=== PATIENT | male | born 1950 | race Caucasian/White ===

== ENCOUNTER 2019-12-27 13:07 | Emergency (ER) | payer MEDICARE, OTHER, SELFPAY ==
[2019-12-27 13:11] VITALS: BP 132/84; BP 153/80; PULSE 80; PULSE 98; RESP 20; TEMP 36.7; O2SAT 96; O2SAT 98; BMI 27.1
[2019-12-27 13:16] VITALS: O2SAT 98
[2019-12-27] MEDS: Haloperidol Lactate 5 MG/ML VIAL IM (14:33)
[2019-12-27] MEDS: LORazepam 2 MG/ML VIAL IM (14:33)
[2019-12-27 14:38] VITALS: BP 182/95; PULSE 94; RESP 20; O2SAT 98
[2019-12-27 15:09] LABS: MANUAL DIFF FLAG NO
[2019-12-27 15:10] LABS: Basophils Absolute Auto 0.1 X10*3/uL (0.0-0.2); Basophils Percent Auto 0.6 % (0-2); Eosinophils Absolute Auto 0.1 X10*3/uL (0.0-0.4); Eosinophils Percent Auto 0.8 % (0-4); Hematocrit 37.6 % (42-52); Hemoglobin 12.3 g/dl (14.0-18.0); Imm Gran Abs Auto 0.02 X10*3/uL (0.00-0.03); Imm Gran Pct Auto 0.3 % (0.0-0.4); Lymphocytes Absolute Auto 1.8 X10*3/uL (1.2-4.9); Lymphocytes Percent Auto 23.4 % (20-40); Mean Corpuscular HGB Conc 32.7 g/dl (31.0-36.0); Mean Corpuscular Volume 91.7 fL (80-98); Mean Platelet Volume 10.8 fL (9.4-12.4); Monocytes Absolute Auto 0.6 X10*3/uL (0.1-1.2); Monocytes Percent Auto 8.1 % (2-11); Neutrophils Absolute Auto 5.2 X10*3/uL (2.0-8.3); Neutrophils Percent Auto 66.8 % (45-73); Platelet Count 190 X10*3/uL (160-400); Red Cell Distribution Width 14.1 % (11.0-16.0); White Blood Count 7.8 X10*3/uL (4.8-10.8)
[2019-12-27 15:18] LABS: Prothrombin Time 11.3 SEC (10.8-13.0)
[2019-12-27 15:21] LABS: Partial Thromboplastin Time 33.4 SEC (24.1-38.0)
--- NOTE | 2019-12-27 15:37 | PC.NURSE ---
PT SLEEPING SINCE MEDICATED.
[2019-12-27 15:41] LABS: Alanine Aminotransferase 7 U/L (0-40); Albumin Level 3.5 g/dL (3.5-5.0); Alkaline Phosphatase 122 U/L (39-117); Anion Gap 13 (12-20); Aspartate Amino Transferase 17 U/L (5-37); Bilirubin Direct 0.2 mg/dL (0.0-0.5); Bilirubin Total 0.4 mg/dL (0.0-1.0); Blood Urea Nitrogen 47 mg/dL (9-16); Calcium 8.6 mg/dL (8.4-10.2); Carbon Dioxide 23 mmol/L (22-29); Chloride 106 mmol/L (96-108); Creatinine Clr Calc Pharmacy 27.9; Estimated Glomerular Filt Rate 24; Glucose Random 232 mg/dL (60-115); Lipase 69 U/L (8-78); Potassium 4.6 mmol/l (3.3-5.1); Sodium 137 mmol/L (135-145); Total Protein 6.3 g/dL (6.5-8.0)
[2019-12-27 15:46] LABS: Glucose Urine UA >=1000 MG/DL (NEG); Leukocyte Esterase Urine NEG (NEG); Nitrite Urine NEG (NEG); Urine Blood NEG (NEG); Urine Ketones NEG (NEG); Urine Protein 1+ MG/DL (NEG-TRACE)
[2019-12-27 15:49] LABS: Appearance Urine CLEAR; Color Urine YELLOW
[2019-12-27 16:01] LABS: RBC Urine 0-2 /HPF (0); WBC Urine 0 /HPF (0-4)
--- NOTE | 2019-12-27 16:41 | ED.NAVMDI ---
HPI - Nausea/Vomiting/Diarrhea General Chief complaint: Nausea/Vomiting/Diarrhea Stated complaint: nausea/vomiting Time Seen by Provider: 12/27/19 14:24 History of Present Illness HPI Narrative: patient presents to ED for abdominal pain, nausea, vomiting, diarrhea. Patient has had this problem for years. Patient is known to the ED with this complaint. Patient states no fever, chills, dysuria, or hematuria. Patient states slight diarrhea that resolved. . MD elicited complaint: nausea, vomiting, diarrhea ( Gone) and abdominal pain ( chronic) Related Data Allergies Allergy/AdvReac Type Severity Reaction Status Date / Time morphine Allergy Intermediate RASH Unverified 12/03/19 15:53 Review of Systems Review of Systems: Yes all other systems are reviewed and are negative Eyes: Eyes: Reports as per HPI Cardiovascular: Cardiovascular: Reports as per HPI and Reports no additional cardiovascular complaints Respiratory: Respiratory: Reports as per HPI and Reports no additional respiratory complaints Gastrointestinal: Gastrointestinal: Reports abdominal pain, Denies belching, Denies melena, Denies bloating, Denies change in bowel habits, Denies tenesmus, Denies change in stool character, Denies coffee ground emesis, Denies constipation, Denies excessive flatus and Denies early satiety Musculoskeletal: Musculoskeletal: Reports no additional musculoskeletal complaints Neurologic: Reports system reviewed and no additional complaints, except as documented Psychiatric: Psychiatric: Reports no additional psychiatric complaints [facility] Past Medical History Medical History (Updated 12/27/19 @ 17:24 by UGO Petit) Diabetes HTN (hypertension) Kidney failure Social History Social History Smoked in Last 30 Days: No Use of substances other than those prescribed or required for medical reasons: No Advance Directives: No Advance Directives Information Provided: Yes Physical Exam Vital Signs: Vital Signs: Vital Signs Temp Pulse Resp BP Pulse Ox 12/27/19 14:38 94 20 182/95 H 98 12/27/19 13:16 98 12/27/19 13:11 98.0 F 80 20 153/80 H 98 Body Mass Index 27.1 Const: General: cooperative, healthy appearing, comfortable and no acute distress Orientation/consciousness: patient oriented x3 Eyes: General: appearance normal, both eyes and all related structures Neck: Neck: Yes normal visual inspection and Yes full ROM Chest: Chest palpation & inspection: normal inspection of the chest and normal palpation of entire chest wall Resp: Effort & Inspection: normal respiratory effort, able to speak in complete sentences, normal respiratory pattern, no audible wheezes, no cough, no nasal flaring, no paradoxical thoraco-abdom movements, no pursed lip breathing and no respiratory distress Auscultation: clear to auscultation bilaterally Cardio: Jugular venous distension: no JVD Rhythm: regular rhythm Heart sounds: S1 normal heart sound present and S2 normal heart sound present GI: Palpation (GI): Tenderness to palpation present (GI) ( mild tenderness) not in the epigastrum, not at McBurney's point, not periumbilically, not suprapubicly, Kim's sign negative, obturator sign negative, psoas sign negative, with no rebound tenderness and Rovsing's sign negative : General: No CVA tenderness and Yes no CVA tenderness Back/Spine/Pelvis: Back: no CVA tenderness, No CVA tenderness, No back tenderness and No Marquis-Rangel sign present Neuro: General: patient oriented x3 Extrem: General: Yes normal to inspection Psych: Appearance: grossly normal and well kempt Course Course Course Narrative: will do basic labs. Patient once again presents to the ED to many times with similiar symptoms. Patient requested Ativan and Haldol to be given to him. Patient states these are only 2 meds that help with abdominal pain. Patient multiple prior visit showed that he received abdomen van and now dull during ED visits. Reevaluation(s) Reevaluation #1: patient sleeping comfortably. Labs are at baseline. Patient is safe for discharge. Would not discharged with any narcotics. UA does not show UTI. patient's repeat blood pressure before discharge was 171/92 Time: 17:20 MDM - Nausea/Vomiting/Diarrhea MDM Narrative Medical decision making narrative: chronic abdominal pain with chronic nausea vomiting. Lab Data Result diagrams: 12/27/19 15:04 12/27/19 15:04 Labs: Lab Results 12/27/19 12/27/19 12/27/19 Range/Units 15:04 15:04 15:04 WBC 7.8 (4.8-10.8) X10*3/uL RBC 4.10 L (4.60-5.80) X10*6/uL Hgb 12.3 L (14.0-18.0) g/dl Hct 37.6 L (42-52) % MCV 91.7 (80-98) fL MCH 30.0 (27.0-33.0) pg MCHC 32.7 (31.0-36.0) g/dl RDW 14.1 (11.0-16.0) % Plt Count 190 (160-400) X10*3/uL MPV 10.8 (9.4-12.4) fL Immature Gran % (Auto) 0.3 (0.0-0.4) % Neut % (Auto) 66.8 (45-73) % Lymph % (Auto) 23.4 (20-40) % [place] % (Auto) 8.1 (2-11) % Eos % (Auto) 0.8 (0-4) % Baso % (Auto) 0.6 (0-2) % Lymph # (Auto) 1.8 (1.2-4.9) X10*3/uL [place] # (Auto) 0.6 (0.1-1.2) X10*3/uL Eos # (Auto) 0.1 (0.0-0.4) X10*3/uL Baso # (Auto) 0.1 (0.0-0.2) X10*3/uL Abs Immat Gran (auto) 0.02 (0.00-0.03) X10*3/uL Absolute Neuts (auto) 5.2 (2.0-8.3) X10*3/uL Absolute Nucleated RBC 0.000 (0.0-0.012) X10*3/uL Nucleated RBC % (auto) 0.0 (0.0-0.2) /100WBC PT 11.3 (10.8-13.0) SEC INR 1.0 (0.9-1.1) APTT 33.4 (24.1-38.0) SEC Sodium 137 (135-145) mmol/L Potassium 4.6 (3.3-5.1) mmol/l Chloride 106 (96-108) mmol/L Carbon Dioxide 23 (22-29) mmol/L Anion Gap 13 (12-20) BUN 47 H (9-16) mg/dL Creatinine 2.62 H (0.5-1.4) mg/dL Estim Creat Clear Calc 27.9 Estimated GFR 24 Random Glucose 232 H (60-115) mg/dL Calcium 8.6 (8.4-10.2) mg/dL Total Bilirubin 0.4 (0.0-1.0) mg/dL Direct Bilirubin 0.2 (0.0-0.5) mg/dL AST 17 (5-37) U/L ALT 7 (0-40) U/L Alkaline Phosphatase 122 H (39-117) U/L Total Protein 6.3 L (6.5-8.0) g/dL Albumin 3.5 (3.5-5.0) g/dL Lipase 69 (8-78) U/L Urine Color Urine Appearance Urine pH (5.0-8.0) Ur Specific [place] (1.005-1.025) Urine Protein (NEG-TRACE) MG/DL Urine Glucose (UA) (NEG) MG/DL Urine Ketones (NEG) MG/DL Urine Blood (NEG) Urine Nitrite (NEG) Ur Leukocyte Esterase (NEG) Urine RBC (0) /HPF Urine WBC (0-4) /HPF Ur Squamous Epith Cells /LPF Urine Bacteria /LPF 12/27/19 Range/Units 15:38 WBC (4.8-10.8) X10*3/uL RBC (4.60-5.80) X10*6/uL Hgb (14.0-18.0) g/dl Hct (42-52) % MCV (80-98) fL MCH (27.0-33.0) pg MCHC (31.0-36.0) g/dl RDW (11.0-16.0) % Plt Count (160-400) X10*3/uL MPV (9.4-12.4) fL Immature Gran % (Auto) (0.0-0.4) % Neut % (Auto) (45-73) % Lymph % (Auto) (20-40) % [place] % (Auto) (2-11) % Eos % (Auto) (0-4) % Baso % (Auto) (0-2) % Lymph # (Auto) (1.2-4.9) X10*3/uL [place] # (Auto) (0.1-1.2) X10*3/uL Eos # (Auto) (0.0-0.4) X10*3/uL Baso # (Auto) (0.0-0.2) X10*3/uL Abs Immat Gran (auto) (0.00-0.03) X10*3/uL Absolute Neuts (auto) (2.0-8.3) X10*3/uL Absolute Nucleated RBC (0.0-0.012) X10*3/uL Nucleated RBC % (auto) (0.0-0.2) /100WBC PT (10.8-13.0) SEC INR (0.9-1.1) APTT (24.1-38.0) SEC Sodium (135-145) mmol/L Potassium (3.3-5.1) mmol/l Chloride (96-108) mmol/L Carbon Dioxide (22-29) mmol/L Anion Gap (12-20) BUN (9-16) mg/dL Creatinine (0.5-1.4) mg/dL Estim Creat Clear Calc Estimated GFR Random Glucose (60-115) mg/dL Calcium (8.4-10.2) mg/dL Total Bilirubin (0.0-1.0) mg/dL Direct Bilirubin (0.0-0.5) mg/dL AST (5-37) U/L ALT (0-40) U/L Alkaline Phosphatase (39-117) U/L Total Protein (6.5-8.0) g/dL Albumin (3.5-5.0) g/dL Lipase (8-78) U/L Urine Color YELLOW Urine Appearance CLEAR Urine pH 7.0 (5.0-8.0) Ur Specific [place] 1.010 (1.005-1.025) Urine Protein 1+ H (NEG-TRACE) MG/DL Urine Glucose (UA) >=1000 H (NEG) MG/DL Urine Ketones NEG (NEG) MG/DL Urine Blood NEG (NEG) Urine Nitrite NEG (NEG) Ur Leukocyte Esterase NEG (NEG) Urine RBC 0-2 (0) /HPF Urine WBC 0 (0-4) /HPF Ur Squamous Epith Cells NONE /LPF Urine Bacteria NONE /LPF Discharge Plan Discharge Clinical Impression: Abdominal pain, chronic, generalized Patient Disposition: Home, Self-Care Instructions: Chronic Abdominal Pain (ED) Additional Instructions: return to ED for worsening abdominal pain, nausea, vomiting, dizziness, dysuria, hematuria, flank pain, fever, or chills. Please follow-up with your PCP. Please call him tomorrow Interventions: ED Discharge Assessment Last Done: 12/27/19 17:49 Discharge Date/Time: 12/27/19 17:49 Print Language: Kinyarwanda
--- NOTE | 2019-12-27 16:46 | PC.NURSE ---
pt sleeping after medicated. no longer making noises, no vomiting.
== END 2019-12-27 17:49 | disposition home or self-care (01) ==
PROVIDERS: Physician Assistant; Emergency Provider Emergency Medicine
DX: R10.84 Generalized abdominal pain (principal); G89.29 Other chronic pain; E11.9 Type 2 diabetes mellitus without complications; I10 Essential (primary) hypertension; Z79.899 Other long term (current) drug therapy
CPT/HCPCS: 36415; 80053; 80076; 81001; 83690; 85025; 85610; 85730; 96372; 99284; J2060

== ENCOUNTER 2019-12-29 00:57 | Emergency (ER) | payer MEDICARE, OTHER, SELFPAY ==
[2019-12-29 01:20] VITALS: BP 130/88; PULSE 89; RESP 18; TEMP 37.4; O2SAT 99; BMI 27.1
[2019-12-29 01:31] VITALS: BP 130/88; PULSE 89; RESP 18; TEMP 37.4; O2SAT 99
[2019-12-29 02:21] VITALS: BP 138/87; PULSE 99; RESP 18; O2SAT 99
[2019-12-29] MEDS: Haloperidol Lactate 5 MG/ML VIAL IM (02:25)
[2019-12-29] MEDS: diphenhydrAMINE HCL 50 MG/ML VIAL 25 MG IM (02:25)
--- NOTE | 2019-12-29 03:33 | ED.ABDPAIN ---
HPI - Abdominal Pain General Chief Complaint: Abdominal Pain Stated Complaint: abd pain Time Seen by Provider: 12/29/19 02:00 Source: patient Mode of arrival: EMS Limitations: no limitations History of Present Illness HPI narrative: patient comes to emergency room complaining of diffuse abdominal pain and vomiting secondary to diabetic gastroparesis. Patient is well-known to the emergency room service, patient was seen here 2 days ago for the same reason, patient had labs done which were at baseline. MD elicited complaint: abdominal pain Onset (ago): hour(s) Pain Consistency: constant Location: diffuse Severity: moderate Radiation: none Migration to: no migration Exacerbating factors: nothing Relieving factors: nothing Related Data Home Medications Medication Instructions Recorded Confirmed lorazepam 1 mg PO Q6H PRN 12/29/19 12/29/19 promethazine 25 mg PO Q6H PRN 12/29/19 12/29/19 Previous Rx's Medication Instructions Recorded metoclopramide HCl 10 mg PO Q6H PRN #10 tab 12/29/19 Allergies Allergy/AdvReac Type Severity Reaction Status Date / Time morphine Allergy Intermediate RASH Verified 12/29/19 01:41 Review of Systems Review of Systems Constitutional: No Weight loss, No Fever, No Chills, No Night Sweats, No Fatigue, No Malaise ENT/Mouth: No Hearing loss, No Ear Pain, No Nasal Congestion, No Sinus Pain, No Hoarseness, No sore throat, No Rhinorrhea, No Swallowing Difficulty Eyes: No Eye Pain, No Swelling, No Redness, No Foreign Body, No Discharge, No Vision Changes Cardiovascular: No Chest Pain, No SOB, No Dyspnea on Exertion, No Orthopnea, No Edema, No Palpitations Respiratory: No Cough, No Sputum, No Wheezing, No Smoke Exposure, No Dyspnea Gastrointestinal: complaining of nausea and vomiting, No Diarrhea, No Constipation, has diffuse abdominal pain Pain, No Hematochezia, No Melena Genitourinary: no irregular bleeding, No Dysuria, No Urinary Frequency, No Hematuria, No Urinary Incontinence, No Urgency, No Flank Pain, No Urinary Flow Changes, No Hesitancy Musculoskeletal: No joint pain, No Myalgias, No Joint Swelling Skin: No Skin Lesions, No rash Neuro: No Weakness, No Numbness, No Paresthesias, No Loss of Consciousness, No Dizziness, No Headache Psych: No Anxiety/Panic, No Depression, No SI/HI/AH/VH, No Social Issues, Heme/Lymph: No Bruising, No Bleeding,No Lymphadenopathy Endocrine: No Polyuria, No Polydipsia, No Temperature Intolerance Physical Exam Vital Signs: Vital Signs: Vital Signs Temp Pulse Resp BP Pulse Ox 12/29/19 02:21 99 18 138/87 99 12/29/19 01:31 99.3 F 89 18 130/88 99 12/29/19 01:20 99.3 F 89 18 130/88 99 Body Mass Index 27.1 Appearance: Alert. Oriented X3. No acute distress. Eyes: Pupils equal, round and reactive to light. ENT: Pharynx normal. Neck: Normal inspection. Neck supple. No lymph nodes noted. No crepitus CVS: Normal heart rate and rhythm. Pulses normal. Normal S1 and S2 Respiratory: No respiratory distress. Breath sounds normal. No Wheezing. No rales Abdomen: Soft and mild tenderness in all quadrants. No rigidity. No distention. good BS x4 Skin: Skin warm and dry. Normal skin color. Normal skin turgor. Extremities: No lower extremity edema. No lower extremity edema. No Lacerations. No Rash Neuro: Oriented X 3. No motor deficit. No sensory deficit. Moving all extermities. No slurred speech. Course Reevaluation(s) Reevaluation #1: patient states that he feels much better now MDM - Abdominal Pain MDM Narrative Medical decision making narrative: patient was given IM Haldol, Benadryl and p.o. Zofran, patient states that he feels much better now. Patient ready for discharge. Discharge Plan Discharge Clinical Impression: Gastroparesis Abdominal pain Qualifiers: Abdominal location: generalized Qualified Code(s): R10.84 - Generalized abdominal pain Vomiting Qualifiers: Vomiting type: unspecified Vomiting Intractability: unspecified Nausea presence: with nausea Qualified Code(s): R11.2 - Nausea with vomiting, unspecified Patient Disposition: Home, Self-Care Instructions: Diabetic Gastroparesis (DC), Acute Nausea and Vomiting (ED) Additional Instructions: If you have any worsening symptoms, any new symptoms, please return to the emergency room or call 911 Prescriptions: New metoclopramide HCl 10 mg tablet 10 mg PO Q6H PRN (Reason: nausea and vomiting) Qty: 10 RF: 0 No Action promethazine 25 mg tablet 25 mg PO Q6H PRN (Reason: nausea/vomiting) RF: 0 lorazepam 1 mg tablet 1 mg PO Q6H PRN (Reason: anxiety) RF: 0 PMFSH Past Medical History Medical History (Updated 12/29/19 @ 03:38 by Jesika Kerr MD) Diabetes Gastroparesis HTN (hypertension) Kidney failure Social History Social History Alcohol intake: never Smoking Status: Unknown if ever smoked Use of substances other than those prescribed or required for medical reasons: No Advance Directives: No
== END 2019-12-29 03:52 | disposition home or self-care (01) ==
PROVIDERS: Emergency Provider Emergency Medicine
DX: E11.43 Type 2 diabetes mellitus with diabetic autonomic (poly)neuropathy (principal); K31.84 Gastroparesis; I10 Essential (primary) hypertension; Z79.899 Other long term (current) drug therapy
CPT/HCPCS: 96372; 99284; J1200

== ENCOUNTER 2020-01-08 17:53 | Emergency (ER) | payer MEDICARE, OTHER, SELFPAY ==
--- NOTE | 2020-01-08 17:56 | ED.NAVMDI ---
HPI - Nausea/Vomiting/Diarrhea General Chief complaint: Abdominal Pain Stated complaint: VOMITING Time Seen by Provider: 01/08/20 17:56 Source: patient, EMS and old records reviewed Mode of arrival: EMS Limitations: no limitations History of Present Illness MD elicited complaint: nausea and abdominal pain Pertinent past history: other (gastroparesis) Onset (ago): day(s) (all day today) Associated nausea: Yes Associated abdominal pain: Yes Location of pain: epigastric Pain consistency: constant Severity: similar to previous episodes (it's one of my attacks) Quality: stabbing Exacerbating factors: none Relieving factors: none Associated symptoms: nausea/vomiting Related Data Home Medications Medication Instructions Recorded Confirmed lorazepam 1 mg PO Q6H PRN 12/29/19 12/29/19 promethazine 25 mg PO Q6H PRN 12/29/19 12/29/19 Previous Rx's Medication Instructions Recorded metoclopramide HCl 10 mg PO Q6H PRN #10 tab 12/29/19 Allergies Allergy/AdvReac Type Severity Reaction Status Date / Time morphine Allergy Intermediate RASH Verified 12/29/19 01:41 Review of Systems Review of Systems: Constitutional : No Weight loss, No Fever, No Chills ENT/Mouth : No sore throat, No Rhinorrhea Eyes: No Swelling, No Redness Cardiovascular : No Chest Pain, No SOB, NoEdema Respiratory : No Cough, No Sputum, No Wheezing Gastrointestinal : Positive Nausea, no Vomiting, no Diarrhea, positive abdominal Pain, No Hematochezia, No Melena Genitourinary : No Dysuria, No Urinary Frequency, No Hematuria, No Urgency Musculoskeletal : No joint pain, No Myalgias, No Joint Swelling Skin : No Skin Lesions, No rash Neuro : No Weakness, No Numbness, No Dizziness, No Headache Psych : No Anxiety/Panic, No Depression Heme/Lymph: No Bruising, No Lymphadenopathy Endocrine : No Polyuria, No Polydipsia All other systems reviewed and are negative. Gastrointestinal: Gastrointestinal: Reports nausea PMFSH Past Medical History Medical History Diabetes Gastroparesis HTN (hypertension) Kidney failure Social History Social History Alcohol intake: never Smoking Status: Unknown if ever smoked Smoked in Last 30 Days: No Use of substances other than those prescribed or required for medical reasons: No Advance Directives: No Advance Directives Information Provided: No Physical Exam Vital Signs: Vital Signs: Vital Signs Temp Pulse Resp BP Pulse Ox 01/08/20 18:01 98.6 F 82 18 174/77 H 98 Body Mass Index 27.6 Appearance: Alert. Oriented X3. No acute distress. wowowow Eyes: Pupils equal, round and reactive to light. ENT: Pharynx normal. Neck: Normal inspection. Neck supple. CVS: Normal heart rate and rhythm. Pulses normal. Respiratory: No respiratory distress. Breath sounds normal. Abdomen: Soft and ttp moderate no rebound or guarding in epigastric area Skin: Skin warm and dry. Normal skin color. Normal skin turgor. Extremities: No lower extremity edema. No calf ttp Neuro: Oriented X 3. No motor deficit. No sensory deficit. Course Course Course Narrative: no issues resting comfortably labs at baseline, stable for DC MDM - Nausea/Vomiting/Diarrhea MDM Narrative Medical decision making narrative: 69 yo male well known to ED with gastroparesis who comes in with attack of his gastroparesis, overall he is not toxic, he hasn't vomited just c/o pain and nausea, at this time will obtain basic labs and IM medications Lab Data Result diagrams: 01/08/20 19:20 01/08/20 19:20 Labs: Lab Results 01/08/20 01/08/20 01/08/20 Range/Units 19:20 19:20 19:20 WBC 6.3 (4.8-10.8) X10*3/uL RBC 4.21 L (4.60-5.80) X10*6/uL Hgb 12.5 L (14.0-18.0) g/dl Hct 38.0 L (42-52) % MCV 90.3 (80-98) fL MCH 29.7 (27.0-33.0) pg MCHC 32.9 (31.0-36.0) g/dl RDW 14.1 (11.0-16.0) % Plt Count 157 L (160-400) X10*3/uL MPV 10.4 (9.4-12.4) fL Immature Gran % (Auto) 0.2 (0.0-0.4) % Neut % (Auto) 51.6 (45-73) % Lymph % (Auto) 35.0 (20-40) % [place] % (Auto) 9.6 (2-11) % Eos % (Auto) 2.6 (0-4) % Baso % (Auto) 1.0 (0-2) % Lymph # (Auto) 2.2 (1.2-4.9) X10*3/uL [place] # (Auto) 0.6 (0.1-1.2) X10*3/uL Eos # (Auto) 0.2 (0.0-0.4) X10*3/uL Baso # (Auto) 0.1 (0.0-0.2) X10*3/uL Abs Immat Gran (auto) 0.01 (0.00-0.03) X10*3/uL Absolute Neuts (auto) 3.2 (2.0-8.3) X10*3/uL Absolute Nucleated RBC 0.000 (0.0-0.012) X10*3/uL Nucleated RBC % (auto) 0.0 (0.0-0.2) /100WBC Hold Blue Top SEE NOTE Sodium 137 (135-145) mmol/L Potassium 4.8 (3.3-5.1) mmol/l Chloride 108 (96-108) mmol/L Carbon Dioxide 19 L (22-29) mmol/L Anion Gap 15 (12-20) BUN 58 H (9-16) mg/dL Creatinine 2.72 H (0.5-1.4) mg/dL Estim Creat Clear Calc 26.9 Estimated GFR 23 Random Glucose 174 H (60-115) mg/dL Calcium 8.2 L (8.4-10.2) mg/dL Total Bilirubin (0.0-1.0) mg/dL Direct Bilirubin (0.0-0.5) mg/dL AST (5-37) U/L ALT (0-40) U/L Alkaline Phosphatase (39-117) U/L Total Protein (6.5-8.0) g/dL Albumin (3.5-5.0) g/dL Lipase (8-78) U/L 10/23/20 Range/Units 19:20 WBC (4.8-10.8) X10*3/uL RBC (4.60-5.80) X10*6/uL Hgb (14.0-18.0) g/dl Hct (42-52) % MCV (80-98) fL MCH (27.0-33.0) pg MCHC (31.0-36.0) g/dl RDW (11.0-16.0) % Plt Count (160-400) X10*3/uL MPV (9.4-12.4) fL Immature Gran % (Auto) (0.0-0.4) % Neut % (Auto) (45-73) % Lymph % (Auto) (20-40) % [place] % (Auto) (2-11) % Eos % (Auto) (0-4) % Baso % (Auto) (0-2) % Lymph # (Auto) (1.2-4.9) X10*3/uL [place] # (Auto) (0.1-1.2) X10*3/uL Eos # (Auto) (0.0-0.4) X10*3/uL Baso # (Auto) (0.0-0.2) X10*3/uL Abs Immat Gran (auto) (0.00-0.03) X10*3/uL Absolute Neuts (auto) (2.0-8.3) X10*3/uL Absolute Nucleated RBC (0.0-0.012) X10*3/uL Nucleated RBC % (auto) (0.0-0.2) /100WBC Hold Blue Top Sodium (135-145) mmol/L Potassium (3.3-5.1) mmol/l Chloride (96-108) mmol/L Carbon Dioxide (22-29) mmol/L Anion Gap (12-20) BUN (9-16) mg/dL Creatinine (0.5-1.4) mg/dL Estim Creat Clear Calc Estimated GFR Random Glucose (60-115) mg/dL Calcium (8.4-10.2) mg/dL Total Bilirubin 0.4 (0.0-1.0) mg/dL Direct Bilirubin 0.2 (0.0-0.5) mg/dL AST 16 (5-37) U/L ALT 6 (0-40) U/L Alkaline Phosphatase 151 H D (39-117) U/L Total Protein 6.5 (6.5-8.0) g/dL Albumin 3.7 (3.5-5.0) g/dL Lipase 57 (8-78) U/L Discharge Plan Discharge Clinical Impression: Gastroparesis Patient Disposition: Home, Self-Care Instructions: Diabetic Gastroparesis (DC), Gastroparesis (ED) Additional Instructions: follow up with your doctor if not better Prescriptions: No Action promethazine 25 mg tablet 25 mg PO Q6H PRN (Reason: nausea/vomiting) RF: 0 lorazepam 1 mg tablet 1 mg PO Q6H PRN (Reason: anxiety) RF: 0 metoclopramide HCl 10 mg tablet 10 mg PO Q6H PRN (Reason: nausea and vomiting) Qty: 10 RF: 0
[2020-01-08 18:01] VITALS: BP 174/77; PULSE 82; RESP 18; TEMP 37; O2SAT 98; BMI 27.6
[2020-01-08] MEDS: HYDROmorphone HCl 2 MG/ML VIAL IM (18:30)
--- NOTE | 2020-01-08 18:50 | PC.NURSE ---
pt given im medication prior to this rn arriving. pt sleeping quietly on stretcher. nad noted.
--- NOTE | 2020-01-08 19:26 | PC.NURSE ---
labs drawn at this time. pt in nad. pending labs before d.c
[2020-01-08 19:28] LABS: MANUAL DIFF FLAG NO
[2020-01-08 19:33] LABS: Basophils Absolute Auto 0.1 X10*3/uL (0.0-0.2); Eosinophils Absolute Auto 0.2 X10*3/uL (0.0-0.4); Eosinophils Percent Auto 2.6 % (0-4); Hemoglobin 12.5 g/dl (14.0-18.0); Imm Gran Abs Auto 0.01 X10*3/uL (0.00-0.03); Imm Gran Pct Auto 0.2 % (0.0-0.4); Lymphocytes Absolute Auto 2.2 X10*3/uL (1.2-4.9); Mean Corpuscular HGB Conc 32.9 g/dl (31.0-36.0); Mean Corpuscular Hemoglobin 29.7 pg (27.0-33.0); Mean Corpuscular Volume 90.3 fL (80-98); Mean Platelet Volume 10.4 fL (9.4-12.4); Monocytes Absolute Auto 0.6 X10*3/uL (0.1-1.2); Monocytes Percent Auto 9.6 % (2-11); Neutrophils Absolute Auto 3.2 X10*3/uL (2.0-8.3); Neutrophils Percent Auto 51.6 % (45-73); Platelet Count 157 X10*3/uL (160-400); Red Blood Count 4.21 X10*6/uL (4.60-5.80); Red Cell Distribution Width 14.1 % (11.0-16.0); White Blood Count 6.3 X10*3/uL (4.8-10.8)
[2020-01-08 20:07] LABS: Anion Gap 15 (12-20); Blood Urea Nitrogen 58 mg/dL (9-16); Calcium 8.2 mg/dL (8.4-10.2); Carbon Dioxide 19 mmol/L (22-29); Chloride 108 mmol/L (96-108); Creatinine Clr Calc Pharmacy 26.9; Estimated Glomerular Filt Rate 23; Glucose Random 174 mg/dL (60-115); Potassium 4.8 mmol/l (3.3-5.1); Sodium 137 mmol/L (135-145)
[2020-01-08 20:09] LABS: Alanine Aminotransferase 6 U/L (0-40); Albumin Level 3.7 g/dL (3.5-5.0); Alkaline Phosphatase 151 U/L (39-117); Aspartate Amino Transferase 16 U/L (5-37); Bilirubin Direct 0.2 mg/dL (0.0-0.5); Bilirubin Total 0.4 mg/dL (0.0-1.0); Lipase 57 U/L (8-78); Total Protein 6.5 g/dL (6.5-8.0)
--- NOTE | 2020-01-08 20:16 | PC.NURSE ---
attempted to call for cloth picker, no answer. voicemail left
--- NOTE | 2020-01-08 20:53 | PC.NURSE ---
ATTEMPTED TO CALL PTS AGAIN REFUSING TO ANSWER. [facility] WILL NOT TAKE PATIENT HOME
--- NOTE | 2020-01-08 21:14 | PC.NURSE ---
plan to attempt to get ambulance for patient. [facility] has refused patient in past.
[2020-01-08 22:07] VITALS: BP 166/76; PULSE 89; RESP 18; TEMP 36.8; O2SAT 99
== END 2020-01-08 22:15 | disposition home or self-care (01) ==
LOC: HO.ED 18:27
PROVIDERS: Emergency Provider Emergency Medicine
DX: E11.43 Type 2 diabetes mellitus with diabetic autonomic (poly)neuropathy (principal); I12.9 Hypertensive chronic kidney disease with stage 1 through stage 4 chronic kidney disease, or unspecified chronic kidney disease; N18.9 Chronic kidney disease, unspecified; Z79.899 Other long term (current) drug therapy
CPT/HCPCS: 36415; 80048; 80076; 83690; 85025; 96372; 99284; J1170

== ENCOUNTER 2020-01-17 15:06 | Emergency (ER) | payer MEDICARE, OTHER, SELFPAY ==
[2020-01-17 15:11] VITALS: BP 149/71; BP 149/94; PULSE 87; PULSE 89; RESP 20; TEMP 36.7; O2SAT 97; BMI 27.1
[2020-01-17 15:20] LABS: Glucose, Whole Blood 185 mg/dL (60-115)
[2020-01-17] MEDS: ondansetron HCL 4 MG/2 ML VIAL IVPUSH (15:53)
[2020-01-17] MEDS: 0.9 % Sodium Chloride 1,000 ML 999 ML IVCONT (15:53)
[2020-01-17] MEDS: LORazepam 2 MG/ML VIAL 1 MG IVPUSH ×2 (15:54→18:00)
--- NOTE | 2020-01-17 16:34 | ED.NAVMDI ---
HPI - Nausea/Vomiting/Diarrhea General Chief complaint: Nausea/Vomiting/Diarrhea Stated complaint: N/V Time Seen by Provider: 01/17/20 15:43 Source: patient and EMS Mode of arrival: EMS Limitations: no limitations History of Present Illness HPI Narrative: 69yoM c PMHx of diabetic gastroparesis, gastritis, GERD, CAD, AK, HTN, HLD, DM, AK, stage IV kidney disease and anemia who is well known to this department presenting to the ED c c/o N/V and diffuse abd pain that started today. Patient reports this abdominal pain is his chronic abdominal pain is not worse. Denies recent travel or sick contacts. Denies any other symptoms complaints or concerns at this time. Related Data Home Medications Medication Instructions Recorded Confirmed lorazepam 1 mg PO Q6H PRN 12/29/19 12/29/19 promethazine 25 mg PO Q6H PRN 12/29/19 12/29/19 Previous Rx's Medication Instructions Recorded metoclopramide HCl 10 mg PO Q6H PRN #10 tab 12/29/19 lorazepam [Ativan] 1 mg PO BID PRN #7 tab 01/17/20 ondansetron HCl [Zofran] 4 mg PO Q8H PRN #10 tab 01/17/20 Allergies Allergy/AdvReac Type Severity Reaction Status Date / Time morphine Allergy Intermediate RASH Verified 12/29/19 01:41 Review of Systems Review of Systems: Constitutional : No Weight loss, No Fever, No Chills, No Fatigue, No Malaise ENT/Mouth: No ear pain, No sore throat Cardiovascular : No Chest Pain, No SOB Respiratory : No Cough, No Sputum Gastrointestinal : + Nausea, + Vomiting, + abdominal Pain, No Diarrhea Genitourinary : No Dysuria, No Urinary Frequency, No Hematuria, Musculoskeletal : No joint pain, No Myalgias, No Joint Swelling Skin : No Skin Lesions, No rash Neuro : No Weakness, No Numbness, No Paresthesias, No Loss of Consciousness, No Dizziness, No Headache Psych : No Social Issues, Heme/Lymph: No Lymphadenopathy Yes all other systems are reviewed and are negative [facility] Past Medical History Attestation statement: The following information was validated with the patient. Medical History Diabetes Gastroparesis HTN (hypertension) Kidney failure Social History Social History Alcohol intake: never Smoking Status: Unknown if ever smoked Smoked in Last 30 Days: No Use of substances other than those prescribed or required for medical reasons: No Advance Directives: No Advance Directives Information Provided: No Physical Exam Vital Signs: Vital Signs: Vital Signs Temp Pulse Resp BP Pulse Ox 01/17/20 17:26 97 18 154/92 H 01/17/20 15:11 98.1 F 87 20 149/71 H 97 Body Mass Index 27.1 vital signs have been reviewed as normal and appeared to be correct. Blood pressure normal. Heart rate normal. Respiration rate normal. Temperature normal. Oxygen saturation normal. Appearance: Alert. Oriented X3. No acute distress. Head: Normal external exam. Normocephalic. Atraumatic. No [place] signs noted. No raccoon eyes noted Eyes: PERRLA. EOMI. Conjunctiva and sclera normal. Eyelids normal. ENT: EAC normal. TM's Normal. Pharynx normal. Uvula midline. Moist mucous membranes. No trismus noted. No drooling noted. No muffled voice noted. Neck: Normal inspection. Neck supple. FROM. No adenopathy. Thyroid Normal. No meningeal signs. No neck mass noted. CVS: Normal heart rate and rhythm. Heart sound normal. No murmurs noted. Pulses normal throughout. Respiratory: No respiratory distress. Painless inspiration. Breath sounds normal. No wheezes/rales/rhonchi noted. Chest nontender. No accessory muscle usage noted or decreased air movement noted. Abdomen: Soft and nontender. Bowel sounds normal in all 4 quadrants. No distention noted. No organomegaly noted. No visible injury noted. Back: No CVA tenderness. Full range of motion noted. Skin: Skin warm and dry. Normal skin color. Normal skin turgor. No rashes/lesions/lacerations noted. Extremities: No lower extremity edema. Extremities exhibit normal range of motion. Extremities nontender. Neuro: Oriented X 3. No motor deficit. No sensory deficit. Reflexes normal. Course Course Course Narrative: 16:20PM - 69yoM c PMHx of diabetic gastroparesis, gastritis, GERD, CAD, AK, HTN, HLD, DM, AK, stage IV kidney disease and anemia who is well known to this department presenting to the ED c c/o N/V and diffuse abd pain that started today. - Concern for Electrolyte abnormality vs cyclic vomiting. - Plan: Labs. Provide symptomatic tx c 1 mg of ativan and 4 mg of zofran then re-evaluate. Reevaluation(s) Reevaluation #1: Patient is resting in bed respirations even and unlabored in no apparent distress. Vital signs are within normal limits. Labs patient noted to have an elevated BUN and creatinine although similar and impaired when compared to prior. Patient has not had any vomiting while here in the ER. No indication for any imaging as patient reports this is his chronic abdominal pain. Will DC home with instructions to return if any new or worsening symptoms to follow-up with primary care provider. Patient understands agrees the plan. Time: 17:28 MDM - Nausea/Vomiting/Diarrhea Lab Data Result diagrams: 01/17/20 16:20 01/17/20 16:20 Labs: Lab Results 01/17/20 01/17/20 01/17/20 Range/Units 15:13 16:20 16:20 WBC 6.5 (4.8-10.8) X10*3/uL RBC 4.27 L (4.60-5.80) X10*6/uL Hgb 12.7 L (14.0-18.0) g/dl Hct 39.0 L (42-52) % MCV 91.3 (80-98) fL MCH 29.7 (27.0-33.0) pg MCHC 32.6 (31.0-36.0) g/dl RDW 14.1 (11.0-16.0) % Plt Count 208 D (160-400) X10*3/uL MPV 11.1 (9.4-12.4) fL Immature Gran % (Auto) 0.3 (0.0-0.4) % Neut % (Auto) 58.3 (45-73) % Lymph % (Auto) 27.8 (20-40) % [place] % (Auto) 9.6 (2-11) % Eos % (Auto) 3.1 (0-4) % Baso % (Auto) 0.9 (0-2) % Lymph # (Auto) 1.8 (1.2-4.9) X10*3/uL [place] # (Auto) 0.6 (0.1-1.2) X10*3/uL Eos # (Auto) 0.2 (0.0-0.4) X10*3/uL Baso # (Auto) 0.1 (0.0-0.2) X10*3/uL Abs Immat Gran (auto) 0.02 (0.00-0.03) X10*3/uL Absolute Neuts (auto) 3.8 (2.0-8.3) X10*3/uL Absolute Nucleated RBC 0.000 (0.0-0.012) X10*3/uL Nucleated RBC % (auto) 0.0 (0.0-0.2) /100WBC PT 11.1 (10.8-13.0) SEC INR 0.9 (0.9-1.1) Sodium (135-145) mmol/L Potassium (3.3-5.1) mmol/l Chloride (96-108) mmol/L Carbon Dioxide (22-29) mmol/L Anion Gap (12-20) BUN (9-16) mg/dL Creatinine (0.5-1.4) mg/dL Estim Creat Clear Calc Estimated GFR POC Glucose 185 H (60-115) mg/dL Random Glucose (60-115) mg/dL Calcium (8.4-10.2) mg/dL Magnesium (1.6-2.6) mg/dL Total Bilirubin (0.0-1.0) mg/dL Direct Bilirubin (0.0-0.5) mg/dL AST (5-37) U/L ALT (0-40) U/L Alkaline Phosphatase (39-117) U/L Total Protein (6.5-8.0) g/dL Albumin (3.5-5.0) g/dL 01/17/20 Range/Units 16:20 WBC (4.8-10.8) X10*3/uL RBC (4.60-5.80) X10*6/uL Hgb (14.0-18.0) g/dl Hct (42-52) % MCV (80-98) fL MCH (27.0-33.0) pg MCHC (31.0-36.0) g/dl RDW (11.0-16.0) % Plt Count (160-400) X10*3/uL MPV (9.4-12.4) fL Immature Gran % (Auto) (0.0-0.4) % Neut % (Auto) (45-73) % Lymph % (Auto) (20-40) % [place] % (Auto) (2-11) % Eos % (Auto) (0-4) % Baso % (Auto) (0-2) % Lymph # (Auto) (1.2-4.9) X10*3/uL [place] # (Auto) (0.1-1.2) X10*3/uL Eos # (Auto) (0.0-0.4) X10*3/uL Baso # (Auto) (0.0-0.2) X10*3/uL Abs Immat Gran (auto) (0.00-0.03) X10*3/uL Absolute Neuts (auto) (2.0-8.3) X10*3/uL Absolute Nucleated RBC (0.0-0.012) X10*3/uL Nucleated RBC % (auto) (0.0-0.2) /100WBC PT (10.8-13.0) SEC INR (0.9-1.1) Sodium 140 (135-145) mmol/L Potassium 4.8 (3.3-5.1) mmol/l Chloride 107 (96-108) mmol/L Carbon Dioxide 24 (22-29) mmol/L Anion Gap 14 (12-20) BUN 46 H (9-16) mg/dL Creatinine 2.78 H (0.5-1.4) mg/dL Estim Creat Clear Calc 26.3 Estimated GFR 23 POC Glucose (60-115) mg/dL Random Glucose 228 H (60-115) mg/dL Calcium 7.9 L (8.4-10.2) mg/dL Magnesium 1.9 (1.6-2.6) mg/dL Total Bilirubin < 0.2 (0.0-1.0) mg/dL Direct Bilirubin < 0.2 (0.0-0.5) mg/dL AST 15 (5-37) U/L ALT 7 (0-40) U/L Alkaline Phosphatase 128 H (39-117) U/L Total Protein 6.3 L (6.5-8.0) g/dL Albumin 3.5 (3.5-5.0) g/dL Discharge Plan Discharge Clinical Impression: Gastroparesis Renal failure, chronic Qualifiers: Chronic kidney disease stage: unspecified stage Qualified Code(s): N18.9 - Chronic kidney disease, unspecified Patient Disposition: Home, Self-Care Instructions: Diabetic Gastroparesis (DC), Gastroparesis (ED) Prescriptions: New lorazepam [Ativan] 1 mg tablet 1 mg PO BID PRN (Reason: anxiety) Qty: 7 RF: 0 ondansetron HCl [Zofran] 4 mg tablet 4 mg PO Q8H PRN (Reason: nausea and vomiting) Qty: 10 RF: 0 No Action promethazine 25 mg tablet 25 mg PO Q6H PRN (Reason: nausea/vomiting) RF: 0 lorazepam 1 mg tablet 1 mg PO Q6H PRN (Reason: anxiety) RF: 0 metoclopramide HCl 10 mg tablet 10 mg PO Q6H PRN (Reason: nausea and vomiting) Qty: 10 RF: 0 Referrals: Janet Marsh MD [Primary Care Provider] - 2 days Print Language: Slovenian
[2020-01-17 16:37] LABS: MANUAL DIFF FLAG NO
[2020-01-17 16:46] LABS: INTERNATIONAL NORM RATIO 0.9 (0.9-1.1); Prothrombin Time 11.1 SEC (10.8-13.0)
[2020-01-17 16:52] LABS: Basophils Absolute Auto 0.1 X10*3/uL (0.0-0.2); Basophils Percent Auto 0.9 % (0-2); Eosinophils Absolute Auto 0.2 X10*3/uL (0.0-0.4); Eosinophils Percent Auto 3.1 % (0-4); Hemoglobin 12.7 g/dl (14.0-18.0); Imm Gran Abs Auto 0.02 X10*3/uL (0.00-0.03); Imm Gran Pct Auto 0.3 % (0.0-0.4); Lymphocytes Absolute Auto 1.8 X10*3/uL (1.2-4.9); Lymphocytes Percent Auto 27.8 % (20-40); Mean Corpuscular HGB Conc 32.6 g/dl (31.0-36.0); Mean Corpuscular Hemoglobin 29.7 pg (27.0-33.0); Mean Corpuscular Volume 91.3 fL (80-98); Mean Platelet Volume 11.1 fL (9.4-12.4); Monocytes Absolute Auto 0.6 X10*3/uL (0.1-1.2); Monocytes Percent Auto 9.6 % (2-11); Neutrophils Absolute Auto 3.8 X10*3/uL (2.0-8.3); Neutrophils Percent Auto 58.3 % (45-73); Platelet Count 208 X10*3/uL (160-400); Red Blood Count 4.27 X10*6/uL (4.60-5.80); Red Cell Distribution Width 14.1 % (11.0-16.0); White Blood Count 6.5 X10*3/uL (4.8-10.8)
[2020-01-17 17:03] LABS: Alanine Aminotransferase 7 U/L (0-40); Albumin Level 3.5 g/dL (3.5-5.0); Alkaline Phosphatase 128 U/L (39-117); Anion Gap 14 (12-20); Aspartate Amino Transferase 15 U/L (5-37); Bilirubin Direct < 0.2 mg/dL (0.0-0.5); Bilirubin Total < 0.2 mg/dL (0.0-1.0); Blood Urea Nitrogen 46 mg/dL (9-16); Calcium 7.9 mg/dL (8.4-10.2); Carbon Dioxide 24 mmol/L (22-29); Chloride 107 mmol/L (96-108); Creatinine Clr Calc Pharmacy 26.3; Estimated Glomerular Filt Rate 23; Glucose Random 228 mg/dL (60-115); Magnesium 1.9 mg/dL (1.6-2.6); Potassium 4.8 mmol/l (3.3-5.1); Sodium 140 mmol/L (135-145); Total Protein 6.3 g/dL (6.5-8.0)
[2020-01-17 17:26] VITALS: BP 154/92; PULSE 97; RESP 18
== END 2020-01-17 18:29 | disposition home or self-care (01) ==
PROVIDERS: Physician Assistant Medical; Emergency Provider Emergency Medicine; PCP Internal Medicine
DX: K31.84 Gastroparesis (principal); I12.9 Hypertensive chronic kidney disease with stage 1 through stage 4 chronic kidney disease, or unspecified chronic kidney disease; E11.22 Type 2 diabetes mellitus with diabetic chronic kidney disease; N18.9 Chronic kidney disease, unspecified; Z79.899 Other long term (current) drug therapy
CPT/HCPCS: 36415; 80048; 80076; 82947; 83735; 85025; 85610; 96361; 96374; 96375; 96376; 99284; J2060; J2405

== ENCOUNTER 2020-01-27 00:29 | Emergency (ER) | payer MEDICARE, OTHER, SELFPAY ==
[2020-01-27 00:38] VITALS: BP 128/76; PULSE 90; RESP 18; TEMP 36.7; O2SAT 100; BMI 35.9
--- NOTE | 2020-01-27 01:22 | ED_ITS ---
HPI - General Adult General Chief complaint: Nausea/Vomiting/Diarrhea Stated complaint: abd pain Time Seen by Provider: 01/27/20 01:17 Source: patient Mode of arrival: ambulatory Limitations: no limitations History of Present Illness HPI narrative: Patient comes to emergency room complaining of abdominal discomfort. Patient states that he has not been vomiting as much as usual, patient states that he is actually feeling a bit better than when he 1st came in. Patient is well-known to the ED, patient has history of gastroparesis. Patient requesting Ativan and Haldol Which helped his symptoms. Patient was seen here 10 days ago, he got labs done and they were at baseline. MD complaint: gastroparesis Related Data Home Medications Medication Instructions Recorded Confirmed lorazepam 1 mg PO Q6H PRN 12/29/19 12/29/19 promethazine 25 mg PO Q6H PRN 12/29/19 12/29/19 Previous Rx's Medication Instructions Recorded metoclopramide HCl 10 mg PO Q6H PRN #10 tab 12/29/19 lorazepam [Ativan] 1 mg PO BID PRN #7 tab 01/17/20 ondansetron HCl [Zofran] 4 mg PO Q8H PRN #10 tab 01/17/20 Allergies Allergy/AdvReac Type Severity Reaction Status Date / Time morphine Allergy Intermediate RASH Verified 12/29/19 01:41 Review of Systems Review of Systems: Constitutional : No Weight loss, No Fever, No Chills, No Night Sweats, No Fatigue, No Malaise ENT/Mouth : No Hearing loss, No Ear Pain, No Nasal Congestion, No Sinus Pain, No Hoarseness, No sore throat, No Rhinorrhea, No Swallowing Difficulty Eyes: No Eye Pain, No Swelling, No Redness, No Foreign Body, No Discharge, No Vision Changes Cardiovascular : No Chest Pain, No SOB, No Dyspnea on Exertion, No Orthopnea, No Edema, No Palpitations Respiratory : No Cough, No Sputum, No Wheezing, No Smoke Exposure, No Dyspnea Gastrointestinal : abdominal discomfort, nausea, vomiting resolved, no diarrhea Genitourinary : no irregular bleeding, No Dysuria, No Urinary Frequency, No Hematuria, No Urinary Incontinence, No Urgency, No Flank Pain, No Urinary Flow Changes, No Hesitancy Musculoskeletal : No joint pain, No Myalgias, No Joint Swelling Skin : No Skin Lesions, No rash Neuro : No Weakness, No Numbness, No Paresthesias, No Loss of Consciousness, No Dizziness, No Headache Psych : No Anxiety/Panic, No Depression, No SI/HI/AH/VH, No Social Issues, Heme/Lymph: No Bruising, No Bleeding,No Lymphadenopathy Endocrine : No Polyuria, No Polydipsia, No Temperature Intolerance [facility] Past Medical History Medical History Diabetes Gastroparesis HTN (hypertension) Kidney failure Social History Social History Alcohol intake: never Smoking Status: Unknown if ever smoked Advance Directives: No Physical Exam Vital Signs: Vital Signs: Last Vital Signs Temp 98.1 F 01/27/20 00:38 Pulse 90 01/27/20 00:38 Resp 18 01/27/20 00:38 BP 128/76 01/27/20 00:38 Pulse Ox 100 01/27/20 00:38 Body Mass Index 35.9 Appearance: Alert. Oriented X3. No acute distress. seems comfortable Eyes: Pupils equal, round and reactive to light. ENT: Pharynx normal. Neck: Normal inspection. Neck supple. No lymph nodes noted. No crepitus CVS: Normal heart rate and rhythm. Pulses normal. Normal S1 and S2 Respiratory: No respiratory distress. Breath sounds normal. No Wheezing. No rales Abdomen: Soft and nontender. No rigidity. No distention. reports some abdominal discomfort Skin: Skin warm and dry. Normal skin color. Normal skin turgor. Extremities: No lower extremity edema. No lower extremity edema. No Lacerations. No Rash Neuro: Oriented X 3. No motor deficit. No sensory deficit. Moving all extermities. No slurred speech. Course Course Course Narrative: patient more comfortable, no longer having any abdominal complaints, sleeping comfortably. on discharge physical exam, patient's abdomen is soft, nontender. Discharge Plan Discharge Clinical Impression: Gastroparesis Patient Disposition: Home, Self-Care Instructions: Diabetic Gastroparesis (DC) Prescriptions: No Action promethazine 25 mg tablet 25 mg PO Q6H PRN (Reason: nausea/vomiting) RF: 0 lorazepam 1 mg tablet 1 mg PO Q6H PRN (Reason: anxiety) RF: 0 metoclopramide HCl 10 mg tablet 10 mg PO Q6H PRN (Reason: nausea and vomiting) Qty: 10 RF: 0 lorazepam [Ativan] 1 mg tablet 1 mg PO BID PRN (Reason: anxiety) Qty: 7 RF: 0 ondansetron HCl [Zofran] 4 mg tablet 4 mg PO Q8H PRN (Reason: nausea and vomiting) Qty: 10 RF: 0
[2020-01-27] MEDS: LORazepam 2 MG/ML VIAL 1 MG IM (02:05)
[2020-01-27] MEDS: Haloperidol Lactate 5 MG/ML VIAL 1 MG IM (02:05)
== END 2020-01-27 02:32 | disposition home or self-care (01) ==
PROVIDERS: Emergency Provider Emergency Medicine
DX: K31.84 Gastroparesis (principal); R10.9 Unspecified abdominal pain; R11.10 Vomiting, unspecified; Z79.899 Other long term (current) drug therapy
CPT/HCPCS: 96372; 99283; 99284; J2060

== ENCOUNTER 2020-02-07 22:23 | Emergency (ER) | payer MEDICARE, OTHER, SELFPAY ==
[2020-02-07 22:31] VITALS: BP 132/92; BP 138/78; PULSE 92; PULSE 94; RESP 18; TEMP 36.8; O2SAT 97; BMI 27.1
[2020-02-07] MEDS: Haloperidol Lactate 5 MG/ML VIAL IM (23:55)
[2020-02-07] MEDS: LORazepam 2 MG/ML VIAL IM (23:55)
[2020-02-08 00:07] VITALS: RESP 18; O2SAT 98
--- NOTE | 2020-02-08 02:30 | ED_ITS ---
HPI - Abdominal Pain General Chief Complaint: Abdominal Pain Stated Complaint: NAUSEA Time Seen by Provider: 02/08/20 02:46 Source: patient Mode of arrival: ambulatory Limitations: no limitations History of Present Illness HPI narrative: patient presents to ED for Haldol and Ativan for his nausea and abdominal pain. Patient is known to the ED for requesting Haldol and Ativan to relieve his nausea so he could sleep and then be discharged. Patient presents denies any chest pain, shortness of breath, weakness, dysuria, hematuria flank pain, fever, chills, swelling of lower extremities, calf pain, slurred speech, or paralysis. Related Data Home Medications Medication Instructions Recorded Confirmed lorazepam 1 mg PO Q6H PRN 12/29/19 12/29/19 promethazine 25 mg PO Q6H PRN 12/29/19 12/29/19 Previous Rx's Medication Instructions Recorded metoclopramide HCl 10 mg PO Q6H PRN #10 tab 12/29/19 lorazepam [Ativan] 1 mg PO BID PRN #7 tab 01/17/20 ondansetron HCl [Zofran] 4 mg PO Q8H PRN #10 tab 01/17/20 Allergies Allergy/AdvReac Type Severity Reaction Status Date / Time morphine Allergy Intermediate RASH Verified 12/29/19 01:41 Review of Systems Constitutional: Reports as per HPI and Reports no additional constitutional complaints Eyes: Reports as per HPI and Reports no additional eye complaints Reports system reviewed and no additional complaints, except as documented and Reports as per HPI Cardiovascular: Reports as per HPI and Reports no additional cardiovascular complaints Respiratory: Reports as per HPI and Reports no additional respiratory complaints Gastrointestinal: Reports abdominal pain (gone) and Reports nausea Genitourinary: Reports no additional male genitourinary complaints and Reports as per HPI Musculoskeletal: Reports no additional musculoskeletal complaints and Reports as per HPI Reports system reviewed and no additional complaints, except as documented and Reports as per HPI Psychiatric: Reports no additional psychiatric complaints and Reports as per HPI Physical Exam Vital Signs: Vital Signs: Last Vital Signs Temp 98.2 F 02/07/20 22:31 Pulse 94 02/07/20 22:31 Resp 18 02/08/20 00:07 BP 138/78 02/07/20 22:31 Pulse Ox 98 02/08/20 00:07 Body Mass Index 27.1 Const: General: cooperative, healthy appearing, comfortable, no acute distress, well developed, alert and awake Orientation/consciousness: patient oriented x3 HENMT: Head: Yes normal to inspection and Yes No palpable skull fracture present Eyes: Other: Patient actually blind Neck: Neck: Yes normal visual inspection, Yes full ROM, Yes no lymphadenopathy, Yes no meningeal signs, Yes trachea midline, Yes supple and No tender Chest: Chest palpation & inspection: normal inspection of the chest, normal palpation of entire chest wall and no localized rib tenderness Resp: Effort & Inspection: normal respiratory effort and able to speak in complete sentences Auscultation: clear to auscultation bilaterally Cardio: Jugular venous distension: no JVD Heart sounds: S1 normal heart sound present and S2 normal heart sound present GI: Inspection: Yes normal to inspection and No abdominal wall ecchymosis Palpation (GI): Soft to palpation, not firm, nontender, no guarding and not rigid : General: No CVA tenderness and Yes no CVA tenderness Back/Spine/Pelvis: Back: no CVA tenderness, No CVA tenderness and No back tenderness Skin: General skin exam: no rashes or lesions noted Neuro: General: patient oriented x3, no meningeal signs and CN's II-XI intact bilaterally Cranial nerves: Yes CN's II-XII intact bilaterally Extrem: General: Yes normal to inspection and Yes full ROM Psych: Appearance: grossly normal, well kempt and not disheveled Course Course Course Narrative: patient presents to the ED multiple times with similar presentation and request Ativan. Patient vital signs are stable. Patient is not in distress. Patient given Haldol and Ativan. Reevaluation(s) Reevaluation #1: patient presently comfortable in bed. Patient vital signs are stable. Discharge papers will be prepared for patient. patient recently had labs on the 11th of this month and were at his baseline No need to repeat labs. Diagnosis gastroparesis. Time: 02:42 MDM - Abdominal Pain MDM Narrative Medical decision making narrative: chronic nausea Discharge Plan Discharge Clinical Impression: Gastroparesis Patient Disposition: Home, Self-Care Instructions: Gastroparesis (ED) Additional Instructions: return to ED for worsening abdominal pain, nausea, vomiting, fever, chills, dysuria, hematuria, weakness, flank pain, or any other concerning symptoms. Follow-up with the PCP Prescriptions: No Action promethazine 25 mg tablet 25 mg PO Q6H PRN (Reason: nausea/vomiting) RF: 0 lorazepam 1 mg tablet 1 mg PO Q6H PRN (Reason: anxiety) RF: 0 metoclopramide HCl 10 mg tablet 10 mg PO Q6H PRN (Reason: nausea and vomiting) Qty: 10 RF: 0 lorazepam [Ativan] 1 mg tablet 1 mg PO BID PRN (Reason: anxiety) Qty: 7 RF: 0 ondansetron HCl [Zofran] 4 mg tablet 4 mg PO Q8H PRN (Reason: nausea and vomiting) Qty: 10 RF: 0 Print Language: Polish [facility] Past Medical History Medical History Diabetes Gastroparesis HTN (hypertension) Kidney failure Social History Social History Alcohol intake: never Smoking Status: Unknown if ever smoked Smoked in Last 30 Days: No Use of substances other than those prescribed or required for medical reasons: No Advance Directives: No Advance Directives Information Provided: No
--- NOTE | 2020-02-08 03:19 | PC.NURSE ---
Pt no longer vomiting at this time.
== END 2020-02-08 03:23 | disposition home or self-care (01) ==
PROVIDERS: Emergency Provider Emergency Medicine
DX: K31.84 Gastroparesis (principal); R10.9 Unspecified abdominal pain; Z79.899 Other long term (current) drug therapy
CPT/HCPCS: 96372; 99284; J2060

== ENCOUNTER 2020-02-09 01:40 | Emergency (ER) | payer MEDICARE, OTHER, SELFPAY ==
[2020-02-09 01:46] VITALS: BP 159/76; PULSE 89; RESP 18; TEMP 36.8; O2SAT 99; BMI 27.1
[2020-02-09 02:01] LABS: MANUAL DIFF FLAG NO
[2020-02-09 02:07] LABS: Basophils Absolute Auto 0.1 X10*3/uL (0.0-0.2); Basophils Percent Auto 0.8 % (0-2); Eosinophils Absolute Auto 0.2 X10*3/uL (0.0-0.4); Hematocrit 36.9 % (42-52); Imm Gran Abs Auto 0.02 X10*3/uL (0.00-0.03); Imm Gran Pct Auto 0.3 % (0.0-0.4); Lymphocytes Absolute Auto 2.3 X10*3/uL (1.2-4.9); Lymphocytes Percent Auto 29.7 % (20-40); Mean Corpuscular HGB Conc 32.5 g/dl (31.0-36.0); Mean Corpuscular Volume 92.3 fL (80-98); Mean Platelet Volume 10.7 fL (9.4-12.4); Monocytes Absolute Auto 0.9 X10*3/uL (0.1-1.2); Monocytes Percent Auto 11.6 % (2-11); Neutrophils Absolute Auto 4.4 X10*3/uL (2.0-8.3); Neutrophils Percent Auto 55.6 % (45-73); Platelet Count 179 X10*3/uL (160-400); White Blood Count 7.9 X10*3/uL (4.8-10.8)
[2020-02-09] MEDS: 0.9 % Sodium Chloride 1,000 ML 999 ML IVCONT (02:07)
[2020-02-09] MEDS: Metoclopramide HCl 10 MG/2 ML VIAL IVPUSH (02:07)
[2020-02-09] MEDS: diphenhydrAMINE HCL 50 MG/ML VIAL 12.5 MG IVPUSH (02:07)
--- NOTE | 2020-02-09 02:16 | ED.NAVMDI ---
HPI - Nausea/Vomiting/Diarrhea General Chief complaint: Nausea/Vomiting/Diarrhea Stated complaint: nausea and vomiting Time Seen by Provider: 02/09/20 01:46 Source: patient and EMS Mode of arrival: EMS History of Present Illness HPI Narrative: 6-year-old male with history of cyclic vomiting here secondary to nausea and vomiting. Denies fevers or chills denies chest pain. Patient seen here yesterday for similar went home and came back to the emergency department secondary to continued nausea. Patient at this point denies abdominal pain. Patient seen here multiple times for similar. Pertinent past history: cyclical vomiting Related Data Home Medications Medication Instructions Recorded Confirmed lorazepam 1 mg PO Q6H PRN 12/29/19 12/29/19 promethazine 25 mg PO Q6H PRN 12/29/19 12/29/19 Previous Rx's Medication Instructions Recorded metoclopramide HCl 10 mg PO Q6H PRN #10 tab 12/29/19 lorazepam [Ativan] 1 mg PO BID PRN #7 tab 01/17/20 ondansetron HCl [Zofran] 4 mg PO Q8H PRN #10 tab 01/17/20 Allergies Allergy/AdvReac Type Severity Reaction Status Date / Time morphine Allergy Intermediate RASH Verified 12/29/19 01:41 Review of Systems Review of Systems: Constitutional : No Weight loss, No Fever, No Chills, No Night Sweats, No Fatigue, No Malaise ENT/Mouth : No Hearing loss, No Ear Pain, No Nasal Congestion, No Sinus Pain, No Hoarseness, No sore throat, No Rhinorrhea, No Swallowing Difficulty Eyes: No Eye Pain, No Swelling, No Redness, No Foreign Body, No Discharge, No Vision Changes Cardiovascular : No Chest Pain, No SOB, No Dyspnea on Exertion, No Orthopnea, No Edema, No Palpitations Respiratory : No Cough, No Sputum, No Wheezing, No Smoke Exposure, No Dyspnea Gastrointestinal : Positive Nausea, No Vomiting, No Diarrhea, No Constipation, No abdominal Pain, No Hematochezia, No Melena Genitourinary : no irregular bleeding, No Dysuria, No Urinary Frequency, No Hematuria, No Urinary Incontinence, No Urgency, No Flank Pain, No Urinary Flow Changes, No Hesitancy Musculoskeletal : No joint pain, No Myalgias, No Joint Swelling Skin : No Skin Lesions, No rash Neuro : No Weakness, No Numbness, No Paresthesias, No Loss of Consciousness, No Dizziness, No Headache Psych : No Anxiety/Panic, No Depression, No SI/HI/AH/VH, No Social Issues, Heme/Lymph: No Bruising, No Bleeding,No Lymphadenopathy Endocrine : No Polyuria, No Polydipsia, No Temperature Intolerance REPLACED BY [facility] Past Medical History Medical History Diabetes Gastroparesis HTN (hypertension) Kidney failure Family History Family History (Updated 02/09/20 @ 02:17 by Bj Batista DO) Other Family history non-contributory Social History Social History Alcohol intake: never Smoking Status: Unknown if ever smoked Advance Directives: No Physical Exam Vital Signs: Vital Signs: Last Vital Signs Temp 98.2 F 02/09/20 01:46 Pulse 89 02/09/20 01:46 Resp 18 02/09/20 01:46 BP 159/76 H 02/09/20 01:46 Pulse Ox 99 02/09/20 01:46 Body Mass Index 27.1 Reviewed Appearance: Alert. No acute distress. Eyes: Pupils equal, round and reactive to light. ENT: Pharynx normal. Neck: Normal inspection. Neck supple. No lymph nodes noted. No crepitus CVS: Normal heart rate and rhythm. Pulses normal. Normal S1 and S2 Respiratory: No respiratory distress. Breath sounds normal. No Wheezing. No rales Abdomen: Soft and nontender. No rigidity. No distention. good BS x4 Skin: Skin warm and dry. Normal skin color. Normal skin turgor. Extremities: No lower extremity edema. Neurovascular intact to all extremities. No Lacerations. No Rash Neuro: Alert following simple commands No motor deficit. No sensory deficit. Moving all extermities. No slurred speech. Course Course Course Narrative: Patient without signs of peritonitis on physical exam. Patient with history of cyclic nausea vomiting. Reevaluation(s) Reevaluation #1: Patient in room making [facility] noise however is easily distractible and tolerating p.o. intake. Patient does have a baseline elevated creatinine which it is now. Patient shows no signs of peritonitis and read the exam. When discussed with patient and discharge patient is comfortable going home will discharge now Time: 04:29 MDM - Nausea/Vomiting/Diarrhea Lab Data Attestation: I reviewed the patient's lab results. Result diagrams: 02/09/20 01:57 02/09/20 01:57 Labs: Lab Results 02/09/20 02/09/20 Range/Units 01:57 01:57 WBC 7.9 (4.8-10.8) X10*3/uL RBC 4.00 L (4.60-5.80) X10*6/uL Hgb 12.0 L (14.0-18.0) g/dl Hct 36.9 L (42-52) % MCV 92.3 (80-98) fL MCH 30.0 (27.0-33.0) pg MCHC 32.5 (31.0-36.0) g/dl RDW 14.0 (11.0-16.0) % Plt Count 179 (160-400) X10*3/uL MPV 10.7 (9.4-12.4) fL Immature Gran % (Auto) 0.3 (0.0-0.4) % Neut % (Auto) 55.6 (45-73) % Lymph % (Auto) 29.7 (20-40) % [place] % (Auto) 11.6 H (2-11) % Eos % (Auto) 2.0 (0-4) % Baso % (Auto) 0.8 (0-2) % Lymph # (Auto) 2.3 (1.2-4.9) X10*3/uL [place] # (Auto) 0.9 (0.1-1.2) X10*3/uL Eos # (Auto) 0.2 (0.0-0.4) X10*3/uL Baso # (Auto) 0.1 (0.0-0.2) X10*3/uL Abs Immat Gran (auto) 0.02 (0.00-0.03) X10*3/uL Absolute Neuts (auto) 4.4 (2.0-8.3) X10*3/uL Absolute Nucleated RBC 0.000 (0.0-0.012) X10*3/uL Nucleated RBC % (auto) 0.0 (0.0-0.2) /100WBC Sodium 138 (135-145) mmol/L Potassium 4.6 (3.3-5.1) mmol/l Chloride 103 (96-108) mmol/L Carbon Dioxide 24 (22-29) mmol/L Anion Gap 16 (12-20) BUN 65 H (9-16) mg/dL Creatinine 3.49 H (0.5-1.4) mg/dL Estim Creat Clear Calc 20.9 Estimated GFR 17 Random Glucose 222 H (60-115) mg/dL Calcium 8.5 D (8.4-10.2) mg/dL Discharge Plan Discharge Clinical Impression: Gastroparesis, Nausea Patient Disposition: Home, Self-Care Instructions: Abdominal Pain (ED), Acute Nausea and Vomiting (ED) Additional Instructions: Thank you for visiting the emergency department today. If your symptoms worsen or do not resolve completely please return to the emergency department immediately or call 911. if he have any questions please call your primary care physician Prescriptions: No Action promethazine 25 mg tablet 25 mg PO Q6H PRN (Reason: nausea/vomiting) RF: 0 lorazepam 1 mg tablet 1 mg PO Q6H PRN (Reason: anxiety) RF: 0 metoclopramide HCl 10 mg tablet 10 mg PO Q6H PRN (Reason: nausea and vomiting) Qty: 10 RF: 0 lorazepam [Ativan] 1 mg tablet 1 mg PO BID PRN (Reason: anxiety) Qty: 7 RF: 0 ondansetron HCl [Zofran] 4 mg tablet 4 mg PO Q8H PRN (Reason: nausea and vomiting) Qty: 10 RF: 0 Referrals: [facility] [Provider Group] - 2 days
[2020-02-09 02:23] LABS: Anion Gap 16 (12-20); Blood Urea Nitrogen 65 mg/dL (9-16); Calcium 8.5 mg/dL (8.4-10.2); Carbon Dioxide 24 mmol/L (22-29); Chloride 103 mmol/L (96-108); Creatinine Clr Calc Pharmacy 20.9; Estimated Glomerular Filt Rate 17; Glucose Random 222 mg/dL (60-115); Potassium 4.6 mmol/l (3.3-5.1); Sodium 138 mmol/L (135-145)
[2020-02-09] MEDS: Haloperidol Lactate 5 MG/ML VIAL 2.5 MG IVPUSH (03:24)
[2020-02-09 05:19] VITALS: BP 134/80; PULSE 88; RESP 16; TEMP 36.7; O2SAT 99
== END 2020-02-09 05:33 | disposition home or self-care (01) ==
PROVIDERS: Emergency Provider Emergency Medicine
DX: K31.84 Gastroparesis (principal); R11.15 Cyclical vomiting syndrome unrelated to migraine; I10 Essential (primary) hypertension; Z79.899 Other long term (current) drug therapy
CPT/HCPCS: 36415; 80048; 85025; 96361; 96374; 96375; 99284; J1200; J2765

== ENCOUNTER 2020-02-12 14:18 | Emergency (ER) | payer MEDICARE, OTHER, SELFPAY ==
[2020-02-12 14:30] VITALS: BP 134/61; PULSE 88; RESP 18; TEMP 37.1; O2SAT 99; BMI 59.9
[2020-02-12] MEDS: LORazepam 2 MG/ML VIAL 1 MG IM (14:49)
--- NOTE | 2020-02-12 14:54 | ED.NAVMDI ---
HPI - Nausea/Vomiting/Diarrhea General Chief complaint: Nausea/Vomiting/Diarrhea Stated complaint: nausea Time Seen by Provider: 02/12/20 14:27 Source: EMS Mode of arrival: EMS History of Present Illness HPI Narrative: 69-year-old male with a past medical history of cyclical vomiting, gastroparesis, diabetes, hypertension, kidney failure, BIBA complaining of abdominal discomfort, nausea, and vomiting x a few days. Patient admits he is eating and drinking/tolerating PO well. Requesting Ativan. Denies fever, chills, diarrhea, dysuria/hematuria, ETOH/drug use MD elicited complaint: nausea, vomiting and abdominal pain Related Data Home Medications Medication Instructions Recorded Confirmed lorazepam 1 mg PO Q6H PRN 12/29/19 12/29/19 promethazine 25 mg PO Q6H PRN 12/29/19 12/29/19 Previous Rx's Medication Instructions Recorded metoclopramide HCl 10 mg PO Q6H PRN #10 tab 12/29/19 lorazepam [Ativan] 1 mg PO BID PRN #7 tab 01/17/20 ondansetron HCl [Zofran] 4 mg PO Q8H PRN #10 tab 01/17/20 Allergies Allergy/AdvReac Type Severity Reaction Status Date / Time morphine Allergy Intermediate RASH Verified 12/29/19 01:41 Review of Systems Review of Systems: Constitutional:No Fever, No Chills Cardiovascular: No Chest Pain, No SOB Respiratory: No Cough, No Dyspnea Gastrointestinal: +Nausea, + Vomiting, No Diarrhea, No Constipation, + Abdominal pain Genitourinary: No Dysuria, No Hematuria,No Flank Pain Musculoskeletal: No joint pain, No Myalgias, No Joint Swelling Skin: No Skin Lesions, No rash PMFSH Past Medical History Attestation statement: The following information was validated with the patient. Medical History Diabetes Gastroparesis HTN (hypertension) Kidney failure Family History Family History (Updated 02/09/20 @ 02:17 by Bj Batista DO) Other Family history non-contributory Social History Social History Alcohol intake: never Smoking Status: Former smoker Smoked in Last 30 Days: No Use of substances other than those prescribed or required for medical reasons: No Advance Directives: No Advance Directives Information Provided: No Physical Exam Vital Signs: Vital Signs: Last Vital Signs Temp 98.6 F 02/12/20 15:51 Pulse 88 02/12/20 15:51 Resp 17 02/12/20 15:51 BP 140/71 H 02/12/20 15:51 Pulse Ox 97 02/12/20 15:51 Body Mass Index 59.9 Const: General: cooperative, healthy appearing and comfortable Orientation/consciousness: patient oriented x3 Limitations: no limitations HENMT: Head: Yes normal to inspection Ears: hearing grossly normal bilaterally General nose exam: Normal external nose present Face and sinus: Yes normal facial exam Eyes: General: appearance normal, both eyes and all related structures EOM: EOMs intact bilaterally Neck: Neck: Yes normal visual inspection and Yes no meningeal signs Resp: Effort & Inspection: normal respiratory effort Cardio: Rate: regular rate GI: Inspection: Yes normal to inspection Palpation (GI): Soft to palpation, nontender, no guarding and not rigid Skin: Rashes: no rashes Wounds: no wounds Neuro: General: patient oriented x3 and no meningeal signs Gait exam (Neuro): Normal gait present Extrem: General: Yes normal to inspection Course Course Course Narrative: -FS [id number] -[id number]--patient sleeping comfortably, tolerating p.o. in the ED MDM - Nausea/Vomiting/Diarrhea MDM Narrative Medical decision making narrative: 69-year-old male with a past medical history of cyclical vomiting, gastroparesis, diabetes, hypertension, kidney failure, BIBA complaining of abdominal discomfort, nausea, and vomiting x a few days. On exam VSS, NAD/well-appearing, abdomen soft/nontender, no rebound or guarding. Patient sitting comfortably in room making [facility] noise, requesting Ativan. -Patient had recent blood work on 02/08 which was at his baseline, known chronic elevated creatinine Likely acute on chronic gastroparesis. Low concern for intra-abdominal infection including appendicitis/diverticulitis Plan: POC glucose, IM Ativan, Zofran, anticipated DC home Lab Data Labs: Lab Results 02/12/20 Range/Units 16:00 POC Glucose 99 (60-115) mg/dL Discharge Plan Discharge Clinical Impression: Gastroparesis Patient Disposition: Home, Self-Care Instructions: Gastroparesis (ED) Additional Instructions: Your blood work was at her baseline a few days ago Continue to take previously prescribed medications at home Make sure staying hydrated at home, drink plenty of water Follow-up with her primary care doctor Prescriptions: No Action promethazine 25 mg tablet 25 mg PO Q6H PRN (Reason: nausea/vomiting) RF: 0 lorazepam 1 mg tablet 1 mg PO Q6H PRN (Reason: anxiety) RF: 0 metoclopramide HCl 10 mg tablet 10 mg PO Q6H PRN (Reason: nausea and vomiting) Qty: 10 RF: 0 lorazepam [Ativan] 1 mg tablet 1 mg PO BID PRN (Reason: anxiety) Qty: 7 RF: 0 ondansetron HCl [Zofran] 4 mg tablet 4 mg PO Q8H PRN (Reason: nausea and vomiting) Qty: 10 RF: 0 Referrals: Physician,Unknown [Primary Care Provider] - 2 days
[2020-02-12 15:26] VITALS: BP 95/52; PULSE 69; RESP 17; TEMP 36.6; O2SAT 100
[2020-02-12 15:51] VITALS: BP 140/71; PULSE 88; RESP 17; TEMP 37; O2SAT 97
[2020-02-12 16:05] LABS: Glucose, Whole Blood 99 mg/dL (60-115)
== END 2020-02-12 17:14 | disposition home or self-care (01) ==
PROVIDERS: Emergency Provider Emergency Medicine Emergency Medical Services
DX: E11.43 Type 2 diabetes mellitus with diabetic autonomic (poly)neuropathy (principal); I10 Essential (primary) hypertension; Z87.891 Personal history of nicotine dependence; Z79.899 Other long term (current) drug therapy
CPT/HCPCS: 82947; 96372; 99284; J2060

== ENCOUNTER 2020-02-22 13:43 | Emergency (ER) | payer MEDICARE, SELFPAY ==
[2020-02-22 13:48] VITALS: BP 132/88; BP 150/91; PULSE 84; PULSE 86; RESP 18; TEMP 36.9; O2SAT 97; O2SAT 98; BMI 27.6
--- NOTE | 2020-02-22 14:02 | ECG_ITS ---
Test Reason : ABD PAIN Blood Pressure : / mmHG Vent. Rate : 079 BPM Atrial Rate : 079 BPM P-R Int : 180 ms QRS Dur : 166 ms QT Int : 428 ms P-R-T Axes : 054 -44 003 degrees QTc Int : 490 ms Normal sinus rhythm Left axis deviation Right bundle branch block Abnormal ECG When compared with ECG of 14-DEC-2019 06:57, No significant changes seen Referred By: Disha Blackburn Electronically Signed By:FAMILIA ARREDONDO
--- NOTE | 2020-02-22 14:04 | ED_ITS ---
HPI - Nausea/Vomiting/Diarrhea General Chief complaint: Nausea/Vomiting/Diarrhea Stated complaint: N/V Time Seen by Provider: 02/22/20 14:01 Source: patient and EMS Mode of arrival: EMS Limitations: no limitations History of Present Illness HPI Narrative: it's my gastroparesis MD elicited complaint: nausea, vomiting and abdominal pain Pertinent past history: cyclical vomiting and other (gatroparesis) Onset (ago): day(s) (started this AM) Description of vomiting: food contents and watery Associated nausea: Yes Associated abdominal pain: Yes Location of pain: epigastric Pain consistency: constant Severity: moderate Quality: stabbing Exacerbating factors: none Relieving factors: none Associated symptoms: loss of appetite and nausea/vomiting Related Data Home Medications Medication Instructions Recorded Confirmed lorazepam 1 mg PO Q6H PRN 12/29/19 12/29/19 promethazine 25 mg PO Q6H PRN 12/29/19 12/29/19 Previous Rx's Medication Instructions Recorded metoclopramide HCl 10 mg PO Q6H PRN #10 tab 12/29/19 lorazepam [Ativan] 1 mg PO BID PRN #7 tab 01/17/20 ondansetron HCl [Zofran] 4 mg PO Q8H PRN #10 tab 01/17/20 Allergies Allergy/AdvReac Type Severity Reaction Status Date / Time morphine Allergy Intermediate RASH Verified 12/29/19 01:41 Review of Systems Review of Systems: Constitutional : No Weight loss, No Fever, No Chills ENT/Mouth : No sore throat, No Rhinorrhea Eyes: No Swelling, No Redness Cardiovascular : No Chest Pain, No SOB, NoEdema Respiratory : No Cough, No Sputum, No Wheezing Gastrointestinal : Positive Nausea, Positive Vomiting, no Diarrhea, positive abdominal Pain, No Hematochezia, No Melena Genitourinary : No Dysuria, No Urinary Frequency, No Hematuria, No Urgency Musculoskeletal : No joint pain, No Myalgias, No Joint Swelling Skin : No Skin Lesions, No rash Neuro : No Weakness, No Numbness, No Dizziness, No Headache Psych : No Anxiety/Panic, No Depression Heme/Lymph: No Bruising, No Lymphadenopathy Endocrine : No Polyuria, No Polydipsia All other systems reviewed and are negative. Gastrointestinal: Gastrointestinal: Reports nausea PMFSH Past Medical History Attestation statement: The following information was validated with the patient. Medical History Diabetes Gastroparesis HTN (hypertension) Kidney failure Family History Family History (Updated 02/09/20 @ 02:17 by Bj Batista DO) Other Family history non-contributory Social History Social History Alcohol intake: never Smoking Status: Former smoker Advance Directives: No Advance Directives Information Provided: No Physical Exam Vital Signs: Vital Signs: Last Vital Signs Temp 98.4 F 02/22/20 13:48 Pulse 84 02/22/20 13:48 Resp 18 02/22/20 13:48 BP 150/91 H 02/22/20 13:48 Pulse Ox 97 02/22/20 13:48 Body Mass Index 27.6 Appearance: Alert. Oriented X3. No acute distress. Eyes: Pupils equal, round and reactive to light. ENT: Pharynx normal. Neck: Normal inspection. Neck supple. CVS: Normal heart rate and rhythm. Pulses normal. Respiratory: No respiratory distress. Breath sounds normal. Abdomen: Soft and mild epigastric tenderness. Skin: Skin warm and dry. Normal skin color. Normal skin turgor. Extremities: No lower extremity edema. No calf ttp Neuro: Oriented X 3. No motor deficit. No sensory deficit. Course Course Course Narrative: labs at baseline, chronically intermittently elevated lipase - patient can be DC when more improved anticipate DC MDM - Nausea/Vomiting/Diarrhea MDM Narrative Medical decision making narrative: 69 yo male with DM, gastroparesis and here with chronic n/v abdominal pain will need labs, IM reglan/oral oxycodone, he is not toxic at this time, no rebound or guarding. Lab Data Result diagrams: 02/22/20 14:27 02/22/20 14:27 Labs: Lab Results 02/22/20 02/22/20 02/22/20 Range/Units 14:27 14:27 14:27 WBC 7.4 (4.8-10.8) X10*3/uL RBC 3.95 L (4.60-5.80) X10*6/uL Hgb 11.7 L (14.0-18.0) g/dl Hct 36.5 L (42-52) % MCV 92.4 (80-98) fL MCH 29.6 (27.0-33.0) pg MCHC 32.1 (31.0-36.0) g/dl RDW 14.0 (11.0-16.0) % Plt Count 186 (160-400) X10*3/uL MPV 10.8 (9.4-12.4) fL Immature Gran % (Auto) 0.1 (0.0-0.4) % Neut % (Auto) 55.5 (45-73) % Lymph % (Auto) 32.7 (20-40) % [place] % (Auto) 9.1 (2-11) % Eos % (Auto) 1.9 (0-4) % Baso % (Auto) 0.7 (0-2) % Lymph # (Auto) 2.4 (1.2-4.9) X10*3/uL [place] # (Auto) 0.7 (0.1-1.2) X10*3/uL Eos # (Auto) 0.1 (0.0-0.4) X10*3/uL Baso # (Auto) 0.1 (0.0-0.2) X10*3/uL Abs Immat Gran (auto) 0.01 (0.00-0.03) X10*3/uL Absolute Neuts (auto) 4.1 (2.0-8.3) X10*3/uL Absolute Nucleated RBC 0.000 (0.0-0.012) X10*3/uL Nucleated RBC % (auto) 0.0 (0.0-0.2) /100WBC Hold Blue Top SEE NOTE Sodium 136 (135-145) mmol/L Potassium 5.3 H (3.3-5.1) mmol/l Chloride 104 (96-108) mmol/L Carbon Dioxide 23 (22-29) mmol/L Anion Gap 14 (12-20) BUN 48 H (9-16) mg/dL Creatinine 3.00 H (0.5-1.4) mg/dL Estim Creat Clear Calc 24.4 Estimated GFR 21 Random Glucose 188 H (60-115) mg/dL Calcium 8.3 L (8.4-10.2) mg/dL Total Bilirubin 0.5 (0.0-1.0) mg/dL Direct Bilirubin 0.3 (0.0-0.5) mg/dL AST 12 (5-37) U/L ALT 7 (0-40) U/L Alkaline Phosphatase 127 H (39-117) U/L Total Protein 6.3 L (6.5-8.0) g/dL Albumin 3.7 (3.5-5.0) g/dL Lipase 89 H (8-78) U/L ECG Data Attestation: I personally reviewed and interpreted this ECG as follows: ECG interpretation date: 02/22/20 ECG interpretation time: 14:29 Interpretation: Rate: 79 Rhythm: NSR [place]: left Normal P waves. Normal [place]. RBBB ST T wave : nonspecific, no NURIA qTC: normal prior studies: no acute ischemia The study has been interpreted contemporaneously by me. . Discharge Plan Discharge Clinical Impression: Gastroparesis Patient Disposition: Home, Self-Care Instructions: Diabetic Gastroparesis (DC) Additional Instructions: return to ED for any worsening symptoms or concerns Prescriptions: No Action promethazine 25 mg tablet 25 mg PO Q6H PRN (Reason: nausea/vomiting) RF: 0 lorazepam 1 mg tablet 1 mg PO Q6H PRN (Reason: anxiety) RF: 0 metoclopramide HCl 10 mg tablet 10 mg PO Q6H PRN (Reason: nausea and vomiting) Qty: 10 RF: 0 lorazepam [Ativan] 1 mg tablet 1 mg PO BID PRN (Reason: anxiety) Qty: 7 RF: 0 ondansetron HCl [Zofran] 4 mg tablet 4 mg PO Q8H PRN (Reason: nausea and vomiting) Qty: 10 RF: 0 Referrals: Janet Marsh MD [Primary Care Provider] - 2 days (if not better)
[2020-02-22] MEDS: oxyCODONE HCl Immed Release 5 MG TABLET 10 MG PO (14:19)
[2020-02-22] MEDS: Metoclopramide HCl 10 MG/2 ML VIAL IM (14:20)
[2020-02-22 14:33] LABS: MANUAL DIFF FLAG NO
[2020-02-22 14:36] LABS: Basophils Absolute Auto 0.1 X10*3/uL (0.0-0.2); Basophils Percent Auto 0.7 % (0-2); Eosinophils Absolute Auto 0.1 X10*3/uL (0.0-0.4); Eosinophils Percent Auto 1.9 % (0-4); Hematocrit 36.5 % (42-52); Hemoglobin 11.7 g/dl (14.0-18.0); Imm Gran Abs Auto 0.01 X10*3/uL (0.00-0.03); Imm Gran Pct Auto 0.1 % (0.0-0.4); Lymphocytes Absolute Auto 2.4 X10*3/uL (1.2-4.9); Lymphocytes Percent Auto 32.7 % (20-40); Mean Corpuscular HGB Conc 32.1 g/dl (31.0-36.0); Mean Corpuscular Hemoglobin 29.6 pg (27.0-33.0); Mean Corpuscular Volume 92.4 fL (80-98); Mean Platelet Volume 10.8 fL (9.4-12.4); Monocytes Absolute Auto 0.7 X10*3/uL (0.1-1.2); Monocytes Percent Auto 9.1 % (2-11); Neutrophils Absolute Auto 4.1 X10*3/uL (2.0-8.3); Neutrophils Percent Auto 55.5 % (45-73); Platelet Count 186 X10*3/uL (160-400); Red Blood Count 3.95 X10*6/uL (4.60-5.80); White Blood Count 7.4 X10*3/uL (4.8-10.8)
--- NOTE | 2020-02-22 14:36 | PC.NURSE ---
sleeping. skin pwd. no longer wretching/moaning. easy even chest rise. awaits lab results.
[2020-02-22 15:05] LABS: Alanine Aminotransferase 7 U/L (0-40); Albumin Level 3.7 g/dL (3.5-5.0); Alkaline Phosphatase 127 U/L (39-117); Aspartate Amino Transferase 12 U/L (5-37); Bilirubin Direct 0.3 mg/dL (0.0-0.5); Bilirubin Total 0.5 mg/dL (0.0-1.0); Blood Urea Nitrogen 48 mg/dL (9-16); Calcium 8.3 mg/dL (8.4-10.2); Creatinine Clr Calc Pharmacy 24.4; Estimated Glomerular Filt Rate 21; Glucose Random 188 mg/dL (60-115); Total Protein 6.3 g/dL (6.5-8.0)
[2020-02-22 15:21] LABS: Anion Gap 14 (12-20); Carbon Dioxide 23 mmol/L (22-29); Chloride 104 mmol/L (96-108); Lipase 89 U/L (8-78); Potassium 5.3 mmol/l (3.3-5.1); Sodium 136 mmol/L (135-145)
[2020-02-22 15:46] VITALS: BP 151/78; PULSE 85; RESP 14; O2SAT 97
--- NOTE | 2020-02-22 15:47 | PC.NURSE ---
PT STATES PAIN HAS RESOLVED NO NASEAU PLAN IS FOR DISCHARGE
--- NOTE | 2020-02-22 16:04 | PC.NURSE ---
AWAITING FOR DISCHARGE HOME CALL AND MESSAGE WAS LEFT
== END 2020-02-22 16:13 | disposition home or self-care (01) ==
PROVIDERS: Emergency Provider Emergency Medicine; PCP Internal Medicine
DX: E11.43 Type 2 diabetes mellitus with diabetic autonomic (poly)neuropathy (principal); R10.13 Epigastric pain; I10 Essential (primary) hypertension; Z79.899 Other long term (current) drug therapy
CPT/HCPCS: 36415; 80048; 80076; 83690; 85025; 93005; 96372; 99284; J2765

== ENCOUNTER 2020-02-28 14:34 | Emergency (ER) | payer MEDICARE, OTHER, SELFPAY ==
[2020-02-28 15:10] VITALS: BP 136/82; PULSE 78; RESP 18; TEMP 36.8; O2SAT 98; BMI 23.0
[2020-02-28 15:32] LABS: Basophils Absolute Auto 0.1 X10*3/uL (0.0-0.2); Basophils Percent Auto 0.7 % (0-2); Eosinophils Percent Auto 0.6 % (0-4); Hematocrit 37.5 % (42-52); Imm Gran Abs Auto 0.02 X10*3/uL (0.00-0.03); Imm Gran Pct Auto 0.3 % (0.0-0.4); Lymphocytes Absolute Auto 2.1 X10*3/uL (1.2-4.9); Lymphocytes Percent Auto 29.1 % (20-40); MANUAL DIFF FLAG NO; Mean Corpuscular Hemoglobin 29.6 pg (27.0-33.0); Mean Corpuscular Volume 92.6 fL (80-98); Monocytes Absolute Auto 0.8 X10*3/uL (0.1-1.2); Monocytes Percent Auto 11.7 % (2-11); Neutrophils Absolute Auto 4.1 X10*3/uL (2.0-8.3); Neutrophils Percent Auto 57.6 % (45-73); Platelet Count 179 X10*3/uL (160-400); Red Blood Count 4.05 X10*6/uL (4.60-5.80); Red Cell Distribution Width 14.2 % (11.0-16.0); White Blood Count 7.1 X10*3/uL (4.8-10.8)
[2020-02-28] MEDS: LORazepam 2 MG/ML VIAL 1 MG IVPUSH (15:33)
[2020-02-28] MEDS: ondansetron HCL 4 MG/2 ML VIAL IVPUSH (15:34)
[2020-02-28] MEDS: 0.9 % Sodium Chloride 1,000 ML 999 ML IVCONT (15:34)
--- NOTE | 2020-02-28 16:04 | ED_ITS ---
HPI - General Adult General Chief complaint: Nausea/Vomiting/Diarrhea Stated complaint: Abdominal pain Time Seen by Provider: 02/28/20 14:47 Source: patient and EMS Mode of arrival: EMS Limitations: no limitations History of Present Illness HPI narrative: 69-year-old male known history of diabetes and diabetic gastr oparesis, patient presented by EMS with his regular symptoms of nausea, vomiting, and abdominal pain for few hours, patient stated that that is his typical presentation for gastroparesis. Patient have been seen in the emergency department several times for his symptoms in the past. Symptoms has been constant, associated with upper abdominal pain, nothing relieves the symptoms, nothing make it worse. Related Data Home Medications Medication Instructions Recorded Confirmed lorazepam 1 mg PO Q6H PRN 12/29/19 12/29/19 promethazine 25 mg PO Q6H PRN 12/29/19 12/29/19 Previous Rx's Medication Instructions Recorded metoclopramide HCl 10 mg PO Q6H PRN #10 tab 12/29/19 lorazepam [Ativan] 1 mg PO BID PRN #7 tab 01/17/20 ondansetron HCl [Zofran] 4 mg PO Q8H PRN #10 tab 01/17/20 Allergies Allergy/AdvReac Type Severity Reaction Status Date / Time morphine Allergy Intermediate RASH Verified 12/29/19 01:41 Review of Systems Review of Systems: All other systems are reviewed and are negative Constitutional: Reports as per HPI and Reports no additional constitutional c omplaints Eyes: Reports as per HPI and Reports no additional eye complaints Reports system reviewed and no additional complaints, except as documented Cardiovascular: Reports as per HPI and Reports no additional cardiovascular complaints Respiratory: Reports as per HPI and Reports no additional respiratory complaints Gastrointestinal: Reports as per HPI and Reports no additional gastrointestinal complaints Genitourinary: Reports no additional female genitourinary complaints Musculoskeletal: Reports no additional musculoskeletal complaints Skin/Breast: Reports system reviewed and no additional complaints, except as docu Psychiatric: Reports no additional psychiatric complaints Endocrine: Reports no additional endocrine complaints Hematologic/Lymphatic: Reports no additional hematologic/lymphatic complaints Allergic/Immunologic: Reports no additional allergic/immunologic complaints Reports system reviewed and no additional complaints, except as documented and Reports Abnormal speech present [facility] Past Medical History Medical History Diabetes Gastroparesis HTN (hypertension) Kidney failure Family History Family History Other Family history non-contributory Social History Social History Alcohol intake: never Smoking Status: Former smoker Smoked in Last 30 Days: No Use of substances other than those prescribed or required for medical reasons: No Advance Directives: No Advance Directives Information Provided: No Physical Exam 2 Vital Signs: Vital Signs: Last Vital Signs Temp 98.2 F 02/28/20 15:10 Pulse 78 02/28/20 15:10 Resp 18 02/28/20 15:10 BP 136/82 02/28/20 15:10 Pulse Ox 98 02/28/20 15:10 Body Mass Index 23.0 Vital signs have been reviewed as normal and appeared to be correct. Blood pressure in the high range. Heart rate normal. Respiration rate normal. Temperature normal. Oxygen saturation normal. Appearance: Alert. Oriented X3. No acute distress. Head: Normal external exam. Normocephalic. Atraumatic. No [place] signs noted. No raccoon eyes noted Eyes: PERRLA. EOMI. Conjunctiva and sclera normal. Eyelids normal. ENT: EAC normal. TM's Normal. Pharynx normal. Uvula midline. Moist mucous membranes. No trismus noted. No drooling noted. No muffled voice noted. Neck: Normal inspection. Neck supple. FROM. No adenopathy. Thyroid Normal. No meningeal signs. No neck mass noted. CVS: Normal heart rate and rhythm. Heart sound normal. No murmurs noted. Pulses normal throughout. Respiratory: No respiratory distress. Painless inspiration. Breath sounds normal. No wheezes/rales/rhonchi noted. Chest nontender. No accessory muscle usage noted or decreased air movement noted. Abdomen: Soft, mild upper tenderness with no rebound tenderness. Bowel sounds normal in all 4 quadrants. No distention noted. No organomegaly noted. No visible injury noted. Back: No CVA tenderness. Full range of motion noted. Skin: Skin warm and dry. Normal skin color. Normal skin turgor. No rashes/lesions/lacerations noted. Extremities: No lower extremity edema. Extremities exhibit normal range of motion. Extremities nontender. Neuro: Oriented X 3. No motor deficit. No sensory deficit. Reflexes normal. Medical Decision Making MDM Narrative Medical decision making narrative: Assessment and plan. 69-year-old male with history of diabetic gastroparesis with a typical presentation of nausea, vomiting and upper abdominal pain patient had similar symptoms today, patient has improved with IV fluids/Ativan/Zofran patient now is ready to be discharged home. Lab Data Result diagrams: 02/28/20 15:26 02/28/20 15:26 Labs: Lab Results 02/28/20 Range/Units 15:26 WBC 7.1 (4.8-10.8) X10*3/uL RBC 4.05 L (4.60-5.80) X10*6/uL Hgb 12.0 L (14.0-18.0) g/dl Hct 37.5 L (42-52) % MCV 92.6 (80-98) fL MCH 29.6 (27.0-33.0) pg MCHC 32.0 (31.0-36.0) g/dl RDW 14.2 (11.0-16.0) % Plt Count 179 (160-400) X10*3/uL MPV 11.0 (9.4-12.4) fL Immature Gran % (Auto) 0.3 (0.0-0.4) % Neut % (Auto) 57.6 (45-73) % Lymph % (Auto) 29.1 (20-40) % [place] % (Auto) 11.7 H (2-11) % Eos % (Auto) 0.6 (0-4) % Baso % (Auto) 0.7 (0-2) % Lymph # (Auto) 2.1 (1.2-4.9) X10*3/uL [place] # (Auto) 0.8 (0.1-1.2) X10*3/uL Eos # (Auto) 0.0 (0.0-0.4) X10*3/uL Baso # (Auto) 0.1 (0.0-0.2) X10*3/uL Abs Immat Gran (auto) 0.02 (0.00-0.03) X10*3/uL Absolute Neuts (auto) 4.1 (2.0-8.3) X10*3/uL Absolute Nucleated RBC 0.000 (0.0-0.012) X10*3/uL Nucleated RBC % (auto) 0.0 (0.0-0.2) /100WBC Discharge Plan Discharge Clinical Impression: Gastroparesis Patient Disposition: Home, Self-Care Instructions: Diabetic Gastroparesis (DC) Prescriptions: No Action promethazine 25 mg tablet 25 mg PO Q6H PRN (Reason: nausea/vomiting) RF: 0 lorazepam 1 mg tablet 1 mg PO Q6H PRN (Reason: anxiety) RF: 0 metoclopramide HCl 10 mg tablet 10 mg PO Q6H PRN (Reason: nausea and vomiting) Qty: 10 RF: 0 lorazepam [Ativan] 1 mg tablet 1 mg PO BID PRN (Reason: anxiety) Qty: 7 RF: 0 ondansetron HCl [Zofran] 4 mg tablet 4 mg PO Q8H PRN (Reason: nausea and vomiting) Qty: 10 RF: 0 Referrals: Janet Marsh MD [Primary Care Provider] - 2 days
[2020-02-28 16:07] LABS: Alanine Aminotransferase 6 U/L (0-40); Albumin Level 3.7 g/dL (3.5-5.0); Alkaline Phosphatase 120 U/L (39-117); Anion Gap 14 (12-20); Aspartate Amino Transferase 12 U/L (5-37); Bilirubin Direct 0.2 mg/dL (0.0-0.5); Bilirubin Total 0.4 mg/dL (0.0-1.0); Blood Urea Nitrogen 55 mg/dL (9-16); Carbon Dioxide 25 mmol/L (22-29); Chloride 105 mmol/L (96-108); Creatinine Clr Calc Pharmacy 21.3; Estimated Glomerular Filt Rate 17; Glucose Random 245 mg/dL (60-115); Lipase 90 U/L (8-78); Potassium 5.1 mmol/l (3.3-5.1); Sodium 139 mmol/L (135-145); Total Protein 6.4 g/dL (6.5-8.0)
== END 2020-02-28 16:30 | disposition home or self-care (01) ==
PROVIDERS: Emergency Provider Emergency Medicine; PCP Internal Medicine
DX: K31.84 Gastroparesis (principal); I10 Essential (primary) hypertension; Z87.891 Personal history of nicotine dependence; Z79.899 Other long term (current) drug therapy
CPT/HCPCS: 36415; 80048; 80076; 83690; 85025; 96361; 96374; 96375; 99283; 99284; J2060; J2405

== ENCOUNTER 2020-03-02 12:40 | Emergency (ER) | payer MEDICARE, OTHER, SELFPAY ==
--- NOTE | 2020-03-02 12:43 | ED.NAVMDI ---
HPI - Nausea/Vomiting/Diarrhea General Chief complaint: Nausea/Vomiting/Diarrhea Stated complaint: ABD PAIN Time Seen by Provider: 03/02/20 13:43 Source: patient and EMS Mode of arrival: EMS Limitations: no limitations History of Present Illness HPI Narrative: This is a 69-year-old male with past medical history that is significant for diabetes with diabetic gastroparesis, chronic recurrent nausea vomiting, chronic kidney disease, hypertension, chronic low back pain, gastroesophageal reflux disease, coronary artery disease, diabetic retinopathy with legal blindness, cholecystolithiasis with Surgical history of 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 States right now he feels nauseated and some diffuse upper abdominal pain consistent with previous. There is no fever chills. There is no diarrhea. No recent travel or sick contacts. No chest pain or shortness of breath. MD elicited complaint: nausea and vomiting Location of pain: none Pain consistency: intermittent Quality: aching Exacerbating factors: eating Relieving factors: none Associated symptoms: denies other symptoms Treatment prior to arrival: none Related Data Home Medications Medication Instructions Recorded Confirmed lorazepam 1 mg PO Q6H PRN 12/29/19 12/29/19 promethazine 25 mg PO Q6H PRN 12/29/19 12/29/19 Previous Rx's Medication Instructions Recorded metoclopramide HCl 10 mg PO Q6H PRN #10 tab 12/29/19 lorazepam [Ativan] 1 mg PO BID PRN #7 tab 01/17/20 ondansetron HCl [Zofran] 4 mg PO Q8H PRN #10 tab 01/17/20 Allergies Allergy/AdvReac Type Severity Reaction Status Date / Time morphine Allergy Intermediate RASH Verified 12/29/19 01:41 Review of Systems Review of Systems: Constitutional: No Weight loss, No Fever, No Chills, No Night Sweats, No Fatigue, No Malaise ENT/Mouth: No Hearing loss, No Ear Pain, No Nasal Congestion, No Sinus Pain, No Hoarseness, No sore throat, No Rhinorrhea, No Swallowing Difficulty Eyes: No Eye Pain, No Swelling, No Redness, No Foreign Body, No Discharge, No Vision Changes Cardiovascular: No Chest Pain, No SOB, No Dyspnea on Exertion, No Orthopnea, No Edema, No Palpitations Respiratory: No Cough, No Sputum, No Wheezing, No Smoke Exposure, No Dyspnea Gastrointestinal: As noted in HPI, No Hematochezia, No Melena Genitourinary: no irregular bleeding, No Dysuria, No Urinary Frequency, No Hematuria, No Urinary Incontinence, No Urgency, No Flank Pain, No Urinary Flow Changes Musculoskeletal: No joint pain, No Myalgias, No Joint Swelling Skin: No Skin Lesions, No rash Neuro: No Weakness, No Numbness, No Paresthesias, No Loss of Consciousness, No Dizziness, No Headache Psych: No Anxiety/Panic, No Depression, No SI/HI/AH/VH, No Social Issues Heme/Lymph: No Bruising, No Bleeding,No Lymphadenopathy Endocrine: No Polyuria, No Polydipsia, No Temperature Intolerance Yes all other systems are reviewed and are negative [facility] Past Medical History Medical History Diabetes Gastroparesis HTN (hypertension) Kidney failure Family History Family History Other Family history non-contributory Social History Social History Alcohol intake: never Smoking Status: Unknown if ever smoked Smoked in Last 30 Days: No Use of substances other than those prescribed or required for medical reasons: Yes Substance Use Type: Marijuana Substance Use Frequency: Weekly Last Used Substance: Days (ago) Advance Directives: No Advance Directives Information Provided: Yes Physical Exam Vital Signs: Vital Signs: Last Vital Signs Temp 97.7 F 03/02/20 15:04 Pulse 80 03/02/20 15:04 Resp 16 03/02/20 15:04 BP 142/78 H 03/02/20 15:04 Pulse Ox 100 03/02/20 15:04 Body Mass Index 27.1 Reviewed Const: Other: Intermittently dry heaving in the ambulance stretcher but during my exam was able to be cooperative and resting comfortably. General: comfortable and no acute distress; No acute distress or intoxicated appearing Nutritional Appearance: average body habitus Orientation/consciousness: patient oriented x3 HENMT: Head: Yes normal to inspection Ears: hearing grossly normal bilaterally Eyes: General: appearance normal, both eyes and all related structures Visual Terry: normal visual terry by confrontation Neck: Neck: Yes normal visual inspection and No tender Thyroid: Thyroid normal Chest: Chest palpation & inspection: normal inspection of the chest Breast/axilla inspection: normal inspection of the breasts Resp: Effort & Inspection: normal respiratory effort Auscultation: clear to auscultation bilaterally Cardio: Jugular venous distension: no JVD Rate: regular rate Rhythm: regular rhythm Heart sounds: S1 normal heart sound present and S2 normal heart sound present GI: Inspection: Yes normal to inspection Palpation (GI): Soft to palpation Percussion: Yes normal to percussion Auscultation: normal bowel sounds : General: Yes no CVA tenderness Back/Spine/Pelvis: Back: no CVA tenderness Skin: General skin exam: no rashes or lesions noted Neuro: General: patient oriented x3 Extrem: General: Yes normal to inspection Course Course Course Narrative: In review 69-year-old male well known for multiple visits to the ED for diabetic gastroparesis with occasional exacerbations leading to several visits at a time on exam will nontoxic appearing. We hemodynamically stable. No complaint of pain right now more concerned about the nausea 1 episode of vomiting started couple hours prior to arrival. At this time will check labs and treat with IV fluids, antiemetics and re-evaluate. Reevaluation(s) Reevaluation #1: Has been resting comfortably after receiving 0.5 mg of Ativan IV and 5 mg IM Haldol. Has not had any nausea vomiting here. Labs overall stable/chronic appearing. Will discharge home with clear dietary recommendations, return and follow-up instructions. Patient agreeable comfortable plan. MDM - Nausea/Vomiting/Diarrhea Lab Data Result diagrams: 03/02/20 12:53 03/02/20 12:53 Labs: Lab Results 03/02/20 03/02/20 03/02/20 Range/Units 12:53 12:53 12:53 WBC 6.3 (4.8-10.8) X10*3/uL RBC 4.20 L (4.60-5.80) X10*6/uL Hgb 12.5 L (14.0-18.0) g/dl Hct 38.8 L (42-52) % MCV 92.4 (80-98) fL MCH 29.8 (27.0-33.0) pg MCHC 32.2 (31.0-36.0) g/dl RDW 14.1 (11.0-16.0) % Plt Count 202 (160-400) X10*3/uL MPV 10.9 (9.4-12.4) fL Immature Gran % (Auto) 0.3 (0.0-0.4) % Neut % (Auto) 58.7 (45-73) % Lymph % (Auto) 30.1 (20-40) % [place] % (Auto) 8.7 (2-11) % Eos % (Auto) 1.4 (0-4) % Baso % (Auto) 0.8 (0-2) % Lymph # (Auto) 1.9 (1.2-4.9) X10*3/uL [place] # (Auto) 0.6 (0.1-1.2) X10*3/uL Eos # (Auto) 0.1 (0.0-0.4) X10*3/uL Baso # (Auto) 0.1 (0.0-0.2) X10*3/uL Abs Immat Gran (auto) 0.02 (0.00-0.03) X10*3/uL Absolute Neuts (auto) 3.7 (2.0-8.3) X10*3/uL Absolute Nucleated RBC 0.000 (0.0-0.012) X10*3/uL Nucleated RBC % (auto) 0.0 (0.0-0.2) /100WBC PT 11.3 (10.8-13.0) SEC INR 1.0 (0.9-1.1) APTT 31.3 (24.1-38.0) SEC Sodium 138 (135-145) mmol/L Potassium 5.3 H (3.3-5.1) mmol/l Chloride 105 (96-108) mmol/L Carbon Dioxide 24 (22-29) mmol/L Anion Gap 14 (12-20) BUN 47 H (9-16) mg/dL Creatinine 3.28 H (0.5-1.4) mg/dL Estim Creat Clear Calc 22.3 Estimated GFR 19 Random Glucose 225 H (60-115) mg/dL Calcium 8.6 D (8.4-10.2) mg/dL Total Bilirubin 0.6 (0.0-1.0) mg/dL AST 15 (5-37) U/L ALT 6 (0-40) U/L Alkaline Phosphatase 133 H (39-117) U/L Total Protein 6.7 (6.5-8.0) g/dL Albumin 3.8 (3.5-5.0) g/dL Discharge Plan Discharge Clinical Impression: Gastroparesis Patient Disposition: Home, Self-Care Instructions: Diabetic Gastroparesis (DC), Acute Nausea and Vomiting (ED), Gastroparesis (ED) Additional Instructions: Taking medications prescribed Follow-up with her primary care as well as a composition mixer discussed Return if any concerns or worsening symptoms Thank you Prescriptions: No Action promethazine 25 mg tablet 25 mg PO Q6H PRN (Reason: nausea/vomiting) RF: 0 lorazepam 1 mg tablet 1 mg PO Q6H PRN (Reason: anxiety) RF: 0 metoclopramide HCl 10 mg tablet 10 mg PO Q6H PRN (Reason: nausea and vomiting) Qty: 10 RF: 0 lorazepam [Ativan] 1 mg tablet 1 mg PO BID PRN (Reason: anxiety) Qty: 7 RF: 0 ondansetron HCl [Zofran] 4 mg tablet 4 mg PO Q8H PRN (Reason: nausea and vomiting) Qty: 10 RF: 0 Referrals: Physician,Unknown [Primary Care Provider] - 3 days (Primary care) Discharge Date/Time: 03/02/20 16:34
[2020-03-02 12:45] VITALS: BP 110/73; PULSE 85; PULSE 86; RESP 16; TEMP 36.9; O2SAT 100; BMI 27.1
[2020-03-02 13:04] LABS: MANUAL DIFF FLAG NO
[2020-03-02] MEDS: Haloperidol Lactate 5 MG/ML VIAL IM (13:05)
[2020-03-02 13:06] LABS: Basophils Absolute Auto 0.1 X10*3/uL (0.0-0.2); Basophils Percent Auto 0.8 % (0-2); Eosinophils Absolute Auto 0.1 X10*3/uL (0.0-0.4); Eosinophils Percent Auto 1.4 % (0-4); Hematocrit 38.8 % (42-52); Hemoglobin 12.5 g/dl (14.0-18.0); Imm Gran Abs Auto 0.02 X10*3/uL (0.00-0.03); Imm Gran Pct Auto 0.3 % (0.0-0.4); Lymphocytes Absolute Auto 1.9 X10*3/uL (1.2-4.9); Lymphocytes Percent Auto 30.1 % (20-40); Mean Corpuscular HGB Conc 32.2 g/dl (31.0-36.0); Mean Corpuscular Hemoglobin 29.8 pg (27.0-33.0); Mean Corpuscular Volume 92.4 fL (80-98); Mean Platelet Volume 10.9 fL (9.4-12.4); Monocytes Absolute Auto 0.6 X10*3/uL (0.1-1.2); Monocytes Percent Auto 8.7 % (2-11); Neutrophils Absolute Auto 3.7 X10*3/uL (2.0-8.3); Neutrophils Percent Auto 58.7 % (45-73); Platelet Count 202 X10*3/uL (160-400); Red Cell Distribution Width 14.1 % (11.0-16.0); White Blood Count 6.3 X10*3/uL (4.8-10.8)
[2020-03-02] MEDS: LORazepam 2 MG/ML VIAL 0.5 MG IVPUSH (13:06)
[2020-03-02 13:11] VITALS: BP 110/73; PULSE 85; RESP 16; TEMP 36.9; O2SAT 100
[2020-03-02 13:17] LABS: Prothrombin Time 11.3 SEC (10.8-13.0)
[2020-03-02 13:19] LABS: Partial Thromboplastin Time 31.3 SEC (24.1-38.0)
[2020-03-02 13:40] LABS: Alanine Aminotransferase 6 U/L (0-40); Albumin Level 3.8 g/dL (3.5-5.0); Alkaline Phosphatase 133 U/L (39-117); Anion Gap 14 (12-20); Aspartate Amino Transferase 15 U/L (5-37); Bilirubin Total 0.6 mg/dL (0.0-1.0); Blood Urea Nitrogen 47 mg/dL (9-16); Calcium 8.6 mg/dL (8.4-10.2); Carbon Dioxide 24 mmol/L (22-29); Chloride 105 mmol/L (96-108); Creatinine Clr Calc Pharmacy 22.3; Estimated Glomerular Filt Rate 19; Glucose Random 225 mg/dL (60-115); Potassium 5.3 mmol/l (3.3-5.1); Sodium 138 mmol/L (135-145); Total Protein 6.7 g/dL (6.5-8.0)
--- NOTE | 2020-03-02 13:42 | PC.NURSE ---
P arrives for nausea, was medicated for SX but states nausea has not improved. HE is not vomiting. Pt states he has abdominal pain, asking about pain medication.
[2020-03-02] MEDS: HYDROmorphone HCl 0.5 MG/0.5 ML SYRINGE IVPUSH (14:08)
[2020-03-02 14:10] VITALS: BP 162/96; PULSE 85; RESP 16; TEMP 36.9; O2SAT 100
[2020-03-02 15:04] VITALS: BP 142/78; PULSE 80; RESP 16; TEMP 36.5; O2SAT 100
== END 2020-03-02 16:34 | disposition home or self-care (01) ==
PROVIDERS: Nurse Practitioner Primary Care; Emergency Provider Emergency Medicine
DX: E11.43 Type 2 diabetes mellitus with diabetic autonomic (poly)neuropathy (principal); R11.2 Nausea with vomiting, unspecified; I10 Essential (primary) hypertension; F12.90 Cannabis use, unspecified, uncomplicated
CPT/HCPCS: 36415; 80053; 85025; 85610; 85730; 96372; 96374; 96375; 99284; J1170; J2060

== ENCOUNTER 2020-03-04 02:48 | Emergency (ER) | payer MEDICARE, OTHER, SELFPAY ==
--- NOTE | 2020-03-04 02:54 | ED.ABDPAIN ---
HPI - Abdominal Pain General Chief Complaint: Abdominal Pain Stated Complaint: stomach pain Time Seen by Provider: 03/04/20 02:54 Source: patient Mode of arrival: EMS History of Present Illness HPI narrative: This is a 69-year-old male who is brought in by EMS for complaints of onset abdominal discomfort since 5:00 p.m. with associated 2 episodes of nonbloody/nonbilious vomiting but continues to pass flatus and have bowel movements. He denies any associated fevers, chills, contaminated food, sick contacts, urinary symptoms, or abdominal pain other than the epigastric. MD elicited complaint: abdominal pain Related Data Home Medications Medication Instructions Recorded Confirmed lorazepam 1 mg PO Q6H PRN 12/29/19 12/29/19 promethazine 25 mg PO Q6H PRN 12/29/19 12/29/19 Previous Rx's Medication Instructions Recorded metoclopramide HCl 10 mg PO Q6H PRN #10 tab 12/29/19 lorazepam [Ativan] 1 mg PO BID PRN #7 tab 01/17/20 ondansetron HCl [Zofran] 4 mg PO Q8H PRN #10 tab 01/17/20 Allergies Allergy/AdvReac Type Severity Reaction Status Date / Time morphine Allergy Intermediate RASH Verified 12/29/19 01:41 Review of Systems Review of Systems Pertinent positives and negatives as stated in HPI 10 point review of systems is otherwise negative. Physical Exam Vital Signs: Vital Signs: Last Vital Signs Temp 98.0 F 03/04/20 02:58 Pulse 100 03/04/20 04:26 Resp 18 03/04/20 04:26 BP 169/85 H 03/04/20 04:26 Pulse Ox 8 L 03/04/20 04:26 Body Mass Index 27.1 VITAL SIGNS: Reviewed. GENERAL: Well developed, well nourished, mild distress. HEAD: Normocephalic/atraumatic, EYES: PERRLA, EOMI intact without pain, no nystagmus/pallor/icterus noted EARS: Ext canals without abnormality, TMs non-bulging and non-erythematous NOSE: Nares patent bilateral OROPHARYNX: no oral lesions noted, posterior pharynx clear and non-erythematous without noted tonsillar enlargement/erythema/exudates NECK: Supple, no adenopathy LUNGS: Normal breath sounds. No adventitious sounds or accessory muscle use. SpO2<99> CARDIOVASCULAR: Regular rate and rhythm without noted murmurs, no JVD or lower extremity edema. ABDOMEN: Soft, minimal tenderness at the epigastrium on deep palpation, non-distended with bowel sounds. No rigidity. No guarding. No palpable masses or hernias noted MUSCULOSKELETAL: No tenderness, deformities, or effusions noted on gross inspection. EXTREMITIES: No cyanosis, clubbing or edema. SKIN: Inspection of the skin reveals no rashes, ulcerations, jaundice, pallor, or petechiae. NEUROLOGIC: Alert and oriented x 4. Strength and sensation to light touch were grossly intact x 4. Course Course Course Narrative: This is a 69-year-old male with history and clinical presentation consistent with gastroparesis, gastritis, doubt obstruction or diverticulitis at this time. - labs, medications On re-evaluation and review of all investigations patient has had improvement of his symptoms after receiving Reglan/Benadryl/Ativan and there are no acute changes in his baseline lab work. Patient endorses that he is no longer feeling nauseous, vomiting, or having abdominal pain. MDM - Abdominal Pain Lab Data Result diagrams: 03/04/20 03:21 03/04/20 03:21 Labs: Lab Results 03/04/20 03/04/20 Range/Units 03:21 03:21 WBC 11.2 H (4.8-10.8) X10*3/uL RBC 4.22 L (4.60-5.80) X10*6/uL Hgb 12.7 L (14.0-18.0) g/dl Hct 38.6 L (42-52) % MCV 91.5 (80-98) fL MCH 30.1 (27.0-33.0) pg MCHC 32.9 (31.0-36.0) g/dl RDW 14.1 (11.0-16.0) % Plt Count 214 (160-400) X10*3/uL MPV 10.7 (9.4-12.4) fL Immature Gran % (Auto) 0.2 (0.0-0.4) % Neut % (Auto) 61.8 (45-73) % Lymph % (Auto) 24.9 (20-40) % [place] % (Auto) 10.7 (2-11) % Eos % (Auto) 1.8 (0-4) % Baso % (Auto) 0.6 (0-2) % Lymph # (Auto) 2.8 (1.2-4.9) X10*3/uL [place] # (Auto) 1.2 (0.1-1.2) X10*3/uL Eos # (Auto) 0.2 (0.0-0.4) X10*3/uL Baso # (Auto) 0.1 (0.0-0.2) X10*3/uL Abs Immat Gran (auto) 0.02 (0.00-0.03) X10*3/uL Absolute Neuts (auto) 6.9 (2.0-8.3) X10*3/uL Absolute Nucleated RBC 0.000 (0.0-0.012) X10*3/uL Nucleated RBC % (auto) 0.0 (0.0-0.2) /100WBC Sodium 139 (135-145) mmol/L Potassium 4.6 (3.3-5.1) mmol/l Chloride 106 (96-108) mmol/L Carbon Dioxide 20 L (22-29) mmol/L Anion Gap 18 (12-20) BUN 56 H (9-16) mg/dL Creatinine 3.80 H (0.5-1.4) mg/dL Estim Creat Clear Calc 19.2 Estimated GFR 16 Random Glucose 74 D (60-115) mg/dL Calcium 8.8 (8.4-10.2) mg/dL Total Bilirubin 0.5 (0.0-1.0) mg/dL AST 21 (5-37) U/L ALT 7 (0-40) U/L Alkaline Phosphatase 149 H (39-117) U/L Total Protein 7.5 (6.5-8.0) g/dL Albumin 4.3 (3.5-5.0) g/dL Discharge Plan Discharge Clinical Impression: Gastroparesis Patient Disposition: Home, Self-Care Instructions: Diabetic Gastroparesis (DC) Additional Instructions: Please resume all home medications as prescribed. Increase fluid hydration especially with water. Avoid marijuana if at all possible. Do not hesitate to return to the emergency department should you experience worsening or new symptoms. Prescriptions: No Action promethazine 25 mg tablet 25 mg PO Q6H PRN (Reason: nausea/vomiting) RF: 0 lorazepam 1 mg tablet 1 mg PO Q6H PRN (Reason: anxiety) RF: 0 metoclopramide HCl 10 mg tablet 10 mg PO Q6H PRN (Reason: nausea and vomiting) Qty: 10 RF: 0 lorazepam [Ativan] 1 mg tablet 1 mg PO BID PRN (Reason: anxiety) Qty: 7 RF: 0 ondansetron HCl [Zofran] 4 mg tablet 4 mg PO Q8H PRN (Reason: nausea and vomiting) Qty: 10 RF: 0 Referrals: Physician,Unknown [Primary Care Provider] - 2 days PMF Past Medical History Source: nursing notes reviewed Medical History Diabetes Gastroparesis HTN (hypertension) Kidney failure Family History Family History Other Family history non-contributory Social History Social History Alcohol intake: never Smoking Status: Never smoker Use of substances other than those prescribed or required for medical reasons: Yes Substance Use Type: Marijuana Substance Use Frequency: Occasionally Last Used Substance: Days (ago) Advance Directives: No Advance Directives Information Provided: No
[2020-03-04 02:58] VITALS: BP 145/86; BP 160/89; PULSE 100; PULSE 99; RESP 18; TEMP 36.7; O2SAT 99; BMI 27.1
[2020-03-04 03:26] LABS: Basophils Absolute Auto 0.1 X10*3/uL (0.0-0.2); Basophils Percent Auto 0.6 % (0-2); Eosinophils Absolute Auto 0.2 X10*3/uL (0.0-0.4); Eosinophils Percent Auto 1.8 % (0-4); Hematocrit 38.6 % (42-52); Hemoglobin 12.7 g/dl (14.0-18.0); Imm Gran Abs Auto 0.02 X10*3/uL (0.00-0.03); Imm Gran Pct Auto 0.2 % (0.0-0.4); Lymphocytes Absolute Auto 2.8 X10*3/uL (1.2-4.9); Lymphocytes Percent Auto 24.9 % (20-40); MANUAL DIFF FLAG NO; Mean Corpuscular HGB Conc 32.9 g/dl (31.0-36.0); Mean Corpuscular Hemoglobin 30.1 pg (27.0-33.0); Mean Corpuscular Volume 91.5 fL (80-98); Mean Platelet Volume 10.7 fL (9.4-12.4); Monocytes Absolute Auto 1.2 X10*3/uL (0.1-1.2); Monocytes Percent Auto 10.7 % (2-11); Neutrophils Absolute Auto 6.9 X10*3/uL (2.0-8.3); Neutrophils Percent Auto 61.8 % (45-73); Platelet Count 214 X10*3/uL (160-400); Red Blood Count 4.22 X10*6/uL (4.60-5.80); Red Cell Distribution Width 14.1 % (11.0-16.0); White Blood Count 11.2 X10*3/uL (4.8-10.8)
[2020-03-04] MEDS: diphenhydrAMINE HCL 50 MG/ML VIAL 25 MG IM (03:47)
[2020-03-04] MEDS: Metoclopramide HCl 10 MG/2 ML VIAL IM (03:47)
[2020-03-04 03:51] LABS: Alanine Aminotransferase 7 U/L (0-40); Albumin Level 4.3 g/dL (3.5-5.0); Alkaline Phosphatase 149 U/L (39-117); Anion Gap 18 (12-20); Aspartate Amino Transferase 21 U/L (5-37); Bilirubin Total 0.5 mg/dL (0.0-1.0); Blood Urea Nitrogen 56 mg/dL (9-16); Calcium 8.8 mg/dL (8.4-10.2); Carbon Dioxide 20 mmol/L (22-29); Chloride 106 mmol/L (96-108); Creatinine Clr Calc Pharmacy 19.2; Estimated Glomerular Filt Rate 16; Glucose Random 74 mg/dL (60-115); Potassium 4.6 mmol/l (3.3-5.1); Sodium 139 mmol/L (135-145); Total Protein 7.5 g/dL (6.5-8.0)
--- NOTE | 2020-03-04 04:08 | PC.NURSE ---
pt is no longer moaning and is resting comfortably.
[2020-03-04 04:26] VITALS: BP 169/85; PULSE 100; RESP 18; O2SAT 8
[2020-03-04] MEDS: LORazepam 0.5 MG TABLET PO (04:30)
--- NOTE | 2020-03-04 04:54 | PC.NURSE ---
pt states he has no abd pain and no nausea. skin pink warm and dry, pt resting with his eyes closed and is arrousable to verbal stimuli. pt states he doesnt know why he makes the noises he does with each breath.
== END 2020-03-04 05:24 | disposition home or self-care (01) ==
PROVIDERS: Emergency Provider Student in an Organized Health Care Education/Training Program
DX: E11.43 Type 2 diabetes mellitus with diabetic autonomic (poly)neuropathy (principal); I10 Essential (primary) hypertension; Z79.899 Other long term (current) drug therapy
CPT/HCPCS: 36415; 80053; 85025; 96372; 99284; J1200; J2765

== ENCOUNTER 2020-03-12 09:03 | Emergency (ER) | payer MEDICARE, OTHER, SELFPAY ==
[2020-03-12 09:11] VITALS: BP 145/84; PULSE 86; RESP 18; TEMP 37.1; O2SAT 96
[2020-03-12 09:13] VITALS: BP 144/84; BP 181/109; PULSE 102; PULSE 86; RESP 18; TEMP 37.1; O2SAT 96; BMI 27.1
--- NOTE | 2020-03-12 09:55 | ED_ITS ---
HPI - Nausea/Vomiting/Diarrhea General Chief complaint: Nausea/Vomiting/Diarrhea Stated complaint: NAUSEA Time Seen by Provider: 03/12/20 09:48 Source: patient Mode of arrival: ambulatory History of Present Illness HPI Narrative: 69-year-old male with a past medical history of, gastroparesis, chronic recurrent nausea/vomiting, CKD, hypertension, chronic low back pain, GERD, CAD, diabetic retinopathy, cholelithiasis, brought in by ambulance for nausea and 1 episode of nonbloody emesis since 5:00 a.m. Also reports associated abdominal cramping. Admits symptoms are similar are to chronic nausea/vomiting/abdominal pain, unchanged. Denies fever, chills, diarrhea/constipation, dysuria/hematuria MD elicited complaint: nausea, vomiting and abdominal pain Related Data Home Medications Medication Instructions Recorded Confirmed lorazepam 1 mg PO Q6H PRN 12/29/19 12/29/19 promethazine 25 mg PO Q6H PRN 12/29/19 12/29/19 Previous Rx's Medication Instructions Recorded metoclopramide HCl 10 mg PO Q6H PRN #10 tab 12/29/19 lorazepam [Ativan] 1 mg PO BID PRN #7 tab 01/17/20 ondansetron HCl [Zofran] 4 mg PO Q8H PRN #10 tab 01/17/20 Allergies Allergy/AdvReac Type Severity Reaction Status Date / Time morphine Allergy Intermediate RASH Verified 12/29/19 01:41 Review of Systems Review of Systems: Constitutional: No Weight loss, No Fever, No Chills Gastrointestinal: + Nausea, + Vomiting, No Diarrhea, No Constipation, + Abdominal pain Genitourinary: No irregular bleeding, No Dysuria, No Urinary Frequency, No Hematuria Musculoskeletal: No joint pain, No Myalgias, No Joint Swelling Skin: No Skin Lesions, No rash Yes all other systems are reviewed and are negative [facility] Past Medical History Attestation statement: The following information was validated with the patient. Medical History Diabetes Gastroparesis HTN (hypertension) Kidney failure Family History Family History Other Family history non-contributory Social History Social History Alcohol intake: never Smoking Status: Never smoker Use of substances other than those prescribed or required for medical reasons: No Substance Use Type: Marijuana Advance Directives: No Advance Directives Information Provided: No Physical Exam Vital Signs: Vital Signs: Last Vital Signs Temp 98.8 F 03/12/20 09:13 Pulse 91 03/12/20 10:00 Resp 12 03/12/20 10:00 BP 188/88 H 03/12/20 10:00 Pulse Ox 97 03/12/20 10:00 Body Mass Index 27.1 Const: General: cooperative, healthy appearing and no acute distress Orientation/consciousness: patient oriented x3 Limitations: no limitations HENMT: Head: Yes normal to inspection Ears: hearing grossly normal bilaterally General nose exam: Normal external nose present Face and sinus: Yes normal facial exam Eyes: General: appearance normal, both eyes and all related structures EOM: EOMs intact bilaterally Neck: Neck: Yes normal visual inspection Resp: Effort & Inspection: normal respiratory effort Cardio: Rate: regular rate GI: Inspection: Yes normal to inspection Palpation (GI): Soft to palpation, nontender, no guarding and not rigid Skin: Rashes: no rashes Wounds: no wounds Neuro: General: patient oriented x3 Extrem: General: Yes normal to inspection Course Course Course Narrative: * No leukocytosis, renal function at baseline/improved from 03/04/20, labs otherwise unremarkable * 1100--patient is in no acute distress, denies nausea/vomiting at present. Lab results discussed. Plan for DC home with PCP follow-up MDM - Nausea/Vomiting/Diarrhea MDM Narrative Medical decision making narrative: 69-year-old male with a past medical history of, gastroparesis, chronic recurrent nausea/vomiting, CKD, hypertension, chronic low back pain, GERD, CAD, diabetic retinopathy, cholelithiasis, brought in by a mbulance for nausea and 1 episode of nonbloody emesis since 5:00 a.m. On exam VSS, NAD/well-appearing, abdomen is soft and nontender, no rebound or guarding. Likely patient has acute on chronic gastroparesis. Low concern for appendicitis/diverticulitis/cholecystitis or renal stone. Patient had labs drawn on 03/04 with mild worsening KESHIA Plan: Repeat labs, IVF, Benadryl/Reglan, reassess Lab Data Result diagrams: 03/12/20 10:02 12/26/20 09:58 Labs: Lab Results 03/12/20 03/12/20 03/12/20 Range/Units 09:58 10:02 10:02 WBC 7.8 (4.8-10.8) X10*3/uL RBC 4.55 L (4.60-5.80) X10*6/uL Hgb 13.4 L (14.0-18.0) g/dl Hct 42.3 (42-52) % MCV 93.0 (80-98) fL MCH 29.5 (27.0-33.0) pg MCHC 31.7 (31.0-36.0) g/dl RDW 14.2 (11.0-16.0) % Plt Count 181 (160-400) X10*3/uL MPV 10.6 (9.4-12.4) fL Immature Gran % (Auto) 0.1 (0.0-0.4) % Neut % (Auto) 71.9 (45-73) % Lymph % (Auto) 17.9 L (20-40) % Duchesne % (Auto) 8.6 (2-11) % Eos % (Auto) 0.9 (0-4) % Baso % (Auto) 0.6 (0-2) % Lymph # (Auto) 1.4 (1.2-4.9) X10*3/uL Duchesne # (Auto) 0.7 (0.1-1.2) X10*3/uL Eos # (Auto) 0.1 (0.0-0.4) X10*3/uL Baso # (Auto) 0.1 (0.0-0.2) X10*3/uL Abs Immat Gran (auto) 0.01 (0.00-0.03) X10*3/uL Absolute Neuts (auto) 5.6 (2.0-8.3) X10*3/uL Absolute Nucleated RBC 0.000 (0.0-0.012) X10*3/uL Nucleated RBC % (auto) 0.0 (0.0-0.2) /100WBC Hold Blue Top SEE NOTE Sodium 140 (135-145) mmol/L Potassium 5.1 (3.3-5.1) mmol/l Chloride 106 (96-108) mmol/L Carbon Dioxide 25 (22-29) mmol/L Anion Gap 14 (12-20) BUN 46 H (9-16) mg/dL Creatinine 3.29 H (0.5-1.4) mg/dL Estim Creat Clear Calc 22.2 Estimated GFR 19 Random Glucose 133 H D (60-115) mg/dL Calcium 8.7 (8.4-10.2) mg/dL Magnesium 2.3 (1.6-2.6) mg/dL Total Bilirubin 0.6 (0.0-1.0) mg/dL Direct Bilirubin 0.3 (0.0-0.5) mg/dL AST 13 (5-37) U/L ALT 6 (0-40) U/L Alkaline Phosphatase 127 H (39-117) U/L Total Protein 6.9 (6.5-8.0) g/dL Albumin 3.9 (3.5-5.0) g/dL Lipase 65 (8-78) U/L Discharge Plan Discharge Clinical Impression: Gastroparesis Patient Disposition: Home, Self-Care Instructions: Gastroparesis (ED) Additional Instructions: Your blood work was improved today in the ED. Continue taking all home prescribed medications Stay hydrated Practice a bland diet Follow-up with her doctor and her GI doctor If her symptoms persist or worsen, pain becomes unbearable, you are unable to eat or drink, or have fever return to the ED Prescriptions: No Action promethazine 25 mg tablet 25 mg PO Q6H PRN (Reason: nausea/vomiting) RF: 0 lorazepam 1 mg tablet 1 mg PO Q6H PRN (Reason: anxiety) RF: 0 metoclopramide HCl 10 mg tablet 10 mg PO Q6H PRN (Reason: nausea and vomiting) Qty: 10 RF: 0 lorazepam [Ativan] 1 mg tablet 1 mg PO BID PRN (Reason: anxiety) Qty: 7 RF: 0 ondansetron HCl [Zofran] 4 mg tablet 4 mg PO Q8H PRN (Reason: nausea and vomiting) Qty: 10 RF: 0 Referrals: Alena Prieto [Emergency Nurse] - 2 days
[2020-03-12 10:00] VITALS: BP 188/88; PULSE 91; RESP 12; O2SAT 97
[2020-03-12 10:10] LABS: Basophils Absolute Auto 0.1 X10*3/uL (0.0-0.2); Basophils Percent Auto 0.6 % (0-2); Eosinophils Absolute Auto 0.1 X10*3/uL (0.0-0.4); Eosinophils Percent Auto 0.9 % (0-4); Hematocrit 42.3 % (42-52); Hemoglobin 13.4 g/dl (14.0-18.0); Imm Gran Abs Auto 0.01 X10*3/uL (0.00-0.03); Imm Gran Pct Auto 0.1 % (0.0-0.4); Lymphocytes Absolute Auto 1.4 X10*3/uL (1.2-4.9); Lymphocytes Percent Auto 17.9 % (20-40); MANUAL DIFF FLAG NO; Mean Corpuscular HGB Conc 31.7 g/dl (31.0-36.0); Mean Corpuscular Hemoglobin 29.5 pg (27.0-33.0); Mean Platelet Volume 10.6 fL (9.4-12.4); Monocytes Absolute Auto 0.7 X10*3/uL (0.1-1.2); Monocytes Percent Auto 8.6 % (2-11); Neutrophils Absolute Auto 5.6 X10*3/uL (2.0-8.3); Neutrophils Percent Auto 71.9 % (45-73); Platelet Count 181 X10*3/uL (160-400); Red Blood Count 4.55 X10*6/uL (4.60-5.80); Red Cell Distribution Width 14.2 % (11.0-16.0); White Blood Count 7.8 X10*3/uL (4.8-10.8)
[2020-03-12] MEDS: 0.9 % Sodium Chloride 1,000 ML 999 ML IVCONT (10:12)
[2020-03-12] MEDS: diphenhydrAMINE HCL 50 MG/ML VIAL 25 MG IVPUSH (10:12)
[2020-03-12] MEDS: Metoclopramide HCl 10 MG/2 ML VIAL IVPUSH (10:12)
[2020-03-12 10:33] LABS: Alanine Aminotransferase 6 U/L (0-40); Albumin Level 3.9 g/dL (3.5-5.0); Alkaline Phosphatase 127 U/L (39-117); Anion Gap 14 (12-20); Aspartate Amino Transferase 13 U/L (5-37); Bilirubin Direct 0.3 mg/dL (0.0-0.5); Bilirubin Total 0.6 mg/dL (0.0-1.0); Blood Urea Nitrogen 46 mg/dL (9-16); Calcium 8.7 mg/dL (8.4-10.2); Carbon Dioxide 25 mmol/L (22-29); Chloride 106 mmol/L (96-108); Creatinine Clr Calc Pharmacy 22.2; Estimated Glomerular Filt Rate 19; Glucose Random 133 mg/dL (60-115); Lipase 65 U/L (8-78); Magnesium 2.3 mg/dL (1.6-2.6); Potassium 5.1 mmol/l (3.3-5.1); Sodium 140 mmol/L (135-145); Total Protein 6.9 g/dL (6.5-8.0)
[2020-03-12 11:11] VITALS: BP 175/91; PULSE 94; RESP 18; O2SAT 94
--- NOTE | 2020-03-12 11:29 | PC.NURSE ---
message left x 2 on pt's answering machine at home. pt needs to be fiber picker by for d/c home.
--- NOTE | 2020-03-12 11:30 | PC.NURSE ---
pt's returned phone call. pt to be picked up in about 20mins.
== END 2020-03-12 12:00 | disposition home or self-care (01) ==
PROVIDERS: Physician Assistant; Emergency Provider Emergency Medicine Emergency Medical Services
DX: K31.84 Gastroparesis (principal); E11.22 Type 2 diabetes mellitus with diabetic chronic kidney disease; I12.9 Hypertensive chronic kidney disease with stage 1 through stage 4 chronic kidney disease, or unspecified chronic kidney disease; N18.9 Chronic kidney disease, unspecified; Z79.899 Other long term (current) drug therapy
CPT/HCPCS: 36415; 80048; 80076; 83690; 83735; 85025; 96361; 96374; 96375; 99284; J1200; J2765

== ENCOUNTER 2020-03-16 13:14 | Emergency (ER) | payer MEDICARE, OTHER, SELFPAY ==
[2020-03-16 13:25] VITALS: BP 150/90; BP 163/69; PULSE 92; PULSE 96; RESP 18; TEMP 36.6; O2SAT 98; BMI 30.8
--- NOTE | 2020-03-16 14:28 | ED.NAVMDI ---
HPI - Nausea/Vomiting/Diarrhea General Chief complaint: Nausea/Vomiting/Diarrhea Stated complaint: abd pain Time Seen by Provider: 03/16/20 14:23 History of Present Illness HPI Narrative: 69-year-old male with a history of gastroparesis recurrent nausea vomiting chronic renal disease hypertension anxiety coronary artery disease diabetes presented today with having nausea vomiting similar to previous episodes. Patient denies any coughing congestion upper respiratory symptoms. Patient feels very anxious. Wants a shot of Ativan. Does not want any blood draws. Does not want anything else to be done. Patient claims are nausea vomiting is better. And had not exhibited any nausea vomiting episodes in the emergency department. Related Data Home Medications Medication Instructions Recorded Confirmed lorazepam 1 mg PO Q6H PRN 12/29/19 12/29/19 promethazine 25 mg PO Q6H PRN 12/29/19 12/29/19 Previous Rx's Medication Instructions Recorded metoclopramide HCl 10 mg PO Q6H PRN #10 tab 12/29/19 lorazepam [Ativan] 1 mg PO BID PRN #7 tab 01/17/20 ondansetron HCl [Zofran] 4 mg PO Q8H PRN #10 tab 01/17/20 Allergies Allergy/AdvReac Type Severity Reaction Status Date / Time morphine Allergy Intermediate RASH Verified 12/29/19 01:41 Review of Systems Review of Systems: Constitutional: No Weight loss, No Fever, No Chills, No Night Sweats, No Fatigue, No Malaise ENT/Mouth: No Hearing loss, No Ear Pain, No Nasal Congestion, No Sinus Pain, No Hoarseness, No sore throat, No Rhinorrhea, No Swallowing Difficulty Eyes: No Eye Pain, No Swelling, No Redness, No Foreign Body, No Discharge, No Vision Changes Cardiovascular: No Chest Pain, No SOB, No Dyspnea on Exertion, No Orthopnea, No Edema, No Palpitations Respiratory: No Cough, No Sputum, No Wheezing, No Smoke Exposure, No Dyspnea Gastrointestinal: Positive Nausea, positive Vomiting, No Diarrhea, No Constipation, No abdominal Pain, No Hematochezia, No Melena Genitourinary: no irregular bleeding, No Dysuria, No Urinary Frequency, No Hematuria, No Urinary Incontinence, No Urgency, No Flank Pain, No Urinary Flow Changes, No Hesitancy Musculoskeletal: No joint pain, No Myalgias, No Joint Swelling Skin: No Skin Lesions, No rash Neuro: No Weakness, No Numbness, No Paresthesias, No Loss of Consciousness, No Dizziness, No Headache Psych: No Anxiety/Panic, No Depression, No SI/HI/AH/VH, No Social Issues, Heme/Lymph: No Bruising, No Bleeding,No Lymphadenopathy Endocrine: No Polyuria, No Polydipsia, No Temperature Intolerance PMFSH Past Medical History Attestation statement: The following information was validated with the patient. Medical History Diabetes Gastroparesis HTN (hypertension) Kidney failure Family History Family History Other Family history non-contributory Social History Social History Alcohol intake: never Smoking Status: Never smoker Substance Use Type: Marijuana Advance Directives: No Advance Directives Information Provided: Yes Physical Exam Vital Signs: Vital Signs: Last Vital Signs Temp 97.8 F 03/16/20 13:25 Pulse 96 03/16/20 13:25 Resp 18 03/16/20 13:25 BP 163/69 H 03/16/20 13:25 Pulse Ox 98 03/16/20 13:25 Body Mass Index 30.8 Appearance: Alert. Oriented X3. No acute distress. Eyes: Pupils equal, round and reactive to light. ENT: Pharynx normal. Neck: Normal inspection. Neck supple. No lymph nodes noted. No crepitus CVS: Normal heart rate and rhythm. Pulses normal. Normal S1 and S2 Respiratory: No respiratory distress. Breath sounds normal. No Wheezing. No rales Abdomen: Soft and nontender. No rigidity. No distention. good BS x4 Skin: Skin warm and dry. Normal skin color. Normal skin turgor. Extremities: No lower extremity edema. Neurovascular intact to all extremities. No Lacerations. No Rash Neuro: Oriented X 3. No motor deficit. No sensory deficit. Moving all extermities. No slurred speech MDM - Nausea/Vomiting/Diarrhea MDM Narrative Medical decision making narrative: Fair peering no distress. Will give a mg of Ativan IM for anxiety. Patient not actively nauseous vomiting. Will discharge patient home. Patient understood risk of not drawing his labs today. He refused blood draw. Being discharged home. He is well-known to the emergency department Lab Data Attestation: I reviewed the patient's lab results. Discharge Plan Discharge Clinical Impression: Gastroparesis, Anxiety Patient Disposition: Home, Self-Care Instructions: Gastroparesis (ED), Anxiety (ED) Prescriptions: No Action promethazine 25 mg tablet 25 mg PO Q6H PRN (Reason: nausea/vomiting) RF: 0 lorazepam 1 mg tablet 1 mg PO Q6H PRN (Reason: anxiety) RF: 0 metoclopramide HCl 10 mg tablet 10 mg PO Q6H PRN (Reason: nausea and vomiting) Qty: 10 RF: 0 lorazepam [Ativan] 1 mg tablet 1 mg PO BID PRN (Reason: anxiety) Qty: 7 RF: 0 ondansetron HCl [Zofran] 4 mg tablet 4 mg PO Q8H PRN (Reason: nausea and vomiting) Qty: 10 RF: 0 Referrals: Physician,Unknown [Primary Care Provider] - 2 days
--- NOTE | 2020-03-16 14:31 | PC.NURSE ---
pt refused blood work. aware.
[2020-03-16] MEDS: LORazepam 2 MG/ML VIAL 1 MG IM (14:45)
== END 2020-03-16 14:54 | disposition home or self-care (01) ==
PROVIDERS: Emergency Provider Emergency Medicine Emergency Medical Services
DX: E11.43 Type 2 diabetes mellitus with diabetic autonomic (poly)neuropathy (principal); F41.9 Anxiety disorder, unspecified; I10 Essential (primary) hypertension; Z79.899 Other long term (current) drug therapy
CPT/HCPCS: 96372; 99283; 99284; J2060

== ENCOUNTER 2020-03-19 00:24 | Emergency (ER) | payer MEDICARE, OTHER, SELFPAY ==
--- NOTE | 2020-03-19 00:28 | ED_ITS ---
HPI - Abdominal Pain General Chief Complaint: Abdominal Pain Stated Complaint: ABD PAIN/VOMITING Time Seen by Provider: 03/19/20 00:27 Source: patient, EMS and old records reviewed Mode of arrival: EMS Limitations: no limitations History of Present Illness HPI narrative: 69 yo male well known to our facility comes in for chronic abdominal pain and nausea due to gastroparesis, no change from his baseline MD elicited complaint: abdominal pain Pertinent past history: other (gastroparesis) Onset (ago): day(s) (last night) Pain Consistency: constant Location: epigastric Severity: moderate Quality: stabbing Radiation: none Migration to: no migration Exacerbating factors: nothing Relieving factors: nothing Context: history of similar episodes Associated symptoms: nausea Related Data Home Medications Medication Instructions Recorded Confirmed lorazepam 1 mg PO Q6H PRN 12/29/19 12/29/19 promethazine 25 mg PO Q6H PRN 12/29/19 12/29/19 Previous Rx's Medication Instructions Recorded metoclopramide HCl 10 mg PO Q6H PRN #10 tab 12/29/19 lorazepam [Ativan] 1 mg PO BID PRN #7 tab 01/17/20 ondansetron HCl [Zofran] 4 mg PO Q8H PRN #10 tab 01/17/20 Allergies Allergy/AdvReac Type Severity Reaction Status Date / Time morphine Allergy Intermediate RASH Verified 12/29/19 01:41 Review of Systems Review of Systems Constitutional : No Weight loss, No Fever, No Chills ENT/Mouth : No sore throat, No Rhinorrhea Eyes: No Swelling, No Redness Cardiovascular : No Chest Pain, No SOB, NoEdema Respiratory : No Cough, No Sputum, No Wheezing Gastrointestinal : Positive Nausea, no Vomiting, no Diarrhea, positive abdominal Pain, No Hematochezia, No Melena Genitourinary : No Dysuria, No Urinary Frequency, No Hematuria, No Urgency Musculoskeletal : No joint pain, No Myalgias, No Joint Swelling Skin : No Skin Lesions, No rash Neuro : No Weakness, No Numbness, No Dizziness, No Headache Psych : No Anxiety/Panic, No Depression Heme/Lymph: No Bruising, No Lymphadenopathy Endocrine : No Polyuria, No Polydipsia All other systems reviewed and are negative. Physical Exam Vital Signs: Vital Signs: Last Vital Signs Temp 98 F 03/19/20 00:37 Pulse 96 03/19/20 00:37 Resp 18 03/19/20 00:37 BP 141/84 H 03/19/20 00:37 Pulse Ox 99 03/19/20 00:37 Body Mass Index 59.9 Appearance: Alert. Oriented X3. No acute distress. wowowowoooow Eyes: Pupils equal, round and reactive to light. ENT: Pharynx normal. Neck: Normal inspection. Neck supple. CVS: Normal heart rate and rhythm. Pulses normal. Respiratory: No respiratory distress. Breath sounds normal. Abdomen: Soft and mild epigastric ttp, no rebound or guarding Skin: Skin warm and dry. Normal skin color. Normal skin turgor. Extremities: No lower extremity edema. No calf ttp Neuro: Oriented X 3. No motor deficit. No sensory deficit. Course Course Course Narrative: signed out to Dr. Bey pending labs but anticipate DC home MDM - Abdominal Pain MDM Narrative Medical decision making narrative: 69 yo male with DM, CRI, gastroparesis here with his chronic abdominal pain and nausea no actual vomiting - states it's my gastroparesis will obtain basic labs, treat symptoms, Bull usually improves and wants to go home Discharge Plan Discharge Clinical Impression: Gastroparesis Patient Disposition: Home, Self-Care Instructions: Gastroparesis (ED) Additional Instructions: return to ED for any worsening symptoms or concerns Prescriptions: No Action promethazine 25 mg tablet 25 mg PO Q6H PRN (Reason: nausea/vomiting) RF: 0 lorazepam 1 mg tablet 1 mg PO Q6H PRN (Reason: anxiety) RF: 0 metoclopramide HCl 10 mg tablet 10 mg PO Q6H PRN (Reason: nausea and vomiting) Qty: 10 RF: 0 lorazepam [Ativan] 1 mg tablet 1 mg PO BID PRN (Reason: anxiety) Qty: 7 RF: 0 ondansetron HCl [Zofran] 4 mg tablet 4 mg PO Q8H PRN (Reason: nausea and vomiting) Qty: 10 RF: 0 Referrals: Physician,Unknown [Primary Care Provider] - 2 days (if not better) [facility] Past Medical History Attestation statement: The following information was validated with the patient. Medical History Diabetes Gastroparesis HTN (hypertension) Kidney failure Family History Family History Other Family history non-contributory Social History Social History Alcohol intake: never Smoking Status: Never smoker Substance Use Type: Marijuana Advance Directives: No Advance Directives Information Provided: No
[2020-03-19 00:37] VITALS: BP 141/84; PULSE 96; RESP 18; TEMP 36.6; O2SAT 99; BMI 59.9
[2020-03-19] MEDS: HYDROmorphone HCl 1 MG/ML SYRINGE IM (00:52)
[2020-03-19] MEDS: Metoclopramide HCl 10 MG/2 ML VIAL IM (00:52)
--- NOTE | 2020-03-19 01:50 | PC.NURSE ---
PT TO ROOM #14 WITH C/O NAUSEA/VOMITING X 2-3 DAYS. PT ARRIVES ALERT, RESPIRATIONS EASY, N/L. SKIN W/D. PT MOANING LOUDLY, IN ROOM FOR EVAL. PT MEDICATED PER EMAR FOR PAIN AND NAUSEA. WILL CONTINUE TO MONITOR PT.
[2020-03-19 01:51] LABS: Basophils Absolute Auto 0.1 X10*3/uL (0.0-0.2); Basophils Percent Auto 0.8 % (0-2); Eosinophils Absolute Auto 0.1 X10*3/uL (0.0-0.4); Eosinophils Percent Auto 1.1 % (0-4); Hematocrit 42.8 % (42-52); Hemoglobin 13.7 g/dl (14.0-18.0); Imm Gran Abs Auto 0.01 X10*3/uL (0.00-0.03); Imm Gran Pct Auto 0.1 % (0.0-0.4); Lymphocytes Absolute Auto 1.7 X10*3/uL (1.2-4.9); Mean Corpuscular Hemoglobin 29.7 pg (27.0-33.0); Mean Corpuscular Volume 92.6 fL (80-98); Mean Platelet Volume 10.4 fL (9.4-12.4); Monocytes Absolute Auto 0.5 X10*3/uL (0.1-1.2); Monocytes Percent Auto 7.6 % (2-11); Neutrophils Absolute Auto 4.7 X10*3/uL (2.0-8.3); Neutrophils Percent Auto 66.4 % (45-73); Platelet Count 217 X10*3/uL (160-400); Red Blood Count 4.62 X10*6/uL (4.60-5.80); White Blood Count 7.1 X10*3/uL (4.8-10.8)
[2020-03-19 01:53] LABS: MANUAL DIFF FLAG NO
[2020-03-19 02:13] LABS: Anion Gap 18 (12-20); Blood Urea Nitrogen 39 mg/dL (9-16); Calcium 9.1 mg/dL (8.4-10.2); Carbon Dioxide 22 mmol/L (22-29); Chloride 104 mmol/L (96-108); Creatinine Clr Calc Pharmacy 34.4; Estimated Glomerular Filt Rate 18; Glucose Random 224 mg/dL (60-115); Potassium 4.8 mmol/l (3.3-5.1); Sodium 139 mmol/L (135-145)
== END 2020-03-19 03:27 | disposition home or self-care (01) ==
LOC: HO.ED 00:45
PROVIDERS: Emergency Provider Emergency Medicine
DX: E11.43 Type 2 diabetes mellitus with diabetic autonomic (poly)neuropathy (principal)
CPT/HCPCS: 36415; 80048; 85025; 96372; 99283; 99284; J1170; J2765

== ENCOUNTER 2020-03-19 09:40 | Emergency (ER) | payer MEDICARE, OTHER, SELFPAY ==
[2020-03-19 09:55] VITALS: BP 183/102; BP 191/110; PULSE 101; PULSE 118; RESP 20; TEMP 36.6; O2SAT 97; BMI 27.1
--- NOTE | 2020-03-19 10:00 | ED.ABDPAIN ---
HPI - Abdominal Pain General Chief Complaint: Abdominal Pain Stated Complaint: N/V,ABD PAIN Time Seen by Provider: 03/19/20 09:57 Source: patient and EMS Mode of arrival: EMS Limitations: no limitations History of Present Illness HPI narrative: 69 y/o male with history of DM, gastroparesis, CKD, anxiety, CAD with recurrent visits to the ER for N/V and gastroparesis flares presents to the ED with the same after discharge a few hours earlier. He reports multiple episodes of vomiting when he got home and persistent nausea. He states his abdominal pain is 10/10 and similar to his prior episodes of gastroparesis. MD elicited complaint: abdominal pain Pertinent past history: other (gastroparesis ) Onset (ago): hour(s) (8) Pain Consistency: constant Location: diffuse Severity: similar to previous episodes Quality: cramping Radiation: none Migration to: no migration Exacerbating factors: eating Relieving factors: vomiting Associated symptoms: nausea and vomiting Related Data Home Medications Medication Instructions Recorded Confirmed lorazepam 1 mg PO Q6H PRN 12/29/19 12/29/19 promethazine 25 mg PO Q6H PRN 12/29/19 12/29/19 Previous Rx's Medication Instructions Recorded metoclopramide HCl 10 mg PO Q6H PRN #10 tab 12/29/19 lorazepam [Ativan] 1 mg PO BID PRN #7 tab 01/17/20 ondansetron HCl [Zofran] 4 mg PO Q8H PRN #10 tab 01/17/20 Allergies Allergy/AdvReac Type Severity Reaction Status Date / Time morphine Allergy Intermediate RASH Verified 12/29/19 01:41 Review of Systems Review of Systems Constitutional: No Fever, No Chills Cardiovascular: No Chest Pain, No SOB, No Orthopnea, No Edema Respiratory: No Cough, No Sputum, No Wheezing, No dyspnea Gastrointestinal: + Nausea, + Vomiting, No Diarrhea, + abdominal Pain, No Hematochezia, No Melena Genitourinary: No Dysuria, No Urinary Frequency, No Hematuria Musculoskeletal: No joint pain, No Myalgias Skin: No Skin Lesions, No rash Neuro: No Weakness, No Numbness, No Dizziness, + Headache Psych: + Anxiety/Panic, No Depression Heme/Lymph: No Bruising, No Lymphadenopathy Endocrine: No Polyuria, No Polydipsia Physical Exam Vital Signs: Vital Signs: Last Vital Signs Temp 97.8 F 03/19/20 09:55 Pulse 96 03/19/20 13:23 Resp 16 03/19/20 13:23 BP 178/84 H 03/19/20 13:23 Pulse Ox 97 03/19/20 13:23 Body Mass Index 27.1 Appearance: Alert. Oriented X3. Yelling out wow and ow over and over. Eyes: Pupils equal, round and reactive to light. ENT: Pharynx normal. Neck: Normal inspection. Neck supple. CVS: Normal heart rate and rhythm. Pulses normal. Respiratory: No respiratory distress. Unable to assess breath sounds given his yelling Abdomen: Soft, diffusely tender. +BS x4 Skin: Skin warm and dry. Normal skin color. Normal skin turgor. No rashes. Extremities: No lower extremity edema. Neuro: Oriented X 3. No motor deficit. No sensory deficit. Course Course Course Narrative: 69 y/o male well known to this ER for N/V presents with the same. He was just discharged. He just has blood work done overnight - CKD at his baseline with stable lytes and no leukocytosis. He has not had a CT scan of his abdomen since Dec 14, 2019. He has been to the ER 5-6 times per month with recurrent N/V, presumably due to gastroparesis. Treated symptomatically and he improves and is discharged home. Ordered IM ativan Reevaluation(s) Reevaluation #1: 10:45am - Patient continues to report nausea and has some vomiting episodes. IV placed - IVF, Reglan and Dilaudid ordered for reports of severe pain. He was seen sticking his fingers down his throat. Reevaluation #2: 1:55 pm - patient has been sleeping the last 2 hours. He just woke up with improvement in pain. No further vomiting. He would like to go home. He is stable for d/c. MDM - Abdominal Pain Lab Data Labs: Lab Results 03/19/20 Range/Units 10:03 POC Glucose 268 H (60-115) mg/dL Discharge Plan Discharge Clinical Impression: Gastroparesis Patient Disposition: Home, Self-Care Instructions: Diabetic Gastroparesis (DC) Additional Instructions: Take all of your medications as prescribed, including REGLAN before meals to help prevent gastroparesis flares. Recommend tight glucose control. Follow up with your doctor this week. Prescriptions: No Action promethazine 25 mg tablet 25 mg PO Q6H PRN (Reason: nausea/vomiting) RF: 0 lorazepam 1 mg tablet 1 mg PO Q6H PRN (Reason: anxiety) RF: 0 metoclopramide HCl 10 mg tablet 10 mg PO Q6H PRN (Reason: nausea and vomiting) Qty: 10 RF: 0 lorazepam [Ativan] 1 mg tablet 1 mg PO BID PRN (Reason: anxiety) Qty: 7 RF: 0 ondansetron HCl [Zofran] 4 mg tablet 4 mg PO Q8H PRN (Reason: nausea and vomiting) Qty: 10 RF: 0 PMFSH Past Medical History Attestation statement: The following information was validated with the patient. Medical History Diabetes Gastroparesis HTN (hypertension) Kidney failure Family History Family History Other Family history non-contributory Social History Social History Alcohol intake: never Smoking Status: Never smoker Use of substances other than those prescribed or required for medical reasons: No Substance Use Type: Marijuana Advance Directives: No Advance Directives Information Provided: Yes
[2020-03-19 10:11] LABS: Glucose, Whole Blood 268 mg/dL (60-115)
[2020-03-19] MEDS: LORazepam 2 MG/ML VIAL IM (10:19)
--- NOTE | 2020-03-19 10:21 | PC.NURSE ---
Pt given IM ativan to left deltoid. He states this typically works well for him.
[2020-03-19] MEDS: HYDROmorphone HCl 0.5 MG/0.5 ML SYRINGE IVPUSH (10:40)
[2020-03-19] MEDS: Metoclopramide HCl 10 MG/2 ML VIAL IVPUSH (10:40)
[2020-03-19] MEDS: 0.9 % Sodium Chloride 1,000 ML 999 ML IVCONT (10:40)
[2020-03-19 11:25] VITALS: BP 170/84; PULSE 91
[2020-03-19 13:23] VITALS: BP 178/84; PULSE 96; RESP 16; O2SAT 97
== END 2020-03-19 14:16 | disposition home or self-care (01) ==
PROVIDERS: Emergency Provider Emergency Medicine
DX: E11.43 Type 2 diabetes mellitus with diabetic autonomic (poly)neuropathy (principal)
CPT/HCPCS: 36415; 80048; 82947; 85025; 96361; 96372; 96374; 96375; 99283; 99284; J1170; J2060; J2765

== ENCOUNTER 2020-03-20 01:32 | Emergency (ER) | payer MEDICARE, OTHER, SELFPAY ==
[2020-03-20 01:39] VITALS: BP 155/87; PULSE 103; RESP 102; TEMP 37; O2SAT 97; BMI 31.9
--- NOTE | 2020-03-20 01:42 | ED_ITS ---
HPI - Nausea/Vomiting/Diarrhea General Chief complaint: Nausea/Vomiting/Diarrhea Stated complaint: ABD PAIN Time Seen by Provider: 03/20/20 01:42 Source: patient Mode of arrival: EMS Limitations: no limitations History of Present Illness HPI Narrative: Patient history of anxiety and cyclic vomiting syndrome been here frequently was seen here yesterday for similar complaints lab workup was done was normal discharged early in the morning today comes back again for increased nausea vomiting putting his finger in his mouth to vomit similar to that in previous ER visits MD elicited complaint: nausea and vomiting Pertinent past history: cyclical vomiting Onset (ago): day(s) (2) Description of vomiting: watery Related Data Home Medications Medication Instructions Recorded Confirmed lorazepam 1 mg PO Q6H PRN 12/29/19 12/29/19 promethazine 25 mg PO Q6H PRN 12/29/19 12/29/19 Previous Rx's Medication Instructions Recorded metoclopramide HCl 10 mg PO Q6H PRN #10 tab 12/29/19 lorazepam [Ativan] 1 mg PO BID PRN #7 tab 01/17/20 ondansetron HCl [Zofran] 4 mg PO Q8H PRN #10 tab 01/17/20 Allergies Allergy/AdvReac Type Severity Reaction Status Date / Time morphine Allergy Intermediate RASH Verified 12/29/19 01:41 Review of Systems Review of Systems: Constitutional : No Weight loss, No Fever, No Chills ENT/Mouth : No sore throat, No Rhinorrhea Eyes: No Eye Pain, No Swelling Cardiovascular : No Chest Pain, no palpitations Respiratory : No Cough, No Sputum, no shortness of breath Gastrointestinal : No Diarrhea, No abdominal Pain, no black stools Genitourinary : No Dysuria, No Urinary Frequency Musculoskeletal : No joint pain, No Myalgias, No Joint Swelling Skin : No Skin Lesions, No rash Neuro : No Weakness, No Numbness, No Dizziness, No Headache Psych : No Anxiety/Panic, No Depression Heme/Lymph: No Bruising, No Lymphadenopathy Endocrine : No Polyuria, No Polydipsia All other systems reviewed and are negative [facility] Past Medical History Medical History Diabetes Gastroparesis HTN (hypertension) Kidney failure Vomiting Family History Family History Other Family history non-contributory Social History Social History Alcohol intake: never Smoking Status: Former smoker Use of substances other than those prescribed or required for medical reasons: No Substance Use Type: Marijuana Advance Directives: No Advance Directives Information Provided: No Physical Exam Vital Signs: Vital Signs: Last Vital Signs Temp 98.6 F 03/20/20 01:39 Pulse 90 03/20/20 03:38 Resp 18 03/20/20 03:38 BP 166/71 H 03/20/20 03:38 Pulse Ox 100 03/20/20 01:56 Body Mass Index 31.9 Appearance: Alert. Oriented X3. No acute distress. Anxious Eyes: Legally blind , PERRLA ENT: Pharynx normal. Neck: Normal inspection. Neck supple. CVS: Normal heart rate and rhythm. Pulses normal. Respiratory: No respiratory distress. Breath sounds normal. Abdomen: Soft and nontender. Bowel sounds are present, no mass palpable, no CVA tenderness Skin: Skin warm and dry. Normal skin color. Normal skin turgor. Extremities: No lower extremity edema. Neuro: Oriented X 3. No motor deficit. No sensory deficit. Course Course Course Narrative: Patient slept all night no vomiting noticed in the ER discharge him home Discharge Plan Discharge Clinical Impression: Cyclical vomiting Patient Disposition: Home, Self-Care Instructions: Cyclic Vomiting Syndrome (ED) Additional Instructions: Taking medication as prescribed and follow with PCP Prescriptions: No Action promethazine 25 mg tablet 25 mg PO Q6H PRN (Reason: nausea/vomiting) RF: 0 lorazepam 1 mg tablet 1 mg PO Q6H PRN (Reason: anxiety) RF: 0 metoclopramide HCl 10 mg tablet 10 mg PO Q6H PRN (Reason: nausea and vomiting) Qty: 10 RF: 0 lorazepam [Ativan] 1 mg tablet 1 mg PO BID PRN (Reason: anxiety) Qty: 7 RF: 0 ondansetron HCl [Zofran] 4 mg tablet 4 mg PO Q8H PRN (Reason: nausea and vomiting) Qty: 10 RF: 0 Interventions: ED Discharge Assessment Last Done: 03/20/20 05:32 Discharge Date/Time: 03/20/20 05:32
[2020-03-20] MEDS: Prochlorperazine Edisylate 10 MG/2 ML VIAL IM (01:48)
[2020-03-20] MEDS: LORazepam 2 MG/ML VIAL IM (01:50)
[2020-03-20 01:56] VITALS: RESP 20; O2SAT 100
--- NOTE | 2020-03-20 02:39 | PC.NURSE ---
patient a and ox. 4. no n/v noted. sleeping this time.
[2020-03-20 03:38] VITALS: BP 166/71; PULSE 90; RESP 18
--- NOTE | 2020-03-20 05:22 | PC.NURSE ---
call placed to for lemon picker. left message.
== END 2020-03-20 05:32 | disposition home or self-care (01) ==
PROVIDERS: Emergency Provider Internal Medicine
DX: R11.15 Cyclical vomiting syndrome unrelated to migraine (principal); I10 Essential (primary) hypertension; F12.90 Cannabis use, unspecified, uncomplicated; Z87.891 Personal history of nicotine dependence; Z79.899 Other long term (current) drug therapy
CPT/HCPCS: 96372; 99284; J2060

== ENCOUNTER 2020-03-21 06:01 | Emergency (ER) | payer MEDICARE, OTHER, SELFPAY ==
[2020-03-21 06:04] VITALS: BP 156/76; PULSE 100; RESP 16; TEMP 37; O2SAT 100; BMI 26.4
--- NOTE | 2020-03-21 06:13 | ED_ITS ---
HPI - Nausea/Vomiting/Diarrhea General Chief complaint: Abdominal Pain Stated complaint: ABDOMINAL PAIN Time Seen by Provider: 03/21/20 06:13 Source: patient and EMS Mode of arrival: EMS Limitations: no limitations History of Present Illness HPI Narrative: Patient has frequent ED visits almost every other day been to the ER was seen yesterday for similar cyclic vomiting, anxiety abdominal pain asking for lorazepam on arrival. Patient was seen here 9 times in last 30 days with stable labs this time patient trying to vomit putting his fingers in his mouth but no vomiting so far MD elicited complaint: nausea Related Data Home Medications Medication Instructions Recorded Confirmed lorazepam 1 mg PO Q6H PRN 12/29/19 12/29/19 promethazine 25 mg PO Q6H PRN 12/29/19 12/29/19 Previous Rx's Medication Instructions Recorded metoclopramide HCl 10 mg PO Q6H PRN #10 tab 12/29/19 lorazepam [Ativan] 1 mg PO BID PRN #7 tab 01/17/20 ondansetron HCl [Zofran] 4 mg PO Q8H PRN #10 tab 01/17/20 Allergies Allergy/AdvReac Type Severity Reaction Status Date / Time morphine Allergy Intermediate RASH Verified 12/29/19 01:41 Review of Systems Review of Systems: Constitutional : No Weight loss, No Fever, No Chills anxiety++ ENT/Mouth : No sore throat, No Rhinorrhea Eyes: No Eye Pain, No Swelling Cardiovascular : No Chest Pain, no palpitations Respiratory : No Cough, No Sputum, no shortness of breath Gastrointestinal : + Nausea, No Vomiting, No Diarrhea, No abdominal Pain, no black stools Genitourinary : No Dysuria, No Urinary Frequency Musculoskeletal : No joint pain, No Myalgias, No Joint Swelling Skin : No Skin Lesions, No rash Neuro : No Weakness, No Numbness, No Dizziness, No Headache Heme/Lymph: No Bruising, No Lymphadenopathy Endocrine : No Polyuria, No Polydipsia All other systems reviewed and are negative [facility] Past Medical History Medical History Diabetes Gastroparesis HTN (hypertension) Kidney failure Vomiting Family History Family History Other Family history non-contributory Social History Social History Alcohol intake: unknown Smoking Status: Unknown if ever smoked Use of substances other than those prescribed or required for medical reasons: Yes Substance Use Type: Marijuana Physical Exam Vital Signs: Vital Signs: Last Vital Signs Temp 98.6 F 03/21/20 06:04 Pulse 100 03/21/20 06:04 Resp 16 03/21/20 06:04 Pulse Ox 100 03/21/20 06:04 Body Mass Index 26.4 Appearance: Alert. Oriented X3. No acute distress. Trying to vomit having dry heaves Eyes: Pupils equal, round and reactive to light. ENT: Pharynx normal. Neck: Normal inspection. Neck supple. CVS: Normal heart rate and rhythm. Pulses normal. Respiratory: No respiratory distress. Breath sounds normal. Abdomen: Soft and nontender. Bowel sounds are present, no mass palpable, no CVA tenderness Skin: Skin warm and dry. Normal skin color. Normal skin turgor. Extremities: No lower extremity edema. Neuro: Oriented X 3. No motor deficit. No sensory deficit. MDM - Nausea/Vomiting/Diarrhea MDM Narrative Medical decision making narrative: Patient's anxiety/cyclic vomiting syndrome using the hospital and ambulance service with multiple visits asking for Ativan on arrival. At this time patient does not have significant vomiting will discharge him home advised to follow-up with his PCP Discharge Plan Discharge Prescriptions: No Action promethazine 25 mg tablet 25 mg PO Q6H PRN (Reason: nausea/vomiting) RF: 0 lorazepam 1 mg tablet 1 mg PO Q6H PRN (Reason: anxiety) RF: 0 metoclopramide HCl 10 mg tablet 10 mg PO Q6H PRN (Reason: nausea and vomiting) Qty: 10 RF: 0 lorazepam [Ativan] 1 mg tablet 1 mg PO BID PRN (Reason: anxiety) Qty: 7 RF: 0 ondansetron HCl [Zofran] 4 mg tablet 4 mg PO Q8H PRN (Reason: nausea and vomiting) Qty: 10 RF: 0
[2020-03-21] MEDS: Prochlorperazine Edisylate 10 MG/2 ML VIAL IM (06:32)
== END 2020-03-21 06:43 | disposition home or self-care (01) ==
LOC: HO.ED 06:24
PROVIDERS: Emergency Provider Internal Medicine
DX: R11.15 Cyclical vomiting syndrome unrelated to migraine (principal); Z76.5 Malingerer [conscious simulation]; E11.9 Type 2 diabetes mellitus without complications; I10 Essential (primary) hypertension
CPT/HCPCS: 96372; 99284

== ENCOUNTER 2020-03-23 12:57 | Inpatient (IN) | payer MEDICARE, OTHER, SELFPAY ==
[2020-03-23] VITALS (11 sets, daily range): BP systolic 119–185; BP diastolic 76–128; PULSE 92–102; RESP 13–24; O2SAT 97–99; BMI 27.1
--- NOTE | 2020-03-23 13:17 | ECG_ITS ---
Test Reason : CHESTPAIN Blood Pressure : / mmHG Vent. Rate : 102 BPM Atrial Rate : 102 BPM P-R Int : 166 ms QRS Dur : 168 ms QT Int : 412 ms P-R-T Axes : 070 -57 013 degrees QTc Int : 536 ms Normal sinus rhythm Left axis deviation Right bundle branch block Cannot rule out inferior infarct Precordial T wave inversions likely related to RBBB. Abnormal ECG When compared with ECG of 23-MAR-2020 13:24, No significant changes seen Referred By: Disha Blackburn Electronically Signed By: Maldonado BENNETT
--- NOTE | 2020-03-23 13:17 | CT_ITS ---
EXAMINATION: CT HEAD WITHOUT CONTRAST CLINICAL INFORMATION: Fall COMPARISON: CT head 03/16/2019 TECHNIQUE: Contiguous axial imaging was performed from the skull base to vertex without intravenous administration of contrast. Coronal and sagittal reformatted images are performed at the CT scanner This CT examination was performed using dose optimization techniques as appropriate, variously including the following: *Automated exposure control *Adjustment of mA and/or kV according to patient size (this includes techniques or standardized protocols for targeted exams where dose is matched to indication/reason for exam; i.e. extremities or head) *Use of iterative reconstruction technique DLP: 731 mGy-cm FINDINGS: There is no evidence of acute intracranial hemorrhage or territorial infarction. No abnormal mass effect or midline shift is seen. Marquis to white matter differentiation is well preserved. No extra-axial fluid collections are identified. There is atrophy with prominence of the ventricles and the sulci and hypodensity of the periventricular white matter due to chronic small vessel ischemic disease. There are vascular calcifications of the internal carotid arteries bilaterally. The osseous structures and soft tissues are normal. Retention cyst in right sphenoid sinus measuring [address]/CT head/brain wo con IMPRESSION: No acute intracranial pathology.
--- NOTE | 2020-03-23 13:18 | XR_ITS ---
EXAMINATION: XR CHEST CLINICAL INFORMATION: Dyspnea COMPARISON: Previous chest x-ray most recent November 2019 TECHNIQUE: Frontal view of the chest was obtained. FINDINGS: The cardiac and mediastinal contours are stable. The lungs are clear. There is no pleural effusion or pneumothorax. There are degenerative changes of the spine. XR/XR chest 1V IMPRESSION: No evidence for acute disease in the chest.
--- NOTE | 2020-03-23 13:21 | ED_ITS ---
HPI - Syncope General Chief Complaint: Syncope Stated Complaint: diff breathing Time Seen by Provider: 03/23/20 13:16 Source: patient, EMS and old records reviewed Mode of arrival: EMS Limitations: no limitations History of Present Illness MD complaint: other (2 fainting episodes yesterday didn't have a prodrome, c/o shortness of breath) Onset (ago): day(s) (2) Description of event: other (patient cannot describe) Prodromal symptoms: none Witnessed: No Context: standing up Injuries sustained associated with event: none Current symptoms: other (patient states he hasn't eaten or drank in 5 days he was walking x 2 yesterday and passed out, today he felt short of breath so he called the ambulance and c/o chest pain earlier) History: previous syncopal episode Treatments prior to arrival: none Related Data Home Medications Medication Instructions Recorded Confirmed lorazepam 1 mg PO DAILY PRN 12/29/19 03/23/20 amlodipine 10 mg PO DAILY 03/23/20 03/23/20 aspirin 81 mg PO DAILY 03/23/20 03/23/20 atorvastatin 80 mg PO BEDTIME 03/23/20 03/23/20 cholecalciferol (vitamin D3) 25 mcg PO DAILY 03/23/20 03/23/20 furosemide 40 mg PO DAILY 03/23/20 03/23/20 hydralazine 50 mg PO BID 03/23/20 03/23/20 insulin aspart U-100 [Novolog See Protocol SUBCUT TIDAC 03/23/20 03/23/20 Flexpen U-100 Insulin] insulin glargine [Lantus Solostar 30 unit SUBCUT BEDTIME 03/23/20 03/23/20 U-100 Insulin] omeprazole 20 mg PO BID 03/23/20 03/23/20 polyethylene glycol 3350 [Miralax] 17 g PO DAILY 03/23/20 03/23/20 Allergies Allergy/AdvReac Type Severity Reaction Status Date / Time morphine Allergy Intermediate RASH Verified 12/29/19 01:41 Review of Systems Review of Systems: Constitutional : No Fever, No Chills ENT/Mouth : No sore throat, No Rhinorrhea, No Swallowing Difficulty Eyes: No Eye Pain, No Swelling, No Redness Cardiovascular : pos Chest Pain, positive SOB, No Orthopnea, no Edema Respiratory : No Cough, No Sputum, No Wheezing, positive dyspnea Gastrointestinal : No Nausea, No Vomiting, No Diarrhea, No abdominal Pain, No Hematochezia, No Melena Genitourinary : No Dysuria, No Urinary Frequency, No Hematuria Musculoskeletal : No joint pain, No Myalgias Skin : No Skin Lesions, No rash Neuro : No Weakness, No Numbness, No Dizziness, No Headache, positive fainting Psych : No Anxiety/Panic, No Depression Heme/Lymph: No Bruising, No Lymphadenopathy Endocrine : No Polyuria, No Polydipsia All other systems reviewed and are negative [facility] Past Medical History Attestation statement: The following information was validated with the patient. Medical History Diabetes Gastroparesis HTN (hypertension) Kidney failure Vomiting Family History Family History Other Family history non-contributory Social History Social History (Updated 03/23/20 @ 13:32 by Disha Blackburn DO) Alcohol intake: unknown Smoking Status: Never smoker Smoked in Last 30 Days: No Use of substances other than those prescribed or required for medical reasons: No Substance Use Type: Marijuana Advance Directives: Yes Advance Directives Information Provided: Yes Advance Directives on File: Yes Advance Directives Date on File: 02/12/20 Physical Exam Vital Signs: Vital Signs: Last Vital Signs Pulse 100 03/23/20 14:29 Resp 14 03/23/20 13:10 BP 119/76 03/23/20 14:29 Pulse Ox 99 03/23/20 14:31 Body Mass Index 27.1 Appearance: Alert. Oriented X3. No acute distress. Eyes: opacified chronic ENT: Pharynx normal. Neck: Normal inspection. Neck supple. CVS: Normal heart rate and rhythm. Pulses normal. Respiratory: No respiratory distress. Breath sounds normal. Abdomen: Soft and nontender. Skin: Skin warm and dry. Normal skin color. Normal skin turgor. Extremities: No lower extremity edema. No calf ttp Neuro: Oriented X 3. No motor deficit. No sensory deficit. Course Course Course Narrative: + ortho statics will give liter of fluid then additional 500 of fluids, he is AKA on CRF, pending admit MDM - Syncope MDM Narrative Medical decision making narrative: 69 yo male with IDDM - gastroparesis, legally blind, CRF here with dehydration syncope x 2 yesterday and now c/o dyspnea / chest pain will need labs, CXR, ddimer, EKG, troponin - COVID swab, possible VQ scan pending ddimer dispo per results and findings. Lab Data Result diagrams: 03/23/20 13:38 03/23/20 13:38 Labs: Lab Results 03/23/20 03/23/20 03/23/20 Range/Units 13:38 13:38 13:39 WBC 7.2 (4.8-10.8) X10*3/uL RBC 4.72 (4.60-5.80) X10*6/uL Hgb 14.1 (14.0-18.0) g/dl Hct 42.1 (42-52) % MCV 89.2 (80-98) fL MCH 29.9 (27.0-33.0) pg MCHC 33.5 (31.0-36.0) g/dl RDW 13.6 (11.0-16.0) % Plt Count 247 (160-400) X10*3/uL MPV 10.7 (9.4-12.4) fL Immature Gran % (Auto) 0.3 (0.0-0.4) % Neut % (Auto) 77.3 H (45-73) % Lymph % (Auto) 13.4 L (20-40) % [place] % (Auto) 8.7 (2-11) % Eos % (Auto) 0.0 (0-4) % Baso % (Auto) 0.3 (0-2) % Lymph # (Auto) 1.0 L (1.2-4.9) X10*3/uL [place] # (Auto) 0.6 (0.1-1.2) X10*3/uL Eos # (Auto) 0.0 (0.0-0.4) X10*3/uL Baso # (Auto) 0.0 (0.0-0.2) X10*3/uL Abs Immat Gran (auto) 0.02 (0.00-0.03) X10*3/uL Absolute Neuts (auto) 5.5 (2.0-8.3) X10*3/uL Absolute Nucleated RBC 0.000 (0.0-0.012) X10*3/uL Nucleated RBC % (auto) 0.0 (0.0-0.2) /100WBC D-Dimer 392 NG/ML Sodium 136 (135-145) mmol/L Potassium 4.9 (3.3-5.1) mmol/l Chloride 97 (96-108) mmol/L Carbon Dioxide 21 L (22-29) mmol/L Anion Gap 23 H (12-20) BUN 83 H* D (9-16) mg/dL Creatinine 4.34 H* (0.5-1.4) mg/dL Estim Creat Clear Calc 16.8 Estimated GFR 14 Random Glucose 305 H D (60-115) mg/dL Lactic Acid (0.5-2.0) mmol/L Calcium 8.4 D (8.4-10.2) mg/dL Magnesium 2.7 H (1.6-2.6) mg/dL Total Bilirubin 0.8 (0.0-1.0) mg/dL Direct Bilirubin 0.4 (0.0-0.5) mg/dL AST 24 D (5-37) U/L ALT 15 (0-40) U/L Alkaline Phosphatase 122 H (39-117) U/L Total Creatine Kinase 340 H (38-174) U/L Troponin I High Sens (<3.5-35.0) ng/L Total Protein 7.2 (6.5-8.0) g/dL Albumin 4.1 (3.5-5.0) g/dL Lipase (8-78) U/L Coronavirus (PCR) (Negative) Influenza Type A (PCR) (Negative) Influenza Type B (PCR) (Negative) RSV RNA Qual (PCR) (Negative) 03/23/20 03/23/20 03/23/20 Range/Units 13:39 13:39 13:39 WBC (4.8-10.8) X10*3/uL RBC (4.60-5.80) X10*6/uL Hgb (14.0-18.0) g/dl Hct (42-52) % MCV (80-98) fL MCH (27.0-33.0) pg MCHC (31.0-36.0) g/dl RDW (11.0-16.0) % Plt Count (160-400) X10*3/uL MPV (9.4-12.4) fL Immature Gran % (Auto) (0.0-0.4) % Neut % (Auto) (45-73) % Lymph % (Auto) (20-40) % [place] % (Auto) (2-11) % Eos % (Auto) (0-4) % Baso % (Auto) (0-2) % Lymph # (Auto) (1.2-4.9) X10*3/uL [place] # (Auto) (0.1-1.2) X10*3/uL Eos # (Auto) (0.0-0.4) X10*3/uL Baso # (Auto) (0.0-0.2) X10*3/uL Abs Immat Gran (auto) (0.00-0.03) X10*3/uL Absolute Neuts (auto) (2.0-8.3) X10*3/uL Absolute Nucleated RBC (0.0-0.012) X10*3/uL Nucleated RBC % (auto) (0.0-0.2) /100WBC D-Dimer NG/ML Sodium (135-145) mmol/L Potassium (3.3-5.1) mmol/l Chloride (96-108) mmol/L Carbon Dioxide (22-29) mmol/L Anion Gap (12-20) BUN (9-16) mg/dL Creatinine (0.5-1.4) mg/dL Estim Creat Clear Calc Estimated GFR Random Glucose (60-115) mg/dL Lactic Acid 1.3 (0.5-2.0) mmol/L Calcium (8.4-10.2) mg/dL Magnesium (1.6-2.6) mg/dL Total Bilirubin (0.0-1.0) mg/dL Direct Bilirubin (0.0-0.5) mg/dL AST (5-37) U/L ALT (0-40) U/L Alkaline Phosphatase (39-117) U/L Total Creatine Kinase (38-174) U/L Troponin I High Sens 56.7 H (<3.5-35.0) ng/L Total Protein (6.5-8.0) g/dL Albumin (3.5-5.0) g/dL Lipase 65 (8-78) U/L Coronavirus (PCR) (Negative) Influenza Type A (PCR) (Negative) Influenza Type B (PCR) (Negative) RSV RNA Qual (PCR) (Negative) 03/23/20 Range/Units 13:39 WBC (4.8-10.8) X10*3/uL RBC (4.60-5.80) X10*6/uL Hgb (14.0-18.0) g/dl Hct (42-52) % MCV (80-98) fL MCH (27.0-33.0) pg MCHC (31.0-36.0) g/dl RDW (11.0-16.0) % Plt Count (160-400) X10*3/uL MPV (9.4-12.4) fL Immature Gran % (Auto) (0.0-0.4) % Neut % (Auto) (45-73) % Lymph % (Auto) (20-40) % [place] % (Auto) (2-11) % Eos % (Auto) (0-4) % Baso % (Auto) (0-2) % Lymph # (Auto) (1.2-4.9) X10*3/uL [place] # (Auto) (0.1-1.2) X10*3/uL Eos # (Auto) (0.0-0.4) X10*3/uL Baso # (Auto) (0.0-0.2) X10*3/uL Abs Immat Gran (auto) (0.00-0.03) X10*3/uL Absolute Neuts (auto) (2.0-8.3) X10*3/uL Absolute Nucleated RBC (0.0-0.012) X10*3/uL Nucleated RBC % (auto) (0.0-0.2) /100WBC D-Dimer NG/ML Sodium (135-145) mmol/L Potassium (3.3-5.1) mmol/l Chloride (96-108) mmol/L Carbon Dioxide (22-29) mmol/L Anion Gap (12-20) BUN (9-16) mg/dL Creatinine (0.5-1.4) mg/dL Estim Creat Clear Calc Estimated GFR Random Glucose (60-115) mg/dL Lactic Acid (0.5-2.0) mmol/L Calcium (8.4-10.2) mg/dL Magnesium (1.6-2.6) mg/dL Total Bilirubin (0.0-1.0) mg/dL Direct Bilirubin (0.0-0.5) mg/dL AST (5-37) U/L ALT (0-40) U/L Alkaline Phosphatase (39-117) U/L Total Creatine Kinase (38-174) U/L Troponin I High Sens (<3.5-35.0) ng/L Total Protein (6.5-8.0) g/dL Albumin (3.5-5.0) g/dL Lipase (8-78) U/L Coronavirus (PCR) NEGATIVE (Negative) Influenza Type A (PCR) NEGATIVE (Negative) Influenza Type B (PCR) NEGATIVE (Negative) RSV RNA Qual (PCR) NEGATIVE (Negative) ECG Data Attestation: I personally reviewed and interpreted this ECG as follows: ECG interpretation date: 03/23/20 ECG interpretation time: 13:33 Interpretation: Rate: 100 Rhythm: sinus tachycardia [place]: left Normal P waves. Normal [place]. RBBB ST T wave : no NURIA, nonspecific qTC: prolonged prior studies: no acute changes The study has been interpreted contemporaneously by me. . Discharge Plan Discharge Clinical Impression: Gastroparesis, Renal failure, acute on chronic, Syncope, Orthostatic hypotension, Elevated BUN Patient Disposition: Admitted As Inpatient Prescriptions: No Action lorazepam 1 mg tablet 1 mg PO DAILY PRN (Reason: anxiety) RF: 0 insulin aspart U-100 [Novolog Flexpen U-100 Insulin] 100 unit/mL (3 mL) Insulin Pen See Protocol unit SUBCUT TIDAC RF: 0 Lantus Solostar U-100 Insulin 100 unit/mL (3 mL) Insulin Pen 30 unit SUBCUT BEDTIME RF: 0 furosemide 40 mg Tablet 40 mg PO DAILY RF: 0 atorvastatin 80 mg Tablet 80 mg PO BEDTIME RF: 0 polyethylene glycol 3350 [Miralax] 17 gram Powder In Packet 17 g PO DAILY RF: 0 amlodipine 10 mg Tablet 10 mg PO DAILY RF: 0 omeprazole 20 mg Capsule,Delayed Release(Dr/Ec) 20 mg PO BID RF: 0 aspirin 81 mg Tablet,Chewable 81 mg PO DAILY RF: 0 hydralazine 50 mg Tablet 50 mg PO BID RF: 0 cholecalciferol (vitamin D3) 25 mcg (1,000 unit) Tablet 25 mcg PO DAILY RF: 0
[2020-03-23] MEDS: 0.9 % Sodium Chloride 500 ML IV ×3 (13:43→16:25)
[2020-03-23 13:47] LABS: MANUAL DIFF FLAG NO
[2020-03-23 13:50] LABS: Basophils Percent Auto 0.3 % (0-2); Hematocrit 42.1 % (42-52); Hemoglobin 14.1 g/dl (14.0-18.0); Imm Gran Abs Auto 0.02 X10*3/uL (0.00-0.03); Imm Gran Pct Auto 0.3 % (0.0-0.4); Lymphocytes Percent Auto 13.4 % (20-40); Mean Corpuscular HGB Conc 33.5 g/dl (31.0-36.0); Mean Corpuscular Hemoglobin 29.9 pg (27.0-33.0); Mean Corpuscular Volume 89.2 fL (80-98); Mean Platelet Volume 10.7 fL (9.4-12.4); Monocytes Absolute Auto 0.6 X10*3/uL (0.1-1.2); Monocytes Percent Auto 8.7 % (2-11); Neutrophils Absolute Auto 5.5 X10*3/uL (2.0-8.3); Neutrophils Percent Auto 77.3 % (45-73); Platelet Count 247 X10*3/uL (160-400); Red Blood Count 4.72 X10*6/uL (4.60-5.80); Red Cell Distribution Width 13.6 % (11.0-16.0); White Blood Count 7.2 X10*3/uL (4.8-10.8)
[2020-03-23 14:00] LABS: D Dimer 392 NG/ML
[2020-03-23 14:05] LABS: Lactic Acid 1.3 mmol/L (0.5-2.0)
--- NOTE | 2020-03-23 14:10 | NM_ITS ---
EXAMINATION: PULMONARY PERFUSION STUDY CLINICAL INFORMATION: Elevated d-dimer, syncope, dyspnea. COMPARISON: No previous lung scan is available for comparison. A radiograph of the chest dated 03/23/2020 is available for comparison. TECHNIQUE: Following the intravenous injection of 3.8 mCi Tc-99m MAA, an 8-view perfusion study was performed using a gamma scintillation camera. FINDINGS: No segmental perfusion defects are present. There is homogeneous distribution of activity bilaterally. There are no focal anatomic appearing perfusion defects present. NM/NM pul perfusion IMPRESSION: Normal radionuclide lung perfusion scan.
[2020-03-23 14:21] LABS: Troponin-I High Sensitivity 56.7 ng/L (<3.5-35.0)
[2020-03-23 14:24] LABS: Lipase 65 U/L (8-78)
[2020-03-23 14:24] LABS: Alanine Aminotransferase 15 U/L (0-40); Albumin Level 4.1 g/dL (3.5-5.0); Alkaline Phosphatase 122 U/L (39-117); Anion Gap 23 (12-20); Aspartate Amino Transferase 24 U/L (5-37); Bilirubin Direct 0.4 mg/dL (0.0-0.5); Bilirubin Total 0.8 mg/dL (0.0-1.0); Blood Urea Nitrogen 83 mg/dL (9-16); Calcium 8.4 mg/dL (8.4-10.2); Carbon Dioxide 21 mmol/L (22-29); Chloride 97 mmol/L (96-108); Creatinine Clr Calc Pharmacy 16.8; Estimated Glomerular Filt Rate 14; Glucose Random 305 mg/dL (60-115); Magnesium 2.7 mg/dL (1.6-2.6); Potassium 4.9 mmol/l (3.3-5.1); Sodium 136 mmol/L (135-145); Total Protein 7.2 g/dL (6.5-8.0)
[2020-03-23] MEDS: HYDROmorphone HCl 0.5 MG/0.5 ML SYRINGE IVPUSH ×2 (14:37→16:35)
[2020-03-23 14:49] LABS: Influenza A PCR NEGATIVE (Negative); Influenza B PCR NEGATIVE (Negative); Resp Syncy Virus RNA Qual PCR NEGATIVE (Negative); SARS COV2 PCR INHOUSE NEGATIVE (Negative)
--- NOTE | 2020-03-23 17:23 | PM.EVENT ---
Event Note Date of Service: 03/23/20 Event Note: Patient seen and examined independently and was present during díaz portion of E/M service. Agree with midlevel's history, physical, assessment, and plan. 69M presented with syncope, n/v dM with gastroparesis complicated by orthostatic hypotension, rishabh on CKD IV and syncope glucose control iv hydration monitro labs PT
--- NOTE | 2020-03-23 18:55 | PC.NURSE ---
Report taken from desmond Mayers RN resuming care. biochemistry technician at bedside obtaining second set of BCX.
--- NOTE | 2020-03-23 19:26 | PC.NURSE ---
Pt sleeping in bed at this time in NAD, aware of plan to admit.
[2020-03-23 21:52] LABS: Glucose, Whole Blood 210 mg/dL (60-115)
--- NOTE | 2020-03-23 23:10 | PC.NURSE ---
Pt awake and requesting water, denies nausea. Pt provided with water. Pt is aware of plan of care, awaiting bed assignment.
[2020-03-23] MEDS: Prochlorperazine Edisylate 10 MG/2 ML VIAL IVPUSH (23:42)
[2020-03-23] MEDS: LORazepam 2 MG/ML VIAL 1 MG IVPUSH (23:42)
--- NOTE | 2020-03-23 23:46 | PC.NURSE ---
Pt medicated per MAR, VSS. Continue to monitor.
[2020-03-24] VITALS (13 sets, daily range): BP systolic 111–181; BP diastolic 60–90; PULSE 72–114; RESP 18–22; TEMP 36.6–37; O2SAT 97–100; BMI 25.2; BMI 25.7
--- NOTE | 2020-03-24 06:57 | PC.NURSE ---
received report from jose g person
--- NOTE | 2020-03-24 07:46 | PC.NURSE ---
pt awake, requesting and received water, pt denies vomiting and feeling nauseas at this time, pt reports having having pain in his lungs, pain at 1/10, sating well at 99% on room air, denies feeling sob. ns on the monitor
[2020-03-24 07:53] LABS: Glucose, Whole Blood 254 mg/dL (60-115)
--- NOTE | 2020-03-24 07:54 | PC.NURSE ---
report given to imc rn
[2020-03-24 08:36] LABS: Hematocrit 40.7 % (42-52); Hemoglobin 13.5 g/dl (14.0-18.0); Mean Corpuscular HGB Conc 33.2 g/dl (31.0-36.0); Mean Corpuscular Hemoglobin 29.9 pg (27.0-33.0); Mean Platelet Volume 10.7 fL (9.4-12.4); Platelet Count 247 X10*3/uL (160-400); Red Blood Count 4.52 X10*6/uL (4.60-5.80); Red Cell Distribution Width 13.6 % (11.0-16.0); White Blood Count 10.4 X10*3/uL (4.8-10.8)
[2020-03-24 08:45] LABS: Glucose, Whole Blood 259 mg/dL (60-115)
[2020-03-24 08:58] LABS: Anion Gap 24 (12-20); Blood Urea Nitrogen 67 mg/dL (9-16); Calcium 8.2 mg/dL (8.4-10.2); Carbon Dioxide 18 mmol/L (22-29); Chloride 103 mmol/L (96-108); Creatinine Clr Calc Pharmacy 21.2; Estimated Glomerular Filt Rate 18; Glucose Fasting 276 mg/dL (60-99); Potassium 4.5 mmol/l (3.3-5.1); Sodium 140 mmol/L (135-145)
[2020-03-24] MEDS: Insulin Lispro 100 UNIT/ML 3 ML VIAL SUBCUT ×3 (09:02→21:34)
[2020-03-24] MEDS: Lactated Ringers 1,000 ML 80 ML IVCONT ×2 (09:02→21:41)
[2020-03-24] MEDS: Cholecalciferol (Vitamin D3) 25 MCG TABLET PO (09:03)
[2020-03-24] MEDS: Aspirin 81 MG TAB.CHEW PO (09:03)
[2020-03-24] MEDS: hydrALAZINE HCl 50 MG TABLET PO ×2 (09:03→21:34)
[2020-03-24] MEDS: Omeprazole 20 MG CAPSULE.DR PO ×2 (09:03→21:34)
[2020-03-24] MEDS: Metoclopramide HCl 5 MG TABLET PO ×3 (09:03→16:33)
[2020-03-24] MEDS: amLODIPine Besylate 10 MG TABLET PO (09:04)
[2020-03-24 11:07] LABS: Glucose, Whole Blood 249 mg/dL (60-115)
--- NOTE | 2020-03-24 11:18 | MHC.CM.PN ---
CM met with patient at the bedside who reports he is independent, legally blind and lives with his . Patient does have a housekeeper and laundry assistant [facility] comes [facility] x wkly. Patient does have a HCP Veronique [phone] and a copy is on file. Discussed discharge plan, home no services. will provide transport. IMM addressed. CM will continue to follow patient for discharge needs.
--- NOTE | 2020-03-24 13:08 | HO.PM.IMPN ---
Subjective Subjective Date of Service: 03/24/20 Interval History: feels better, still some nausea Cardiovascular Cardiovascular: Reports no additional cardiovascular complaints Respiratory Respiratory: Reports no additional respiratory complaints Gastrointestinal Gastrointestinal: Reports no additional gastrointestinal complaints Physical Exam Vital Signs: Vital Signs: Last Vital Signs Temp 98.0 F 03/24/20 11:26 Pulse 72 03/24/20 11:26 Resp 18 03/24/20 11:26 BP 172/84 H 03/24/20 11:26 Pulse Ox 97 03/24/20 11:26 Body Mass Index 25.7 General: AO X 3, no acute distress Resp: CTA bilateral CVS: S1,S2,RRR GI: soft, non tender, non distended Neuro: motor grossly intact Psych: appropriate affect Objective Data Current Medications Generic Name Dose Route Start Last Admin Trade Name Freq PRN Reason Stop Dose Admin Acetaminophen 650 mg 03/24/20 07:37 Acetaminophen 325 Mg Tablet PO Q6H PRN Pain, Mild (Pain Scale 1-3) Amlodipine Besylate 10 mg 03/24/20 09:00 03/24/20 09:04 Amlodipine Besylate 10 Mg Tablet PO 10 mg DAILY [facility] Administration Protocol Aspirin 81 mg 03/24/20 09:00 03/24/20 09:03 Aspirin 81 Mg Tab.Chew PO 81 mg DAILY AMADO Administration Atorvastatin Calcium 80 mg 03/24/20 21:00 Atorvastatin Calcium 80 Mg Tablet PO BEDTIME AMADO Docusate Sodium 100 mg 03/24/20 07:37 Docusate Sodium 100 Mg Capsule PO DAILY PRN Constipation Hydralazine HCl 50 mg 03/24/20 09:00 03/24/20 09:03 Hydralazine Hcl 50 Mg Tablet PO 50 mg BID AMADO Administration Protocol Lactated Ringer's 1,000 mls @ 80 mls/hr 03/24/20 07:37 03/24/20 09:02 Lr IVCONT 80 mls/hr .[id number] AMADO Administration Insulin Glargine 30 unit 03/24/20 21:00 Insulin Glargine,Hum.Rec.Anlog 100 Unit/Ml 10 Ml Vial SUBCUT BEDTIME FORMERLY [facility], [facility] Insulin Human Lispro 0 unit 03/24/20 07:37 03/24/20 11:41 Insulin Lispro 100 Unit/Ml 3 Ml Vial SUBCUT 4 unit QIDACHS FOR[facility] Administration Protocol Lorazepam 1 mg 03/24/20 07:37 Lorazepam 1 Mg Tablet PO DAILY PRN anxiety Metoclopramide HCl 5 mg 03/24/20 07:37 03/24/20 11:41 Metoclopramide Hcl 5 Mg Tablet PO 5 mg TIDAC AMADO Administration Omeprazole 20 mg 03/24/20 09:00 03/24/20 09:03 Omeprazole 20 Mg Capsule. PO 20 mg BID AMADO Administration Ondansetron HCl 4 mg 03/24/20 07:37 Ondansetron Hcl 4 Mg/2 Ml Vial IVPUSH Q8H PRN Nausea and Vomiting Pharmacy Consult 1 each 03/23/20 13:16 Consult Rx Perform Med Rec MISCELLANE ONCE PRN Consult order Polyethylene Glycol 17 gm 03/24/20 09:00 03/24/20 09:06 Polyethylene Glycol 3350 17 Gm Powd.Pack PO Not Given DAILY AMADO Vitamin D 25 mcg 03/24/20 09:00 03/24/20 09:03 Cholecalciferol (Vitamin D3) 25 Mcg Tablet PO 25 mcg DAILY AMADO Administration Labs CBC & Chem 7: 03/24/20 08:07 03/24/20 08:07 Assessment and Plan (1) Renal failure, acute on chronic: Status: Acute (2) Syncope: Status: Acute (3) Orthostatic hypotension: Status: Acute (4) Elevated BUN: Status: Acute (5) Gastroparesis: Status: Acute Assessment and Plan: 69M presented with syncope, weakness, N/V DM with gastroparesis inlin reglan, ivf KESHIA on CKD IV improved with ivf syncope due to orhtostatic hypotension ivf falls pt
[2020-03-24 16:33] LABS: Glucose, Whole Blood 121 mg/dL (60-115)
[2020-03-24 20:36] LABS: Glucose, Whole Blood 270 mg/dL (60-115)
[2020-03-24] MEDS: Atorvastatin Calcium 80 MG TABLET PO (21:34)
[2020-03-24] MEDS: Insulin Glargine,Hum.rec.anlog 100 UNIT/ML 10 ML VIAL 30 UNIT SUBCUT (21:35)
[2020-03-25 03:27] VITALS: BP 142/79; PULSE 90; RESP 18; TEMP 37; O2SAT 98
[2020-03-25] MEDS: Acetaminophen 325 MG TABLET 650 MG PO (04:23)
[2020-03-25 05:29] LABS: MANUAL DIFF FLAG NO
[2020-03-25 05:31] LABS: Basophils Percent Auto 0.4 % (0-2); Eosinophils Absolute Auto 0.1 X10*3/uL (0.0-0.4); Eosinophils Percent Auto 0.6 % (0-4); Hematocrit 37.2 % (42-52); Hemoglobin 12.5 g/dl (14.0-18.0); Imm Gran Abs Auto 0.02 X10*3/uL (0.00-0.03); Imm Gran Pct Auto 0.2 % (0.0-0.4); Lymphocytes Absolute Auto 1.8 X10*3/uL (1.2-4.9); Lymphocytes Percent Auto 21.7 % (20-40); Mean Corpuscular HGB Conc 33.6 g/dl (31.0-36.0); Mean Corpuscular Volume 89.4 fL (80-98); Mean Platelet Volume 10.7 fL (9.4-12.4); Monocytes Absolute Auto 0.9 X10*3/uL (0.1-1.2); Monocytes Percent Auto 11.1 % (2-11); Neutrophils Absolute Auto 5.5 X10*3/uL (2.0-8.3); Platelet Count 231 X10*3/uL (160-400); Red Blood Count 4.16 X10*6/uL (4.60-5.80); Red Cell Distribution Width 13.6 % (11.0-16.0); White Blood Count 8.3 X10*3/uL (4.8-10.8)
[2020-03-25 06:06] LABS: Anion Gap 17 (12-20); Blood Urea Nitrogen 64 mg/dL (9-16); Calcium 8.2 mg/dL (8.4-10.2); Carbon Dioxide 22 mmol/L (22-29); Chloride 98 mmol/L (96-108); Creatinine Clr Calc Pharmacy 22.7; Estimated Glomerular Filt Rate 19; Glucose Fasting 206 mg/dL (60-99); Sodium 133 mmol/L (135-145)
[2020-03-25 08:00] VITALS: BP 162/72; PULSE 101; RESP 18; TEMP 37.1; O2SAT 98
[2020-03-25 08:18] LABS: Glucose, Whole Blood 226 mg/dL (60-115)
[2020-03-25] MEDS: Insulin Lispro 100 UNIT/ML 3 ML VIAL SUBCUT (08:35)
[2020-03-25] MEDS: Cholecalciferol (Vitamin D3) 25 MCG TABLET PO (08:35)
[2020-03-25 08:36] VITALS: BP 162/72; PULSE 101
[2020-03-25] MEDS: hydrALAZINE HCl 50 MG TABLET PO (08:36)
[2020-03-25] MEDS: amLODIPine Besylate 10 MG TABLET PO (08:36)
[2020-03-25] MEDS: Omeprazole 20 MG CAPSULE.DR PO (08:36)
[2020-03-25] MEDS: Metoclopramide HCl 5 MG TABLET PO ×2 (08:36→11:52)
[2020-03-25] MEDS: Aspirin 81 MG TAB.CHEW PO (08:36)
[2020-03-25] MEDS: polyethylene glycoL 3350 17 GM POWD.PACK PO (08:37)
[2020-03-25 09:37] VITALS: BP 162/72; PULSE 101
--- NOTE | 2020-03-25 11:23 | PM.IMHP ---
History of Present Illness Date of Service: 03/23/20 Chief Complaint: syncope initial h and p appears to have been lost 69M presented with syncope. He has been feeling unwell with his gastroparesis acting up been unable to tolerate solids or liquids, therefore has been dehydrated. Patient states that he felt lightheaded and passed out twice. He has been falling a lot and having difficulty walking. Denies any chest pain, fever, chills. Review of Systems Review of Systems: Constitutional: Denies fever, denies Chills Eyes: denies blurry vision ENT: denies sore throat CVS: denies chest pain Respiratory: Denies dyspnea GI: no abdominal pain : denies dysuria MSK: denies neck pain Skin: denies rash Neuro: denies specific motor weakness Psych: denies suicidal ideation Endocrine: denies heat/cold intoleratnce Hematologic: denies easy bleeding Allergy: denies hives [facility] Medical History Diabetes Gastroparesis HTN (hypertension) Kidney failure Vomiting Family History Other Family history non-contributory Pertinent family history: no cad Social History Household Members: Spouse Housing: House Do you presently have visiting nurse or other home services: No Alcohol intake: unknown Smoking Status: Never smoker Smoked in Last 30 Days: No Use of substances other than those prescribed or required for medical reasons: No Substance Use Type: Marijuana Currently Displaying Signs/Symptoms of Drug Intoxication Withdrawal: No Have you been hit, kicked, punched, or otherwise hurt by someone within the past year? If so, by whom?: No Do you feel safe in your current relationship?: Yes Is there a partner from a previous relationship who is making you feel unsafe now?: No Are you made to feel afraid or neglected: No Advance Directives: Yes Advance Directives Information Provided: Yes Advance Directives on File: Yes Advance Directives Date on File: 02/12/20 Do you have thoughts of harming others: None Do you have a plan to hurt others: No Plan Recently lost weight without trying: Unsure service: Yes Current occupational status: retired Meds Allergies Allergy/AdvReac Type Severity Reaction Status Date / Time morphine Allergy Intermediate RASH Verified 12/29/19 01:41 Home Medications Medication Instructions Recorded Confirmed Type lorazepam 1 mg PO DAILY PRN 12/29/19 03/23/20 History amlodipine 10 mg PO DAILY 03/23/20 03/23/20 History aspirin 81 mg PO DAILY 03/23/20 03/23/20 History atorvastatin 80 mg PO BEDTIME 03/23/20 03/23/20 History cholecalciferol (vitamin D3) 25 mcg PO DAILY 03/23/20 03/23/20 History furosemide 40 mg PO DAILY 03/23/20 03/23/20 History hydralazine 50 mg PO BID 03/23/20 03/23/20 History insulin aspart U-100 [Novolog See Protocol SUBCUT TIDAC 03/23/20 03/23/20 History Flexpen U-100 Insulin] insulin glargine [Lantus Solostar 30 unit SUBCUT BEDTIME 03/23/20 03/23/20 History U-100 Insulin] omeprazole 20 mg PO BID 03/23/20 03/23/20 History polyethylene glycol 3350 [Miralax] 17 g PO DAILY 03/23/20 03/23/20 History Physical Exam Vital Signs and Narrative: Vital Signs: Last Vital Signs Temp 98.8 F 03/25/20 08:00 Pulse 101 H 03/25/20 09:37 Resp 18 03/25/20 08:00 BP 162/72 H 03/25/20 09:37 Pulse Ox 98 03/25/20 08:00 Body Mass Index 25.7 General: no acute distress HEENT: atraumatic Neck: normal to visual inspection CVS: S1, S2, RRR Resp: CTA bilateral Chest: non tender GI: soft, non tender, non distended : no CVA tenderness Skin: no rashes Extremities: no edema Neuro: Oriented X3, grossly intact Psych: cooperative, Results Labs CBC and Chem 7: 03/25/20 05:20 03/25/20 05:20 Labs: Laboratory Results - last 24 hr 03/24/20 03/24/20 03/25/20 16:29 20:31 05:20 MCV MCH MCHC RDW Plt Count MPV Immature Gran % (Auto) Neut % (Auto) Lymph % (Auto) Graves % (Auto) Eos % (Auto) Baso % (Auto) Lymph # (Auto) Graves # (Auto) Eos # (Auto) Baso # (Auto) Abs Immat Gran (auto) Absolute Neuts (auto) Absolute Nucleated RBC Nucleated RBC % (auto) Anion Gap 17 Estim Creat Clear Calc 22.7 Estimated GFR 19 POC Glucose 121 H 270 H Random Glucose TNP Fasting Glucose 206 H Calcium 8.2 L 03/25/20 03/25/20 05:20 08:11 MCV 89.4 MCH 30.0 MCHC 33.6 RDW 13.6 Plt Count 231 MPV 10.7 Immature Gran % (Auto) 0.2 Neut % (Auto) 66.0 Lymph % (Auto) 21.7 Graves % (Auto) 11.1 H Eos % (Auto) 0.6 Baso % (Auto) 0.4 Lymph # (Auto) 1.8 Graves # (Auto) 0.9 Eos # (Auto) 0.1 Baso # (Auto) 0.0 Abs Immat Gran (auto) 0.02 Absolute Neuts (auto) 5.5 Absolute Nucleated RBC 0.000 Nucleated RBC % (auto) 0.0 Anion Gap Estim Creat Clear Calc Estimated GFR POC Glucose 226 H Random Glucose Fasting Glucose Calcium Assessment and Plan (1) Renal failure, acute on chronic: Qualifiers: Acute renal failure type: unspecified Chronic kidney disease stage: unspecified stage Qualified Code(s): N17.9 - Acute kidney failure, unspecified; N18.9 - Chronic kidney disease, unspecified Status: Acute (2) Syncope: Qualifiers: Syncope type: unspecified Qualified Code(s): R55 - Syncope and collapse Status: Acute (3) Orthostatic hypotension: Status: Acute (4) Elevated BUN: Status: Acute (5) Gastroparesis: Status: Acute 69M presented with syncope, weakness, N/V DM with gastroparesis inuslin, reglan, ivf KESHIA on CKD IV ivf syncope due to orhtostatic hypotension ivf falls pt
--- NOTE | 2020-03-25 11:28 | HO.PM.IMPN ---
Subjective Subjective Date of Service: 03/25/20 Interval History: weak Respiratory Respiratory: Reports no additional respiratory complaints Gastrointestinal Gastrointestinal: Reports no additional gastrointestinal complaints Physical Exam Vital Signs: Vital Signs: Last Vital Signs Temp 98.8 F 03/25/20 08:00 Pulse 101 H 03/25/20 09:37 Resp 18 03/25/20 08:00 BP 162/72 H 03/25/20 09:37 Pulse Ox 98 03/25/20 08:00 Body Mass Index 25.7 General: AO X 3, no acute distress Resp: CTA bilateral CVS: S1,S2,RRR GI: soft, non tender, non distended Neuro: motor grossly intact Psych: appropriate affect Objective Data Current Medications Generic Name Dose Route Start Last Admin Trade Name Freq PRN Reason Stop Dose Admin Acetaminophen 650 mg 03/24/20 07:37 03/25/20 04:23 Acetaminophen 325 Mg Tablet PO 650 mg Q6H PRN Administration Pain, Mild (Pain Scale 1-3) Amlodipine Besylate 10 mg 03/24/20 09:00 03/25/20 08:36 Amlodipine Besylate 10 Mg Tablet PO 10 mg DAILY AMADO Administration Protocol Aspirin 81 mg 03/24/20 09:00 03/25/20 08:36 Aspirin 81 Mg Tab.Chew PO 81 mg DAILY AMADO Administration Atorvastatin Calcium 80 mg 03/24/20 21:00 03/24/20 21:34 Atorvastatin Calcium 80 Mg Tablet PO 80 mg BEDTIME AMADO Administration Docusate Sodium 100 mg 03/24/20 07:37 Docusate Sodium 100 Mg Capsule PO DAILY PRN Constipation Hydralazine HCl 50 mg 03/24/20 09:00 03/25/20 08:36 Hydralazine Hcl 50 Mg Tablet PO 50 mg BID AMADO Administration Protocol Lactated Ringer's 1,000 mls @ 80 mls/hr 03/24/20 07:37 03/25/20 10:23 Lr IVCONT Infused .[id number] AMADO Infusion Insulin Glargine 30 unit 03/24/20 21:00 03/24/20 21:35 Insulin Glargine,Hum.Rec.Anlog 100 Unit/Ml 10 Ml Vial SUBCUT 30 unit BEDTIME AMADO Administration Insulin Human Lispro 0 unit 03/24/20 07:37 03/25/20 08:35 Insulin Lispro 100 Unit/Ml 3 Ml Vial SUBCUT 4 unit QIDACHS AMADO Administration Protocol Lorazepam 1 mg 03/24/20 07:37 Lorazepam 1 Mg Tablet PO DAILY PRN anxiety Metoclopramide HCl 5 mg 03/24/20 07:37 03/25/20 08:36 Metoclopramide Hcl 5 Mg Tablet PO 5 mg TIDAC AMADO Administration Omeprazole 20 mg 03/24/20 09:00 03/25/20 08:36 Omeprazole 20 Mg Capsule.Dr PO 20 mg BID AMADO Administration Ondansetron HCl 4 mg 03/24/20 07:37 Ondansetron Hcl 4 Mg/2 Ml Vial IVPUSH Q8H PRN Nausea and Vomiting Pharmacy Consult 1 each 03/23/20 13:16 Consult Rx Perform Med Rec MISCELLANE ONCE PRN Consult order Polyethylene Glycol 17 gm 03/24/20 09:00 03/25/20 08:37 Polyethylene Glycol 3350 17 Gm Powd.Pack PO 17 gm DAILY AMADO Administration Vitamin D 25 mcg 03/24/20 09:00 03/25/20 08:35 Cholecalciferol (Vitamin D3) 25 Mcg Tablet PO 25 mcg DAILY AMADO Administration Labs CBC & Chem 7: 03/25/20 05:20 03/25/20 05:20 Microbiology Microbiology Results: Microbiology 03/23/20 18:59 Blood - Venous Blood Culture - Preliminary No growth after 24 hours. 03/23/20 13:40 Blood - Venous Blood Culture - Preliminary No growth after 24 hours. Assessment and Plan (1) Renal failure, acute on chronic: Status: Acute (2) Syncope: Status: Acute (3) Orthostatic hypotension: Status: Acute (4) Elevated BUN: Status: Acute (5) Gastroparesis: Status: Acute Assessment and Plan: 69M presented with syncope, weakness, N/V DM with gastroparesis inuslin, reglan, ivf, improved KESHIA on CKD IV resolved syncope due to orhtostatic hypotension falls will need rehab
--- NOTE | 2020-03-25 11:38 | MHC.CM.PN ---
CM met with patient to discuss discharge plan since PT recommends STR. Choices are Renetta Holbrook, [facility]IAGO, JAYY and Ezra Osorio. referrals made via allscripts. CM will continue to follow for discharge needs.
[2020-03-25 11:40] LABS: Glucose, Whole Blood 251 mg/dL (60-115)
[2020-03-25] MEDS: Lactated Ringers 1,000 ML 80 ML IVCONT (11:51)
[2020-03-25 12:00] VITALS: BP 148/74; PULSE 94; RESP 18; TEMP 36.8; O2SAT 99
--- NOTE | 2020-03-25 13:32 | PM.DS ---
DS: Providers Provider Date of Service: 03/25/20 Date of admission: 03/24/20 04:49 Primary care physician: Janet Marsh MD DS: Diagnosis Discharge Diagnosis (1) Renal failure, acute on chronic: Status: Acute (2) Syncope: Status: Acute (3) Orthostatic hypotension: Status: Acute (4) Elevated BUN: Status: Acute (5) Gastroparesis: Status: Acute DS: Medications Discharge Medications Home Medications: Home Medications Medication Instructions Recorded Confirmed lorazepam 1 mg PO DAILY PRN 12/29/19 03/23/20 Lantus Solostar U-100 Insulin 30 unit SUBCUT BEDTIME 03/23/20 03/23/20 amlodipine 10 mg PO DAILY 03/23/20 03/23/20 aspirin 81 mg PO DAILY 03/23/20 03/23/20 atorvastatin 80 mg PO BEDTIME 03/23/20 03/23/20 cholecalciferol (vitamin D3) 25 mcg PO DAILY 03/23/20 03/23/20 hydralazine 50 mg PO BID 03/23/20 03/23/20 insulin aspart U-100 [Novolog See Protocol SUBCUT TIDAC 03/23/20 03/23/20 Flexpen U-100 Insulin] omeprazole 20 mg PO BID 03/23/20 03/23/20 polyethylene glycol 3350 [Miralax] 17 g PO DAILY 03/23/20 03/23/20 DS: Summary Hospital Course Hospital Course: Patient was admitted for syncope likely due to dehydration acute on chronic kidney disease orthostatic hypotension due to poor intake from gastroparesis in the setting of diabetes. Patient was given IV fluids, his Lasix was held, glucose became better controlled. He was able to tolerate solids. He was seen by Physical therapy and will benefit [facility]. Time Spent with Patient Time attestation: Total time spent providing and/or coordinating discharge services: Discharge coordination time: Greater than 30 minutes Physical Exam Vital Signs: Vital Signs: Last Vital Signs Temp 98.2 F 03/25/20 12:00 Pulse 94 03/25/20 12:00 Resp 18 03/25/20 12:00 BP 148/74 H 03/25/20 12:00 Pulse Ox 99 03/25/20 12:00 Body Mass Index 25.7 General: AO X 3, no acute distress Resp: CTA bilateral CVS: S1,S2,RRR GI: soft, non tender, non distended Neuro: motor grossly intact Psych: appropriate affect DS: Data Data Completed and Pending Labs on day of discharge: Laboratory Tests 03/23/20 03/23/20 03/23/20 13:38 13:38 13:39 WBC 7.2 RBC 4.72 Hgb 14.1 Hct 42.1 MCV 89.2 MCH 29.9 MCHC 33.5 RDW 13.6 Plt Count 247 MPV 10.7 Immature Gran % (Auto) 0.3 Neut % (Auto) 77.3 H Lymph % (Auto) 13.4 L Collier % (Auto) 8.7 Eos % (Auto) 0.0 Baso % (Auto) 0.3 Lymph # (Auto) 1.0 L Collier # (Auto) 0.6 Eos # (Auto) 0.0 Baso # (Auto) 0.0 Abs Immat Gran (auto) 0.02 Absolute Neuts (auto) 5.5 Absolute Nucleated RBC 0.000 Nucleated RBC % (auto) 0.0 D-Dimer 392 Sodium 136 Potassium 4.9 Chloride 97 Carbon Dioxide 21 L Anion Gap 23 H BUN 83 H* D Creatinine 4.34 H* Estim Creat Clear Calc 16.8 Estimated GFR 14 POC Glucose Random Glucose 305 H D Fasting Glucose Lactic Acid Calcium 8.4 D Magnesium 2.7 H Total Bilirubin 0.8 Direct Bilirubin 0.4 AST 24 D ALT 15 Alkaline Phosphatase 122 H Total Creatine Kinase 340 H Troponin I High Sens Total Protein 7.2 Albumin 4.1 Lipase Coronavirus (PCR) Influenza Type A (PCR) Influenza Type B (PCR) RSV RNA Qual (PCR) 03/23/20 03/23/20 03/23/20 13:39 13:39 13:39 WBC RBC Hgb Hct MCV MCH MCHC RDW Plt Count MPV Immature Gran % (Auto) Neut % (Auto) Lymph % (Auto) Collier % (Auto) Eos % (Auto) Baso % (Auto) Lymph # (Auto) Collier # (Auto) Eos # (Auto) Baso # (Auto) Abs Immat Gran (auto) Absolute Neuts (auto) Absolute Nucleated RBC Nucleated RBC % (auto) D-Dimer Sodium Potassium Chloride Carbon Dioxide Anion Gap BUN Creatinine Estim Creat Clear Calc Estimated GFR POC Glucose Random Glucose Fasting Glucose Lactic Acid 1.3 Calcium Magnesium Total Bilirubin Direct Bilirubin AST ALT Alkaline Phosphatase Total Creatine Kinase Troponin I High Sens 56.7 H Total Protein Albumin Lipase 65 Coronavirus (PCR) Influenza Type A (PCR) Influenza Type B (PCR) RSV RNA Qual (PCR) 03/23/20 03/23/20 03/24/20 13:39 21:48 07:47 WBC RBC Hgb Hct MCV MCH MCHC RDW Plt Count MPV Immature Gran % (Auto) Neut % (Auto) Lymph % (Auto) Collier % (Auto) Eos % (Auto) Baso % (Auto) Lymph # (Auto) Collier # (Auto) Eos # (Auto) Baso # (Auto) Abs Immat Gran (auto) Absolute Neuts (auto) Absolute Nucleated RBC Nucleated RBC % (auto) D-Dimer Sodium Potassium Chloride Carbon Dioxide Anion Gap BUN Creatinine Estim Creat Clear Calc Estimated GFR POC Glucose 210 H 254 H Random Glucose Fasting Glucose Lactic Acid Calcium Magnesium Total Bilirubin Direct Bilirubin AST ALT Alkaline Phosphatase Total Creatine Kinase Troponin I High Sens Total Protein Albumin Lipase Coronavirus (PCR) NEGATIVE Influenza Type A (PCR) NEGATIVE Influenza Type B (PCR) NEGATIVE RSV RNA Qual (PCR) NEGATIVE 03/24/20 03/24/20 03/24/20 08:07 08:07 08:40 WBC 10.4 RBC 4.52 L Hgb 13.5 L Hct 40.7 L MCV 90.0 MCH 29.9 MCHC 33.2 RDW 13.6 Plt Count 247 MPV 10.7 Immature Gran % (Auto) Neut % (Auto) Lymph % (Auto) Collier % (Auto) Eos % (Auto) Baso % (Auto) Lymph # (Auto) Collier # (Auto) Eos # (Auto) Baso # (Auto) Abs Immat Gran (auto) Absolute Neuts (auto) Absolute Nucleated RBC 0.000 Nucleated RBC % (auto) 0.0 D-Dimer Sodium 140 Potassium 4.5 Chloride 103 Carbon Dioxide 18 L Anion Gap 24 H BUN 67 H Creatinine 3.45 H Estim Creat Clear Calc 21.2 Estimated GFR 18 POC Glucose 259 H Random Glucose Fasting Glucose 276 H Lactic Acid Calcium 8.2 L Magnesium Total Bilirubin Direct Bilirubin AST ALT Alkaline Phosphatase Total Creatine Kinase Troponin I High Sens Total Protein Albumin Lipase Coronavirus (PCR) Influenza Type A (PCR) Influenza Type B (PCR) RSV RNA Qual (PCR) 03/24/20 03/24/20 03/24/20 11:03 16:29 20:31 WBC RBC Hgb Hct MCV MCH MCHC RDW Plt Count MPV Immature Gran % (Auto) Neut % (Auto) Lymph % (Auto) Collier % (Auto) Eos % (Auto) Baso % (Auto) Lymph # (Auto) Collier # (Auto) Eos # (Auto) Baso # (Auto) Abs Immat Gran (auto) Absolute Neuts (auto) Absolute Nucleated RBC Nucleated RBC % (auto) D-Dimer Sodium Potassium Chloride Carbon Dioxide Anion Gap BUN Creatinine Estim Creat Clear Calc Estimated GFR POC Glucose 249 H 121 H 270 H Random Glucose Fasting Glucose Lactic Acid Calcium Magnesium Total Bilirubin Direct Bilirubin AST ALT Alkaline Phosphatase Total Creatine Kinase Troponin I High Sens Total Protein Albumin Lipase Coronavirus (PCR) Influenza Type A (PCR) Influenza Type B (PCR) RSV RNA Qual (PCR) 03/25/20 03/25/20 03/25/20 05:20 05:20 08:11 WBC 8.3 RBC 4.16 L Hgb 12.5 L Hct 37.2 L MCV 89.4 MCH 30.0 MCHC 33.6 RDW 13.6 Plt Count 231 MPV 10.7 Immature Gran % (Auto) 0.2 Neut % (Auto) 66.0 Lymph % (Auto) 21.7 Collier % (Auto) 11.1 H Eos % (Auto) 0.6 Baso % (Auto) 0.4 Lymph # (Auto) 1.8 Collier # (Auto) 0.9 Eos # (Auto) 0.1 Baso # (Auto) 0.0 Abs Immat Gran (auto) 0.02 Absolute Neuts (auto) 5.5 Absolute Nucleated RBC 0.000 Nucleated RBC % (auto) 0.0 D-Dimer Sodium 133 L Potassium 4.0 Chloride 98 Carbon Dioxide 22 Anion Gap 17 BUN 64 H Creatinine 3.22 H Estim Creat Clear Calc 22.7 Estimated GFR 19 POC Glucose 226 H Random Glucose TNP Fasting Glucose 206 H Lactic Acid Calcium 8.2 L Magnesium Total Bilirubin Direct Bilirubin AST ALT Alkaline Phosphatase Total Creatine Kinase Troponin I High Sens Total Protein Albumin Lipase Coronavirus (PCR) Influenza Type A (PCR) Influenza Type B (PCR) RSV RNA Qual (PCR) 03/25/20 11:36 WBC RBC Hgb Hct MCV MCH MCHC RDW Plt Count MPV Immature Gran % (Auto) Neut % (Auto) Lymph % (Auto) Collier % (Auto) Eos % (Auto) Baso % (Auto) Lymph # (Auto) Collier # (Auto) Eos # (Auto) Baso # (Auto) Abs Immat Gran (auto) Absolute Neuts (auto) Absolute Nucleated RBC Nucleated RBC % (auto) D-Dimer Sodium Potassium Chloride Carbon Dioxide Anion Gap BUN Creatinine Estim Creat Clear Calc Estimated GFR POC Glucose 251 H Random Glucose Fasting Glucose Lactic Acid Calcium Magnesium Total Bilirubin Direct Bilirubin AST ALT Alkaline Phosphatase Total Creatine Kinase Troponin I High Sens Total Protein Albumin Lipase Coronavirus (PCR) Influenza Type A (PCR) Influenza Type B (PCR) RSV RNA Qual (PCR) Preliminary micro results at discharge 03/23/20 18:59 Blood Culture - Preliminary Blood - Venous No growth after 24 hours. 03/23/20 13:40 Blood Culture - Preliminary Blood - Venous No growth after 24 hours. Discharge Plan Discharge Patient Disposition: [facility] Referrals: aJnet Marsh MD [Primary Care Provider] - Discharge Medications: Continued lorazepam 1 mg tablet 1 mg PO DAILY PRN (Reason: anxiety) RF: 0 insulin aspart U-100 [Novolog Flexpen U-100 Insulin] 100 unit/mL (3 mL) Insulin Pen See Protocol unit SUBCUT TIDAC RF: 0 Lantus Solostar U-100 Insulin 100 unit/mL (3 mL) Insulin Pen 30 unit SUBCUT BEDTIME RF: 0 atorvastatin 80 mg Tablet 80 mg PO BEDTIME RF: 0 polyethylene glycol 3350 [Miralax] 17 gram Powder In Packet 17 g PO DAILY RF: 0 amlodipine 10 mg Tablet 10 mg PO DAILY RF: 0 omeprazole 20 mg Capsule,Delayed Release(Dr/Ec) 20 mg PO BID RF: 0 aspirin 81 mg Tablet,Chewable 81 mg PO DAILY RF: 0 hydralazine 50 mg Tablet 50 mg PO BID RF: 0 cholecalciferol (vitamin D3) 25 mcg (1,000 unit) Tablet 25 mcg PO DAILY RF: 0 Discontinued furosemide 40 mg Tablet 40 mg PO DAILY RF: 0 Discharge Orders: Discharge Order (Routine); Ordered 03/25/20 Ordered By: Chao Mcfarland Activity on Discharge: As tolerated Visit Report Forms: Patient Portal Discharge page Care Plan Goals: recovery Health Concerns: weakness, orthostatic, gastroparesis Plan of Treatment: rehab
--- NOTE | 2020-03-25 13:37 | MHC.CM.PN ---
Patient will be discharged today to [facility] at 3pm via BLS transport. Patient and nurse are aware.
[2020-03-25 14:30] LABS: COVID-19 Test Negative (Negative)
[2020-03-25 15:45] VITALS: BP 150/87; PULSE 98; RESP 17; TEMP 36.5; O2SAT 88
[2020-03-25 16:46] LABS: Glucose, Whole Blood 200 mg/dL (60-115)
== END 2020-03-25 17:23 | disposition skilled nursing facility (03) | DRG 74 ==
LOC: HO.ED 15:28 → HO.IMC 03-24 07:32
PROVIDERS: Admitting Provider Internal Medicine; Emergency Provider Emergency Medicine; PCP Internal Medicine; Visit Provider Internal Medicine
DX: E11.43 Type 2 diabetes mellitus with diabetic autonomic (poly)neuropathy (principal); N17.9 Acute kidney failure, unspecified; N18.4 Chronic kidney disease, stage 4 (severe); K31.84 Gastroparesis; I95.1 Orthostatic hypotension; I12.9 Hypertensive chronic kidney disease with stage 1 through stage 4 chronic kidney disease, or unspecified chronic kidney disease; E86.0 Dehydration; E11.22 Type 2 diabetes mellitus with diabetic chronic kidney disease; Z20.828 Contact with and (suspected) exposure to other viral communicable diseases; Z88.5 Allergy status to narcotic agent; Z79.4 Long term (current) use of insulin; Z79.82 Long term (current) use of aspirin; Z79.899 Other long term (current) drug therapy
CPT/HCPCS: 0241U; 36415; 70450; 71045; 78580; 80048; 80076; 82550; 82947; 83605; 83690; 83735; 84484; 85025; 85027; 85379; 87040; 87635; 93005; 96372; 97110; 97116; 97162; 99284; 99285; A9540; J1170; J2060

== ENCOUNTER 2020-03-27 09:17 | Emergency (ER) | payer MEDICARE, OTHER, SELFPAY ==
[2020-03-27 09:23] VITALS: BP 138/70; BP 156/86; PULSE 89; PULSE 92; RESP 16; TEMP 36.6; O2SAT 97; O2SAT 98; BMI 27.9
--- NOTE | 2020-03-27 10:01 | ED_ITS ---
HPI - Medical Clearance General Chief complaint: Medical Clearance Stated complaint: medical clearance Time Seen by Provider: 03/27/20 09:31 Source: patient and EMS Mode of arrival: EMS Limitations: no limitations History of Present Illness HPI Narrative: 69-year-old male with a past medical history of diabetes, diabetic gastroparesis, hypertension, chronic kidney disease here from a short- term rehab. The patient tells me he was transferred to [facility] March 25 for short-term rehab. He tells me he called the ambulance today because he is unhappy with his care there. They do not bring him a menu so he can pick what he wants to eat. And he thinks the food is disgusting. He was admitted to this facility March 25 through March 27 for syncope which was thought to be secondary to orthostatic hypotension due to poor intake from gastroparesis. He tells me that he has not had a syncopal episode in several days. He is feeling well and has no physical complaints. He would like to be discharged home MD complaint: medical clearance requested Treatments Prior to Arrival: none Related Information Home Medications Medication Instructions Recorded Confirmed lorazepam 1 mg PO DAILY PRN 12/29/19 03/23/20 Lantus Solostar U-100 Insulin 30 unit SUBCUT BEDTIME 03/23/20 03/23/20 amlodipine 10 mg PO DAILY 03/23/20 03/23/20 aspirin 81 mg PO DAILY 03/23/20 03/23/20 atorvastatin 80 mg PO BEDTIME 03/23/20 03/23/20 cholecalciferol (vitamin D3) 25 mcg PO DAILY 03/23/20 03/23/20 hydralazine 50 mg PO BID 03/23/20 03/23/20 insulin aspart U-100 [Novolog See Protocol SUBCUT TIDAC 03/23/20 03/23/20 Flexpen U-100 Insulin] omeprazole 20 mg PO BID 03/23/20 03/23/20 polyethylene glycol 3350 [Miralax] 17 g PO DAILY 03/23/20 03/23/20 Allergies Allergy/AdvReac Type Severity Reaction Status Date / Time morphine Allergy Intermediate RASH Verified 12/29/19 01:41 Review of Systems Review of Systems: Yes all other systems are reviewed and are negative Constitutional: Constitutional: Reports no additional constitutional complaints, Denies body ache(s), Denies chills, Denies fever(s), Denies headache(s) and Denies weakness Eyes: Eyes: Reports no additional eye complaints and Denies change in vision ENT: Reports system reviewed and no additional complaints, except as documented, Denies dizziness, Denies headache(s), Denies nasal congestion, Denies nasal discharge and Denies neck pain Cardiovascular: Cardiovascular: Reports no additional cardiovascular complaints, Denies chest pain, Denies leg edema and Denies dyspnea Respiratory: Respiratory: Reports no additional respiratory complaints, Denies cough and Denies dyspnea Gastrointestinal: Gastrointestinal: Reports no additional gastrointestinal complaints, Denies abdominal pain, Denies diarrhea, Denies nausea and Denies vomiting Genitourinary: Genitourinary: Denies urinary incontinence Musculoskeletal: Musculoskeletal: Reports no additional musculoskeletal complaints, Denies back pain, Denies arthralgias, Denies joint swelling, Denies neck pain, Denies numbness and Denies tingling Integumentary/Breasts: Skin/Breast: Reports system reviewed and no additional complaints, except as docu and Denies rash Neurologic: Reports system reviewed and no additional complaints, except as documented, Denies Abnormal speech present, Denies dizziness, Denies headache(s), Denies numbness, Denies tingling and Denies weakness PMFSH Past Medical History Attestation statement: The following information was validated with the patient. Source: old records reviewed and nursing notes reviewed Medical History Diabetes Gastroparesis HTN (hypertension) Kidney failure Vomiting Family History Family History Other Family history non-contributory Social History Social History Household Members: Spouse Housing: House Alcohol intake: unknown Smoking Status: Never smoker Substance Use Type: Marijuana Advance Directives: Yes Advance Directives on File: Yes Advance Directives Date on File: 02/12/20 service: Yes Current occupational status: retired Physical Exam Vital Signs: Vital Signs: Last Vital Signs Temp 97.9 F 03/27/20 09:23 Pulse 84 03/27/20 11:53 Resp 16 03/27/20 11:53 BP 148/90 H 03/27/20 11:53 Pulse Ox 99 03/27/20 11:53 Body Mass Index 27.9 Const: General: cooperative, healthy appearing, comfortable and no acute distress Orientation/consciousness: patient oriented x3 Limitations: no limitations HENMT: Head: Yes normal to inspection Ears: hearing grossly normal bilaterally General nose exam: Normal external nose present Face and sinus: Yes normal facial exam Mouth: Normal oral and palatal mucosa present Throat: Yes posterior oropharynx normal Eyes: General: appearance normal, both eyes and all related structures Pupils: Equal, round and reactive pupils present Neck: Neck: Yes normal visual inspection Chest: Chest palpation & inspection: normal inspection of the chest Resp: Effort & Inspection: normal respiratory effort Auscultation: clear to auscultation bilaterally Cardio: Rate: regular rate Rhythm: regular rhythm Peripheral pulses: Peripheral pulses 2+ throughout GI: Inspection: Yes normal to inspection Palpation (GI): Soft to palpation and nontender Auscultation: normal bowel sounds Back/Spine/Pelvis: Thoracic/Lumbar Spine: thoracic and lumbar spine normal to inspection Skin: General skin exam: no rashes or lesions noted Neuro: General: patient oriented x3, no focal motor deficits and normal sensation to monofilament Cranial nerves: Yes Equal, round and reactive pupils present Cognition (Neuro): normal cognition Speech: No Abnormal speech present Gait exam (Neuro): Normal gait present Motor exam (neuro): 5/5 motor strength present throughout Extrem: General: Yes normal to inspection Course Course Course Narrative: Patient here from short-term rehab facility. Not happy with his care there. Requesting to be discharged home. Will involve Case Management. 1130-case management spoke to the patient. He has been up and ambulated with steady gait. He was offered VNA services but he declined this. They did speak to his and she is agreeable for his return home. Reviewed worrisome signs and symptoms and when to return to the emergency department. Comfortable discharge home. Discharge Plan Discharge Clinical Impression: Weakness Patient Disposition: Home, Self-Care Instructions: Weakness (ED) Prescriptions: No Action lorazepam 1 mg tablet 1 mg PO DAILY PRN (Reason: anxiety) RF: 0 insulin aspart U-100 [Novolog Flexpen U-100 Insulin] 100 unit/mL (3 mL) Insulin Pen See Protocol unit SUBCUT TIDAC RF: 0 Lantus Solostar U-100 Insulin 100 unit/mL (3 mL) Insulin Pen 30 unit SUBCUT BEDTIME RF: 0 atorvastatin 80 mg Tablet 80 mg PO BEDTIME RF: 0 polyethylene glycol 3350 [Miralax] 17 gram Powder In Packet 17 g PO DAILY RF: 0 amlodipine 10 mg Tablet 10 mg PO DAILY RF: 0 omeprazole 20 mg Capsule,Delayed Release(Dr/Ec) 20 mg PO BID RF: 0 aspirin 81 mg Tablet,Chewable 81 mg PO DAILY RF: 0 hydralazine 50 mg Tablet 50 mg PO BID RF: 0 cholecalciferol (vitamin D3) 25 mcg (1,000 unit) Tablet 25 mcg PO DAILY RF: 0 Referrals: Janet Marsh MD [Primary Care Provider] - 2 days Interventions: ED Discharge Assessment Last Done: 03/27/20 11:55 Discharge Date/Time: 03/27/20 11:56
--- NOTE | 2020-03-27 11:31 | MHC.CM.PN ---
CM NOTE MALE 69 has been @ [facility] x3 days for STR due to syncopy. He was not satisfied . He called EMS and was brought to [facility]. will take him home today. Home services were offered and declined. Pt and were instructed to call PCP for follow up. PCP can initiate homecare services if the [facility] change there mind about services. The RN and [facility] were updated and agree with discharge plan. The [facility] were also instructed to return if needed. Pt is dc today to home with his , Jasmyn.
[2020-03-27 11:53] VITALS: BP 148/90; PULSE 84; RESP 16; O2SAT 99
== END 2020-03-27 11:56 | disposition home or self-care (01) ==
PROVIDERS: Emergency Provider Emergency Medicine; PCP Internal Medicine
DX: R53.1 Weakness (principal); I95.1 Orthostatic hypotension; Z79.899 Other long term (current) drug therapy
CPT/HCPCS: 99283

== ENCOUNTER 2020-04-05 14:00 | Emergency (ER) | payer MEDICARE, OTHER, SELFPAY ==
[2020-04-05] VITALS (8 sets, daily range): BP systolic 97–157; BP diastolic 55–84; PULSE 85–96; RESP 18; TEMP 37.1; O2SAT 98–100; BMI 26.4
--- NOTE | 2020-04-05 14:49 | ED.NAVMDI ---
HPI - Nausea/Vomiting/Diarrhea General Chief complaint: Nausea/Vomiting/Diarrhea Stated complaint: NAUSEA Time Seen by Provider: 04/05/20 14:28 Source: patient and EMS Mode of arrival: EMS History of Present Illness HPI Narrative: 69-year-old male with a past medical history of diabetes, diabetic gastroparesis, hypertension, chronic kidney disease BIBA for diffuse abdominal pain and nausea. Of note patient recently left [facility], and also had recent admission to our facility discharged on March 27 for syncope due to orthostatic hypotension from poor p.o. intake from his gastroparesis. Reports feeling take WNL. Denies vomiting, fever, diarrhea Related Data Home Medications Medication Instructions Recorded Confirmed lorazepam 1 mg PO DAILY PRN 12/29/19 03/23/20 Lantus Solostar U-100 Insulin 30 unit SUBCUT BEDTIME 03/23/20 03/23/20 amlodipine 10 mg PO DAILY 03/23/20 03/23/20 aspirin 81 mg PO DAILY 03/23/20 03/23/20 atorvastatin 80 mg PO BEDTIME 03/23/20 03/23/20 cholecalciferol (vitamin D3) 25 mcg PO DAILY 03/23/20 03/23/20 hydralazine 50 mg PO BID 03/23/20 03/23/20 insulin aspart U-100 [Novolog See Protocol SUBCUT TIDAC 03/23/20 03/23/20 Flexpen U-100 Insulin] omeprazole 20 mg PO BID 03/23/20 03/23/20 polyethylene glycol 3350 [Miralax] 17 g PO DAILY 03/23/20 03/23/20 Allergies Allergy/AdvReac Type Severity Reaction Status Date / Time morphine Allergy Intermediate RASH Verified 12/29/19 01:41 Review of Systems Review of Systems: Constitutional: No Weight loss, No Fever Cardiac: No chest pain Respiratory: No SOB, no cough Gastrointestinal: + Nausea, No Vomiting, No Diarrhea, No Constipation, + Abdominal pain Genitourinary: No irregular bleeding, No Dysuria, No Urinary Frequency, No Hematuria Skin: No Skin Lesions, No rash Yes all other systems are reviewed and are negative [facility] Past Medical History Attestation statement: The following information was validated with the patient. Medical History Diabetes Gastroparesis HTN (hypertension) Kidney failure Vomiting Family History Family History Other Family history non-contributory Social History Social History Household Members: Spouse Housing: House Alcohol intake: former Smoking Status: Former smoker Use of substances other than those prescribed or required for medical reasons: No Substance Use Type: Marijuana Advance Directives: Yes Advance Directives on File: Yes Advance Directives Date on File: 02/12/20 service: Yes Current occupational status: retired Physical Exam Vital Signs: Vital Signs: Last Vital Signs Temp 98.7 F 04/05/20 14:05 Pulse 96 04/05/20 16:54 Resp 18 04/05/20 16:00 BP 97/55 L 04/05/20 16:54 Pulse Ox 98 04/05/20 15:15 Body Mass Index 26.4 Const: General: cooperative Orientation/consciousness: patient oriented x3 Limitations: no limitations HENMT: Head: Yes normal to inspection Ears: hearing grossly normal bilaterally General nose exam: Normal external nose present Face and sinus: Yes normal facial exam Eyes: General: appearance normal, both eyes and all related structures EOM: EOMs intact bilaterally Neck: Neck: Yes normal visual inspection Resp: Effort & Inspection: normal respiratory effort Cardio: Rate: regular rate GI: Inspection: Yes normal to inspection Palpation (GI): Soft to palpation, Tenderness to palpation present (GI) (Diffusely), no guarding and not rigid : General: Yes no CVA tenderness Back/Spine/Pelvis: Back: no CVA tenderness Skin: Rashes: no rashes Wounds: no wounds Neuro: General: patient oriented x3 Gait exam (Neuro): Normal gait present Extrem: General: Yes normal to inspection Course Course Course Narrative: - 1641-- no leukocytosis, H&H at baseline, renal fxn at patient's baseline - 1656-- patients orthostatics were very positive, but he remained asymptomatic. Will give L of IVF and repeat. ED care transferred to [facility] pending repeat orthostatic vital signs MDM - Nausea/Vomiting/Diarrhea MDM Narrative Medical decision making narrative: 69-year-old male with a past medical history of diabetes, diabetic gastroparesis, hypertension, chronic kidney disease BIBA for diffuse abdominal pain and nausea. On exam VSS, NAD, abdomen soft diffusely tender, no rebound or guarding. Likely patient has recurrent gastroparesis. Rule out dehydration/orthostasis. Low concern for diverticulitis/appendicitis Plan: Labs, IM medications, orthostatics, re-evaluate Lab Data Result diagrams: 04/05/20 14:45 04/05/20 14:45 Labs: Lab Results 04/05/20 04/05/20 04/05/20 Range/Units 14:45 14:45 14:45 WBC 8.6 (4.8-10.8) X10*3/uL RBC 4.15 L (4.60-5.80) X10*6/uL Hgb 12.6 L (14.0-18.0) g/dl Hct 38.6 L (42-52) % MCV 93.0 (80-98) fL MCH 30.4 (27.0-33.0) pg MCHC 32.6 (31.0-36.0) g/dl RDW 14.1 (11.0-16.0) % Plt Count 201 (160-400) X10*3/uL MPV 10.4 (9.4-12.4) fL Immature Gran % (Auto) 0.1 (0.0-0.4) % Neut % (Auto) 66.0 (45-73) % Lymph % (Auto) 24.0 (20-40) % Grimes % (Auto) 8.1 (2-11) % Eos % (Auto) 1.3 (0-4) % Baso % (Auto) 0.5 (0-2) % Lymph # (Auto) 2.1 (1.2-4.9) X10*3/uL Grimes # (Auto) 0.7 (0.1-1.2) X10*3/uL Eos # (Auto) 0.1 (0.0-0.4) X10*3/uL Baso # (Auto) 0.0 (0.0-0.2) X10*3/uL Abs Immat Gran (auto) 0.01 (0.00-0.03) X10*3/uL Absolute Neuts (auto) 5.7 (2.0-8.3) X10*3/uL Absolute Nucleated RBC 0.000 (0.0-0.012) X10*3/uL Nucleated RBC % (auto) 0.0 (0.0-0.2) /100WBC Hold Blue Top SEE NOTE Sodium 136 (135-145) mmol/L Potassium 4.8 (3.3-5.1) mmol/l Chloride 101 (96-108) mmol/L Carbon Dioxide 27 (22-29) mmol/L Anion Gap 13 (12-20) BUN 36 H (9-16) mg/dL Creatinine 3.21 H (0.5-1.4) mg/dL Estim Creat Clear Calc 22.8 Estimated GFR 19 Random Glucose 187 H D (60-115) mg/dL Calcium 8.2 L (8.4-10.2) mg/dL Magnesium 2.2 (1.6-2.6) mg/dL Total Bilirubin 0.2 (0.0-1.0) mg/dL Direct Bilirubin 0.2 (0.0-0.5) mg/dL AST 16 (5-37) U/L ALT 9 (0-40) U/L Alkaline Phosphatase 190 H D (39-117) U/L Total Protein 6.0 L (6.5-8.0) g/dL Albumin 3.4 L (3.5-5.0) g/dL Lipase (8-78) U/L 04/05/20 Range/Units 14:45 WBC (4.8-10.8) X10*3/uL RBC (4.60-5.80) X10*6/uL Hgb (14.0-18.0) g/dl Hct (42-52) % MCV (80-98) fL MCH (27.0-33.0) pg MCHC (31.0-36.0) g/dl RDW (11.0-16.0) % Plt Count (160-400) X10*3/uL MPV (9.4-12.4) fL Immature Gran % (Auto) (0.0-0.4) % Neut % (Auto) (45-73) % Lymph % (Auto) (20-40) % Grimes % (Auto) (2-11) % Eos % (Auto) (0-4) % Baso % (Auto) (0-2) % Lymph # (Auto) (1.2-4.9) X10*3/uL Grimes # (Auto) (0.1-1.2) X10*3/uL Eos # (Auto) (0.0-0.4) X10*3/uL Baso # (Auto) (0.0-0.2) X10*3/uL Abs Immat Gran (auto) (0.00-0.03) X10*3/uL Absolute Neuts (auto) (2.0-8.3) X10*3/uL Absolute Nucleated RBC (0.0-0.012) X10*3/uL Nucleated RBC % (auto) (0.0-0.2) /100WBC Hold Blue Top Sodium (135-145) mmol/L Potassium (3.3-5.1) mmol/l Chloride (96-108) mmol/L Carbon Dioxide (22-29) mmol/L Anion Gap (12-20) BUN (9-16) mg/dL Creatinine (0.5-1.4) mg/dL Estim Creat Clear Calc Estimated GFR Random Glucose (60-115) mg/dL Calcium (8.4-10.2) mg/dL Magnesium (1.6-2.6) mg/dL Total Bilirubin (0.0-1.0) mg/dL Direct Bilirubin (0.0-0.5) mg/dL AST (5-37) U/L ALT (0-40) U/L Alkaline Phosphatase (39-117) U/L Total Protein (6.5-8.0) g/dL Albumin (3.5-5.0) g/dL Lipase 64 (8-78) U/L Discharge Plan Discharge Clinical Impression: Gastroparesis, Orthostasis Prescriptions: No Action lorazepam 1 mg tablet 1 mg PO DAILY PRN (Reason: anxiety) RF: 0 insulin aspart U-100 [Novolog Flexpen U-100 Insulin] 100 unit/mL (3 mL) Insulin Pen See Protocol unit SUBCUT TIDAC RF: 0 Lantus Solostar U-100 Insulin 100 unit/mL (3 mL) Insulin Pen 30 unit SUBCUT BEDTIME RF: 0 atorvastatin 80 mg Tablet 80 mg PO BEDTIME RF: 0 polyethylene glycol 3350 [Miralax] 17 gram Powder In Packet 17 g PO DAILY RF: 0 amlodipine 10 mg Tablet 10 mg PO DAILY RF: 0 omeprazole 20 mg Capsule,Delayed Release(Dr/Ec) 20 mg PO BID RF: 0 aspirin 81 mg Tablet,Chewable 81 mg PO DAILY RF: 0 hydralazine 50 mg Tablet 50 mg PO BID RF: 0 cholecalciferol (vitamin D3) 25 mcg (1,000 unit) Tablet 25 mcg PO DAILY RF: 0
[2020-04-05 14:51] LABS: MANUAL DIFF FLAG NO
[2020-04-05 14:52] LABS: Basophils Percent Auto 0.5 % (0-2); Eosinophils Absolute Auto 0.1 X10*3/uL (0.0-0.4); Eosinophils Percent Auto 1.3 % (0-4); Hematocrit 38.6 % (42-52); Hemoglobin 12.6 g/dl (14.0-18.0); Imm Gran Abs Auto 0.01 X10*3/uL (0.00-0.03); Imm Gran Pct Auto 0.1 % (0.0-0.4); Lymphocytes Absolute Auto 2.1 X10*3/uL (1.2-4.9); Mean Corpuscular HGB Conc 32.6 g/dl (31.0-36.0); Mean Corpuscular Hemoglobin 30.4 pg (27.0-33.0); Mean Platelet Volume 10.4 fL (9.4-12.4); Monocytes Absolute Auto 0.7 X10*3/uL (0.1-1.2); Monocytes Percent Auto 8.1 % (2-11); Neutrophils Absolute Auto 5.7 X10*3/uL (2.0-8.3); Platelet Count 201 X10*3/uL (160-400); Red Blood Count 4.15 X10*6/uL (4.60-5.80); Red Cell Distribution Width 14.1 % (11.0-16.0); White Blood Count 8.6 X10*3/uL (4.8-10.8)
[2020-04-05] MEDS: LORazepam 2 MG/ML VIAL 1 MG IM (15:08)
[2020-04-05] MEDS: Metoclopramide HCl 10 MG/2 ML VIAL IM (15:08)
[2020-04-05 15:16] LABS: Alanine Aminotransferase 9 U/L (0-40); Albumin Level 3.4 g/dL (3.5-5.0); Alkaline Phosphatase 190 U/L (39-117); Anion Gap 13 (12-20); Aspartate Amino Transferase 16 U/L (5-37); Bilirubin Direct 0.2 mg/dL (0.0-0.5); Bilirubin Total 0.2 mg/dL (0.0-1.0); Blood Urea Nitrogen 36 mg/dL (9-16); Calcium 8.2 mg/dL (8.4-10.2); Carbon Dioxide 27 mmol/L (22-29); Chloride 101 mmol/L (96-108); Creatinine Clr Calc Pharmacy 22.8; Estimated Glomerular Filt Rate 19; Glucose Random 187 mg/dL (60-115); Lipase 64 U/L (8-78); Magnesium 2.2 mg/dL (1.6-2.6); Potassium 4.8 mmol/l (3.3-5.1); Sodium 136 mmol/L (135-145)
--- NOTE | 2020-04-05 15:16 | PC.NURSE ---
Pt denies abd pain. states he has nausea only. skin pwd. no actualy vomitus or dry heaving.
--- NOTE | 2020-04-05 16:14 | PC.NURSE ---
pt sleeping. skin pwd. awaits disposition
[2020-04-05] MEDS: 0.9 % Sodium Chloride 1,000 ML 999 ML IVCONT (18:07)
--- NOTE | 2020-04-05 18:08 | PC.NURSE ---
moaning a little bit again but declining offer for nausea meds. aware of plan for fluids and recheck of orthos. also aware via telephone
== END 2020-04-05 19:55 | disposition home or self-care (01) ==
PROVIDERS: Physician Assistant; Emergency Provider Emergency Medicine; PCP Internal Medicine
DX: E11.43 Type 2 diabetes mellitus with diabetic autonomic (poly)neuropathy (principal); K31.84 Gastroparesis; E11.22 Type 2 diabetes mellitus with diabetic chronic kidney disease; I12.9 Hypertensive chronic kidney disease with stage 1 through stage 4 chronic kidney disease, or unspecified chronic kidney disease; N18.9 Chronic kidney disease, unspecified
CPT/HCPCS: 36415; 80048; 80076; 83690; 83735; 85025; 96360; 96372; 99284; J2060; J2765

== ENCOUNTER 2020-04-07 11:25 | Emergency (ER) | payer MEDICARE, OTHER, SELFPAY ==
[2020-04-07 11:32] VITALS: PULSE 92; RESP 18; TEMP 36.6; O2SAT 97; BMI 25.0
--- NOTE | 2020-04-07 11:41 | ED_ITS ---
HPI - General Adult General Chief complaint: General Medical Stated complaint: NAUSEA Time Seen by Provider: 04/07/20 11:37 Source: patient Mode of arrival: EMS Limitations: no limitations History of Present Illness HPI narrative: 69-year-old male who presents emergency department for evaluation of nausea and abdominal pain. The patient states the symptoms started last night at 6:00 p.m.. He describes the pain as a constant, cramping sensation, located diffusely throughout his abdomen. The pain is 8/10 at its worst. The patient has had similar pain in the past and states that he is seen here frequently. He states that he is often treated with Ativan and Haldol for the pain. The patient states that he has constant nausea with no vomiting. He has had no change in his bowel movements. The patient has been seen in the past for cyclic vomiting syndrome possibly related to marijuana. The patient states that he has not smoked marijuana in over 1 week. He denied fever, chills, chest pain, shortness of breath, myalgias, arthralgias, loss of taste of sense or smell. He is not aware of any 1st degree COVID-19 contacts. Related Data Home Medications Medication Instructions Recorded Confirmed lorazepam 1 mg PO DAILY PRN 12/29/19 03/23/20 Lantus Solostar U-100 Insulin 30 unit SUBCUT BEDTIME 03/23/20 03/23/20 amlodipine 10 mg PO DAILY 03/23/20 03/23/20 aspirin 81 mg PO DAILY 03/23/20 03/23/20 atorvastatin 80 mg PO BEDTIME 03/23/20 03/23/20 cholecalciferol (vitamin D3) 25 mcg PO DAILY 03/23/20 03/23/20 hydralazine 50 mg PO BID 03/23/20 03/23/20 insulin aspart U-100 [Novolog See Protocol SUBCUT TIDAC 03/23/20 03/23/20 Flexpen U-100 Insulin] omeprazole 20 mg PO BID 03/23/20 03/23/20 polyethylene glycol 3350 [Miralax] 17 g PO DAILY 03/23/20 03/23/20 Allergies Allergy/AdvReac Type Severity Reaction Status Date / Time morphine Allergy Intermediate RASH Verified 04/07/20 12:30 Review of Systems Review of Systems: Yes all other systems are reviewed and are negative Neurologic: Reports Abnormal speech present PMFSH Past Medical History [facility] Narrative: The patient lives with his . Denies tobacco and alcohol use. He states that he smokes marijuana several times weekly. Medical History Diabetes Gastroparesis HTN (hypertension) Kidney failure Vomiting Family History Family History Other Family history non-contributory Social History Social History (System 04/07/20 @ 12:30 by Marielle Lew) Household Members: Spouse Housing: House Alcohol intake: former Smoking Status: Former smoker Substance Use Type: Marijuana Advance Directives: No Advance Directives Information Provided: Yes Advance Directives Date on File: 02/12/20 service: Yes Current occupational status: retired Physical Exam Vital Signs: Vital Signs: Last Vital Signs Temp 98 F 04/07/20 11:32 Pulse 91 04/07/20 12:09 Resp 12 04/07/20 12:09 BP 139/65 04/07/20 12:09 Pulse Ox 98 04/07/20 12:09 Body Mass Index 25.0 Const: General: cooperative and other (Repetitive, groaning secondary to abdominal discomfort) Orientation/consciousness: oriented to person and oriented to place Limitations: no limitations HENMT: Head: Yes normal to inspection, Yes normocephalic and Yes atraumatic Ears: external ears normal General nose exam: Normal external nose present Face and sinus: Yes normal facial exam Mouth: Normal oral and palatal mucosa present Throat: Yes posterior oropharynx normal Eyes: Periorbital: periorbital findings normal Eyelids: Yes eyelids normal Conjunctivae: conjunctivae normal Sclerae: sclerae normal Corneas: corneas normal Pupils: Equal, round and reactive pupils present Direct Ophthalmoscopy: normal light reflex Neck: Neck: Yes full ROM, Yes no lymphadenopathy, Yes no meningeal signs, Yes trachea midline and Yes supple Chest: Chest palpation & inspection: normal inspection of the chest and normal palpation of entire chest wall Resp: Effort & Inspection: normal respiratory effort and able to speak in complete sentences Auscultation: clear to auscultation bilaterally Cardio: Rate: regular rate Rhythm: regular rhythm Heart sounds: S1 normal heart sound present, S2 normal heart sound present and no murmurs GI: Inspection: Yes normal to inspection Palpation (GI): Soft to palpation, Tenderness to palpation present (GI) (Mild diffuse), no guarding, not rigid and No hepatosplenomegaly present : General: Yes no CVA tenderness Back/Spine/Pelvis: Back: no CVA tenderness Cervical Spine: normal cervical lordosis Thoracic/Lumbar Spine: thoracic and lumbar spine normal to inspection Skin: Lesions: no lesions Rashes: no rashes Wounds: no wounds Neuro: General: oriented to person, oriented to place and no meningeal signs Cranial nerves: Yes CN's II-XII intact bilaterally and Yes Equal, round and re active pupils present Cognition (Neuro): normal cognition Speech: Abnormal speech present Motor exam (neuro): 5/5 motor strength present throughout Extrem: General: Yes normal to inspection and Yes full ROM Psych: Appearance: well kempt Mental Status: mental status grossly normal Speech and movement: Normal speech and movement present Attitude: cooperative Course Course Course Narrative: 69-year-old male who presents emergency department for evaluation of abdominal pain and nausea which began yesterday at 4:00 p.m.. The patient has a history cyclic vomiting syndrome and states that his symptoms are similar to symptoms he has had the past. The patient states that he has had blood work recently and does not want any laboratory testing today. He states that he is not vomiting and does not want an IV inserted. He is requesting treatment with IM medications. The patient has been treated with Ativan and Haldol in the past with good success. The patient was ordered to get Haldol 2.5 mg IM and Ativan 2 mg IM. 1449: The patient states that he is feeling better. He has had no vomiting since he has been in the emergency department. He was able to drink clear liquids. The patient will be discharged home. Discharge Plan Discharge Clinical Impression: Nausea, Cyclic vomiting syndrome Abdominal pain Qualifiers: Abdominal location: generalized Qualified Code(s): R10.84 - Generalized abdominal pain Patient Disposition: Home, Self-Care Instructions: Cyclic Vomiting Syndrome (ED) Additional Instructions: Continue taking medication as prescribed by your doctor. Do not smoked marijuana since this can cause a flare-up of your cyclic vomiting syndrome. Follow-up with your doctor in 2 days. Please return to the emergency department if your symptoms get worse or if you develop any symptoms that are concerning to you. Prescriptions: No Action lorazepam 1 mg tablet 1 mg PO DAILY PRN (Reason: anxiety) RF: 0 insulin aspart U-100 [Novolog Flexpen U-100 Insulin] 100 unit/mL (3 mL) Insulin Pen See Protocol unit SUBCUT TIDAC RF: 0 Lantus Solostar U-100 Insulin 100 unit/mL (3 mL) Insulin Pen 30 unit SUBCUT BEDTIME RF: 0 atorvastatin 80 mg Tablet 80 mg PO BEDTIME RF: 0 polyethylene glycol 3350 [Miralax] 17 gram Powder In Packet 17 g PO DAILY RF: 0 amlodipine 10 mg Tablet 10 mg PO DAILY RF: 0 omeprazole 20 mg Capsule,Delayed Release(Dr/Ec) 20 mg PO BID RF: 0 aspirin 81 mg Tablet,Chewable 81 mg PO DAILY RF: 0 hydralazine 50 mg Tablet 50 mg PO BID RF: 0 cholecalciferol (vitamin D3) 25 mcg (1,000 unit) Tablet 25 mcg PO DAILY RF: 0
[2020-04-07] MEDS: LORazepam 2 MG/ML VIAL IM (11:48)
[2020-04-07] MEDS: Haloperidol Lactate 5 MG/ML VIAL 2.5 MG IM (11:50)
[2020-04-07 12:09] VITALS: BP 139/65; PULSE 91; RESP 12; O2SAT 98
--- NOTE | 2020-04-07 14:02 | PC.NURSE ---
PT HAS BEEN SLEEPING SINCE MEDICATED. NO VOMITING. WAITING LAB RESULTS.
--- NOTE | 2020-04-07 15:03 | PC.NURSE ---
attepting to call patient for transport home. no answer at this time.
[2020-04-12 17:52] LABS: Haloperidol <1 ng/mL (5-15)
== END 2020-04-07 15:24 | disposition home or self-care (01) ==
PROVIDERS: Emergency Provider Emergency Medicine Emergency Medical Services; PCP Internal Medicine
DX: R11.15 Cyclical vomiting syndrome unrelated to migraine (principal); R10.84 Generalized abdominal pain; R11.0 Nausea; F12.90 Cannabis use, unspecified, uncomplicated; Z20.822 Contact with and (suspected) exposure to COVID-19; Z79.899 Other long term (current) drug therapy; Z87.891 Personal history of nicotine dependence
CPT/HCPCS: 36415; 80173; 96372; 99284; J2060

== ENCOUNTER 2020-04-10 11:56 | Emergency (ER) | payer MEDICARE, OTHER, SELFPAY ==
[2020-04-10 12:01] VITALS: BP 110/56; BP 143/77; PULSE 85; PULSE 96; RESP 18; TEMP 36.8; O2SAT 94; O2SAT 98; BMI 27.1
--- NOTE | 2020-04-10 12:15 | ED_ITS ---
HPI - Nausea/Vomiting/Diarrhea General Chief complaint: Nausea/Vomiting/Diarrhea Stated complaint: abd pain Time Seen by Provider: 04/10/20 12:05 Source: patient and EMS Mode of arrival: EMS History of Present Illness HPI Narrative: 69-year-old male with a past medical history of diabetes, diabetic gastroparesis, hypertension, chronic kidney disease BIBA for diffuse abdominal pain and nausea since last night. Patient admits symptoms are similar to chronic/priors with out change. Reports is tolerating p.o. food and liquid okay. Requesting IM medications. Denies vomiting, diarrhea, fever, chills, CP/SOB MD elicited complaint: abdominal pain Related Data Home Medications Medication Instructions Recorded Confirmed lorazepam 1 mg PO DAILY PRN 12/29/19 03/23/20 Lantus Solostar U-100 Insulin 30 unit SUBCUT BEDTIME 03/23/20 03/23/20 amlodipine 10 mg PO DAILY 03/23/20 03/23/20 aspirin 81 mg PO DAILY 03/23/20 03/23/20 atorvastatin 80 mg PO BEDTIME 03/23/20 03/23/20 cholecalciferol (vitamin D3) 25 mcg PO DAILY 03/23/20 03/23/20 hydralazine 50 mg PO BID 03/23/20 03/23/20 insulin aspart U-100 [Novolog See Protocol SUBCUT TIDAC 03/23/20 03/23/20 Flexpen U-100 Insulin] omeprazole 20 mg PO BID 03/23/20 03/23/20 polyethylene glycol 3350 [Miralax] 17 g PO DAILY 03/23/20 03/23/20 Allergies Allergy/AdvReac Type Severity Reaction Status Date / Time morphine Allergy Intermediate RASH Verified 04/10/20 12:00 Review of Systems Review of Systems: Constitutional: No Weight loss, No Fever, No Chills Cardiovascular: No Chest Pain, No SOB Respiratory: No Cough, No Sputum Gastrointestinal: + Nausea, No Vomiting, No Diarrhea, No Constipation, + Abdominal pain Genitourinary: No irregular bleeding, No Dysuria, No Urinary Frequency, No Hematuria,No Urgency, No Flank Pain Musculoskeletal: No joint pain, No Myalgias, No Joint Swelling Skin: No Skin Lesions, No rash Yes all other systems are reviewed and are negative PMFSH Past Medical History Attestation statement: The following information was validated with the patient. Medical History Diabetes Gastroparesis HTN (hypertension) Kidney failure Vomiting Family History Family History Other Family history non-contributory Social History Social History (System 04/07/20 @ 12:30 by Marielle Lew) Household Members: Spouse Housing: House Alcohol intake: never Smoking Status: Former smoker Substance Use Type: Marijuana Advance Directives: Yes Advance Directives on File: Yes Advance Directives Date on File: 02/12/20 service: Yes Current occupational status: retired Physical Exam Vital Signs: Vital Signs: Last Vital Signs Temp 98.3 F 04/10/20 12:01 Pulse 88 04/10/20 13:46 Resp 18 04/10/20 13:46 BP 124/80 04/10/20 13:46 Pulse Ox 97 04/10/20 13:46 Body Mass Index 27.1 Const: General: cooperative, healthy appearing and no acute distress Orientation/consciousness: patient oriented x3 Limitations: no limitations HENMT: Head: Yes normal to inspection Ears: hearing grossly normal bilaterally General nose exam: Normal external nose present Face and sinus: Yes normal facial exam Eyes: General: appearance normal, both eyes and all related structures EOM: EOMs intact bilaterally Neck: Neck: Yes normal visual inspection Resp: Effort & Inspection: normal respiratory effort Cardio: Rate: regular rate GI: Inspection: Yes normal to inspection Palpation (GI): Soft to palpation, Tenderness to palpation present (GI) (Diffusely) with no rebound tenderness, no guarding and not rigid Skin: Rashes: no rashes Wounds: no wounds Neuro: General: patient oriented x3 Extrem: General: Yes normal to inspection Course Course Course Narrative: * Patient reports symptomatic improvement. Calm, comfortable/quiet in stretcher will obtain POC. * 1325- POC 381 > will obtain labs to r/o DKA, give IVF and reassess * 1440- No leukocytosis. H&H at baseline. Renal function chronically elevated, better than baseline. No anion gap. Patient requesting to go home, will giv e 5 units subcu insulin and DC home MDM - Nausea/Vomiting/Diarrhea MDM Narrative Medical decision making narrative: 69-year-old male with a past medical history of diabetes, diabetic gastroparesis, hypertension, chronic kidney disease BIBA for diffuse abdominal pain and nausea since last night On exam VSS, NAD/well appearing, abdomen soft diffusely tender, no rebound or guarding. Nontoxic. Likely acute on chronic gastroparesis. Low concern for dehydration/metabolic abnormalities or KESHIA. Plan: IM medications & re-evaluate Lab Data Result diagrams: 04/10/20 14:01 04/10/20 14:01 Labs: Lab Results 04/10/20 04/10/20 04/10/20 Range/Units 13:06 14:01 14:01 WBC 6.2 (4.8-10.8) X10*3/uL RBC 4.04 L (4.60-5.80) X10*6/uL Hgb 12.1 L (14.0-18.0) g/dl Hct 36.8 L (42-52) % MCV 91.1 (80-98) fL MCH 30.0 (27.0-33.0) pg MCHC 32.9 (31.0-36.0) g/dl RDW 13.8 (11.0-16.0) % Plt Count 172 (160-400) X10*3/uL MPV 10.9 (9.4-12.4) fL Immature Gran % (Auto) 0.2 (0.0-0.4) % Neut % (Auto) 55.0 (45-73) % Lymph % (Auto) 32.0 (20-40) % [place] % (Auto) 10.6 (2-11) % Eos % (Auto) 1.6 (0-4) % Baso % (Auto) 0.6 (0-2) % Lymph # (Auto) 2.0 (1.2-4.9) X10*3/uL [place] # (Auto) 0.7 (0.1-1.2) X10*3/uL Eos # (Auto) 0.1 (0.0-0.4) X10*3/uL Baso # (Auto) 0.0 (0.0-0.2) X10*3/uL Abs Immat Gran (auto) 0.01 (0.00-0.03) X10*3/uL Absolute Neuts (auto) 3.4 (2.0-8.3) X10*3/uL Absolute Nucleated RBC 0.000 (0.0-0.012) X10*3/uL Nucleated RBC % (auto) 0.0 (0.0-0.2) /100WBC VBG pH (7.32-7.43) VBG pCO2 mmHg VBG pO2 mmHg VBG HCO3 mmol/L VBG O2 Saturation % VBG Base Excess mmol/L Sodium 139 (135-145) mmol/L Potassium 3.9 (3.3-5.1) mmol/l Chloride 109 H (96-108) mmol/L Carbon Dioxide 22 (22-29) mmol/L Anion Gap 12 (12-20) BUN 39 H (9-16) mg/dL Creatinine 2.48 H (0.5-1.4) mg/dL Estim Creat Clear Calc 29.5 Estimated GFR 26 POC Glucose 381 H* (60-115) mg/dL Random Glucose 348 H D (60-115) mg/dL Calcium 7.2 L D (8.4-10.2) mg/dL Acetone, Qual Negative (Negative) 04/10/20 Range/Units 14:01 WBC (4.8-10.8) X10*3/uL RBC (4.60-5.80) X10*6/uL Hgb (14.0-18.0) g/dl Hct (42-52) % MCV (80-98) fL MCH (27.0-33.0) pg MCHC (31.0-36.0) g/dl RDW (11.0-16.0) % Plt Count (160-400) X10*3/uL MPV (9.4-12.4) fL Immature Gran % (Auto) (0.0-0.4) % Neut % (Auto) (45-73) % Lymph % (Auto) (20-40) % [place] % (Auto) (2-11) % Eos % (Auto) (0-4) % Baso % (Auto) (0-2) % Lymph # (Auto) (1.2-4.9) X10*3/uL [place] # (Auto) (0.1-1.2) X10*3/uL Eos # (Auto) (0.0-0.4) X10*3/uL Baso # (Auto) (0.0-0.2) X10*3/uL Abs Immat Gran (auto) (0.00-0.03) X10*3/uL Absolute Neuts (auto) (2.0-8.3) X10*3/uL Absolute Nucleated RBC (0.0-0.012) X10*3/uL Nucleated RBC % (auto) (0.0-0.2) /100WBC VBG pH 7.34 (7.32-7.43) VBG pCO2 56 mmHg VBG pO2 79 mmHg VBG HCO3 31 mmol/L VBG O2 Saturation 94.0 % VBG Base Excess 4.0 mmol/L Sodium (135-145) mmol/L Potassium (3.3-5.1) mmol/l Chloride (96-108) mmol/L Carbon Dioxide (22-29) mmol/L Anion Gap (12-20) BUN (9-16) mg/dL Creatinine (0.5-1.4) mg/dL Estim Creat Clear Calc Estimated GFR POC Glucose (60-115) mg/dL Random Glucose (60-115) mg/dL Calcium (8.4-10.2) mg/dL Acetone, Qual (Negative) Discharge Plan Discharge Clinical Impression: Gastroparesis, Hyperglycemia Patient Disposition: Home, Self-Care Instructions: Diabetic Gastroparesis (DC) Additional Instructions: You need to follow-up with her GI doctor. Make sure your staying hydrated at home. Take home prescribed medications. Monitor your sugars. If pain persists or worsens, you are unable to eat or drink, or have fever return to the ED Prescriptions: No Action lorazepam 1 mg tablet 1 mg PO DAILY PRN (Reason: anxiety) RF: 0 insulin aspart U-100 [Novolog Flexpen U-100 Insulin] 100 unit/mL (3 mL) Insulin Pen See Protocol unit SUBCUT TIDAC RF: 0 Lantus Solostar U-100 Insulin 100 unit/mL (3 mL) Insulin Pen 30 unit SUBCUT BEDTIME RF: 0 atorvastatin 80 mg Tablet 80 mg PO BEDTIME RF: 0 polyethylene glycol 3350 [Miralax] 17 gram Powder In Packet 17 g PO DAILY RF: 0 amlodipine 10 mg Tablet 10 mg PO DAILY RF: 0 omeprazole 20 mg Capsule,Delayed Release(Dr/Ec) 20 mg PO BID RF: 0 aspirin 81 mg Tablet,Chewable 81 mg PO DAILY RF: 0 hydralazine 50 mg Tablet 50 mg PO BID RF: 0 cholecalciferol (vitamin D3) 25 mcg (1,000 unit) Tablet 25 mcg PO DAILY RF: 0 Referrals: Janet Marsh MD [Primary Care Provider] - 2 days
[2020-04-10] MEDS: Haloperidol Lactate 5 MG/ML VIAL IM (12:49)
[2020-04-10] MEDS: LORazepam 2 MG/ML VIAL 1 MG IM (12:49)
[2020-04-10 13:13] LABS: Glucose, Whole Blood 381 mg/dL (60-115)
[2020-04-10 13:46] VITALS: BP 124/80; PULSE 88; RESP 18; O2SAT 97
[2020-04-10] MEDS: 0.9 % Sodium Chloride 1,000 ML 999 ML IVCONT (14:02)
[2020-04-10] MEDS: Metoclopramide HCl 10 MG/2 ML VIAL IVPUSH (14:03)
[2020-04-10 14:12] LABS: MANUAL DIFF FLAG NO
[2020-04-10 14:13] LABS: Basophils Percent Auto 0.6 % (0-2); Eosinophils Absolute Auto 0.1 X10*3/uL (0.0-0.4); Eosinophils Percent Auto 1.6 % (0-4); Hematocrit 36.8 % (42-52); Hemoglobin 12.1 g/dl (14.0-18.0); Imm Gran Abs Auto 0.01 X10*3/uL (0.00-0.03); Imm Gran Pct Auto 0.2 % (0.0-0.4); Mean Corpuscular HGB Conc 32.9 g/dl (31.0-36.0); Mean Corpuscular Volume 91.1 fL (80-98); Mean Platelet Volume 10.9 fL (9.4-12.4); Monocytes Absolute Auto 0.7 X10*3/uL (0.1-1.2); Monocytes Percent Auto 10.6 % (2-11); Neutrophils Absolute Auto 3.4 X10*3/uL (2.0-8.3); Platelet Count 172 X10*3/uL (160-400); Red Blood Count 4.04 X10*6/uL (4.60-5.80); Red Cell Distribution Width 13.8 % (11.0-16.0); White Blood Count 6.2 X10*3/uL (4.8-10.8)
[2020-04-10 14:16] LABS: pH VBG 7.34 (7.32-7.43)
[2020-04-10 14:17] LABS: HCO3 VBG 31 mmol/L; PCO2 VBG 56 mmHg; PO2 VBG 79 mmHg
[2020-04-10 14:38] LABS: Anion Gap 12 (12-20); Blood Urea Nitrogen 39 mg/dL (9-16); Carbon Dioxide 22 mmol/L (22-29); Chloride 109 mmol/L (96-108); Creatinine Clr Calc Pharmacy 29.5; Estimated Glomerular Filt Rate 26; Potassium 3.9 mmol/l (3.3-5.1); Sodium 139 mmol/L (135-145)
[2020-04-10 14:47] LABS: Calcium 7.2 mg/dL (8.4-10.2); Glucose Random 348 mg/dL (60-115)
[2020-04-10 14:49] LABS: Acetone, serum QL Negative (Negative)
[2020-04-10] MEDS: Insulin Regular, Human 100 UNIT/ML 3 ML VIAL SUBCUT (15:35)
[2020-04-10] MEDS: diphenhydrAMINE HCL 50 MG/ML VIAL 25 MG IVPUSH (15:37)
== END 2020-04-10 15:52 | disposition home or self-care (01) ==
PROVIDERS: Physician Assistant; Emergency Provider Internal Medicine; PCP Internal Medicine
DX: E11.43 Type 2 diabetes mellitus with diabetic autonomic (poly)neuropathy (principal); E11.65 Type 2 diabetes mellitus with hyperglycemia; K31.84 Gastroparesis; R11.2 Nausea with vomiting, unspecified; R19.7 Diarrhea, unspecified; R10.9 Unspecified abdominal pain; Z87.891 Personal history of nicotine dependence; Z79.4 Long term (current) use of insulin
CPT/HCPCS: 36415; 80048; 82009; 82803; 82947; 85025; 96361; 96372; 96374; 96375; 99284; J1200; J2060; J2765

== ENCOUNTER 2020-04-11 11:12 | Emergency (ER) | payer MEDICARE, OTHER, SELFPAY ==
[2020-04-11 11:16] VITALS: BP 160/100; BP 162/95; PULSE 86; PULSE 90; RESP 18; TEMP 36.7; O2SAT 97; BMI 27.1
[2020-04-11] MEDS: LORazepam 2 MG/ML VIAL IM (11:26)
[2020-04-11] MEDS: Prochlorperazine Edisylate 10 MG/2 ML VIAL IM (11:26)
--- NOTE | 2020-04-11 11:32 | PC.NURSE ---
MEDICATED WITH IM MEDS PER ORDERS
--- NOTE | 2020-04-11 11:56 | ED.NAVMDI ---
HPI - Nausea/Vomiting/Diarrhea General Chief complaint: Nausea/Vomiting/Diarrhea Stated complaint: N/V X'S 1 DAY Time Seen by Provider: 04/11/20 11:18 Source: patient Mode of arrival: EMS Limitations: no limitations History of Present Illness HPI Narrative: Patient has cyclic vomiting syndrome been here multiple times was seen here y 3 times in last 1 week for similar complaints requiring Ativan and Haldol comes here for dry heaving again since last night no aly vomiting complaining of upper abdominal pain as usual MD elicited complaint: nausea and vomiting Pertinent past history: cyclical vomiting Onset (ago): day(s) Associated nausea: Yes Associated abdominal pain: Yes Location of pain: epigastric Quality: cramping Exacerbating factors: eating Relieving factors: none Related Data Home Medications Medication Instructions Recorded Confirmed lorazepam 1 mg PO DAILY PRN 12/29/19 03/23/20 Lantus Solostar U-100 Insulin 30 unit SUBCUT BEDTIME 03/23/20 03/23/20 amlodipine 10 mg PO DAILY 03/23/20 03/23/20 aspirin 81 mg PO DAILY 03/23/20 03/23/20 atorvastatin 80 mg PO BEDTIME 03/23/20 03/23/20 cholecalciferol (vitamin D3) 25 mcg PO DAILY 03/23/20 03/23/20 hydralazine 50 mg PO BID 03/23/20 03/23/20 insulin aspart U-100 [Novolog See Protocol SUBCUT TIDAC 03/23/20 03/23/20 Flexpen U-100 Insulin] omeprazole 20 mg PO BID 03/23/20 03/23/20 polyethylene glycol 3350 [Miralax] 17 g PO DAILY 03/23/20 03/23/20 Allergies Allergy/AdvReac Type Severity Reaction Status Date / Time morphine Allergy Intermediate RASH Verified 04/10/20 12:00 Review of Systems Review of Systems: Constitutional : No Weight loss, No Fever, No Chills ENT/Mouth : No sore throat, No Rhinorrhea Eyes: No Eye Pain, No Swelling Cardiovascular : No Chest Pain, no palpitations Respiratory : No Cough, No Sputum, no shortness of breath Gastrointestinal : + Nausea,+Vomiting, No Diarrhea, No abdominal Pain, no black stools Genitourinary : No Dysuria, No Urinary Frequency Musculoskeletal : No joint pain, No Myalgias, No Joint Swelling Skin : No Skin Lesions, No rash Neuro : No Weakness, No Numbness, No Dizziness, No Headache Psych : + Anxiety/Panic, No Depression Heme/Lymph: No Bruising, No Lymphadenopathy Endocrine : No Polyuria, No Polydipsia All other systems reviewed and are negative Yes all other systems are reviewed and are negative Gastrointestinal: Gastrointestinal: Reports nausea PMFSH Past Medical History Medical History Cyclical vomiting Diabetes Gastroparesis HTN (hypertension) IDDM (insulin dependent diabetes mellitus) Kidney failure Vomiting Family History Family History Other Family history non-contributory Social History Social History Household Members: Spouse Housing: House Alcohol intake: never Smoking Status: Former smoker Substance Use Type: Marijuana Advance Directives: Yes Advance Directives on File: Yes Advance Directives Date on File: 02/12/20 service: Yes Current occupational status: retired Physical Exam Vital Signs: Vital Signs: Last Vital Signs Temp 98.0 F 04/11/20 11:16 Pulse 94 04/11/20 13:21 Resp 18 04/11/20 13:21 BP 130/62 04/11/20 13:21 Pulse Ox 98 04/11/20 13:21 Body Mass Index 27.1 Appearance: Alert. Oriented X3. No acute distress. Legally blind dry heaving Eyes: Legally blind ENT: Pharynx normal. Neck: Normal inspection. Neck supple. CVS: Normal heart rate and rhythm. Pulses normal. Respiratory: No respiratory distress. Breath sounds normal. Abdomen: Soft ,mild epigastric tenderness Bowel sounds are present, no mass palpable, no CVA tenderness Skin: Skin warm and dry. Normal skin color. Normal skin turgor. Extremities: No lower extremity edema. Neuro: Oriented X 3. No motor deficit. No sensory deficit. Course Course Course Narrative: Patient feeling better now taking p.o. fluids will discharge patient home for cyclic vomiting/gastroparesis with anxiety Discharge Plan Discharge Clinical Impression: Cyclic vomiting syndrome Patient Disposition: Home, Self-Care Instructions: Cyclic Vomiting Syndrome (ED) Additional Instructions: Taking medication as prescribed previously and follow up with PCP Drink plenty of fluids Prescriptions: No Action lorazepam 1 mg tablet 1 mg PO DAILY PRN (Reason: anxiety) RF: 0 insulin aspart U-100 [Novolog Flexpen U-100 Insulin] 100 unit/mL (3 mL) Insulin Pen See Protocol unit SUBCUT TIDAC RF: 0 Lantus Solostar U-100 Insulin 100 unit/mL (3 mL) Insulin Pen 30 unit SUBCUT BEDTIME RF: 0 atorvastatin 80 mg Tablet 80 mg PO BEDTIME RF: 0 polyethylene glycol 3350 [Miralax] 17 gram Powder In Packet 17 g PO DAILY RF: 0 amlodipine 10 mg Tablet 10 mg PO DAILY RF: 0 omeprazole 20 mg Capsule,Delayed Release(Dr/Ec) 20 mg PO BID RF: 0 aspirin 81 mg Tablet,Chewable 81 mg PO DAILY RF: 0 hydralazine 50 mg Tablet 50 mg PO BID RF: 0 cholecalciferol (vitamin D3) 25 mcg (1,000 unit) Tablet 25 mcg PO DAILY RF: 0
[2020-04-11 13:21] VITALS: BP 130/62; PULSE 94; RESP 18; O2SAT 98
--- NOTE | 2020-04-11 13:24 | PC.NURSE ---
PT ASLEEP, REPORTING ONGOING NAUSEA, NO PAIN.
--- NOTE | 2020-04-11 13:24 | PC.NURSE ---
NO VOMITING SINCE ARRIVAL TO [facility].
== END 2020-04-11 14:29 | disposition home or self-care (01) ==
PROVIDERS: Emergency Provider Internal Medicine
DX: R11.15 Cyclical vomiting syndrome unrelated to migraine (principal); R10.13 Epigastric pain; I10 Essential (primary) hypertension; E11.9 Type 2 diabetes mellitus without complications; Z79.4 Long term (current) use of insulin
CPT/HCPCS: 96372; 99284; J2060

== ENCOUNTER 2020-04-13 14:34 | Emergency (ER) | payer MEDICARE, OTHER, SELFPAY ==
[2020-04-13 14:39] VITALS: BP 129/75; BP 140/86; PULSE 90; PULSE 96; RESP 18; TEMP 37.1; O2SAT 96; O2SAT 97; BMI 27.1
--- NOTE | 2020-04-13 14:55 | ED.NAVMDI ---
HPI - Nausea/Vomiting/Diarrhea General Chief complaint: Nausea/Vomiting/Diarrhea <UGO Petit - Last Filed: 04/13/20 22:56> Stated complaint: abd pain <UGO Petit - Last Filed: 04/13/20 22:56> Time Seen by Provider: 04/13/20 15:35 <UGO Petit - Last Filed: 04/13/20 22:56> Source: patient and EMS <UGO Petit - Last Filed: 04/13/20 22:56> Mode of arrival: EMS <UGO Petit - Last Filed: 04/13/20 22:56> History of Present Illness HPI Narrative: Patient presents to ED for chronic gastroparesis abdominal pain. Patient has been here at least if 3 times a week for same issue. Patient is known to the ED for common for this issue for many years. Patient was last seen on the and of this month. On the of this month labs were at baseline. At of this month symptoms improved with Ativan and Haldol. Patient requests himself that he wants Ativan and Haldol to help with this similar belly pain cyclic vomiting. Patient states no difference of belly pain and vomiting today. Patient states it actually not vomiting just dry heaves. Patient denies any urinary issues, fever, chills, chest pain, or shortness of breath. Once again patient request Ativan and Haldol for symptoms so he could sleep. Patient states usually when he gets those meds he feels better. <UGO Petit - Last Filed: 04/13/20 22:56> Related Data Home medications: Home Medications Medication Instructions Recorded Confirmed lorazepam 1 mg PO DAILY PRN 12/29/19 03/23/20 Lantus Solostar U-100 Insulin 30 unit SUBCUT BEDTIME 03/23/20 03/23/20 amlodipine 10 mg PO DAILY 03/23/20 03/23/20 aspirin 81 mg PO DAILY 03/23/20 03/23/20 atorvastatin 80 mg PO BEDTIME 03/23/20 03/23/20 cholecalciferol (vitamin D3) 25 mcg PO DAILY 03/23/20 03/23/20 hydralazine 50 mg PO BID 03/23/20 03/23/20 insulin aspart U-100 [Novolog See Protocol SUBCUT TIDAC 03/23/20 03/23/20 Flexpen U-100 Insulin] omeprazole 20 mg PO BID 03/23/20 03/23/20 polyethylene glycol 3350 [Miralax] 17 g PO DAILY 03/23/20 03/23/20 <UGO Petit Last Filed: 04/13/20 22:56> Allergies/Adverse reactions: Allergies Allergy/AdvReac Type Severity Reaction Status Date / Time morphine Allergy Intermediate RASH Verified 04/10/20 12:00 <UGO Petit - Last Filed: 04/13/20 22:56> Review of Systems Review of Systems: Yes all other systems are reviewed and are negative <UGO Petit - Last Filed: 04/13/20 22:56> Constitutional: Constitutional: Reports as per HPI and Reports no additional constitutional complaints <UGO Petit Last Filed: 04/13/20 22:56> Eyes: Eyes: Reports as per HPI and Reports no additional eye complaints <UGO Petit - Last Filed: 04/13/20 22:56> ENT: Reports system reviewed and no additional complaints, except as documented and Reports as per HPI <UGO Petit Last Filed: 04/13/20 22:56> Cardiovascular: Cardiovascular: Reports as per HPI and Reports no additional cardiovascular complaints <UGO Petit - Last Filed: 04/13/20 22:56> Respiratory: Respiratory: Reports as per HPI and Reports no additional respiratory complaints <UGO Petit Last Filed: 04/13/20 22:56> Gastrointestinal: Gastrointestinal: Reports as per HPI, Reports no additional gastrointestinal complaints and Reports abdominal pain (Chronic) <UGO Petit Last Filed: 04/13/20 22:56> Genitourinary: Genitourinary: Reports no additional male genitourinary complaints and Reports as per HPI <UGO Petit Last Filed: 04/13/20 22:56> Musculoskeletal: Musculoskeletal: Reports no additional musculoskeletal complaints and Reports as per HPI <UGO Petit Last Filed: 04/13/20 22:56> Neurologic: Reports system reviewed and no additional complaints, except as documented and Reports as per HPI <UGO Petit - Last Filed: 04/13/20 22:56> Psychiatric: Psychiatric: Reports no additional psychiatric complaints and Reports as per HPI <UGO Petit - Last Filed: 04/13/20 22:56> [facility] Past Medical History Medical History: Medical History Cyclical vomiting Diabetes Gastroparesis HTN (hypertension) IDDM (insulin dependent diabetes mellitus) Kidney failure Vomiting <UGO Petit - Last Filed: 04/13/20 22:56> Family History Family History: Family History Other Family history non-contributory <UGO Petit - Last Filed: 04/13/20 22:56> Social History Social History: Social History Household Members: Spouse Housing: House Alcohol intake: never Smoking Status: Former smoker Substance Use Type: Marijuana Advance Directives: No Advance Directives Date on File: 02/12/20 service: Yes Current occupational status: retired <UGO Petti - Last Filed: 04/13/20 22:56> Physical Exam Vital Signs: Vital Signs: Last Vital Signs Temp 97.9 F 04/13/20 18:32 Pulse 89 04/13/20 18:32 Resp 18 04/13/20 18:32 BP 146/89 H 04/13/20 18:32 Pulse Ox 98 04/13/20 18:32 Body Mass Index 27.1 <UGO Petit - Last Filed: 04/13/20 22:56> Vital Signs: Last Vital Signs Temp 97.9 F 04/13/20 18:32 Pulse 89 04/13/20 18:32 Resp 18 04/13/20 18:32 BP 146/89 H 04/13/20 18:32 Pulse Ox 98 04/13/20 18:32 Body Mass Index 27.1 <Brandon Desir MD - Last Filed: 04/20/20 10:55> Const: General: cooperative, healthy appearing, comfortable and no acute distress <UGO Petit - Last Filed: 04/13/20 22:56> Orientation/consciousness: patient oriented x3 <UGO Petit Hawa Last Filed: 04/13/20 22:56> HENMT: Head: Yes normal to inspection, Yes No palpable skull fracture present, Yes normocephalic and Yes atraumatic <Eddie Martir, PA Last Filed: 04/13/20 22:56> Eyes: General: appearance normal, both eyes and all related structures <UGO Petit Last Filed: 04/13/20 22:56> Neck: Neck: Yes normal visual inspection, Yes full ROM, Yes no lymphadenopathy, Yes no meningeal signs, Yes trachea midline, Yes supple and No tender <UGO Petit Last Filed: 04/13/20 22:56> Chest: Chest palpation & inspection: normal inspection of the chest and normal palpation of entire chest wall <UGO Petit Last Filed: 04/13/20 22:56> Resp: Effort & Inspection: normal respiratory effort and able to speak in complete sentences <UGO Petit Last Filed: 04/13/20 22:56> Auscultation: clear to auscultation bilaterally <UGO Petit Last Filed: 04/13/20 22:56> Cardio: Jugular venous distension: no JVD <UGO Petit Last Filed: 04/13/20 22:56> Heart sounds: S1 normal heart sound present and S2 normal heart sound present <UGO Petit Last Filed: 04/13/20 22:56> GI: Inspection: Yes normal to inspection and No abdominal wall ecchymosis <UGO Petit Last Filed: 04/13/20 22:56> Palpation (GI): Soft to palpation, not firm, nontender, no guarding and not rigid <UGO Petit Last Filed: 04/13/20 22:56> : General: No CVA tenderness and Yes no CVA tenderness <UGO Petit Last Filed: 04/13/20 22:56> Back/Spine/Pelvis: Back: no CVA tenderness, No CVA tenderness and No back tenderness <UGO Petit Last Filed: 04/13/20 22:56> Skin: General skin exam: no rashes or lesions noted and elasticity normal <UGO Petit - Last Filed: 04/13/20 22:56> Neuro: General: patient oriented x3, no meningeal signs and CN's II-XI intact bilaterally <UGO Petit - Last Filed: 04/13/20 22:56> Cranial nerves: Yes CN's II-XII intact bilaterally <UGO Petit - Last Filed: 04/13/20 22:56> Extrem: General: Yes normal to inspection and Yes full ROM <UGO Petit - Last Filed: 04/13/20 22:56> Psych: Appearance: grossly normal, well kempt and not disheveled <UGO Petit - Last Filed: 04/13/20 22:56> Course Course Course Narrative: Patient is not toxic appearing. Patient's vital signs are stable. No indication for repeat labs. Patient had labs at baseline 3 days ago. Once again patient complaint is a chronic issue. Patient will be given Ativan and Haldol as requested. Will re-evaluate after given medication. <UGO Petit - Last Filed: 04/13/20 22:56> I have reviewed the chart <Brandon Desir MD - Last Filed: 04/20/20 10:55> Reevaluation(s) Reevaluation #1: Patient presently sleeping in bed not in any distress. <UGO Petit Last Filed: 04/13/20 22:56> Time: 16:23 <UGO Petit Last Filed: 04/13/20 22:56> Reevaluation #2: Patient comfortable not in any distress. Patient will be picked up by family member. <UGO Petit Last Filed: 04/13/20 22:56> Time: 17:46 <UGO Petit - Last Filed: 04/13/20 22:56> MDM - Nausea/Vomiting/Diarrhea MDM Narrative Medical decision making narrative: cyclic vomitting. chronic abdominal pain. gastroparesis <UGO Petit Last Filed: 04/13/20 22:56> Discharge Plan Discharge Clinical Impression: Abdominal pain <UGO Petit Last Filed: 04/13/20 22:56> Patient Disposition: Home, Self-Care <UGO Petit - Last Filed: 04/13/20 22:56> Instructions: Chronic Abdominal Pain (ED) <UGO Petit - Last Filed: 04/13/20 22:56> Additional Instructions: Return to ED for worsening abdominal pain, fever, chills, nausea, vomiting, weakness, dysuria, hematuria, back pain, vomiting blood, blood in stool, or any other concerning symptoms. Please follow-up with PCP <UGO Petit - Last Filed: 04/13/20 22:56> Prescriptions: No Action lorazepam 1 mg tablet 1 mg PO DAILY PRN (Reason: anxiety) RF: 0 insulin aspart U-100 [Novolog Flexpen U-100 Insulin] 100 unit/mL (3 mL) Insulin Pen See Protocol unit SUBCUT TIDAC RF: 0 Lantus Solostar U-100 Insulin 100 unit/mL (3 mL) Insulin Pen 30 unit SUBCUT BEDTIME RF: 0 atorvastatin 80 mg Tablet 80 mg PO BEDTIME RF: 0 polyethylene glycol 3350 [Miralax] 17 gram Powder In Packet 17 g PO DAILY RF: 0 amlodipine 10 mg Tablet 10 mg PO DAILY RF: 0 omeprazole 20 mg Capsule,Delayed Release(Dr/Ec) 20 mg PO BID RF: 0 aspirin 81 mg Tablet,Chewable 81 mg PO DAILY RF: 0 hydralazine 50 mg Tablet 50 mg PO BID RF: 0 cholecalciferol (vitamin D3) 25 mcg (1,000 unit) Tablet 25 mcg PO DAILY RF: 0 <UGO Petit - Last Filed: 04/13/20 22:56> Interventions: ED Discharge Assessment Last Done: 04/13/20 18:33 <UGO Petit - Last Filed: 04/13/20 22:56> Discharge Date/Time: 04/13/20 18:35 <UGO Petit - Last Filed: 04/13/20 22:56> Print Language: Niuean <UGO Petit - Last Filed: 04/13/20 22:56>
[2020-04-13] MEDS: Haloperidol Lactate 5 MG/ML VIAL IM (15:40)
[2020-04-13] MEDS: LORazepam 2 MG/ML VIAL IM (15:40)
--- NOTE | 2020-04-13 16:31 | PC.NURSE ---
Pt moaning and groaning on stretcher, vomited x1. Medicated per order, will reassess pain
[2020-04-13 18:32] VITALS: BP 146/89; PULSE 89; RESP 18; TEMP 36.6; O2SAT 98
--- NOTE | 2020-04-13 18:32 | PC.NURSE ---
Pt appears more comfortable, family member in [place] for ride home. Pt agreeable with plan for DC home
== END 2020-04-13 18:35 | disposition home or self-care (01) ==
PROVIDERS: Emergency Provider Emergency Medicine; PCP Internal Medicine
DX: R10.9 Unspecified abdominal pain (principal); R11.2 Nausea with vomiting, unspecified; R19.7 Diarrhea, unspecified; E11.9 Type 2 diabetes mellitus without complications; I10 Essential (primary) hypertension; Z79.899 Other long term (current) drug therapy; Z87.891 Personal history of nicotine dependence; Z79.4 Long term (current) use of insulin
CPT/HCPCS: 96372; 99283; 99284; J2060

== ENCOUNTER 2020-04-15 00:57 | Emergency (ER) | payer MEDICARE, OTHER, SELFPAY ==
[2020-04-15 01:13] VITALS: BP 186/93; PULSE 93; RESP 18; TEMP 36.6; O2SAT 98; BMI 27.1
[2020-04-15 02:00] VITALS: BP 156/85; PULSE 98; RESP 18; O2SAT 95
--- NOTE | 2020-04-15 02:01 | ED_ITS ---
HPI - Nausea/Vomiting/Diarrhea General Chief complaint: Nausea/Vomiting/Diarrhea Stated complaint: nausea not feeling well Time Seen by Provider: 04/15/20 02:01 Source: patient Mode of arrival: EMS History of Present Illness HPI Narrative: This is a 69-year-old male with history and clinical presentation of repeated, recurrent visits to the emergency department for acute exacerbation of underlying diabetic gastroparesis with suspected marijuana use. Once again, patient presents with reportedly nausea and vomiting and as per EMS endorsed that he smokes marijuana so that he can ?come in to get more medication?. Currently, in the emergency department patient is requesting water and otherwise denies any chest pain, shortness of breath, fevers, chills, and specifically is requesting for intramuscular or IV pain medication. Related Data Home Medications Medication Instructions Recorded Confirmed lorazepam 1 mg PO DAILY PRN 12/29/19 03/23/20 Lantus Solostar U-100 Insulin 30 unit SUBCUT BEDTIME 03/23/20 03/23/20 amlodipine 10 mg PO DAILY 03/23/20 03/23/20 aspirin 81 mg PO DAILY 03/23/20 03/23/20 atorvastatin 80 mg PO BEDTIME 03/23/20 03/23/20 cholecalciferol (vitamin D3) 25 mcg PO DAILY 03/23/20 03/23/20 hydralazine 50 mg PO BID 03/23/20 03/23/20 insulin aspart U-100 [Novolog See Protocol SUBCUT TIDAC 03/23/20 03/23/20 Flexpen U-100 Insulin] omeprazole 20 mg PO BID 03/23/20 03/23/20 polyethylene glycol 3350 [Miralax] 17 g PO DAILY 03/23/20 03/23/20 Allergies Allergy/AdvReac Type Severity Reaction Status Date / Time morphine Allergy Intermediate RASH Verified 04/10/20 12:00 Review of Systems Review of Systems: Pertinent positives and negatives as stated in HPI 10 point review systems is otherwise negative. PMFSH Past Medical History Source: nursing notes reviewed Medical History Cyclical vomiting Diabetes Gastroparesis HTN (hypertension) IDDM (insulin dependent diabetes mellitus) Kidney failure Vomiting Family History Family History Other Family history non-contributory Social History Social History Household Members: Spouse Housing: House Alcohol intake: never Smoking Status: Former smoker Substance Use Type: Marijuana Advance Directives: No Advance Directives Date on File: 02/12/20 service: Yes Current occupational status: retired Physical Exam Vital Signs: Vital Signs: Last Vital Signs Temp 97.8 F 04/15/20 01:13 Pulse 99 04/15/20 04:00 Resp 18 04/15/20 04:00 BP 166/91 H 04/15/20 04:00 Pulse Ox 96 04/15/20 04:00 Body Mass Index 27.1 VITAL SIGNS: Reviewed. GENERAL: Well developed, well nourished, in no acute distress. OROPHARYNX: no oral lesions noted, posterior pharynx clear, moist mucosa NECK: Supple, no adenopathy LUNGS: Normal breath sounds. No adventitious sounds or accessory muscle use. SpO2<98> CARDIOVASCULAR: Regular rate and rhythm without noted murmurs ABDOMEN: Soft, minimal tenderness noted in the epigastrium region, non-distended with bowel sounds. SKIN: Inspection of the skin reveals no rashes NEUROLOGIC: Alert and oriented x 4. Course Course Course Narrative: This is a 69-year-old male with history and clinical presentation consistent with marijuana induced nausea and vomiting leading to abdominal discomfort. Patient had no episodes of nausea and vomiting in the emergency department and was able to tolerate oral intake. On re-evaluation he had good symptom control with 1 mg of Ativan, p.o.. Review of all investigations there are no acute changes when compared to baseline and urine tox is positive for marijuana. On re-evaluation patient is more comfortable and requesting to return home. MDM - Nausea/Vomiting/Diarrhea Lab Data Result diagrams: 04/15/20 03:40 04/15/20 03:40 Labs: Lab Results 04/15/20 04/15/20 04/15/20 Range/Units 02:41 02:47 02:47 WBC (4.8-10.8) X10*3/uL RBC (4.60-5.80) X10*6/uL Hgb (14.0-18.0) g/dl Hct (42-52) % MCV (80-98) fL MCH (27.0-33.0) pg MCHC (31.0-36.0) g/dl RDW (11.0-16.0) % Plt Count (160-400) X10*3/uL MPV (9.4-12.4) fL Immature Gran % (Auto) (0.0-0.4) % Neut % (Auto) (45-73) % Lymph % (Auto) (20-40) % [place] % (Auto) (2-11) % Eos % (Auto) (0-4) % Baso % (Auto) (0-2) % Lymph # (Auto) (1.2-4.9) X10*3/uL [place] # (Auto) (0.1-1.2) X10*3/uL Eos # (Auto) (0.0-0.4) X10*3/uL Baso # (Auto) (0.0-0.2) X10*3/uL Abs Immat Gran (auto) (0.00-0.03) X10*3/uL Absolute Neuts (auto) (2.0-8.3) X10*3/uL Absolute Nucleated RBC (0.0-0.012) X10*3/uL Nucleated RBC % (auto) (0.0-0.2) /100WBC Sodium (135-145) mmol/L Potassium (3.3-5.1) mmol/l Chloride (96-108) mmol/L Carbon Dioxide (22-29) mmol/L Anion Gap (12-20) BUN (9-16) mg/dL Creatinine (0.5-1.4) mg/dL Estim Creat Clear Calc Estimated GFR POC Glucose 128 H (60-115) mg/dL Random Glucose (60-115) mg/dL Calcium (8.4-10.2) mg/dL Total Bilirubin (0.0-1.0) mg/dL AST (5-37) U/L ALT (0-40) U/L Alkaline Phosphatase (39-117) U/L Total Protein (6.5-8.0) g/dL Albumin (3.5-5.0) g/dL Lipase (8-78) U/L Urine Color STRAW Urine Appearance CLEAR Urine pH 6.0 (5.0-8.0) Ur Specific [place] 1.020 (1.005-1.025) Urine Protein 1+ H (NEG-TRACE) MG/DL Urine Glucose (UA) NEG (NEG) MG/DL Urine Ketones NEG (NEG) MG/DL Urine Blood NEG (NEG) Urine Nitrite NEG (NEG) Ur Leukocyte Esterase NEG (NEG) Urine RBC 0-2 (0) /HPF Urine WBC 1-4 (0-4) /HPF Ur Squamous Epith Cells TRACE /LPF Urine Bacteria NONE /LPF Hyaline Casts 0-2 /LPF Urine Opiates Screen Not Detected (Not Detect) Ur Barbiturates Screen Not Detected (Not Detect) Ur Phencyclidine Scrn Not Detected (Not Detect) Ur Amphetamines Screen Not Detected (Not Detect) U Benzodiazepines Scrn Not Detected (Not Detect) Urine Cocaine Screen Not Detected (Not Detect) U Marijuana (THC) Screen POSITIVE H (Not Detect) Acetone, Qual (Negative) 04/15/20 04/15/20 04/15/20 Range/Units 03:40 03:40 03:40 WBC 6.9 (4.8-10.8) X10*3/uL RBC 4.01 L (4.60-5.80) X10*6/uL Hgb 11.9 L (14.0-18.0) g/dl Hct 36.9 L (42-52) % MCV 92.0 (80-98) fL MCH 29.7 (27.0-33.0) pg MCHC 32.2 (31.0-36.0) g/dl RDW 14.2 (11.0-16.0) % Plt Count 192 (160-400) X10*3/uL MPV 10.3 (9.4-12.4) fL Immature Gran % (Auto) 0.1 (0.0-0.4) % Neut % (Auto) 58.2 (45-73) % Lymph % (Auto) 30.3 (20-40) % [place] % (Auto) 9.3 (2-11) % Eos % (Auto) 1.5 (0-4) % Baso % (Auto) 0.6 (0-2) % Lymph # (Auto) 2.1 (1.2-4.9) X10*3/uL [place] # (Auto) 0.6 (0.1-1.2) X10*3/uL Eos # (Auto) 0.1 (0.0-0.4) X10*3/uL Baso # (Auto) 0.0 (0.0-0.2) X10*3/uL Abs Immat Gran (auto) 0.01 (0.00-0.03) X10*3/uL Absolute Neuts (auto) 4.0 (2.0-8.3) X10*3/uL Absolute Nucleated RBC 0.000 (0.0-0.012) X10*3/uL Nucleated RBC % (auto) 0.0 (0.0-0.2) /100WBC Sodium 141 (135-145) mmol/L Potassium 4.4 (3.3-5.1) mmol/l Chloride 108 (96-108) mmol/L Carbon Dioxide 22 (22-29) mmol/L Anion Gap 15 (12-20) BUN 47 H (9-16) mg/dL Creatinine 3.40 H (0.5-1.4) mg/dL Estim Creat Clear Calc 21.5 Estimated GFR 18 POC Glucose (60-115) mg/dL Random Glucose 124 H D (60-115) mg/dL Calcium 8.6 D (8.4-10.2) mg/dL Total Bilirubin 0.7 (0.0-1.0) mg/dL AST 14 (5-37) U/L ALT 6 (0-40) U/L Alkaline Phosphatase 143 H D (39-117) U/L Total Protein 6.6 (6.5-8.0) g/dL Albumin 3.8 (3.5-5.0) g/dL Lipase 46 (8-78) U/L Urine Color Urine Appearance Urine pH (5.0-8.0) Ur Specific [place] (1.005-1.025) Urine Protein (NEG-TRACE) MG/DL Urine Glucose (UA) (NEG) MG/DL Urine Ketones (NEG) MG/DL Urine Blood (NEG) Urine Nitrite (NEG) Ur Leukocyte Esterase (NEG) Urine RBC (0) /HPF Urine WBC (0-4) /HPF Ur Squamous Epith Cells /LPF Urine Bacteria /LPF Hyaline Casts /LPF Urine Opiates Screen (Not Detect) Ur Barbiturates Screen (Not Detect) Ur Phencyclidine Scrn (Not Detect) Ur Amphetamines Screen (Not Detect) U Benzodiazepines Scrn (Not Detect) Urine Cocaine Screen (Not Detect) U Marijuana (THC) Screen (Not Detect) Acetone, Qual Negative (Negative) Discharge Plan Discharge Clinical Impression: Nausea & vomiting Qualifiers: Vomiting type: unspecified Vomiting Intractability: non-intractable Qualified Code(s): R11.2 - Nausea with vomiting, unspecified Patient Disposition: Home, Self-Care Instructions: Diabetic Gastroparesis (DC) Additional Instructions: Please resume all home medications as prescribed. Recommend that you stop smoking marijuana as this likely contributes to your symptoms and frequent visits to the emergency department. Prescriptions: No Action lorazepam 1 mg tablet 1 mg PO DAILY PRN (Reason: anxiety) RF: 0 insulin aspart U-100 [Novolog Flexpen U-100 Insulin] 100 unit/mL (3 mL) Insulin Pen See Protocol unit SUBCUT TIDAC RF: 0 Lantus Solostar U-100 Insulin 100 unit/mL (3 mL) Insulin Pen 30 unit SUBCUT BEDTIME RF: 0 atorvastatin 80 mg Tablet 80 mg PO BEDTIME RF: 0 polyethylene glycol 3350 [Miralax] 17 gram Powder In Packet 17 g PO DAILY RF: 0 amlodipine 10 mg Tablet 10 mg PO DAILY RF: 0 omeprazole 20 mg Capsule,Delayed Release(Dr/Ec) 20 mg PO BID RF: 0 aspirin 81 mg Tablet,Chewable 81 mg PO DAILY RF: 0 hydralazine 50 mg Tablet 50 mg PO BID RF: 0 cholecalciferol (vitamin D3) 25 mcg (1,000 unit) Tablet 25 mcg PO DAILY RF: 0 Referrals: Physician,Unknown [Primary Care Provider] - 2 days
[2020-04-15 02:54] LABS: Glucose, Whole Blood 128 mg/dL (60-115)
[2020-04-15 02:57] LABS: Glucose Urine UA NEG (NEG); Leukocyte Esterase Urine NEG (NEG); Nitrite Urine NEG (NEG); Urine Blood NEG (NEG); Urine Ketones NEG (NEG); Urine Protein 1+ MG/DL (NEG-TRACE)
[2020-04-15 03:23] LABS: Appearance Urine CLEAR; Color Urine STRAW
[2020-04-15 03:24] LABS: Amphetamine Screen Urine Not Detected (Not Detect); Barbiturates, Urine Not Detected (Not Detect); Benzodiazepines Screen Urine Not Detected (Not Detect); Cannabinoid Screen Urine POSITIVE (Not Detect); Cocaine Screen Urine Not Detected (Not Detect); Hyaline Casts Urine 0-2 /LPF; Opiate Screen Urine Not Detected (Not Detect); Phencyclidine Screen Urine Not Detected (Not Detect); RBC Urine 0-2 /HPF (0); Squamous Epithelial Cell Urine TRACE /LPF
[2020-04-15 03:45] LABS: Basophils Percent Auto 0.6 % (0-2); Eosinophils Absolute Auto 0.1 X10*3/uL (0.0-0.4); Eosinophils Percent Auto 1.5 % (0-4); Hematocrit 36.9 % (42-52); Hemoglobin 11.9 g/dl (14.0-18.0); Imm Gran Abs Auto 0.01 X10*3/uL (0.00-0.03); Imm Gran Pct Auto 0.1 % (0.0-0.4); Lymphocytes Absolute Auto 2.1 X10*3/uL (1.2-4.9); Lymphocytes Percent Auto 30.3 % (20-40); MANUAL DIFF FLAG NO; Mean Corpuscular HGB Conc 32.2 g/dl (31.0-36.0); Mean Corpuscular Hemoglobin 29.7 pg (27.0-33.0); Mean Platelet Volume 10.3 fL (9.4-12.4); Monocytes Absolute Auto 0.6 X10*3/uL (0.1-1.2); Monocytes Percent Auto 9.3 % (2-11); Neutrophils Percent Auto 58.2 % (45-73); Platelet Count 192 X10*3/uL (160-400); Red Blood Count 4.01 X10*6/uL (4.60-5.80); Red Cell Distribution Width 14.2 % (11.0-16.0); White Blood Count 6.9 X10*3/uL (4.8-10.8)
[2020-04-15 04:00] VITALS: BP 166/91; PULSE 99; RESP 18; O2SAT 96
[2020-04-15 04:06] LABS: Acetone, serum QL Negative (Negative)
[2020-04-15 04:15] LABS: Alanine Aminotransferase 6 U/L (0-40); Albumin Level 3.8 g/dL (3.5-5.0); Alkaline Phosphatase 143 U/L (39-117); Anion Gap 15 (12-20); Aspartate Amino Transferase 14 U/L (5-37); Bilirubin Total 0.7 mg/dL (0.0-1.0); Blood Urea Nitrogen 47 mg/dL (9-16); Calcium 8.6 mg/dL (8.4-10.2); Carbon Dioxide 22 mmol/L (22-29); Chloride 108 mmol/L (96-108); Creatinine Clr Calc Pharmacy 21.5; Estimated Glomerular Filt Rate 18; Glucose Random 124 mg/dL (60-115); Potassium 4.4 mmol/l (3.3-5.1); Sodium 141 mmol/L (135-145); Total Protein 6.6 g/dL (6.5-8.0)
[2020-04-15 04:16] LABS: Lipase 46 U/L (8-78)
[2020-04-15] MEDS: LORazepam 1 MG TABLET PO (04:36)
[2020-04-15 05:42] VITALS: BP 138/82; PULSE 97; RESP 18; O2SAT 97
== END 2020-04-15 05:43 | disposition home or self-care (01) ==
PROVIDERS: Emergency Provider Student in an Organized Health Care Education/Training Program
DX: F12.99 Cannabis use, unspecified with unspecified cannabis-induced disorder (principal); R11.2 Nausea with vomiting, unspecified; I10 Essential (primary) hypertension; E11.9 Type 2 diabetes mellitus without complications; Z87.891 Personal history of nicotine dependence; Z79.899 Other long term (current) drug therapy; Z79.4 Long term (current) use of insulin
CPT/HCPCS: 36415; 80053; 80307; 81001; 81003; 82009; 82947; 83690; 85025; 99283; 99284

== ENCOUNTER 2020-04-25 07:17 | Emergency (ER) | payer MEDICARE, OTHER, SELFPAY ==
[2020-04-25 07:22] VITALS: BP 170/88; PULSE 99; RESP 18; TEMP 36.6; O2SAT 100; BMI 27.1
--- NOTE | 2020-04-25 07:25 | ED.ABDPAIN ---
HPI - Abdominal Pain General Chief Complaint: Abdominal Pain Stated Complaint: ABD PAIN Time Seen by Provider: 04/25/20 07:22 Source: patient and EMS Mode of arrival: EMS Limitations: no limitations History of Present Illness MD elicited complaint: abdominal pain Pertinent past history: other (chronic abdominal pain and gastroparesis) Onset (ago): day(s) (last night) Pain Consistency: constant Location: epigastric Severity: similar to previous episodes Quality: fullness and sharp Radiation: none Migration to: no migration Exacerbating factors: nothing Relieving factors: nothing Context: history of similar episodes (chronic gastroparesis) Associated symptoms: nausea Related Data Home Medications Medication Instructions Recorded Confirmed lorazepam 1 mg PO DAILY PRN 12/29/19 03/23/20 Lantus Solostar U-100 Insulin 30 unit SUBCUT BEDTIME 03/23/20 03/23/20 amlodipine 10 mg PO DAILY 03/23/20 03/23/20 aspirin 81 mg PO DAILY 03/23/20 03/23/20 atorvastatin 80 mg PO BEDTIME 03/23/20 03/23/20 cholecalciferol (vitamin D3) 25 mcg PO DAILY 03/23/20 03/23/20 hydralazine 50 mg PO BID 03/23/20 03/23/20 insulin aspart U-100 [Novolog See Protocol SUBCUT TIDAC 03/23/20 03/23/20 Flexpen U-100 Insulin] omeprazole 20 mg PO BID 03/23/20 03/23/20 polyethylene glycol 3350 [Miralax] 17 g PO DAILY 03/23/20 03/23/20 Allergies Allergy/AdvReac Type Severity Reaction Status Date / Time morphine Allergy Intermediate RASH Verified 04/25/20 07:24 Review of Systems Review of Systems Constitutional : No Weight loss, No Fever, No Chills ENT/Mouth : No sore throat, No Rhinorrhea Eyes: No Swelling, No Redness Cardiovascular : No Chest Pain, No SOB, NoEdema Respiratory : No Cough, No Sputum, No Wheezing Gastrointestinal : Positive Nausea, Pno Vomiting, pno Diarrhea, positive abdominal Pain, No Hematochezia, No Melena Genitourinary : No Dysuria, No Urinary Frequency, No Hematuria, No Urgency Musculoskeletal : No joint pain, No Myalgias, No Joint Swelling Skin : No Skin Lesions, No rash Neuro : No Weakness, No Numbness, No Dizziness, No Headache Psych : No Anxiety/Panic, No Depression Heme/Lymph: No Bruising, No Lymphadenopathy Endocrine : No Polyuria, No Polydipsia All other systems reviewed and are negative. Physical Exam Vital Signs: Vital Signs: Last Vital Signs Temp 97.9 F 04/25/20 07:22 Pulse 99 04/25/20 07:22 Resp 18 04/25/20 07:35 BP 170/88 H 04/25/20 07:22 Pulse Ox 100 04/25/20 07:22 Body Mass Index 27.1 Appearance: Alert. Oriented X3. No acute distress. wooow wow wooow Eyes: chronic opacifications ENT: Pharynx normal. Neck: Normal inspection. Neck supple. CVS: Normal heart rate and rhythm. Pulses normal. Respiratory: No respiratory distress. Breath sounds normal. Abdomen: Soft and moderate ttp in epigastric area but no rebound or guarding Skin: Skin warm and dry. Normal skin color. Normal skin turgor. Extremities: No lower extremity edema. No calf ttp Neuro: Oriented X 3. No motor deficit. No sensory deficit. Course Course Course Narrative: labs stable, wants to go home, can tolerate PO MDM - Abdominal Pain MDM Narrative Medical decision making narrative: 69 yo male legally blind, DM, gastroparesis chronic abdominal pain and nausea - states typical gastroparesis since last night will need labs, PO zofran, pain control - appearance and abdominal exam unchanged from his baseline, states this feels like my stomach thing. Lab Data Result diagrams: 04/25/20 07:30 04/25/20 07:30 Labs: Lab Results 04/25/20 04/25/20 04/25/20 Range/Units 07:30 07:30 07:30 WBC 7.7 (4.8-10.8) X10*3/uL RBC 4.59 L (4.60-5.80) X10*6/uL Hgb 13.5 L (14.0-18.0) g/dl Hct 42.0 (42-52) % MCV 91.5 (80-98) fL MCH 29.4 (27.0-33.0) pg MCHC 32.1 (31.0-36.0) g/dl RDW 13.7 (11.0-16.0) % Plt Count 225 (160-400) X10*3/uL MPV 10.3 (9.4-12.4) fL Immature Gran % (Auto) 0.1 (0.0-0.4) % Neut % (Auto) 59.0 (45-73) % Lymph % (Auto) 29.7 (20-40) % [place] % (Auto) 9.3 (2-11) % Eos % (Auto) 1.3 (0-4) % Baso % (Auto) 0.6 (0-2) % Lymph # (Auto) 2.3 (1.2-4.9) X10*3/uL [place] # (Auto) 0.7 (0.1-1.2) X10*3/uL Eos # (Auto) 0.1 (0.0-0.4) X10*3/uL Baso # (Auto) 0.1 (0.0-0.2) X10*3/uL Abs Immat Gran (auto) 0.01 (0.00-0.03) X10*3/uL Absolute Neuts (auto) 4.6 (2.0-8.3) X10*3/uL Absolute Nucleated RBC 0.000 (0.0-0.012) X10*3/uL Nucleated RBC % (auto) 0.0 (0.0-0.2) /100WBC Hold Blue Top SEE NOTE Sodium 139 (135-145) mmol/L Potassium 4.6 (3.3-5.1) mmol/L Chloride 105 (96-108) mmol/L Carbon Dioxide 26 (22-29) mmol/L Anion Gap 13 (12-20) BUN 38 H (9-16) mg/dL Creatinine 3.08 H (0.5-1.4) mg/dL Estim Creat Clear Calc 23.7 Estimated GFR 20 Random Glucose 172 H D (60-115) mg/dL Calcium 9.0 (8.4-10.2) mg/dL Magnesium 2.0 (1.6-2.6) mg/dL Total Bilirubin 0.6 (0.0-1.0) mg/dL Direct Bilirubin 0.3 (0.0-0.5) mg/dL AST 14 (5-37) U/L ALT 6 (0-40) U/L Alkaline Phosphatase 135 H (39-117) U/L Total Protein 6.8 (6.5-8.0) g/dL Albumin 3.8 (3.5-5.0) g/dL Lipase 160 H (8-78) U/L Discharge Plan Discharge Clinical Impression: Gastroparesis Patient Disposition: Home, Self-Care Instructions: Gastroparesis (ED) Additional Instructions: return to ED for any worsening symptoms or concerns Prescriptions: No Action lorazepam 1 mg tablet 1 mg PO DAILY PRN (Reason: anxiety) RF: 0 insulin aspart U-100 [Novolog Flexpen U-100 Insulin] 100 unit/mL (3 mL) Insulin Pen See Protocol unit SUBCUT TIDAC RF: 0 Lantus Solostar U-100 Insulin 100 unit/mL (3 mL) Insulin Pen 30 unit SUBCUT BEDTIME RF: 0 atorvastatin 80 mg Tablet 80 mg PO BEDTIME RF: 0 polyethylene glycol 3350 [Miralax] 17 gram Powder In Packet 17 g PO DAILY RF: 0 amlodipine 10 mg Tablet 10 mg PO DAILY RF: 0 omeprazole 20 mg Capsule,Delayed Release(Dr/Ec) 20 mg PO BID RF: 0 aspirin 81 mg Tablet,Chewable 81 mg PO DAILY RF: 0 hydralazine 50 mg Tablet 50 mg PO BID RF: 0 cholecalciferol (vitamin D3) 25 mcg (1,000 unit) Tablet 25 mcg PO DAILY RF: 0 PMFSH Past Medical History Attestation statement: The following information was validated with the patient. Medical History Cyclical vomiting Diabetes Gastroparesis HTN (hypertension) IDDM (insulin dependent diabetes mellitus) Kidney failure Vomiting Family History Family History Other Family history non-contributory Social History Social History Household Members: Spouse Housing: House Alcohol intake: never Smoking Status: Former smoker Substance Use Type: Marijuana Advance Directives: Yes Advance Directives on File: Yes Advance Directives Date on File: 02/12/20 service: Yes Current occupational status: retired
[2020-04-25 07:35] VITALS: RESP 18
[2020-04-25] MEDS: HYDROmorphone HCl 1 MG/ML SYRINGE IM (07:35)
[2020-04-25 07:36] LABS: MANUAL DIFF FLAG NO
[2020-04-25 07:37] LABS: Basophils Absolute Auto 0.1 X10*3/uL (0.0-0.2); Basophils Percent Auto 0.6 % (0-2); Eosinophils Absolute Auto 0.1 X10*3/uL (0.0-0.4); Eosinophils Percent Auto 1.3 % (0-4); Hemoglobin 13.5 g/dl (14.0-18.0); Imm Gran Abs Auto 0.01 X10*3/uL (0.00-0.03); Imm Gran Pct Auto 0.1 % (0.0-0.4); Lymphocytes Absolute Auto 2.3 X10*3/uL (1.2-4.9); Lymphocytes Percent Auto 29.7 % (20-40); Mean Corpuscular HGB Conc 32.1 g/dl (31.0-36.0); Mean Corpuscular Hemoglobin 29.4 pg (27.0-33.0); Mean Corpuscular Volume 91.5 fL (80-98); Mean Platelet Volume 10.3 fL (9.4-12.4); Monocytes Absolute Auto 0.7 X10*3/uL (0.1-1.2); Monocytes Percent Auto 9.3 % (2-11); Neutrophils Absolute Auto 4.6 X10*3/uL (2.0-8.3); Platelet Count 225 X10*3/uL (160-400); Red Blood Count 4.59 X10*6/uL (4.60-5.80); Red Cell Distribution Width 13.7 % (11.0-16.0); White Blood Count 7.7 X10*3/uL (4.8-10.8)
[2020-04-25 08:09] LABS: Alanine Aminotransferase 6 U/L (0-40); Albumin Level 3.8 g/dL (3.5-5.0); Alkaline Phosphatase 135 U/L (39-117); Anion Gap 13 (12-20); Aspartate Amino Transferase 14 U/L (5-37); Bilirubin Direct 0.3 mg/dL (0.0-0.5); Bilirubin Total 0.6 mg/dL (0.0-1.0); Blood Urea Nitrogen 38 mg/dL (9-16); Carbon Dioxide 26 mmol/L (22-29); Chloride 105 mmol/L (96-108); Creatinine Clr Calc Pharmacy 23.7; Estimated Glomerular Filt Rate 20; Glucose Random 172 mg/dL (60-115); Potassium 4.6 mmol/L (3.3-5.1); Sodium 139 mmol/L (135-145); Total Protein 6.8 g/dL (6.5-8.0)
--- NOTE | 2020-04-25 08:13 | PC.NURSE ---
reporting pain has subsided 4/10, nausea resolved.
[2020-04-25 08:30] LABS: Lipase 160 U/L (8-78)
--- NOTE | 2020-04-25 09:51 | PC.NURSE ---
VERONICA [id number]
[2020-04-25 10:02] VITALS: BP 147/87; PULSE 94; RESP 16; O2SAT 98
== END 2020-04-25 10:10 | disposition home or self-care (01) ==
PROVIDERS: Emergency Provider Emergency Medicine; PCP Internal Medicine
DX: K31.84 Gastroparesis (principal); E11.9 Type 2 diabetes mellitus without complications
CPT/HCPCS: 36415; 80048; 80076; 83690; 83735; 85025; 96372; 99284; J1170

== ENCOUNTER 2020-04-27 08:28 | Emergency (ER) | payer MEDICARE, OTHER, SELFPAY ==
[2020-04-27 08:33] VITALS: BP 154/86; BP 170/74; PULSE 103; PULSE 88; RESP 20; TEMP 36.7; O2SAT 100; BMI 27.1
[2020-04-27 08:56] VITALS: BP 137/75; PULSE 101
[2020-04-27 08:57] VITALS: BP 106/69; PULSE 98
[2020-04-27 08:59] VITALS: BP 73/48; PULSE 101
[2020-04-27] MEDS: 0.9 % Sodium Chloride 1,000 ML 999 ML IVCONT ×2 (09:12→09:40)
[2020-04-27 09:22] LABS: MANUAL DIFF FLAG NO
[2020-04-27 09:27] LABS: Basophils Absolute Auto 0.1 X10*3/uL (0.0-0.2); Basophils Percent Auto 0.8 % (0-2); Eosinophils Absolute Auto 0.1 X10*3/uL (0.0-0.4); Eosinophils Percent Auto 1.7 % (0-4); Hematocrit 41.4 % (42-52); Hemoglobin 13.3 g/dl (14.0-18.0); Imm Gran Abs Auto 0.01 X10*3/uL (0.00-0.03); Imm Gran Pct Auto 0.2 % (0.0-0.4); Lymphocytes Absolute Auto 2.4 X10*3/uL (1.2-4.9); Lymphocytes Percent Auto 35.4 % (20-40); Mean Corpuscular HGB Conc 32.1 g/dl (31.0-36.0); Mean Corpuscular Hemoglobin 29.4 pg (27.0-33.0); Mean Corpuscular Volume 91.4 fL (80-98); Mean Platelet Volume 10.7 fL (9.4-12.4); Monocytes Absolute Auto 0.6 X10*3/uL (0.1-1.2); Monocytes Percent Auto 8.9 % (2-11); Neutrophils Absolute Auto 3.5 X10*3/uL (2.0-8.3); Platelet Count 214 X10*3/uL (160-400); Red Blood Count 4.53 X10*6/uL (4.60-5.80); Red Cell Distribution Width 13.7 % (11.0-16.0); White Blood Count 6.6 X10*3/uL (4.8-10.8)
[2020-04-27 09:55] LABS: Alanine Aminotransferase 7 U/L (0-40); Albumin Level 3.7 g/dL (3.5-5.0); Alkaline Phosphatase 130 U/L (39-117); Anion Gap 15 (12-20); Aspartate Amino Transferase 14 U/L (5-37); Bilirubin Direct 0.3 mg/dL (0.0-0.5); Bilirubin Total 0.6 mg/dL (0.0-1.0); Blood Urea Nitrogen 42 mg/dL (9-16); Calcium 8.6 mg/dL (8.4-10.2); Carbon Dioxide 26 mmol/L (22-29); Chloride 102 mmol/L (96-108); Creatinine Clr Calc Pharmacy 21.1; Estimated Glomerular Filt Rate 18; Glucose Random 168 mg/dL (60-115); Potassium 4.5 mmol/L (3.3-5.1); Sodium 138 mmol/L (135-145); Total Protein 6.6 g/dL (6.5-8.0)
[2020-04-27 10:06] LABS: Lipase 86 U/L (8-78)
--- NOTE | 2020-04-27 10:18 | ED_ITS ---
HPI - Abdominal Pain General Chief Complaint: Abdominal Pain Stated Complaint: ABD PAIN Time Seen by Provider: 04/27/20 08:44 Source: patient and EMS Mode of arrival: EMS Limitations: no limitations History of Present Illness HPI narrative: 69yoM c PMHx of diabetes, diabetic gastroparesis, hypertension, chronic kidney disease presenting to the ED via EMS with complaints of diffuse abdominal pain and nausea today. Patient admits to dizziness with standing otherwise no other dizziness. Patient admits symptoms are similar to chronic/priors with out change. Reports is tolerating p.o. food and liquid okay. Requesting IM medications. Denies headaches, fevers, jaw pain, vomiting, chest pain, shortness of breath, dyspnea on exertion, orthopnea, palpitations, extremity edema, weight loss or gain, diarrhea or constipation. Patient has been admitted in the past and seen here for orthostatic hypotension when r eviewing notes. MD elicited complaint: abdominal pain Pertinent past history: other (Diabetic gastroparesis see above) Onset (ago): day(s) (Today) Pain Consistency: constant Location: diffuse Severity: moderate Quality: cramping Radiation: none Migration to: no migration Exacerbating factors: nothing Relieving factors: medication (IM medications such as Ativan) Associated symptoms: nausea Related Data Home Medications Medication Instructions Recorded Confirmed lorazepam 1 mg PO DAILY PRN 12/29/19 03/23/20 Lantus Solostar U-100 Insulin 30 unit SUBCUT BEDTIME 03/23/20 03/23/20 amlodipine 10 mg PO DAILY 03/23/20 03/23/20 aspirin 81 mg PO DAILY 03/23/20 03/23/20 atorvastatin 80 mg PO BEDTIME 03/23/20 03/23/20 cholecalciferol (vitamin D3) 25 mcg PO DAILY 03/23/20 03/23/20 hydralazine 50 mg PO BID 03/23/20 03/23/20 insulin aspart U-100 [Novolog See Protocol SUBCUT TIDAC 03/23/20 03/23/20 Flexpen U-100 Insulin] omeprazole 20 mg PO BID 03/23/20 03/23/20 polyethylene glycol 3350 [Miralax] 17 g PO DAILY 03/23/20 03/23/20 Allergies Allergy/AdvReac Type Severity Reaction Status Date / Time morphine Allergy Intermediate RASH Verified 04/25/20 07:24 Review of Systems Review of Systems Constitutional : No Weight loss, No Fever, No Chills, No Night Sweats, No Fatigue, NoMalaise ENT/Mouth: No ear pain, No sore throat, No Difficulty swallowing Cardiovascular : No Chest Pain, No SOB, No Dyspnea on Exertion, No Orthopnea, NoEdema, No Palpitations Respiratory : No Cough, No Sputum, No Wheezing, No Dyspnea Gastrointestinal : + Nausea, No Vomiting, No Diarrhea, + abdominal Pain, No Hematochezia, No Melena Genitourinary : No irregular bleeding, No Dysuria, No Urinary Frequency, No Hematuria,No Urinary Incontinence, No Urgency, No Flank Pain Musculoskeletal : No joint pain, No Myalgias, No Joint Swelling Skin : No Skin Lesions, No rash Neuro : + Dizziness, No Weakness, No Numbness, No Paresthesias, No Loss of Consciousness, No Headache Psych : No Social Issues, Heme/Lymph: No Bruising, No Bleeding,No Lymphadenopathy Endocrine : No Polyuria, No Polydipsia, No Temperature Intolerance Yes all other systems are reviewed and are negative Physical Exam Vital Signs: Vital Signs: Last Vital Signs Temp 98.3 F 04/27/20 11:10 Pulse 99 04/27/20 11:10 Resp 18 04/27/20 11:10 BP 120/74 04/27/20 11:10 Pulse Ox 98 04/27/20 11:10 Body Mass Index 27.1 vital signs have been reviewed as normal and appeared to be correct. Blood pr essure normal. Heart rate normal. Respiration rate normal. Temperature normal. Oxygen saturation normal. Appearance: Alert. Oriented X3. No acute distress. Head: Normal external exam. Normocephalic. Eyes: PERRLA. EOMI. Conjunctiva and sclera normal. Eyelids normal. ENT: Pharynx normal. Uvula midline. Moist mucous membranes. No trismus noted. No drooling noted. No muffled voice noted. Neck: Normal inspection. Neck supple. FROM. No adenopathy. No meningeal signs. CVS: Normal heart rate and rhythm. Heart sound normal. No murmurs noted. Pulses normal throughout. Respiratory: No respiratory distress. Painless inspiration. Breath sounds normal. No wheezes/rales/rhonchi noted. Chest nontender. No accessory muscle usage noted or decreased air movement noted. Abdomen: Soft and nontender. Nondistended. No guarding. No rigidity. Bowel sounds normal in all 4 quadrants. No distention noted. No organomegaly noted. No visible injury noted. No rebound tenderness. Negative Rovsing sign. Negative obturator's sign. Negative psoas sign. Negative Kim sign. Back: No CVA tenderness. Full range of motion noted. Skin: Skin warm and dry. Normal skin color. Normal skin turgor. No rashes/lesions/lacerations noted. Extremities: Extremities exhibit normal range of motion. Extremities nontender. Neuro: Oriented X 3. No motor deficit. No sensory deficit. Reflexes normal. Course Course Course Narrative: 8:45am - 69yoM c PMHx of diabetes, diabetic gastroparesis, hypertension, chronic kidney disease presenting to the ED via EMS with complaints of diffuse abdominal pain and nausea today. Patient admits to dizziness with standing otherwise no other dizziness. Patient admits symptoms are similar to chronic/priors with out change. Reports is tolerating p.o. food and liquid okay. Requesting IM medications. - on exam patient is alert and oriented x3. Not in any acute ditress/well- appearing. Patient tachycardic and mildly hypertensive although all other vitals are stable within normal limits. Abdomen is soft and nontender no rebound tenderness or guarding noted. Nontoxic. Likely acute on chronic gastroparesis. Low concern for dehydration/metabolic abnormalities or KESHIA. - Plan: Labs, orthostatic vitals and provide 2 L of IV fluids patient initially refused the fluids although I convinced him if we were drawing his blood we migh t as well give him fluids due to his chronic history of orthostatic hypotension and he agreed and 1 mg of IV the Ativan then re-evaluate. Reevaluation(s) Reevaluation #1: - patient with BUN and creatinine at baseline for the patient's chronic kidney disease. - alkaline phosphate 130 which is similar when compared to prior. - lipase 86 although improved when compared to last visit on 04/25/2020. - patient have positive orthostatic vitals with supine position patient's blood pressure was 137/75 with a heart rate of 101 then when the patient stood up it went down to 73/48 heart rate was consistently at 01:01. - therefore 2 L of fluids given and will read evaluate the patient with acetic vitals plan to discharge for chronic gastroparesis and orthostatic hypotension. Patient understands agrees with this plan. Time: 11:50 MDM - Abdominal Pain Lab Data Result diagrams: 04/27/20 09:10 04/27/20 09:10 Labs: Lab Results 04/27/20 04/27/20 Range/Units 09:10 09:10 WBC 6.6 (4.8-10.8) X10*3/uL RBC 4.53 L (4.60-5.80) X10*6/uL Hgb 13.3 L (14.0-18.0) g/dl Hct 41.4 L (42-52) % MCV 91.4 (80-98) fL MCH 29.4 (27.0-33.0) pg MCHC 32.1 (31.0-36.0) g/dl RDW 13.7 (11.0-16.0) % Plt Count 214 (160-400) X10*3/uL MPV 10.7 (9.4-12.4) fL Immature Gran % (Auto) 0.2 (0.0-0.4) % Neut % (Auto) 53.0 (45-73) % Lymph % (Auto) 35.4 (20-40) % [place] % (Auto) 8.9 (2-11) % Eos % (Auto) 1.7 (0-4) % Baso % (Auto) 0.8 (0-2) % Lymph # (Auto) 2.4 (1.2-4.9) X10*3/uL [place] # (Auto) 0.6 (0.1-1.2) X10*3/uL Eos # (Auto) 0.1 (0.0-0.4) X10*3/uL Baso # (Auto) 0.1 (0.0-0.2) X10*3/uL Abs Immat Gran (auto) 0.01 (0.00-0.03) X10*3/uL Absolute Neuts (auto) 3.5 (2.0-8.3) X10*3/uL Absolute Nucleated RBC 0.000 (0.0-0.012) X10*3/uL Nucleated RBC % (auto) 0.0 (0.0-0.2) /100WBC Sodium 138 (135-145) mmol/L Potassium 4.5 (3.3-5.1) mmol/L Chloride 102 (96-108) mmol/L Carbon Dioxide 26 (22-29) mmol/L Anion Gap 15 (12-20) BUN 42 H (9-16) mg/dL Creatinine 3.46 H (0.5-1.4) mg/dL Estim Creat Clear Calc 21.1 Estimated GFR 18 Random Glucose 168 H (60-115) mg/dL Calcium 8.6 (8.4-10.2) mg/dL Magnesium 2.0 (1.6-2.6) mg/dL Total Bilirubin 0.6 (0.0-1.0) mg/dL Direct Bilirubin 0.3 (0.0-0.5) mg/dL AST 14 (5-37) U/L ALT 7 (0-40) U/L Alkaline Phosphatase 130 H (39-117) U/L Total Protein 6.6 (6.5-8.0) g/dL Albumin 3.7 (3.5-5.0) g/dL Lipase 86 H (8-78) U/L Discharge Plan Discharge Clinical Impression: Gastroparesis, Orthostatic hypotension Patient Disposition: Home, Self-Care Instructions: Hypotension (ED), Gastroparesis (ED) Additional Instructions: You need to follow-up with her GI doctor. Make sure your staying hydrated at home. Take home prescribed medications. Monitor your sugars. If pain persists or worsens, you are unable to eat or drink, or have fever return to the ED Prescriptions: No Action lorazepam 1 mg tablet 1 mg PO DAILY PRN (Reason: anxiety) RF: 0 insulin aspart U-100 [Novolog Flexpen U-100 Insulin] 100 unit/mL (3 mL) Insulin Pen See Protocol unit SUBCUT TIDAC RF: 0 Lantus Solostar U-100 Insulin 100 unit/mL (3 mL) Insulin Pen 30 unit SUBCUT BEDTIME RF: 0 atorvastatin 80 mg Tablet 80 mg PO BEDTIME RF: 0 polyethylene glycol 3350 [Miralax] 17 gram Powder In Packet 17 g PO DAILY RF: 0 amlodipine 10 mg Tablet 10 mg PO DAILY RF: 0 omeprazole 20 mg Capsule,Delayed Release(Dr/Ec) 20 mg PO BID RF: 0 aspirin 81 mg Tablet,Chewable 81 mg PO DAILY RF: 0 hydralazine 50 mg Tablet 50 mg PO BID RF: 0 cholecalciferol (vitamin D3) 25 mcg (1,000 unit) Tablet 25 mcg PO DAILY RF: 0 Referrals: Janet Marsh MD [Primary Care Provider] - 2 days Interventions: ED Discharge Assessment Last Done: 04/27/20 12:44 [facility] Past Medical History Attestation statement: The following information was validated with the patient. Medical History Cyclical vomiting Diabetes Gastroparesis HTN (hypertension) IDDM (insulin dependent diabetes mellitus) Kidney failure Vomiting Family History Family History Other Family history non-contributory Social History Social History Household Members: Spouse Housing: House Alcohol intake: unknown Smoking Status: Unknown if ever smoked Use of substances other than those prescribed or required for medical reasons: No Substance Use Type: Marijuana Advance Directives: Yes Advance Directives on File: Yes Advance Directives Date on File: 02/12/20 service: Yes Current occupational status: retired
[2020-04-27] MEDS: LORazepam 2 MG/ML VIAL 1 MG IVPUSH (11:09)
[2020-04-27 11:10] VITALS: BP 120/74; PULSE 99; RESP 18; TEMP 36.8; O2SAT 98
--- NOTE | 2020-04-27 11:11 | PC.NURSE ---
patient a&ox3, vss, medicated per order, pt states his pain is down to 2/10, will continue to monitor.
== END 2020-04-27 13:13 | disposition home or self-care (01) ==
PROVIDERS: Physician Assistant Medical; Emergency Provider Emergency Medicine Emergency Medical Services; PCP Internal Medicine
DX: E11.43 Type 2 diabetes mellitus with diabetic autonomic (poly)neuropathy (principal); I95.1 Orthostatic hypotension; E11.22 Type 2 diabetes mellitus with diabetic chronic kidney disease; I12.9 Hypertensive chronic kidney disease with stage 1 through stage 4 chronic kidney disease, or unspecified chronic kidney disease; N18.9 Chronic kidney disease, unspecified; Z79.4 Long term (current) use of insulin
CPT/HCPCS: 36415; 80048; 80076; 83690; 83735; 85025; 96361; 96374; 99284; J2060

== ENCOUNTER 2020-04-28 12:45 | Emergency (ER) | payer MEDICARE, OTHER, SELFPAY ==
[2020-04-28 12:50] VITALS: BP 112/68; PULSE 88; RESP 18; TEMP 37.1; O2SAT 99; BMI 27.1
[2020-04-28 13:25] VITALS: BP 112/65; PULSE 83; RESP 17; TEMP 37.1; O2SAT 97
[2020-04-28] MEDS: Haloperidol Lactate 5 MG/ML VIAL IM (13:33)
[2020-04-28] MEDS: LORazepam 1 MG TABLET PO (13:33)
[2020-04-28 14:31] LABS: MANUAL DIFF FLAG NO
[2020-04-28 14:33] LABS: Basophils Absolute Auto 0.1 X10*3/uL (0.0-0.2); Basophils Percent Auto 0.8 % (0-2); Eosinophils Absolute Auto 0.1 X10*3/uL (0.0-0.4); Eosinophils Percent Auto 1.3 % (0-4); Hematocrit 36.6 % (42-52); Hemoglobin 11.9 g/dl (14.0-18.0); Imm Gran Abs Auto 0.01 X10*3/uL (0.00-0.03); Imm Gran Pct Auto 0.1 % (0.0-0.4); Lymphocytes Absolute Auto 2.7 X10*3/uL (1.2-4.9); Lymphocytes Percent Auto 32.6 % (20-40); Mean Corpuscular HGB Conc 32.5 g/dl (31.0-36.0); Mean Corpuscular Hemoglobin 29.8 pg (27.0-33.0); Mean Corpuscular Volume 91.7 fL (80-98); Mean Platelet Volume 10.5 fL (9.4-12.4); Monocytes Percent Auto 11.7 % (2-11); Neutrophils Absolute Auto 4.5 X10*3/uL (2.0-8.3); Neutrophils Percent Auto 53.5 % (45-73); Platelet Count 195 X10*3/uL (160-400); Red Blood Count 3.99 X10*6/uL (4.60-5.80); White Blood Count 8.3 X10*3/uL (4.8-10.8)
[2020-04-28] MEDS: LORazepam 2 MG/ML VIAL 1 MG IM (15:07)
[2020-04-28 15:12] LABS: Alanine Aminotransferase < 6 U/L (0-40); Albumin Level 3.6 g/dL (3.5-5.0); Alkaline Phosphatase 139 U/L (39-117); Anion Gap 12 (12-20); Aspartate Amino Transferase 13 U/L (5-37); Bilirubin Total 0.3 mg/dL (0.0-1.0); Blood Urea Nitrogen 40 mg/dL (9-16); Calcium 8.4 mg/dL (8.4-10.2); Carbon Dioxide 26 mmol/L (22-29); Chloride 109 mmol/L (96-108); Creatinine Clr Calc Pharmacy 21.9; Estimated Glomerular Filt Rate 18; Glucose Random 69 mg/dL (60-115); Potassium 4.4 mmol/L (3.3-5.1); Sodium 143 mmol/L (135-145); Total Protein 6.2 g/dL (6.5-8.0)
[2020-04-28 16:00] VITALS: BP 137/70; PULSE 81; RESP 18; TEMP 36.7; O2SAT 96
--- NOTE | 2020-04-28 16:13 | ED.ABDPAIN ---
HPI - Abdominal Pain General Chief Complaint: Abdominal Pain Stated Complaint: NAUSEA Time Seen by Provider: 04/28/20 13:04 Source: EMS Mode of arrival: EMS Limitations: no limitations History of Present Illness HPI narrative: Upper abdominal pain and nausea after eating [employer]. Patient was seen here this morning for abdominal pain felt better. MD elicited complaint: abdominal pain Onset (ago): minute(s) Pain Consistency: constant Quality: aching Exacerbating factors: nothing Associated symptoms: denies other symptoms Related Data Home Medications Medication Instructions Recorded Confirmed lorazepam 1 mg PO DAILY PRN 12/29/19 03/23/20 Lantus Solostar U-100 Insulin 30 unit SUBCUT BEDTIME 03/23/20 03/23/20 amlodipine 10 mg PO DAILY 03/23/20 03/23/20 aspirin 81 mg PO DAILY 03/23/20 03/23/20 atorvastatin 80 mg PO BEDTIME 03/23/20 03/23/20 cholecalciferol (vitamin D3) 25 mcg PO DAILY 03/23/20 03/23/20 hydralazine 50 mg PO BID 03/23/20 03/23/20 insulin aspart U-100 [Novolog See Protocol SUBCUT TIDAC 03/23/20 03/23/20 Flexpen U-100 Insulin] omeprazole 20 mg PO BID 03/23/20 03/23/20 polyethylene glycol 3350 [Miralax] 17 g PO DAILY 03/23/20 03/23/20 Allergies Allergy/AdvReac Type Severity Reaction Status Date / Time morphine Allergy Intermediate RASH Verified 04/25/20 07:24 Review of Systems Review of Systems Constitutional: No Weight loss, No Fever, No Chills, No Night Sweats, No Fatigue, No Malaise ENT/Mouth: No Hearing loss, No Ear Pain, No Nasal Congestion, No Sinus Pain, No Hoarseness, No sore throat, No Rhinorrhea, No Swallowing Difficulty Eyes: No Eye Pain, No Swelling, No Redness, No Foreign Body, No Discharge, No Vision Changes Cardiovascular: No Chest Pain, No SOB, No Dyspnea on Exertion, No Orthopnea, No Edema, No Palpitations Respiratory: No Cough, No Sputum, No Wheezing, No Dyspnea Gastrointestinal: Positive Nausea, No Vomiting, No Diarrhea, No Constipation, positive abdominal Pain, No Hematochezia, No Melena Genitourinary: No Dysuria, No Urinary Frequency, No Hematuria, No Urinary Incontinence, No Urgency, No Flank Pain, No Urinary Flow Changes, No Hesitancy Musculoskeletal: No joint pain, No Myalgias, No Joint Swelling Skin: No Skin Lesions, No rash Neuro: No Weakness, No Numbness, No Paresthesias, No Loss of Consciousness, No Dizziness, No Headache Psych: No Social Issues Heme/Lymph: No Bruising, No Bleeding,No Lymphadenopathy Endocrine: No Polyuria, No Polydipsia, No Temperature Intolerance Yes all other systems are reviewed and are negative Physical Exam Vital Signs: Vital Signs: Last Vital Signs Temp 98.1 F 04/28/20 16:00 Pulse 81 04/28/20 16:00 Resp 18 04/28/20 16:00 BP 137/70 04/28/20 16:00 Pulse Ox 96 04/28/20 16:00 Body Mass Index 27.1 Reviewed Const: General: cooperative and healthy appearing; No acute distress or intoxicated appearing Nutritional Appearance: average body habitus Orientation/consciousness: patient oriented x3 HENMT: Head: Yes normal to inspection Ears: hearing grossly normal bilaterally Eyes: General: appearance normal, both eyes and all related structures Visual Terry: normal visual terry by confrontation Neck: Neck: Yes normal visual inspection, No positive Brudzinski's sign, No positive Kernig's sign and No tender Thyroid: Thyroid normal Chest: Chest palpation & inspection: normal inspection of the chest Resp: Effort & Inspection: normal respiratory effort Cardio: Jugular venous distension: no JVD Rhythm: regular rhythm Heart sounds: S1 normal heart sound present and S2 normal heart sound present GI: Inspection: Yes normal to inspection Palpation (GI): Soft to palpation Percussion: Yes normal to percussion Auscultation: normal bowel sounds : General: Yes no CVA tenderness Back/Spine/Pelvis: Back: no CVA tenderness Skin: General skin exam: no rashes or lesions noted Neuro: General: patient oriented x3 Extrem: General: Yes normal to inspection Course Course Course Narrative: Episodes similar to his previous history of gastroparesis early this morning. Exam is benign. He medically stable. Feels better after IM Haldol. Requesting discharge. MDM - Abdominal Pain Lab Data Result diagrams: 04/28/20 14:24 04/28/20 14:24 Labs: Lab Results 04/28/20 04/28/20 Range/Units 14:24 14:24 WBC 8.3 (4.8-10.8) X10*3/uL RBC 3.99 L (4.60-5.80) X10*6/uL Hgb 11.9 L (14.0-18.0) g/dl Hct 36.6 L (42-52) % MCV 91.7 (80-98) fL MCH 29.8 (27.0-33.0) pg MCHC 32.5 (31.0-36.0) g/dl RDW 14.0 (11.0-16.0) % Plt Count 195 (160-400) X10*3/uL MPV 10.5 (9.4-12.4) fL Immature Gran % (Auto) 0.1 (0.0-0.4) % Neut % (Auto) 53.5 (45-73) % Lymph % (Auto) 32.6 (20-40) % [place] % (Auto) 11.7 H (2-11) % Eos % (Auto) 1.3 (0-4) % Baso % (Auto) 0.8 (0-2) % Lymph # (Auto) 2.7 (1.2-4.9) X10*3/uL [place] # (Auto) 1.0 (0.1-1.2) X10*3/uL Eos # (Auto) 0.1 (0.0-0.4) X10*3/uL Baso # (Auto) 0.1 (0.0-0.2) X10*3/uL Abs Immat Gran (auto) 0.01 (0.00-0.03) X10*3/uL Absolute Neuts (auto) 4.5 (2.0-8.3) X10*3/uL Absolute Nucleated RBC 0.000 (0.0-0.012) X10*3/uL Nucleated RBC % (auto) 0.0 (0.0-0.2) /100WBC Sodium 143 (135-145) mmol/L Potassium 4.4 (3.3-5.1) mmol/L Chloride 109 H (96-108) mmol/L Carbon Dioxide 26 (22-29) mmol/L Anion Gap 12 (12-20) BUN 40 H (9-16) mg/dL Creatinine 3.34 H (0.5-1.4) mg/dL Estim Creat Clear Calc 21.9 Estimated GFR 18 Random Glucose 69 D (60-115) mg/dL Calcium 8.4 (8.4-10.2) mg/dL Total Bilirubin 0.3 (0.0-1.0) mg/dL AST 13 (5-37) U/L ALT < 6 (0-40) U/L Alkaline Phosphatase 139 H (39-117) U/L Total Protein 6.2 L (6.5-8.0) g/dL Albumin 3.6 (3.5-5.0) g/dL Discharge Plan Discharge Clinical Impression: Nausea & vomiting Patient Disposition: Home, Self-Care Prescriptions: No Action lorazepam 1 mg tablet 1 mg PO DAILY PRN (Reason: anxiety) RF: 0 insulin aspart U-100 [Novolog Flexpen U-100 Insulin] 100 unit/mL (3 mL) Insulin Pen See Protocol unit SUBCUT TIDAC RF: 0 Lantus Solostar U-100 Insulin 100 unit/mL (3 mL) Insulin Pen 30 unit SUBCUT BEDTIME RF: 0 atorvastatin 80 mg Tablet 80 mg PO BEDTIME RF: 0 polyethylene glycol 3350 [Miralax] 17 gram Powder In Packet 17 g PO DAILY RF: 0 amlodipine 10 mg Tablet 10 mg PO DAILY RF: 0 omeprazole 20 mg Capsule,Delayed Release(Dr/Ec) 20 mg PO BID RF: 0 aspirin 81 mg Tablet,Chewable 81 mg PO DAILY RF: 0 hydralazine 50 mg Tablet 50 mg PO BID RF: 0 cholecalciferol (vitamin D3) 25 mcg (1,000 unit) Tablet 25 mcg PO DAILY RF: 0 Referrals: Janet Marsh MD [Primary Care Provider] - 2 days Interventions: ED Discharge Assessment Last Done: 04/28/20 16:07 [facility] Past Medical History Medical History Cyclical vomiting Diabetes Gastroparesis HTN (hypertension) IDDM (insulin dependent diabetes mellitus) Kidney failure Vomiting Family History Family History Other Family history non-contributory Social History Social History Household Members: Spouse Housing: House Alcohol intake: never Smoking Status: Never smoker Use of substances other than those prescribed or required for medical reasons: No Substance Use Type: Marijuana Advance Directives: Yes Advance Directives on File: Yes Advance Directives Date on File: 02/12/20 service: Yes Current occupational status: retired
== END 2020-04-28 16:10 | disposition home or self-care (01) ==
PROVIDERS: Nurse Practitioner Primary Care; Emergency Provider Internal Medicine; PCP Internal Medicine
DX: R10.9 Unspecified abdominal pain (principal); R11.2 Nausea with vomiting, unspecified; E11.9 Type 2 diabetes mellitus without complications; I10 Essential (primary) hypertension; F12.90 Cannabis use, unspecified, uncomplicated; Z79.4 Long term (current) use of insulin; Z79.899 Other long term (current) drug therapy
CPT/HCPCS: 36415; 80053; 85025; 96360; 96372; 99284; J2060

== ENCOUNTER 2020-04-30 00:22 | Emergency (ER) | payer MEDICARE, OTHER, SELFPAY ==
[2020-04-30 00:30] VITALS: BP 159/86; PULSE 79; RESP 18; TEMP 36.8; O2SAT 96; BMI 33.5
--- NOTE | 2020-04-30 00:32 | ED.ABDPAIN ---
HPI - Abdominal Pain General Chief Complaint: Abdominal Pain Stated Complaint: Sick Source: patient Mode of arrival: ambulatory Limitations: no limitations History of Present Illness HPI narrative: This is a 69-year-old male with past medical history legal blindness, insulin-dependent diabetes, Gastroparesis, hypertension, kidney failure, and cyclic Vomiting history presents with repeated, recurrent visits to the emergency department for acute exacerbation of underlying diabetic gastroparesis with suspected marijuana use. Patient is well-known to this facility and presents several times a week for similar complaints, patient presents with reportedly nausea and vomiting and denies any other symptoms at this time. Currently, patient is requesting IV or IM pain medication and Ativan, denies any chest pain, dizziness, lightheadedness, shortness of breath, fevers, chills, weakness, or any other concerning symptoms. Related Data Home Medications Medication Instructions Recorded Confirmed lorazepam 1 mg PO DAILY PRN 12/29/19 03/23/20 Lantus Solostar U-100 Insulin 30 unit SUBCUT BEDTIME 03/23/20 03/23/20 amlodipine 10 mg PO DAILY 03/23/20 03/23/20 aspirin 81 mg PO DAILY 03/23/20 03/23/20 atorvastatin 80 mg PO BEDTIME 03/23/20 03/23/20 cholecalciferol (vitamin D3) 25 mcg PO DAILY 03/23/20 03/23/20 hydralazine 50 mg PO BID 03/23/20 03/23/20 insulin aspart U-100 [Novolog See Protocol SUBCUT TIDAC 03/23/20 03/23/20 Flexpen U-100 Insulin] omeprazole 20 mg PO BID 03/23/20 03/23/20 polyethylene glycol 3350 [Miralax] 17 g PO DAILY 03/23/20 03/23/20 Allergies Allergy/AdvReac Type Severity Reaction Status Date / Time morphine Allergy Intermediate RASH Verified 04/25/20 07:24 Review of Systems Review of Systems Constitutional: No Fever, No Chills ENT/Mouth: No Ear Pain, No Hoarseness, No sore throat Eyes: No Eye Pain, No Swelling, No Redness, No Foreign Body Cardiovascular: No Chest Pain, No SOB Respiratory: No Cough, No Dyspnea Gastrointestinal: Positive abdominal pain, nausea, No Vomiting, No Diarrhea Genitourinary: No Dysuria, No Hematuria Musculoskeletal: No joint pain, No Myalgias, No Joint Swelling Skin: No Skin lacerations, No rash Neuro: No Weakness, No Numbness, No Paresthesias, No Loss of Consciousness, No Dizziness, No Headache Psych: No Anxiety/Panic, No Depression Heme/Lymph: no easy bruising, no Lymphadenopathy Endocrine: No Polyuria, No Polydipsia Yes all other systems are reviewed and are negative Physical Exam Vital Signs: Vital Signs: Last Vital Signs Temp 98.2 F 04/30/20 00:30 Pulse 79 04/30/20 00:30 Resp 18 04/30/20 00:30 BP 159/86 H 04/30/20 00:30 Pulse Ox 96 04/30/20 00:30 Body Mass Index 33.5 Appearance: Alert. Oriented X3. No acute distress. Eyes: Pupils equal, round and reactive to light. ENT: Pharynx normal. Neck: Normal inspection. Neck supple. CVS: Normal heart rate and rhythm. Pulses normal. Respiratory: No respiratory distress. Breath sounds normal. Abdomen: Soft and nontender. Skin: Skin warm and dry. Normal skin color. Normal skin turgor. Extremities: No lower extremity edema. Neuro: No motor deficit. No sensory deficit. Course Course Course Narrative: 69-year-old male a past history chronic failure, syncope, orthostatic hypertension, gastroparesis, diabetes, marijuana abuse disorder presents with abdominal pain and nausea. Patient presents several times a week for similar circumstances. Patient is afebrile, does not appear toxic, nontender abdomen to palpation. Asking for IM or IV medications. Patient was offered p.o. Ativan, was verbally aggressive to staff. Patient presented on the , and 28 of April all with normal lab values and values within his normal limits. At this time we will not repeat lab values as he is afebrile, nontoxic and primary request being IM medications. Approximately 30 minutes after p.o. Ativan patient was able to tolerate p.o. fluids. Patient discharged home. MDM - Abdominal Pain MDM Narrative Medical decision making narrative: Cyclic vomiting syndrome, gastroparesis Differential Diagnosis Differential diagnosis: Likely abdominal pain Medical Records Attestation: I reviewed the patient's medical records. Lab Data Attestation: I reviewed the patient's lab results. Discharge Plan Discharge Clinical Impression: Gastroparesis Patient Disposition: Home, Self-Care Instructions: Diabetic Gastroparesis (DC), Acute Nausea and Vomiting (ED) Additional Instructions: Please follow-up with primary care physician for gastroparesis. Thank you for choosing this emergency department for evaluation. Please follow-up with primary care physician as needed. Return to the emergency department for any new, concerning, or worsening symptoms. Prescriptions: No Action lorazepam 1 mg tablet 1 mg PO DAILY PRN (Reason: anxiety) RF: 0 insulin aspart U-100 [Novolog Flexpen U-100 Insulin] 100 unit/mL (3 mL) Insulin Pen See Protocol unit SUBCUT TIDAC RF: 0 Lantus Solostar U-100 Insulin 100 unit/mL (3 mL) Insulin Pen 30 unit SUBCUT BEDTIME RF: 0 atorvastatin 80 mg Tablet 80 mg PO BEDTIME RF: 0 polyethylene glycol 3350 [Miralax] 17 gram Powder In Packet 17 g PO DAILY RF: 0 amlodipine 10 mg Tablet 10 mg PO DAILY RF: 0 omeprazole 20 mg Capsule,Delayed Release(Dr/Ec) 20 mg PO BID RF: 0 aspirin 81 mg Tablet,Chewable 81 mg PO DAILY RF: 0 hydralazine 50 mg Tablet 50 mg PO BID RF: 0 cholecalciferol (vitamin D3) 25 mcg (1,000 unit) Tablet 25 mcg PO DAILY RF: 0 PMFSH Past Medical History Attestation statement: The following information was validated with the patient. Source: old records reviewed Medical History Cyclical vomiting Diabetes Gastroparesis HTN (hypertension) IDDM (insulin dependent diabetes mellitus) Kidney failure Vomiting Family History Family History Other Family history non-contributory Social History Social History Household Members: Spouse Housing: House Alcohol intake: never Smoking Status: Never smoker Substance Use Type: Marijuana Advance Directives: Yes Advance Directives Date on File: 02/12/20 service: Yes Current occupational status: retired
[2020-04-30] MEDS: LORazepam 1 MG TABLET 2 MG PO (01:03)
--- NOTE | 2020-04-30 01:25 | PC.NURSE ---
pt became verbally abusive to this rn. you are a cunt. I want to go home. YOu're not giving me my shot. pt became insistant that this rn calls for ambulance transport home. Pt educated that he does not qualify for ambulance ride home. Patient became insistent to be discharge. pt brought to waiting room via wheelchair and placed in front of the phone. Pt verbalized d/c teaching and then stated to this song writer FUCK YOU YOU FUCKING BITCH. this rn attempted 2x to get incontact with on chart. no answer. pt brought to waiting room to await ride.
--- NOTE | 2020-04-30 01:30 | PC.NURSE ---
contact made to jasmyn (). Jasmyn stated she will pick aly up.
== END 2020-04-30 01:32 | disposition home or self-care (01) ==
PROVIDERS: Emergency Provider Student in an Organized Health Care Education/Training Program
DX: E11.43 Type 2 diabetes mellitus with diabetic autonomic (poly)neuropathy (principal); R11.15 Cyclical vomiting syndrome unrelated to migraine; I10 Essential (primary) hypertension; Z79.4 Long term (current) use of insulin; Z79.899 Other long term (current) drug therapy
CPT/HCPCS: 99283

== ENCOUNTER 2020-05-07 16:31 | Emergency (ER) | payer MEDICARE, OTHER, SELFPAY ==
[2020-05-07 16:40] VITALS: BP 160/90; PULSE 84; RESP 18; TEMP 36.9; O2SAT 99; BMI 27.1
--- NOTE | 2020-05-07 17:19 | ED_ITS ---
HPI - Nausea/Vomiting/Diarrhea General Chief complaint: Nausea/Vomiting/Diarrhea Stated complaint: nausea Time Seen by Provider: 05/07/20 17:18 Source: patient Mode of arrival: EMS Limitations: no limitations History of Present Illness HPI Narrative: Patient frequently visited our ER with cyclic vomiting syndrome chronic gastritis was here last week multiple times comes here for same vomiting since yesterday with history of anxiety MD elicited complaint: nausea and vomiting Related Data Home Medications Medication Instructions Recorded Confirmed lorazepam 1 mg PO DAILY PRN 12/29/19 03/23/20 Lantus Solostar U-100 Insulin 30 unit SUBCUT BEDTIME 03/23/20 03/23/20 amlodipine 10 mg PO DAILY 03/23/20 03/23/20 aspirin 81 mg PO DAILY 03/23/20 03/23/20 atorvastatin 80 mg PO BEDTIME 03/23/20 03/23/20 cholecalciferol (vitamin D3) 25 mcg PO DAILY 03/23/20 03/23/20 hydralazine 50 mg PO BID 03/23/20 03/23/20 insulin aspart U-100 [Novolog See Protocol SUBCUT TIDAC 03/23/20 03/23/20 Flexpen U-100 Insulin] omeprazole 20 mg PO BID 03/23/20 03/23/20 polyethylene glycol 3350 [Miralax] 17 g PO DAILY 03/23/20 03/23/20 Allergies Allergy/AdvReac Type Severity Reaction Status Date / Time morphine Allergy Intermediate RASH Verified 04/25/20 07:24 Review of Systems Review of Systems: Constitutional : No Weight loss, No Fever, No Chills ENT/Mouth : No sore throat, No Rhinorrhea Eyes: No Eye Pain, No Swelling Cardiovascular : No Chest Pain, no palpitations Respiratory : No Cough, No Sputum, no shortness of breath Gastrointestinal :+ Nausea, + Vomiting, No Diarrhea, No abdominal Pain, no black stools Genitourinary : No Dysuria, No Urinary Frequency Musculoskeletal : No joint pain, No Myalgias, No Joint Swelling Skin : No Skin Lesions, No rash Neuro : No Weakness, No Numbness, No Dizziness, No Headache Psych : No Anxiety/Panic, No Depression Heme/Lymph: No Bruising, No Lymphadenopathy Endocrine : No Polyuria, No Polydipsia All other systems reviewed and are negative PMFSH Past Medical History Medical History Cyclical vomiting Diabetes Gastroparesis HTN (hypertension) IDDM (insulin dependent diabetes mellitus) Kidney failure Vomiting Family History Family History Other Family history non-contributory Social History Social History Household Members: Spouse Housing: House Alcohol intake: never Smoking Status: Never smoker Substance Use Type: Marijuana Advance Directives: Yes Advance Directives on File: Yes Advance Directives Date on File: 02/12/20 service: Yes Current occupational status: retired Physical Exam Vital Signs: Vital Signs: Last Vital Signs Temp 97.8 F 05/07/20 19:47 Pulse 93 05/07/20 19:47 Resp 18 05/07/20 19:47 BP 181/93 H 05/07/20 19:47 Pulse Ox 96 05/07/20 19:47 Body Mass Index 27.1 Appearance: Alert. Oriented X3. No acute distress. Eyes: Pupils equal, round and reactive to light. Legally blind ENT: Pharynx normal. Neck: Normal inspection. Neck supple. CVS: Normal heart rate and rhythm. Pulses normal. Respiratory: No respiratory distress. Breath sounds normal. Abdomen: Soft and nontender. Bowel sounds are present, no mass palpable, no CVA tenderness Skin: Skin warm and dry. Normal skin color. Normal skin turgor. Extremities: No lower extremity edema. Neuro: Oriented X 3. No motor deficit. No sensory deficit. MDM - Nausea/Vomiting/Diarrhea MDM Narrative Medical decision making narrative: Patient has cyclic vomiting syndrome feeling better after IV Ativan and Compazine and received 1 L of fluid no vomiting in the ER labs are stable will discharge patient home Lab Data Attestation: I reviewed the patient's lab results. Result diagrams: 05/07/20 18:05 05/07/20 18:05 Labs: Lab Results 05/07/20 05/07/20 Range/Units 18:05 18:05 WBC 6.7 (4.8-10.8) X10*3/uL RBC 4.13 L (4.60-5.80) X10*6/uL Hgb 12.2 L (14.0-18.0) g/dl Hct 37.6 L (42-52) % MCV 91.0 (80-98) fL MCH 29.5 (27.0-33.0) pg MCHC 32.4 (31.0-36.0) g/dl RDW 13.8 (11.0-16.0) % Plt Count 199 (160-400) X10*3/uL MPV 10.5 (9.4-12.4) fL Immature Gran % (Auto) 0.1 (0.0-0.4) % Neut % (Auto) 56.1 (45-73) % Lymph % (Auto) 30.9 (20-40) % [place] % (Auto) 10.9 (2-11) % Eos % (Auto) 1.3 (0-4) % Baso % (Auto) 0.7 (0-2) % Lymph # (Auto) 2.1 (1.2-4.9) X10*3/uL [place] # (Auto) 0.7 (0.1-1.2) X10*3/uL Eos # (Auto) 0.1 (0.0-0.4) X10*3/uL Baso # (Auto) 0.1 (0.0-0.2) X10*3/uL Abs Immat Gran (auto) 0.01 (0.00-0.03) X10*3/uL Absolute Neuts (auto) 3.7 (2.0-8.3) X10*3/uL Absolute Nucleated RBC 0.000 (0.0-0.012) X10*3/uL Nucleated RBC % (auto) 0.0 (0.0-0.2) /100WBC Sodium 138 (135-145) mmol/L Potassium 5.1 (3.3-5.1) mmol/L Chloride 106 (96-108) mmol/L Carbon Dioxide 21 L (22-29) mmol/L Anion Gap 16 (12-20) BUN 46 H (9-16) mg/dL Creatinine 3.29 H (0.5-1.4) mg/dL Estim Creat Clear Calc 22.2 Estimated GFR 19 Random Glucose 286 H D (60-115) mg/dL Calcium 8.5 (8.4-10.2) mg/dL Magnesium 2.1 (1.6-2.6) mg/dL Total Bilirubin 0.6 (0.0-1.0) mg/dL Direct Bilirubin < 0.2 (0.0-0.5) mg/dL AST 19 D (5-37) U/L ALT 8 (0-40) U/L Alkaline Phosphatase 128 H (39-117) U/L Total Protein 6.5 (6.5-8.0) g/dL Albumin 3.5 (3.5-5.0) g/dL Discharge Plan Discharge Clinical Impression: Cyclic vomiting syndrome Patient Disposition: Home, Self-Care Instructions: Cyclic Vomiting Syndrome (ED) Additional Instructions: Continue your medication and follow up with your PCP Drink plenty of fluids Prescriptions: No Action lorazepam 1 mg tablet 1 mg PO DAILY PRN (Reason: anxiety) RF: 0 insulin aspart U-100 [Novolog Flexpen U-100 Insulin] 100 unit/mL (3 mL) Insulin Pen See Protocol unit SUBCUT TIDAC RF: 0 Lantus Solostar U-100 Insulin 100 unit/mL (3 mL) Insulin Pen 30 unit SUBCUT BEDTIME RF: 0 atorvastatin 80 mg Tablet 80 mg PO BEDTIME RF: 0 polyethylene glycol 3350 [Miralax] 17 gram Powder In Packet 17 g PO DAILY RF: 0 amlodipine 10 mg Tablet 10 mg PO DAILY RF: 0 omeprazole 20 mg Capsule,Delayed Release(Dr/Ec) 20 mg PO BID RF: 0 aspirin 81 mg Tablet,Chewable 81 mg PO DAILY RF: 0 hydralazine 50 mg Tablet 50 mg PO BID RF: 0 cholecalciferol (vitamin D3) 25 mcg (1,000 unit) Tablet 25 mcg PO DAILY RF: 0 Interventions: ED Discharge Assessment Last Done: 05/07/20 20:40 Discharge Date/Time: 05/07/20 20:48
[2020-05-07 18:10] LABS: MANUAL DIFF FLAG NO
[2020-05-07 18:11] LABS: Basophils Absolute Auto 0.1 X10*3/uL (0.0-0.2); Basophils Percent Auto 0.7 % (0-2); Eosinophils Absolute Auto 0.1 X10*3/uL (0.0-0.4); Eosinophils Percent Auto 1.3 % (0-4); Hematocrit 37.6 % (42-52); Hemoglobin 12.2 g/dl (14.0-18.0); Imm Gran Abs Auto 0.01 X10*3/uL (0.00-0.03); Imm Gran Pct Auto 0.1 % (0.0-0.4); Lymphocytes Absolute Auto 2.1 X10*3/uL (1.2-4.9); Lymphocytes Percent Auto 30.9 % (20-40); Mean Corpuscular HGB Conc 32.4 g/dl (31.0-36.0); Mean Corpuscular Hemoglobin 29.5 pg (27.0-33.0); Mean Platelet Volume 10.5 fL (9.4-12.4); Monocytes Absolute Auto 0.7 X10*3/uL (0.1-1.2); Monocytes Percent Auto 10.9 % (2-11); Neutrophils Absolute Auto 3.7 X10*3/uL (2.0-8.3); Neutrophils Percent Auto 56.1 % (45-73); Platelet Count 199 X10*3/uL (160-400); Red Blood Count 4.13 X10*6/uL (4.60-5.80); Red Cell Distribution Width 13.8 % (11.0-16.0); White Blood Count 6.7 X10*3/uL (4.8-10.8)
[2020-05-07] MEDS: LORazepam 2 MG/ML VIAL 1 MG IVPUSH (18:13)
[2020-05-07] MEDS: 0.9 % Sodium Chloride 1,000 ML 999 ML IVCONT (18:13)
[2020-05-07] MEDS: Prochlorperazine Edisylate 10 MG/2 ML VIAL IVPUSH (18:13)
[2020-05-07 18:53] LABS: Alanine Aminotransferase 8 U/L (0-40); Albumin Level 3.5 g/dL (3.5-5.0); Alkaline Phosphatase 128 U/L (39-117); Anion Gap 16 (12-20); Aspartate Amino Transferase 19 U/L (5-37); Bilirubin Direct < 0.2 mg/dL (0.0-0.5); Bilirubin Total 0.6 mg/dL (0.0-1.0); Blood Urea Nitrogen 46 mg/dL (9-16); Calcium 8.5 mg/dL (8.4-10.2); Carbon Dioxide 21 mmol/L (22-29); Chloride 106 mmol/L (96-108); Creatinine Clr Calc Pharmacy 22.2; Estimated Glomerular Filt Rate 19; Glucose Random 286 mg/dL (60-115); Magnesium 2.1 mg/dL (1.6-2.6); Potassium 5.1 mmol/L (3.3-5.1); Sodium 138 mmol/L (135-145); Total Protein 6.5 g/dL (6.5-8.0)
[2020-05-07 19:47] VITALS: BP 181/93; PULSE 93; RESP 18; TEMP 36.6; O2SAT 96
== END 2020-05-07 20:48 | disposition home or self-care (01) ==
PROVIDERS: Emergency Provider Internal Medicine
DX: R11.15 Cyclical vomiting syndrome unrelated to migraine (principal); E11.9 Type 2 diabetes mellitus without complications; I10 Essential (primary) hypertension; Z79.4 Long term (current) use of insulin
CPT/HCPCS: 36415; 80048; 80076; 83735; 85025; 96361; 96374; 96375; 99284; J2060

== ENCOUNTER 2020-05-09 11:32 | Emergency (ER) | payer MEDICARE, OTHER, SELFPAY ==
--- NOTE | 2020-05-09 11:37 | ED.ABDPAIN ---
HPI - Abdominal Pain General Chief Complaint: Abdominal Pain Stated Complaint: ABD PAIN Time Seen by Provider: 05/09/20 11:37 Source: patient Mode of arrival: EMS Limitations: no limitations History of Present Illness HPI narrative: This episode of vomiting started last night states he needs his usual medication Pertinent past history: other (cyclical vomiting) Onset (ago): day(s) Pain Consistency: constant Location: diffuse Severity: mild Quality: aching Radiation: none Exacerbating factors: eating Relieving factors: medication Related Data Home Medications Medication Instructions Recorded Confirmed lorazepam 1 mg PO DAILY PRN 12/29/19 03/23/20 Lantus Solostar U-100 Insulin 30 unit SUBCUT BEDTIME 03/23/20 03/23/20 amlodipine 10 mg PO DAILY 03/23/20 03/23/20 aspirin 81 mg PO DAILY 03/23/20 03/23/20 atorvastatin 80 mg PO BEDTIME 03/23/20 03/23/20 cholecalciferol (vitamin D3) 25 mcg PO DAILY 03/23/20 03/23/20 hydralazine 50 mg PO BID 03/23/20 03/23/20 insulin aspart U-100 [Novolog See Protocol SUBCUT TIDAC 03/23/20 03/23/20 Flexpen U-100 Insulin] omeprazole 20 mg PO BID 03/23/20 03/23/20 polyethylene glycol 3350 [Miralax] 17 g PO DAILY 03/23/20 03/23/20 Allergies Allergy/AdvReac Type Severity Reaction Status Date / Time morphine Allergy Intermediate RASH Verified 04/25/20 07:24 Review of Systems Constitutional: Reports no additional constitutional complaints Eyes: Reports no additional eye complaints Denies dizziness Cardiovascular: Reports no additional cardiovascular complaints Respiratory: Reports as per HPI Gastrointestinal: Reports no additional gastrointestinal complaints Musculoskeletal: Reports no additional musculoskeletal complaints Skin/Breast: Denies rash Reports system reviewed and no additional complaints, except as documented, Denies dizziness and Denies Sensory deficit (Neuro) Psychiatric: Denies anxiety Physical Exam Vital Signs: Vital Signs: Last Vital Signs Temp 98.0 F 05/09/20 11:51 Pulse 83 05/09/20 11:51 Resp 18 05/09/20 11:51 BP 146/95 H 05/09/20 11:51 Pulse Ox 100 05/09/20 11:51 Body Mass Index 27.1 Const: Other: elderly male making moaning sounds but able to converse easily General: healthy appearing Nutritional Appearance: average body habitus Orientation/consciousness: oriented to person and patient oriented x3 Limitations: no limitations HENMT: Head: Yes normal to inspection Ears: external ears normal General nose exam: Normal external nose present Mouth: Normal oral and palatal mucosa present and oropharynx normal Throat: Yes posterior oropharynx normal Eyes: General: appearance normal, both eyes and all related structures Neck: Other: supple Neck: Yes normal visual inspection Chest: Chest palpation & inspection: normal inspection of the chest Resp: Auscultation: clear to auscultation bilaterally Cardio: Jugular venous distension: no JVD Rate: regular rate Rhythm: regular rhythm Heart sounds: S1 normal heart sound present and S2 normal heart sound present GI: Inspection: Yes normal to inspection Palpation (GI): Soft to palpation, nontender and No hepatosplenomegaly present Auscultation: normal bowel sounds : General: Yes no CVA tenderness Back/Spine/Pelvis: Back: no CVA tenderness Skin: General skin exam: no rashes or lesions noted Neuro: General: oriented to person and patient oriented x3 Cranial nerves: Yes CN's II-XII intact bilaterally Motor exam (neuro): 5/5 motor strength present throughout Sensory Exam: No Sensory deficit (Neuro) Extrem: General: Yes normal to inspection Psych: Appearance: grossly normal Course Course Course Narrative: Patient feeling better will dc home Discharge Plan Discharge Clinical Impression: Cyclical vomiting Patient Disposition: Home, Self-Care Instructions: Cyclic Vomiting Syndrome (ED) Prescriptions: No Action lorazepam 1 mg tablet 1 mg PO DAILY PRN (Reason: anxiety) RF: 0 insulin aspart U-100 [Novolog Flexpen U-100 Insulin] 100 unit/mL (3 mL) Insulin Pen See Protocol unit SUBCUT TIDAC RF: 0 Lantus Solostar U-100 Insulin 100 unit/mL (3 mL) Insulin Pen 30 unit SUBCUT BEDTIME RF: 0 atorvastatin 80 mg Tablet 80 mg PO BEDTIME RF: 0 polyethylene glycol 3350 [Miralax] 17 gram Powder In Packet 17 g PO DAILY RF: 0 amlodipine 10 mg Tablet 10 mg PO DAILY RF: 0 omeprazole 20 mg Capsule,Delayed Release(Dr/Ec) 20 mg PO BID RF: 0 aspirin 81 mg Tablet,Chewable 81 mg PO DAILY RF: 0 hydralazine 50 mg Tablet 50 mg PO BID RF: 0 cholecalciferol (vitamin D3) 25 mcg (1,000 unit) Tablet 25 mcg PO DAILY RF: 0 Referrals: Janet Marsh MD [Primary Care Provider] - 2 days PMF Past Medical History Medical History Cyclical vomiting Diabetes Gastroparesis HTN (hypertension) IDDM (insulin dependent diabetes mellitus) Kidney failure Vomiting Family History Family History Other Family history non-contributory Social History Social History Household Members: Spouse Housing: House Alcohol intake: never Smoking Status: Never smoker Substance Use Type: Marijuana Advance Directives: Yes Advance Directives on File: Yes Advance Directives Date on File: 02/12/20 service: Yes Current occupational status: retired
[2020-05-09 11:51] VITALS: BP 138/82; BP 146/95; PULSE 83; PULSE 88; RESP 18; TEMP 36.7; O2SAT 100; BMI 27.1
[2020-05-09] MEDS: LORazepam 2 MG/ML VIAL 1 MG IM (12:00)
[2020-05-09] MEDS: Haloperidol Lactate 5 MG/ML VIAL IM (12:00)
== END 2020-05-09 13:20 | disposition home or self-care (01) ==
PROVIDERS: Emergency Provider Emergency Medicine; PCP Internal Medicine
DX: R11.15 Cyclical vomiting syndrome unrelated to migraine (principal); E11.9 Type 2 diabetes mellitus without complications; Z79.4 Long term (current) use of insulin; Z79.899 Other long term (current) drug therapy; I10 Essential (primary) hypertension; F12.90 Cannabis use, unspecified, uncomplicated; F17.200 Nicotine dependence, unspecified, uncomplicated
CPT/HCPCS: 96372; 99283; 99284; J2060

== ENCOUNTER 2020-05-11 08:10 | Emergency (ER) | payer MEDICARE, OTHER, SELFPAY ==
--- NOTE | 2020-05-11 08:20 | ED.NAVMDI ---
HPI - Nausea/Vomiting/Diarrhea General Chief complaint: Nausea/Vomiting/Diarrhea Stated complaint: ABD PAIN, NAUSEA Time Seen by Provider: 05/11/20 08:20 Source: patient Mode of arrival: EMS Limitations: no limitations History of Present Illness HPI Narrative: patient vomiting since last night after eating a chicken salad sandwich. States he is not doing well MD elicited complaint: nausea, vomiting and abdominal pain Pertinent past history: cyclical vomiting Onset (ago): day(s) Exacerbating factors: eating Relieving factors: none Related Data Home Medications Medication Instructions Recorded Confirmed lorazepam 1 mg PO DAILY PRN 12/29/19 03/23/20 Lantus Solostar U-100 Insulin 30 unit SUBCUT BEDTIME 03/23/20 03/23/20 amlodipine 10 mg PO DAILY 03/23/20 03/23/20 aspirin 81 mg PO DAILY 03/23/20 03/23/20 atorvastatin 80 mg PO BEDTIME 03/23/20 03/23/20 cholecalciferol (vitamin D3) 25 mcg PO DAILY 03/23/20 03/23/20 hydralazine 50 mg PO BID 03/23/20 03/23/20 insulin aspart U-100 [Novolog See Protocol SUBCUT TIDAC 03/23/20 03/23/20 Flexpen U-100 Insulin] omeprazole 20 mg PO BID 03/23/20 03/23/20 polyethylene glycol 3350 [Miralax] 17 g PO DAILY 03/23/20 03/23/20 Allergies Allergy/AdvReac Type Severity Reaction Status Date / Time morphine Allergy Intermediate RASH Verified 04/25/20 07:24 Review of Systems Constitutional: Constitutional: Reports no additional constitutional complaints Eyes: Eyes: Reports no additional eye complaints ENT: Denies dizziness Cardiovascular: Cardiovascular: Reports no additional cardiovascular complaints Respiratory: Respiratory: Reports as per HPI Gastrointestinal: Gastrointestinal: Reports no additional gastrointestinal complaints Musculoskeletal: Musculoskeletal: Reports no additional musculoskeletal complaints Integumentary/Breasts: Skin/Breast: Denies rash Neurologic: Reports system reviewed and no additional complaints, except as documented, Denies dizziness and Denies Sensory deficit (Neuro) Psychiatric: Psychiatric: Denies anxiety PMF Past Medical History Medical History Cyclical vomiting Diabetes Gastroparesis HTN (hypertension) IDDM (insulin dependent diabetes mellitus) Kidney failure Vomiting Family History Family History Other Family history non-contributory Social History Social History Household Members: Spouse Housing: House Alcohol intake: never Smoking Status: Current some day smoker Use of substances other than those prescribed or required for medical reasons: No Substance Use Type: Marijuana Advance Directives: No Advance Directives Information Provided: No Advance Directives Date on File: 02/12/20 service: Yes Current occupational status: retired Physical Exam Vital Signs: Vital Signs: Last Vital Signs Temp 97.9 F 05/11/20 08:21 Pulse 85 05/11/20 08:21 Resp 16 05/11/20 08:21 BP 159/86 H 05/11/20 08:21 Pulse Ox 97 05/11/20 08:21 Body Mass Index 27.1 Const: Other: elderly male, blind moaning in pain, which is his typical presentation Nutritional Appearance: average body habitus Orientation/consciousness: oriented to person and patient oriented x3 Limitations: no limitations HENMT: Head: Yes normal to inspection Ears: external ears normal General nose exam: Normal external nose present Mouth: Normal oral and palatal mucosa present and oropharynx normal Throat: Yes posterior oropharynx normal Eyes: General: appearance normal, both eyes and all related structures Neck: Other: supple Neck: Yes normal visual inspection Chest: Chest palpation & inspection: normal inspection of the chest Resp: Auscultation: clear to auscultation bilaterally Cardio: Jugular venous distension: no JVD Rate: regular rate Rhythm: regular rhythm Heart sounds: S1 normal heart sound present and S2 normal heart sound present GI: Other: abdomen non focal patient states diffusely tender but soft Palpation (GI): Soft to palpation and No hepatosplenomegaly present Auscultation: normal bowel sounds : General: Yes no CVA tenderness Back/Spine/Pelvis: Back: no CVA tenderness Skin: General skin exam: no rashes or lesions noted Neuro: General: oriented to person and patient oriented x3 Cranial nerves: Yes CN's II-XII intact bilaterally Motor exam (neuro): 5/5 motor strength present throughout Sensory Exam: No Sensory deficit (Neuro) Extrem: General: Yes normal to inspection Psych: Appearance: grossly normal Course Course Course Narrative: feels better would like to go home MDM - Nausea/Vomiting/Diarrhea MDM Narrative Medical decision making narrative: cyclical vomiting, gastroparesis Lab Data Result diagrams: 05/11/20 09:07 05/11/20 09:07 Labs: Lab Results 05/11/20 05/11/20 Range/Units 09:07 09:07 WBC 7.2 (4.8-10.8) X10*3/uL RBC 4.08 L (4.60-5.80) X10*6/uL Hgb 12.0 L (14.0-18.0) g/dl Hct 37.3 L (42-52) % MCV 91.4 (80-98) fL MCH 29.4 (27.0-33.0) pg MCHC 32.2 (31.0-36.0) g/dl RDW 14.0 (11.0-16.0) % Plt Count 204 (160-400) X10*3/uL MPV 10.2 (9.4-12.4) fL Immature Gran % (Auto) 0.3 (0.0-0.4) % Neut % (Auto) 56.3 (45-73) % Lymph % (Auto) 31.6 (20-40) % [place] % (Auto) 10.2 (2-11) % Eos % (Auto) 1.0 (0-4) % Baso % (Auto) 0.6 (0-2) % Lymph # (Auto) 2.3 (1.2-4.9) X10*3/uL [place] # (Auto) 0.7 (0.1-1.2) X10*3/uL Eos # (Auto) 0.1 (0.0-0.4) X10*3/uL Baso # (Auto) 0.0 (0.0-0.2) X10*3/uL Abs Immat Gran (auto) 0.02 (0.00-0.03) X10*3/uL Absolute Neuts (auto) 4.1 (2.0-8.3) X10*3/uL Absolute Nucleated RBC 0.000 (0.0-0.012) X10*3/uL Nucleated RBC % (auto) 0.0 (0.0-0.2) /100WBC Sodium 138 (135-145) mmol/L Potassium 5.0 (3.3-5.1) mmol/L Chloride 102 (96-108) mmol/L Carbon Dioxide 25 (22-29) mmol/L Anion Gap 16 (12-20) BUN 55 H (9-16) mg/dL Creatinine 3.88 H (0.5-1.4) mg/dL Estim Creat Clear Calc 18.8 Estimated GFR 15 Random Glucose 104 D (60-115) mg/dL Calcium 8.8 (8.4-10.2) mg/dL Total Bilirubin 0.5 (0.0-1.0) mg/dL Direct Bilirubin 0.2 (0.0-0.5) mg/dL AST 17 (5-37) U/L ALT 8 (0-40) U/L Alkaline Phosphatase 143 H (39-117) U/L Total Protein 6.9 (6.5-8.0) g/dL Albumin 4.1 (3.5-5.0) g/dL Lipase 65 (8-78) U/L Discharge Plan Discharge Clinical Impression: Gastroparesis, Cyclical vomiting Patient Disposition: Home, Self-Care Instructions: Cyclic Vomiting Syndrome (ED) Prescriptions: No Action lorazepam 1 mg tablet 1 mg PO DAILY PRN (Reason: anxiety) RF: 0 insulin aspart U-100 [Novolog Flexpen U-100 Insulin] 100 unit/mL (3 mL) Insulin Pen See Protocol unit SUBCUT TIDAC RF: 0 Lantus Solostar U-100 Insulin 100 unit/mL (3 mL) Insulin Pen 30 unit SUBCUT BEDTIME RF: 0 atorvastatin 80 mg Tablet 80 mg PO BEDTIME RF: 0 polyethylene glycol 3350 [Miralax] 17 gram Powder In Packet 17 g PO DAILY RF: 0 amlodipine 10 mg Tablet 10 mg PO DAILY RF: 0 omeprazole 20 mg Capsule,Delayed Release(Dr/Ec) 20 mg PO BID RF: 0 aspirin 81 mg Tablet,Chewable 81 mg PO DAILY RF: 0 hydralazine 50 mg Tablet 50 mg PO BID RF: 0 cholecalciferol (vitamin D3) 25 mcg (1,000 unit) Tablet 25 mcg PO DAILY RF: 0 Referrals: Jacqueline Martinez MD [Primary Care Provider] - 5 days
[2020-05-11 08:21] VITALS: BP 122/82; BP 159/86; PULSE 60; PULSE 85; RESP 16; TEMP 36.6; O2SAT 97; BMI 27.1
[2020-05-11 09:12] LABS: MANUAL DIFF FLAG NO
[2020-05-11 09:14] LABS: Basophils Percent Auto 0.6 % (0-2); Eosinophils Absolute Auto 0.1 X10*3/uL (0.0-0.4); Hematocrit 37.3 % (42-52); Imm Gran Abs Auto 0.02 X10*3/uL (0.00-0.03); Imm Gran Pct Auto 0.3 % (0.0-0.4); Lymphocytes Absolute Auto 2.3 X10*3/uL (1.2-4.9); Lymphocytes Percent Auto 31.6 % (20-40); Mean Corpuscular HGB Conc 32.2 g/dl (31.0-36.0); Mean Corpuscular Hemoglobin 29.4 pg (27.0-33.0); Mean Corpuscular Volume 91.4 fL (80-98); Mean Platelet Volume 10.2 fL (9.4-12.4); Monocytes Absolute Auto 0.7 X10*3/uL (0.1-1.2); Monocytes Percent Auto 10.2 % (2-11); Neutrophils Absolute Auto 4.1 X10*3/uL (2.0-8.3); Neutrophils Percent Auto 56.3 % (45-73); Platelet Count 204 X10*3/uL (160-400); Red Blood Count 4.08 X10*6/uL (4.60-5.80); White Blood Count 7.2 X10*3/uL (4.8-10.8)
[2020-05-11] MEDS: ondansetron HCL 4 MG/2 ML VIAL IVPUSH (09:29)
[2020-05-11] MEDS: Pantoprazole Sodium 40 MG/10 ML VIAL IVPUSH (09:30)
[2020-05-11] MEDS: HaloperidoL 5 MG TABLET PO (09:30)
[2020-05-11] MEDS: diphenhydrAMINE HCL 50 MG/ML VIAL 25 MG IVPUSH (09:30)
[2020-05-11 09:41] LABS: Alanine Aminotransferase 8 U/L (0-40); Albumin Level 4.1 g/dL (3.5-5.0); Alkaline Phosphatase 143 U/L (39-117); Anion Gap 16 (12-20); Aspartate Amino Transferase 17 U/L (5-37); Bilirubin Direct 0.2 mg/dL (0.0-0.5); Bilirubin Total 0.5 mg/dL (0.0-1.0); Blood Urea Nitrogen 55 mg/dL (9-16); Calcium 8.8 mg/dL (8.4-10.2); Carbon Dioxide 25 mmol/L (22-29); Chloride 102 mmol/L (96-108); Creatinine Clr Calc Pharmacy 18.8; Estimated Glomerular Filt Rate 15; Glucose Random 104 mg/dL (60-115); Lipase 65 U/L (8-78); Sodium 138 mmol/L (135-145); Total Protein 6.9 g/dL (6.5-8.0)
--- NOTE | 2020-05-11 10:38 | PC.NURSE ---
pt states that he is ready to go home and requested [facility]. pt called his and left a message on voice mail.
== END 2020-05-11 10:54 | disposition home or self-care (01) ==
PROVIDERS: Emergency Provider Emergency Medicine; PCP Internal Medicine
DX: E11.43 Type 2 diabetes mellitus with diabetic autonomic (poly)neuropathy (principal); K31.84 Gastroparesis; R11.15 Cyclical vomiting syndrome unrelated to migraine; I10 Essential (primary) hypertension; Z79.4 Long term (current) use of insulin; Z79.899 Other long term (current) drug therapy; F17.200 Nicotine dependence, unspecified, uncomplicated; F12.90 Cannabis use, unspecified, uncomplicated; Z79.82 Long term (current) use of aspirin
CPT/HCPCS: 36415; 80048; 80076; 83690; 85025; 96374; 96375; 99283; 99284; J1200; J2405

== ENCOUNTER 2020-05-23 09:28 | Emergency (ER) | payer MEDICARE, OTHER, SELFPAY ==
[2020-05-23 09:35] VITALS: BP 152/92; PULSE 96; RESP 18; TEMP 36.7; O2SAT 97; BMI 27.1
--- NOTE | 2020-05-23 09:53 | ED.ABDPAIN ---
HPI - Abdominal Pain General Chief Complaint: Abdominal Pain Stated Complaint: ABD PAIN, N/V Time Seen by Provider: 05/23/20 09:50 Source: patient and EMS Mode of arrival: EMS Limitations: no limitations History of Present Illness HPI narrative: 69 year-old male history of insulin-dependent diabetes, complicated diabetic gastroparesis, hypertension, kidney failure, cyclic vomiting syndrome, patient is well known to the ED staff for recurrent visits to the emergency department for persistent vomiting, patient presented today with vomiting of nonbloody by loose, no diarrhea, patient normally gets treated with IV hydration fluids, Ativan, Zofran and if he feels better will go home. Patient reported abdominal pain with vomiting that is similar to his previous pain. Symptoms is worsening with p.o. intake, nothing relieved the symptoms, symptoms described as mild and intermittent. Related Data Home Medications Medication Instructions Recorded Confirmed lorazepam 1 mg PO DAILY PRN 12/29/19 03/23/20 Lantus Solostar U-100 Insulin 30 unit SUBCUT BEDTIME 03/23/20 03/23/20 amlodipine 10 mg PO DAILY 03/23/20 03/23/20 aspirin 81 mg PO DAILY 03/23/20 03/23/20 atorvastatin 80 mg PO BEDTIME 03/23/20 03/23/20 cholecalciferol (vitamin D3) 25 mcg PO DAILY 03/23/20 03/23/20 hydralazine 50 mg PO BID 03/23/20 03/23/20 insulin aspart U-100 [Novolog See Protocol SUBCUT TIDAC 03/23/20 03/23/20 Flexpen U-100 Insulin] omeprazole 20 mg PO BID 03/23/20 03/23/20 polyethylene glycol 3350 [Miralax] 17 g PO DAILY 03/23/20 03/23/20 Allergies Allergy/AdvReac Type Severity Reaction Status Date / Time morphine Allergy Intermediate RASH Verified 04/25/20 07:24 Review of Systems Review of Systems All other systems are reviewed and are negative Constitutional: Reports as per HPI and Reports no additional constitutional complaints Eyes: Reports as per HPI and Reports no additional eye complaints Reports system reviewed and no additional complaints, except as documented Cardiovascular: Reports as per HPI and Reports no additional cardiovascular complaints Respiratory: Reports as per HPI and Reports no additional respiratory complaints Gastrointestinal: Reports as per HPI and Reports no additional gastrointestinal complaints Genitourinary: Reports no additional female genitourinary complaints Musculoskeletal: Reports no additional musculoskeletal complaints Skin/Breast: Reports system reviewed and no additional complaints, except as docu Psychiatric: Reports no additional psychiatric complaints Endocrine: Reports no additional endocrine complaints Hematologic/Lymphatic: Reports no additional hematologic/lymphatic complaints Allergic/Immunologic: Reports no additional allergic/immunologic complaints Reports system reviewed and no additional complaints, except as documented and Reports Abnormal speech present Physical Exam Vital Signs: Vital Signs: Last Vital Signs Temp 98.1 F 05/23/20 09:35 Pulse 96 05/23/20 09:35 Resp 18 05/23/20 09:35 BP 152/92 H 05/23/20 09:35 Pulse Ox 97 05/23/20 09:35 Body Mass Index 27.1 Vital signs have been reviewed as appeared to be correct. Blood pressure: Hypertensive. Heart rate normal. Respiration rate normal. Temperature normal. Oxygen saturation normal. Appearance: Alert. Oriented X3. No acute distress. Head: Normal external exam. Normocephalic. Atraumatic. No Penn signs noted. No raccoon eyes noted Eyes: PERRLA. EOMI. Conjunctiva and sclera normal. Eyelids normal. ENT: TM's Normal. Pharynx normal. Uvula midline. Moist mucous membranes. No trismus noted. No drooling noted. No muffled voice noted. Neck: Normal inspection. Neck supple. FROM. No adenopathy. Thyroid Normal. No meningeal signs. No neck mass noted. CVS: Normal heart rate and rhythm. Heart sound normal. No murmurs noted. Pulses normal throughout. Respiratory: No respiratory distress. Painless inspiration. Breath sounds normal. No wheezes/rales/rhonchi noted. Chest nontender. No accessory muscle usage noted or decreased air movement noted. Abdomen: Soft and nontender. Bowel sounds normal in all 4 quadrants. No distention noted. No organomegaly noted. No visible injury noted. Back: No CVA tenderness. Full range of motion noted. Skin: Skin warm and dry. Normal skin color. Normal skin turgor. No rashes/lesions/lacerations noted. Extremities: No lower extremity edema. Extremities exhibit normal range of motion. Extremities nontender. Neuro: Oriented X 3. No motor deficit. No sensory deficit. Reflexes normal. Course Course Course Narrative: Assessment and plan. 69 year-old male with insulin-dependent diabetes and complicated gastroparesis. Several ED visits for similar symptoms, patient improved after was given IV fluids/Ativan/do Bahman, patient is able to tolerate p.o. intake. Will discharge the patient to follow-up with PCP. MDM - Abdominal Pain Lab Data Attestation: I reviewed the patient's lab results. Result diagrams: 05/23/20 10:17 05/23/20 10:17 Labs: Lab Results 05/23/20 05/23/20 Range/Units 10:17 10:17 WBC 6.1 (4.8-10.8) X10*3/uL RBC 4.46 L (4.60-5.80) X10*6/uL Hgb 12.9 L (14.0-18.0) g/dl Hct 40.6 L (42-52) % MCV 91.0 (80-98) fL MCH 28.9 (27.0-33.0) pg MCHC 31.8 (31.0-36.0) g/dl RDW 13.8 (11.0-16.0) % Plt Count 194 (160-400) X10*3/uL MPV 10.6 (9.4-12.4) fL Immature Gran % (Auto) 0.2 (0.0-0.4) % Neut % (Auto) 63.5 (45-73) % Lymph % (Auto) 27.1 (20-40) % [place] % (Auto) 7.1 (2-11) % Eos % (Auto) 1.3 (0-4) % Baso % (Auto) 0.8 (0-2) % Lymph # (Auto) 1.7 (1.2-4.9) X10*3/uL [place] # (Auto) 0.4 (0.1-1.2) X10*3/uL Eos # (Auto) 0.1 (0.0-0.4) X10*3/uL Baso # (Auto) 0.1 (0.0-0.2) X10*3/uL Abs Immat Gran (auto) 0.01 (0.00-0.03) X10*3/uL Absolute Neuts (auto) 3.9 (2.0-8.3) X10*3/uL Absolute Nucleated RBC 0.000 (0.0-0.012) X10*3/uL Nucleated RBC % (auto) 0.0 (0.0-0.2) /100WBC Sodium 140 (135-145) mmol/L Potassium 4.7 (3.3-5.1) mmol/L Chloride 107 (96-108) mmol/L Carbon Dioxide 25 (22-29) mmol/L Anion Gap 13 (12-20) BUN 38 H (9-16) mg/dL Creatinine 3.15 H (0.5-1.4) mg/dL Estim Creat Clear Calc 23.2 Estimated GFR 20 Random Glucose 135 H (60-115) mg/dL Calcium 8.6 (8.4-10.2) mg/dL Total Bilirubin 0.5 (0.0-1.0) mg/dL Direct Bilirubin 0.3 (0.0-0.5) mg/dL AST 13 (5-37) U/L ALT < 6 (0-40) U/L Alkaline Phosphatase 128 H (39-117) U/L Total Protein 6.6 (6.5-8.0) g/dL Albumin 3.8 (3.5-5.0) g/dL Lipase 43 (8-78) U/L Discharge Plan Discharge Clinical Impression: Gastroparesis Patient Disposition: Home, Self-Care Instructions: Gastroparesis (ED) Prescriptions: No Action lorazepam 1 mg tablet 1 mg PO DAILY PRN (Reason: anxiety) RF: 0 insulin aspart U-100 [Novolog Flexpen U-100 Insulin] 100 unit/mL (3 mL) Insulin Pen See Protocol unit SUBCUT TIDAC RF: 0 Lantus Solostar U-100 Insulin 100 unit/mL (3 mL) Insulin Pen 30 unit SUBCUT BEDTIME RF: 0 atorvastatin 80 mg Tablet 80 mg PO BEDTIME RF: 0 polyethylene glycol 3350 [Miralax] 17 gram Powder In Packet 17 g PO DAILY RF: 0 amlodipine 10 mg Tablet 10 mg PO DAILY RF: 0 omeprazole 20 mg Capsule,Delayed Release(Dr/Ec) 20 mg PO BID RF: 0 aspirin 81 mg Tablet,Chewable 81 mg PO DAILY RF: 0 hydralazine 50 mg Tablet 50 mg PO BID RF: 0 cholecalciferol (vitamin D3) 25 mcg (1,000 unit) Tablet 25 mcg PO DAILY RF: 0 Referrals: Jacqueline Martinez MD [Primary Care Provider] - 2 days [facility] Past Medical History Medical History Cyclical vomiting Diabetes Gastroparesis HTN (hypertension) IDDM (insulin dependent diabetes mellitus) Kidney failure Vomiting Family History Family History Other Family history non-contributory Social History Social History Household Members: Spouse Housing: House Alcohol intake: never Smoking Status: Current some day smoker Substance Use Type: Marijuana Advance Directives: Yes Advance Directives on File: Yes Advance Directives Date on File: 02/12/20 service: Yes Current occupational status: retired
[2020-05-23 10:21] LABS: MANUAL DIFF FLAG NO
[2020-05-23] MEDS: 0.9 % Sodium Chloride 1,000 ML 999 ML IVCONT (10:21)
[2020-05-23] MEDS: ondansetron HCL 4 MG/2 ML VIAL IVPUSH (10:21)
[2020-05-23] MEDS: LORazepam 2 MG/ML VIAL 1 MG IVPUSH (10:21)
[2020-05-23 10:26] LABS: Basophils Absolute Auto 0.1 X10*3/uL (0.0-0.2); Basophils Percent Auto 0.8 % (0-2); Eosinophils Absolute Auto 0.1 X10*3/uL (0.0-0.4); Eosinophils Percent Auto 1.3 % (0-4); Hematocrit 40.6 % (42-52); Hemoglobin 12.9 g/dl (14.0-18.0); Imm Gran Abs Auto 0.01 X10*3/uL (0.00-0.03); Imm Gran Pct Auto 0.2 % (0.0-0.4); Lymphocytes Absolute Auto 1.7 X10*3/uL (1.2-4.9); Lymphocytes Percent Auto 27.1 % (20-40); Mean Corpuscular HGB Conc 31.8 g/dl (31.0-36.0); Mean Corpuscular Hemoglobin 28.9 pg (27.0-33.0); Mean Platelet Volume 10.6 fL (9.4-12.4); Monocytes Absolute Auto 0.4 X10*3/uL (0.1-1.2); Monocytes Percent Auto 7.1 % (2-11); Neutrophils Absolute Auto 3.9 X10*3/uL (2.0-8.3); Neutrophils Percent Auto 63.5 % (45-73); Platelet Count 194 X10*3/uL (160-400); Red Blood Count 4.46 X10*6/uL (4.60-5.80); Red Cell Distribution Width 13.8 % (11.0-16.0); White Blood Count 6.1 X10*3/uL (4.8-10.8)
[2020-05-23 11:03] LABS: Alanine Aminotransferase < 6 U/L (0-40); Albumin Level 3.8 g/dL (3.5-5.0); Alkaline Phosphatase 128 U/L (39-117); Anion Gap 13 (12-20); Aspartate Amino Transferase 13 U/L (5-37); Bilirubin Direct 0.3 mg/dL (0.0-0.5); Bilirubin Total 0.5 mg/dL (0.0-1.0); Blood Urea Nitrogen 38 mg/dL (9-16); Calcium 8.6 mg/dL (8.4-10.2); Carbon Dioxide 25 mmol/L (22-29); Chloride 107 mmol/L (96-108); Creatinine Clr Calc Pharmacy 23.2; Estimated Glomerular Filt Rate 20; Glucose Random 135 mg/dL (60-115); Lipase 43 U/L (8-78); Potassium 4.7 mmol/L (3.3-5.1); Sodium 140 mmol/L (135-145); Total Protein 6.6 g/dL (6.5-8.0)
== END 2020-05-23 13:34 | disposition home or self-care (01) ==
PROVIDERS: Emergency Provider Emergency Medicine; PCP Internal Medicine
DX: E11.43 Type 2 diabetes mellitus with diabetic autonomic (poly)neuropathy (principal); I10 Essential (primary) hypertension; Z79.4 Long term (current) use of insulin; F12.90 Cannabis use, unspecified, uncomplicated
CPT/HCPCS: 36415; 80048; 80076; 83690; 85025; 96361; 96374; 96375; 99283; 99284; J2060; J2405

== ENCOUNTER 2020-05-25 04:37 | Emergency (ER) | payer MEDICARE, OTHER, SELFPAY ==
[2020-05-25 04:45] VITALS: BP 155/93; PULSE 101; RESP 20; TEMP 37.1; O2SAT 95; O2SAT 97; BMI 27.1
--- NOTE | 2020-05-25 06:02 | PC.NURSE ---
PAPER DOCUMENTATION DUE TO DOWNTIME FOR COMPUTER UPDATES, PATIENT RECEIVED IN THE SYSTEM WHEN BACK ON LINE AT 6AM
--- NOTE | 2020-05-25 06:19 | ED_ITS ---
HPI - Nausea/Vomiting/Diarrhea General Chief complaint: Nausea/Vomiting/Diarrhea Time Seen by Provider: 05/25/20 06:18 Source: patient Mode of arrival: ambulatory Limitations: no limitations History of Present Illness HPI Narrative: Patient's T of chronic gastritis cyclic vomiting/anxiety been here frequently for similar complaints of vomiting comes here for vomiting for just 2 hours prior to arrival no vomitus was seen by EMS patient was seen putting his fingers in his mouth at his home to vomit MD elicited complaint: nausea and vomiting Pertinent past history: cyclical vomiting Onset (ago): hour(s) Description of vomiting: watery Related Data Home Medications Medication Instructions Recorded Confirmed lorazepam 1 mg PO DAILY PRN 12/29/19 03/23/20 Lantus Solostar U-100 Insulin 30 unit SUBCUT BEDTIME 03/23/20 03/23/20 amlodipine 10 mg PO DAILY 03/23/20 03/23/20 aspirin 81 mg PO DAILY 03/23/20 03/23/20 atorvastatin 80 mg PO BEDTIME 03/23/20 03/23/20 cholecalciferol (vitamin D3) 25 mcg PO DAILY 03/23/20 03/23/20 hydralazine 50 mg PO BID 03/23/20 03/23/20 insulin aspart U-100 [Novolog See Protocol SUBCUT TIDAC 03/23/20 03/23/20 Flexpen U-100 Insulin] omeprazole 20 mg PO BID 03/23/20 03/23/20 polyethylene glycol 3350 [Miralax] 17 g PO DAILY 03/23/20 03/23/20 Allergies Allergy/AdvReac Type Severity Reaction Status Date / Time morphine Allergy Intermediate RASH Verified 04/25/20 07:24 Review of Systems Review of Systems: Constitutional : No Weight loss, No Fever, No Chills ENT/Mouth : No sore throat, No Rhinorrhea Eyes: No Eye Pain, No Swelling Cardiovascular : No Chest Pain, no palpitations Respiratory : No Cough, No Sputum, no shortness of breath Gastrointestinal : + Nausea, + Vomiting, No Diarrhea, No abdominal Pain, no black stools Genitourinary : No Dysuria, No Urinary Frequency Musculoskeletal : No joint pain, No Myalgias, No Joint Swelling Skin : No Skin Lesions, No rash Neuro : No Weakness, No Numbness, No Dizziness, No Headache Psych : No Anxiety/Panic, No Depression Heme/Lymph: No Bruising, No Lymphadenopathy Endocrine : No Polyuria, No Polydipsia All other systems reviewed and are negative [facility] Past Medical History Medical History Cyclical vomiting Diabetes Gastroparesis HTN (hypertension) IDDM (insulin dependent diabetes mellitus) Kidney failure Vomiting Family History Family History Other Family history non-contributory Social History Social History Household Members: Spouse Housing: House Alcohol intake: never Smoking Status: Never smoker Use of substances other than those prescribed or required for medical reasons: No Substance Use Type: Marijuana Advance Directives: Yes Advance Directives on File: Yes Advance Directives Date on File: 02/12/20 service: Yes Current occupational status: retired Physical Exam Vital Signs: Vital Signs: Last Vital Signs Temp 98.7 F 05/25/20 04:45 Pulse 101 H 05/25/20 04:45 Resp 20 05/25/20 04:45 BP 155/93 H 05/25/20 04:45 Pulse Ox 95 05/25/20 04:45 Body Mass Index 27.1 Appearance: Alert. Oriented X3. No acute distress. Anxious Eyes: Legally blind ENT: Pharynx normal. Neck: Normal inspection. Neck supple. CVS: Normal heart rate and rhythm. Pulses normal. Respiratory: No respiratory distress. Breath sounds normal. Abdomen: Soft and nontender. Bowel sounds are present, no mass palpable, no CVA tenderness Skin: Skin warm and dry. Normal skin color. Normal skin turgor. Extremities: No lower extremity edema. Neuro: Oriented X 3. No motor deficit. No sensory deficit. MDM - Nausea/Vomiting/Diarrhea MDM Narrative Medical decision making narrative: Patient with cyclic vomiting syndrome feeling much better after Haldol and Ativan sleeping at this time no active vomiting notice will discharge patient home Lab Data Labs: Lab Results 05/25/20 Range/Units 06:20 POC Glucose 195 H (60-115) mg/dL Discharge Plan Discharge Clinical Impression: Cyclic vomiting syndrome Patient Disposition: Home, Self-Care Instructions: Cyclic Vomiting Syndrome (ED) Additional Instructions: Take medication as prescribed by your PCP Prescriptions: No Action lorazepam 1 mg tablet 1 mg PO DAILY PRN (Reason: anxiety) RF: 0 insulin aspart U-100 [Novolog Flexpen U-100 Insulin] 100 unit/mL (3 mL) Insulin Pen See Protocol unit SUBCUT TIDAC RF: 0 Lantus Solostar U-100 Insulin 100 unit/mL (3 mL) Insulin Pen 30 unit SUBCUT BEDTIME RF: 0 atorvastatin 80 mg Tablet 80 mg PO BEDTIME RF: 0 polyethylene glycol 3350 [Miralax] 17 gram Powder In Packet 17 g PO DAILY RF: 0 amlodipine 10 mg Tablet 10 mg PO DAILY RF: 0 omeprazole 20 mg Capsule,Delayed Release(Dr/Ec) 20 mg PO BID RF: 0 aspirin 81 mg Tablet,Chewable 81 mg PO DAILY RF: 0 hydralazine 50 mg Tablet 50 mg PO BID RF: 0 cholecalciferol (vitamin D3) 25 mcg (1,000 unit) Tablet 25 mcg PO DAILY RF: 0
[2020-05-25 06:23] LABS: Glucose, Whole Blood 195 mg/dL (60-115)
--- NOTE | 2020-05-25 06:55 | PC.NURSE ---
REPORT TAKEN FROM NORMA RN PT APPEARS TO BE SLEEPING AT THIS TIME, LYING ON L SIDE, RR EVEN/UNLABORED. NO N/V NOTED AT THIS TIME. AWAITING RIDE HOME THIS MORINING. WCTM.
[2020-05-25] MEDS: Haloperidol Lactate 5 MG/ML VIAL 2 MG IM (07:00)
[2020-05-25] MEDS: LORazepam 2 MG/ML VIAL IM (07:00)
--- NOTE | 2020-05-25 07:17 | PC.NURSE ---
PT ALERT TO VERBAL STIMULI, STS FEELING BETTER. JUST CALLED PT AND NO ANSWER, MESSAGE LEFT,.
== END 2020-05-25 07:37 | disposition home or self-care (01) ==
PROVIDERS: Emergency Provider Internal Medicine; PCP Internal Medicine
DX: R11.15 Cyclical vomiting syndrome unrelated to migraine (principal); E11.9 Type 2 diabetes mellitus without complications; I10 Essential (primary) hypertension; Z79.4 Long term (current) use of insulin; F12.90 Cannabis use, unspecified, uncomplicated
CPT/HCPCS: 82947; 96372; 99284; J2060

== ENCOUNTER 2020-05-27 15:52 | Emergency (ER) | payer OTHER, MEDICARE, SELFPAY ==
[2020-05-27 15:57] VITALS: BP 161/84; PULSE 85; RESP 16; TEMP 36.4; O2SAT 98; BMI 27.8
--- NOTE | 2020-05-27 16:18 | ED_ITS ---
HPI - Nausea/Vomiting/Diarrhea General Chief complaint: Nausea/Vomiting/Diarrhea Stated complaint: NAUSEA Time Seen by Provider: 05/27/20 16:17 Source: patient and EMS Mode of arrival: EMS Limitations: no limitations History of Present Illness HPI Narrative: This is a 69-year-old male history of insulin-dependent diabetes, and chronic history of gastroparesis patient had multiple ED visits for similar presentation today, patient presented today with 1 day of nausea vomiting no diarrhea usual upper abdominal pain, started 1 day ago pain is localized to the upper abdomen with no radiation, described the pain as cramps, intermittent in nature, when it is severe it is 5/10 now pain is 0/10, food will make the sy mptoms worse nothing make it better, had multiple episode of similar symptoms in the past with multiple ED visits. MD elicited complaint: nausea, vomiting, diarrhea and abdominal pain Related Data Home Medications Medication Instructions Recorded Confirmed lorazepam 1 mg PO DAILY PRN 12/29/19 03/23/20 Lantus Solostar U-100 Insulin 30 unit SUBCUT BEDTIME 03/23/20 03/23/20 amlodipine 10 mg PO DAILY 03/23/20 03/23/20 aspirin 81 mg PO DAILY 03/23/20 03/23/20 atorvastatin 80 mg PO BEDTIME 03/23/20 03/23/20 cholecalciferol (vitamin D3) 25 mcg PO DAILY 03/23/20 03/23/20 hydralazine 50 mg PO BID 03/23/20 03/23/20 insulin aspart U-100 [Novolog See Protocol SUBCUT TIDAC 03/23/20 03/23/20 Flexpen U-100 Insulin] omeprazole 20 mg PO BID 03/23/20 03/23/20 polyethylene glycol 3350 [Miralax] 17 g PO DAILY 03/23/20 03/23/20 Allergies Allergy/AdvReac Type Severity Reaction Status Date / Time morphine Allergy Intermediate RASH Verified 04/25/20 07:24 Review of Systems Review of Systems: All other systems are reviewed and are negative Constitutional: Reports as per HPI and Reports no additional constitutional complaints Eyes: Reports as per HPI and Reports no additional eye complaints Reports system reviewed and no additional complaints, except as documented Cardiovascular: Reports as per HPI and Reports no additional cardiovascular complaints Respiratory: Reports as per HPI and Reports no additional respiratory complaints Gastrointestinal: Reports as per HPI and Reports no additional gastrointestinal complaints Genitourinary: Reports no additional female genitourinary complaints Musculoskeletal: Reports no additional musculoskeletal complaints Skin/Breast: Reports system reviewed and no additional complaints, except as docu Psychiatric: Reports no additional psychiatric complaints Endocrine: Reports no additional endocrine complaints Hematologic/Lymphatic: Reports no additional hematologic/lymphatic complaints Allergic/Immunologic: Reports no additional allergic/immunologic complaints Reports system reviewed and no additional complaints, except as documented and Reports Abnormal speech present [facility] Past Medical History Medical History Cyclical vomiting Diabetes Gastroparesis HTN (hypertension) IDDM (insulin dependent diabetes mellitus) Kidney failure Vomiting Family History Family History Other Family history non-contributory Social History Social History Household Members: Spouse Housing: House Alcohol intake: never Smoking Status: Never smoker Use of substances other than those prescribed or required for medical reasons: Yes Substance Use Type: Marijuana Substance Use Frequency: Occasionally Advance Directives: Yes Advance Directives on File: Yes Advance Directives Date on File: 02/12/20 service: Yes Current occupational status: retired Physical Exam Vital Signs: Vital Signs: Last Vital Signs Temp 98.3 F 05/27/20 17:20 Pulse 85 05/27/20 17:20 Resp 16 05/27/20 17:20 BP 155/78 H 05/27/20 17:20 Pulse Ox 97 05/27/20 17:20 Body Mass Index 27.8 Vital signs have been reviewed as appeared to be correct. Blood pressure in the high range. Heart rate normal. Respiration rate normal. Temperature normal. Oxygen saturation normal. Appearance: Alert. Oriented X3. No acute distress. Head: Normal external exam. Normocephalic. Atraumatic. No Penn signs noted. No raccoon eyes noted Eyes: PERRLA. EOMI. Conjunctiva and sclera normal. Eyelids normal. ENT: TM's Normal. Pharynx normal. Uvula midline. Moist mucous membranes. No trismus noted. No drooling noted. No muffled voice noted. Neck: Normal inspection. Neck supple. FROM. No adenopathy. Thyroid Normal. No meningeal signs. No neck mass noted. CVS: Normal heart rate and rhythm. Heart sound normal. No murmurs noted. Pulses normal throughout. Respiratory: No respiratory distress. Painless inspiration. Breath sounds normal. No wheezes/rales/rhonchi noted. Chest nontender. No accessory muscle usage noted or decreased air movement noted. Abdomen: Soft and nontender. Bowel sounds normal in all 4 quadrants. No distention noted. No organomegaly noted. No visible injury noted. Back: No CVA tenderness. Full range of motion noted. Skin: Skin warm and dry. Normal skin color. Normal skin turgor. No rashes/lesions/lacerations noted. Extremities: No lower extremity edema. Extremities exhibit normal range of motion. Extremities nontender. Neuro: Oriented X 3. No motor deficit. No sensory deficit. Reflexes normal. Course Course Course Narrative: Assessment and plan. 69 year-old male with insulin-dependent diabetes and with diabetic gastroparesis. Patient's lab and vital signs and exam at his normal baseline. Patient feels better, able to tolerate p.o. intake in the emergency department. Will discharge the patient MDM - Nausea/Vomiting/Diarrhea Lab Data Attestation: I reviewed the patient's lab results. Result diagrams: 05/27/20 16:41 05/27/20 16:41 Labs: Lab Results 05/27/20 05/27/20 Range/Units 16:41 16:41 WBC 7.7 (4.8-10.8) X10*3/uL RBC 4.10 L (4.60-5.80) X10*6/uL Hgb 11.9 L (14.0-18.0) g/dl Hct 37.6 L (42-52) % MCV 91.7 (80-98) fL MCH 29.0 (27.0-33.0) pg MCHC 31.6 (31.0-36.0) g/dl RDW 14.3 (11.0-16.0) % Plt Count 190 (160-400) X10*3/uL MPV 10.6 (9.4-12.4) fL Immature Gran % (Auto) 0.3 (0.0-0.4) % Neut % (Auto) 62.5 (45-73) % Lymph % (Auto) 26.9 (20-40) % [place] % (Auto) 8.8 (2-11) % Eos % (Auto) 0.9 (0-4) % Baso % (Auto) 0.6 (0-2) % Lymph # (Auto) 2.1 (1.2-4.9) X10*3/uL [place] # (Auto) 0.7 (0.1-1.2) X10*3/uL Eos # (Auto) 0.1 (0.0-0.4) X10*3/uL Baso # (Auto) 0.1 (0.0-0.2) X10*3/uL Abs Immat Gran (auto) 0.02 (0.00-0.03) X10*3/uL Absolute Neuts (auto) 4.8 (2.0-8.3) X10*3/uL Absolute Nucleated RBC 0.000 (0.0-0.012) X10*3/uL Nucleated RBC % (auto) 0.0 (0.0-0.2) /100WBC Sodium 139 (135-145) mmol/L Potassium 5.1 (3.3-5.1) mmol/L Chloride 103 (96-108) mmol/L Carbon Dioxide 28 (22-29) mmol/L Anion Gap 13 (12-20) BUN 44 H (9-16) mg/dL Creatinine 3.38 H (0.5-1.4) mg/dL Estim Creat Clear Calc 23.4 Estimated GFR 18 Random Glucose 328 H D (60-115) mg/dL Calcium 8.4 (8.4-10.2) mg/dL Total Bilirubin 0.4 (0.0-1.0) mg/dL Direct Bilirubin 0.2 (0.0-0.5) mg/dL AST 14 (5-37) U/L ALT < 6 (0-40) U/L Alkaline Phosphatase 150 H (39-117) U/L Total Protein 6.4 L (6.5-8.0) g/dL Albumin 3.5 (3.5-5.0) g/dL Lipase 84 H (8-78) U/L Discharge Plan Discharge Clinical Impression: Gastroparesis Patient Disposition: Home, Self-Care Instructions: Diabetic Gastroparesis (DC) Prescriptions: No Action lorazepam 1 mg tablet 1 mg PO DAILY PRN (Reason: anxiety) RF: 0 insulin aspart U-100 [Novolog Flexpen U-100 Insulin] 100 unit/mL (3 mL) Insulin Pen See Protocol unit SUBCUT TIDAC RF: 0 Lantus Solostar U-100 Insulin 100 unit/mL (3 mL) Insulin Pen 30 unit SUBCUT BEDTIME RF: 0 atorvastatin 80 mg Tablet 80 mg PO BEDTIME RF: 0 polyethylene glycol 3350 [Miralax] 17 gram Powder In Packet 17 g PO DAILY RF: 0 amlodipine 10 mg Tablet 10 mg PO DAILY RF: 0 omeprazole 20 mg Capsule,Delayed Release(Dr/Ec) 20 mg PO BID RF: 0 aspirin 81 mg Tablet,Chewable 81 mg PO DAILY RF: 0 hydralazine 50 mg Tablet 50 mg PO BID RF: 0 cholecalciferol (vitamin D3) 25 mcg (1,000 unit) Tablet 25 mcg PO DAILY RF: 0 Referrals: Jacqueline Martinez MD [Primary Care Provider] - 2 days
[2020-05-27 16:45] LABS: MANUAL DIFF FLAG NO
[2020-05-27 16:48] LABS: Basophils Absolute Auto 0.1 X10*3/uL (0.0-0.2); Basophils Percent Auto 0.6 % (0-2); Eosinophils Absolute Auto 0.1 X10*3/uL (0.0-0.4); Eosinophils Percent Auto 0.9 % (0-4); Hematocrit 37.6 % (42-52); Hemoglobin 11.9 g/dl (14.0-18.0); Imm Gran Abs Auto 0.02 X10*3/uL (0.00-0.03); Imm Gran Pct Auto 0.3 % (0.0-0.4); Lymphocytes Absolute Auto 2.1 X10*3/uL (1.2-4.9); Lymphocytes Percent Auto 26.9 % (20-40); Mean Corpuscular HGB Conc 31.6 g/dl (31.0-36.0); Mean Corpuscular Volume 91.7 fL (80-98); Mean Platelet Volume 10.6 fL (9.4-12.4); Monocytes Absolute Auto 0.7 X10*3/uL (0.1-1.2); Monocytes Percent Auto 8.8 % (2-11); Neutrophils Absolute Auto 4.8 X10*3/uL (2.0-8.3); Neutrophils Percent Auto 62.5 % (45-73); Platelet Count 190 X10*3/uL (160-400); Red Cell Distribution Width 14.3 % (11.0-16.0); White Blood Count 7.7 X10*3/uL (4.8-10.8)
[2020-05-27] MEDS: 0.9 % Sodium Chloride 1,000 ML 999 ML IVCONT (16:49)
[2020-05-27] MEDS: LORazepam 2 MG/ML VIAL 1 MG IVPUSH (16:49)
[2020-05-27] MEDS: ondansetron HCL 4 MG/2 ML VIAL IVPUSH (16:49)
[2020-05-27 17:20] VITALS: BP 155/78; PULSE 85; RESP 16; TEMP 36.8; O2SAT 97
[2020-05-27 17:25] LABS: Alanine Aminotransferase < 6 U/L (0-40); Albumin Level 3.5 g/dL (3.5-5.0); Alkaline Phosphatase 150 U/L (39-117); Anion Gap 13 (12-20); Aspartate Amino Transferase 14 U/L (5-37); Bilirubin Direct 0.2 mg/dL (0.0-0.5); Bilirubin Total 0.4 mg/dL (0.0-1.0); Blood Urea Nitrogen 44 mg/dL (9-16); Calcium 8.4 mg/dL (8.4-10.2); Carbon Dioxide 28 mmol/L (22-29); Chloride 103 mmol/L (96-108); Creatinine Clr Calc Pharmacy 23.4; Estimated Glomerular Filt Rate 18; Glucose Random 328 mg/dL (60-115); Potassium 5.1 mmol/L (3.3-5.1); Sodium 139 mmol/L (135-145); Total Protein 6.4 g/dL (6.5-8.0)
[2020-05-27 17:40] LABS: Lipase 84 U/L (8-78)
== END 2020-05-27 18:20 | disposition home or self-care (01) ==
PROVIDERS: Emergency Provider Emergency Medicine; PCP Internal Medicine
DX: E11.43 Type 2 diabetes mellitus with diabetic autonomic (poly)neuropathy (principal); K31.84 Gastroparesis; R11.2 Nausea with vomiting, unspecified; R19.7 Diarrhea, unspecified; I10 Essential (primary) hypertension; F12.90 Cannabis use, unspecified, uncomplicated; Z79.4 Long term (current) use of insulin
CPT/HCPCS: 36415; 80048; 80076; 83690; 85025; 96361; 96374; 96375; 99284; J2060; J2405

== ENCOUNTER 2020-05-31 13:21 | Emergency (ER) | payer OTHER, MEDICARE, SELFPAY ==
[2020-05-31 13:27] VITALS: BP 138/79; PULSE 99; RESP 16; TEMP 36.6; O2SAT 99; BMI 27.1
[2020-05-31 14:31] LABS: MANUAL DIFF FLAG NO
[2020-05-31 14:34] LABS: Basophils Absolute Auto 0.1 X10*3/uL (0.0-0.2); Basophils Percent Auto 0.7 % (0-2); Eosinophils Absolute Auto 0.1 X10*3/uL (0.0-0.4); Eosinophils Percent Auto 0.9 % (0-4); Hematocrit 44.5 % (42-52); Hemoglobin 14.3 g/dl (14.0-18.0); Imm Gran Abs Auto 0.02 X10*3/uL (0.00-0.03); Imm Gran Pct Auto 0.3 % (0.0-0.4); Lymphocytes Absolute Auto 1.7 X10*3/uL (1.2-4.9); Lymphocytes Percent Auto 25.4 % (20-40); Mean Corpuscular HGB Conc 32.1 g/dl (31.0-36.0); Mean Corpuscular Hemoglobin 29.5 pg (27.0-33.0); Mean Corpuscular Volume 91.8 fL (80-98); Mean Platelet Volume 10.1 fL (9.4-12.4); Monocytes Absolute Auto 0.5 X10*3/uL (0.1-1.2); Monocytes Percent Auto 6.9 % (2-11); Neutrophils Absolute Auto 4.5 X10*3/uL (2.0-8.3); Neutrophils Percent Auto 65.8 % (45-73); Platelet Count 226 X10*3/uL (160-400); Red Blood Count 4.85 X10*6/uL (4.60-5.80); Red Cell Distribution Width 13.9 % (11.0-16.0); White Blood Count 6.8 X10*3/uL (4.8-10.8)
[2020-05-31] MEDS: Haloperidol Lactate 5 MG/ML VIAL IM (14:41)
[2020-05-31] MEDS: ondansetron HCL 4 MG/2 ML VIAL IVPUSH (14:41)
[2020-05-31] MEDS: diphenhydrAMINE HCL 50 MG/ML VIAL 25 MG IVPUSH (14:41)
[2020-05-31 15:08] LABS: Alanine Aminotransferase < 6 U/L (0-40); Albumin Level 3.8 g/dL (3.5-5.0); Alkaline Phosphatase 128 U/L (39-117); Anion Gap 14 (12-20); Aspartate Amino Transferase 13 U/L (5-37); Bilirubin Direct 0.3 mg/dL (0.0-0.5); Bilirubin Total 0.8 mg/dL (0.0-1.0); Blood Urea Nitrogen 36 mg/dL (9-16); Calcium 9.1 mg/dL (8.4-10.2); Carbon Dioxide 27 mmol/L (22-29); Chloride 101 mmol/L (96-108); Estimated Glomerular Filt Rate 18; Glucose Random 180 mg/dL (60-115); Lipase 39 U/L (8-78); Magnesium 2.5 mg/dL (1.6-2.6); Potassium 4.9 mmol/L (3.3-5.1); Sodium 137 mmol/L (135-145)
[2020-05-31] MEDS: 0.9 % Sodium Chloride 1,000 ML 999 ML IVCONT (15:21)
--- NOTE | 2020-05-31 15:41 | ED.NAVMDI ---
HPI - Nausea/Vomiting/Diarrhea General Chief complaint: Nausea/Vomiting/Diarrhea Stated complaint: ABD PAIN Time Seen by Provider: 05/31/20 14:02 Source: patient and EMS Mode of arrival: EMS History of Present Illness HPI Narrative: 69-year-old male with a past medical history of diabetes, diabetic gastroparesis, hypertension, chronic kidney disease, BIBA for diffuse abdominal pain and nausea since today. Also reports decreased p.o. intake. Denies fever, chills, vomiting, diarrhea MD elicited complaint: nausea and abdominal pain Related Data Home Medications Medication Instructions Recorded Confirmed lorazepam 1 mg PO DAILY PRN 12/29/19 03/23/20 Lantus Solostar U-100 Insulin 30 unit SUBCUT BEDTIME 03/23/20 03/23/20 amlodipine 10 mg PO DAILY 03/23/20 03/23/20 aspirin 81 mg PO DAILY 03/23/20 03/23/20 atorvastatin 80 mg PO BEDTIME 03/23/20 03/23/20 cholecalciferol (vitamin D3) 25 mcg PO DAILY 03/23/20 03/23/20 hydralazine 50 mg PO BID 03/23/20 03/23/20 insulin aspart U-100 [Novolog See Protocol SUBCUT TIDAC 03/23/20 03/23/20 Flexpen U-100 Insulin] omeprazole 20 mg PO BID 03/23/20 03/23/20 polyethylene glycol 3350 [Miralax] 17 g PO DAILY 03/23/20 03/23/20 Allergies Allergy/AdvReac Type Severity Reaction Status Date / Time morphine Allergy Intermediate RASH Verified 04/25/20 07:24 Review of Systems Review of Systems: Constitutional: No Fever, No Chills Cardiovascular: No Chest Pain, No SOB Respiratory: No Cough Gastrointestinal: + Nausea, No Vomiting, No Diarrhea, No Constipation, + Abdominal pain Genitourinary: No Dysuria, No Urinary Frequency, No Hematuria Skin: No Skin Lesions, No rash Yes all other systems are reviewed and are negative PMFSH Past Medical History Attestation statement: The following information was validated with the patient. Medical History Cyclical vomiting Diabetes Gastroparesis HTN (hypertension) IDDM (insulin dependent diabetes mellitus) Kidney failure Vomiting Family History Family History Other Family history non-contributory Social History Social History Household Members: Spouse Housing: House Alcohol intake: never Smoking Status: Never smoker Smoked in Last 30 Days: No Use of substances other than those prescribed or required for medical reasons: No Substance Use Type: Marijuana Advance Directives: Yes Advance Directives on File: Yes Advance Directives Date on File: 02/12/20 service: Yes Current occupational status: retired Physical Exam Vital Signs: Vital Signs: Last Vital Signs Temp 97.9 F 05/31/20 13:27 Pulse 99 05/31/20 13:27 Resp 16 05/31/20 13:27 BP 138/79 05/31/20 13:27 Pulse Ox 99 05/31/20 13:27 Body Mass Index 27.1 Const: General: cooperative, healthy appearing, comfortable and no acute distress Orientation/consciousness: patient oriented x3 Limitations: no limitations HENMT: Head: Yes normal to inspection Ears: hearing grossly normal bilaterally General nose exam: Normal external nose present Face and sinus: Yes normal facial exam Eyes: General: appearance normal, both eyes and all related structures EOM: EOMs intact bilaterally Neck: Neck: Yes normal visual inspection Resp: Effort & Inspection: normal respiratory effort Cardio: Rate: regular rate GI: Inspection: Yes normal to inspection Palpation (GI): Soft to palpation, Tenderness to palpation present (GI) (Diffuse), no guarding and not rigid Skin: Rashes: no rashes Wounds: no wounds Neuro: General: patient oriented x3 Extrem: General: Yes normal to inspection Course Course Course Narrative: -no leukocytosis. Renal function at patient's baseline. Glucose 180, labs otherwise unremarkable -[id number]-patient reports symptomatic improvement is requesting to be discharged. MDM - Nausea/Vomiting/Diarrhea MDM Narrative Medical decision making narrative: 69-year-old male with a past medical history of diabetes, diabetic gastroparesis, hypertension, chronic kidney disease, BIBA for diffuse abdominal pain and nausea since today. On exam VSS, NAD/stool appearing, abdomen soft diffusely tender/nonfocal, no rebound or guarding. Concern for diabetic gastroparesis. Low concern for appendicitis/diverticulitis Plan: Labs, UA, IVF, symptomatic treatment, reassess Medical Records Attestation: I reviewed the patient's medical records. Lab Data Attestation: I reviewed the patient's lab results. Result diagrams: 05/31/20 14:26 05/31/20 14:26 Labs: Lab Results 05/31/20 05/31/20 05/31/20 Range/Units 14:26 14:26 14:26 WBC 6.8 (4.8-10.8) X10*3/uL RBC 4.85 (4.60-5.80) X10*6/uL Hgb 14.3 D (14.0-18.0) g/dl Hct 44.5 (42-52) % MCV 91.8 (80-98) fL MCH 29.5 (27.0-33.0) pg MCHC 32.1 (31.0-36.0) g/dl RDW 13.9 (11.0-16.0) % Plt Count 226 (160-400) X10*3/uL MPV 10.1 (9.4-12.4) fL Immature Gran % (Auto) 0.3 (0.0-0.4) % Neut % (Auto) 65.8 (45-73) % Lymph % (Auto) 25.4 (20-40) % [place] % (Auto) 6.9 (2-11) % Eos % (Auto) 0.9 (0-4) % Baso % (Auto) 0.7 (0-2) % Lymph # (Auto) 1.7 (1.2-4.9) X10*3/uL [place] # (Auto) 0.5 (0.1-1.2) X10*3/uL Eos # (Auto) 0.1 (0.0-0.4) X10*3/uL Baso # (Auto) 0.1 (0.0-0.2) X10*3/uL Abs Immat Gran (auto) 0.02 (0.00-0.03) X10*3/uL Absolute Neuts (auto) 4.5 (2.0-8.3) X10*3/uL Absolute Nucleated RBC 0.000 (0.0-0.012) X10*3/uL Nucleated RBC % (auto) 0.0 (0.0-0.2) /100WBC Hold Blue Top SEE NOTE Sodium 137 (135-145) mmol/L Potassium 4.9 (3.3-5.1) mmol/L Chloride 101 (96-108) mmol/L Carbon Dioxide 27 (22-29) mmol/L Anion Gap 14 (12-20) BUN 36 H (9-16) mg/dL Creatinine 3.47 H (0.5-1.4) mg/dL Estim Creat Clear Calc 21.0 Estimated GFR 18 Random Glucose 180 H D (60-115) mg/dL Calcium 9.1 D (8.4-10.2) mg/dL Magnesium 2.5 (1.6-2.6) mg/dL Total Bilirubin 0.8 (0.0-1.0) mg/dL Direct Bilirubin 0.3 (0.0-0.5) mg/dL AST 13 (5-37) U/L ALT < 6 (0-40) U/L Alkaline Phosphatase 128 H (39-117) U/L Total Protein 7.0 (6.5-8.0) g/dL Albumin 3.8 (3.5-5.0) g/dL Lipase 39 (8-78) U/L Discharge Plan Discharge Clinical Impression: Gastroparesis Patient Disposition: Home, Self-Care Instructions: Diabetic Gastroparesis (DC) Additional Instructions: Your blood work is at her baseline It is important that were staying hydrated at home If you are unable to eat or drink, persistent or unremitting abdominal pain, persistent nausea/vomiting, or developed fever return to the ED Prescriptions: No Action lorazepam 1 mg tablet 1 mg PO DAILY PRN (Reason: anxiety) RF: 0 insulin aspart U-100 [Novolog Flexpen U-100 Insulin] 100 unit/mL (3 mL) Insulin Pen See Protocol unit SUBCUT TIDAC RF: 0 Lantus Solostar U-100 Insulin 100 unit/mL (3 mL) Insulin Pen 30 unit SUBCUT BEDTIME RF: 0 atorvastatin 80 mg Tablet 80 mg PO BEDTIME RF: 0 polyethylene glycol 3350 [Miralax] 17 gram Powder In Packet 17 g PO DAILY RF: 0 amlodipine 10 mg Tablet 10 mg PO DAILY RF: 0 omeprazole 20 mg Capsule,Delayed Release(Dr/Ec) 20 mg PO BID RF: 0 aspirin 81 mg Tablet,Chewable 81 mg PO DAILY RF: 0 hydralazine 50 mg Tablet 50 mg PO BID RF: 0 cholecalciferol (vitamin D3) 25 mcg (1,000 unit) Tablet 25 mcg PO DAILY RF: 0 Referrals: Jacqueline Martinez MD [Primary Care Provider] - 2 days Interventions: ED Discharge Assessment Last Done: 05/31/20 15:46 Discharge Date/Time: 05/31/20 15:48
== END 2020-05-31 15:48 | disposition home or self-care (01) ==
PROVIDERS: Physician Assistant; Emergency Provider Emergency Medicine; PCP Internal Medicine
DX: E11.43 Type 2 diabetes mellitus with diabetic autonomic (poly)neuropathy (principal); K31.84 Gastroparesis; R11.2 Nausea with vomiting, unspecified; E11.22 Type 2 diabetes mellitus with diabetic chronic kidney disease; I12.9 Hypertensive chronic kidney disease with stage 1 through stage 4 chronic kidney disease, or unspecified chronic kidney disease; N18.9 Chronic kidney disease, unspecified; F12.90 Cannabis use, unspecified, uncomplicated; Z79.4 Long term (current) use of insulin; Z79.899 Other long term (current) drug therapy
CPT/HCPCS: 36415; 80048; 80076; 83690; 83735; 85025; 96361; 96372; 96374; 96375; 99284; J1200; J2405

== ENCOUNTER 2020-06-02 03:28 | Emergency (ER) | payer OTHER, SELFPAY ==
[2020-06-02 03:35] VITALS: BP 144/74; PULSE 97; RESP 18; TEMP 36.7; O2SAT 97; BMI 26.9
--- NOTE | 2020-06-02 04:10 | PC.NURSE ---
at bedside for primary eval.
--- NOTE | 2020-06-02 04:14 | ED_ITS ---
HPI - Abdominal Pain General Chief Complaint: Abdominal Pain Stated Complaint: Abdominal Pain Time Seen by Provider: 06/02/20 04:12 History of Present Illness HPI narrative: Patient is a 69-year-old male with a history of diabetes, hypertension, gastroparesis. Presented today with having nausea, vomiting. This is similar to previous bouts. Patient denies any chest pain. No coughing or congestion or upper respiratory symptoms. History of cyclic vomiting. Related Data Home Medications Medication Instructions Recorded Confirmed lorazepam 1 mg PO DAILY PRN 12/29/19 03/23/20 Lantus Solostar U-100 Insulin 30 unit SUBCUT BEDTIME 03/23/20 03/23/20 amlodipine 10 mg PO DAILY 03/23/20 03/23/20 aspirin 81 mg PO DAILY 03/23/20 03/23/20 atorvastatin 80 mg PO BEDTIME 03/23/20 03/23/20 cholecalciferol (vitamin D3) 25 mcg PO DAILY 03/23/20 03/23/20 hydralazine 50 mg PO BID 03/23/20 03/23/20 insulin aspart U-100 [Novolog See Protocol SUBCUT TIDAC 03/23/20 03/23/20 Flexpen U-100 Insulin] omeprazole 20 mg PO BID 03/23/20 03/23/20 polyethylene glycol 3350 [Miralax] 17 g PO DAILY 03/23/20 03/23/20 Allergies Allergy/AdvReac Type Severity Reaction Status Date / Time morphine Allergy Intermediate RASH Verified 04/25/20 07:24 Review of Systems Review of Systems Constitutional: No Weight loss, No Fever, No Chills, No Night Sweats, No Fatigue, No Malaise ENT/Mouth: No Hearing loss, No Ear Pain, No Nasal Congestion, No Sinus Pain, No Hoarseness, No sore throat, No Rhinorrhea, No Swallowing Difficulty Eyes: No Eye Pain, No Swelling, No Redness, No Foreign Body, No Discharge, No Vision Changes Cardiovascular: No Chest Pain, No SOB, No Dyspnea on Exertion, No Orthopnea, No Edema, No Palpitations Respiratory: No Cough, No Sputum, No Wheezing, No Smoke Exposure, No Dyspnea Gastrointestinal: Positive nausea, positive vomiting. No Diarrhea, No Constipation, No abdominal Pain, No Hematochezia, No Melena Genitourinary: no irregular bleeding, No Dysuria, No Urinary Frequency, No Hematuria, No Urinary Incontinence, No Urgency, No Flank Pain, No Urinary Flow Changes, No Hesitancy Musculoskeletal: No joint pain, No Myalgias, No Joint Swelling Skin: No Skin Lesions, No rash Neuro: No Weakness, No Numbness, No Paresthesias, No Loss of Consciousness, No Dizziness, No Headache Psych: No Anxiety/Panic, No Depression, No SI/HI/AH/VH, No Social Issues, Heme/Lymph: No Bruising, No Bleeding,No Lymphadenopathy Endocrine: No Polyuria, No Polydipsia, No Temperature Intolerance Physical Exam Vital Signs: Vital Signs: Last Vital Signs Temp 98.1 F 06/02/20 03:35 Pulse 97 06/02/20 03:35 Resp 18 06/02/20 03:35 BP 144/74 H 06/02/20 03:35 Pulse Ox 97 06/02/20 03:35 Body Mass Index 26.9 Patient has a long history of gastroparesis, cyclic vomiting usually improve after Ativan. Will give the same. Will check baseline labs. Currently in stable condition. MDM - Abdominal Pain MDM Narrative Medical decision making narrative: Positive nausea, vomiting similar to previous bouts of gastroparesis. Patient's CBC is baseline. Electrolytes are pending. If they are unchanged will discharge patient home. Patient given a dose of Ativan which helped the symptoms again. In stable condition. Differential Diagnosis Differential diagnosis: Likely abdominal pain and gastroenteritis Lab Data Result diagrams: 06/02/20 04:31 06/02/20 04:31 Labs: Lab Results 06/02/20 06/02/20 Range/Units 04:31 04:31 WBC 9.1 (4.8-10.8) X10*3/uL RBC 4.14 L (4.60-5.80) X10*6/uL Hgb 12.1 L (14.0-18.0) g/dl Hct 37.6 L (42-52) % MCV 90.8 (80-98) fL MCH 29.2 (27.0-33.0) pg MCHC 32.2 (31.0-36.0) g/dl RDW 14.0 (11.0-16.0) % Plt Count 243 (160-400) X10*3/uL MPV 10.7 (9.4-12.4) fL Immature Gran % (Auto) 0.2 (0.0-0.4) % Neut % (Auto) 58.9 (45-73) % Lymph % (Auto) 29.4 (20-40) % [place] % (Auto) 9.9 (2-11) % Eos % (Auto) 0.9 (0-4) % Baso % (Auto) 0.7 (0-2) % Lymph # (Auto) 2.7 (1.2-4.9) X10*3/uL [place] # (Auto) 0.9 (0.1-1.2) X10*3/uL Eos # (Auto) 0.1 (0.0-0.4) X10*3/uL Baso # (Auto) 0.1 (0.0-0.2) X10*3/uL Abs Immat Gran (auto) 0.02 (0.00-0.03) X10*3/uL Absolute Neuts (auto) 5.4 (2.0-8.3) X10*3/uL Absolute Nucleated RBC 0.000 (0.0-0.012) X10*3/uL Nucleated RBC % (auto) 0.0 (0.0-0.2) /100WBC Hold Blue Top SEE NOTE Discharge Plan Discharge Clinical Impression: Gastroparesis Patient Disposition: Home, Self-Care Instructions: Gastroparesis (ED) Prescriptions: No Action lorazepam 1 mg tablet 1 mg PO DAILY PRN (Reason: anxiety) RF: 0 insulin aspart U-100 [Novolog Flexpen U-100 Insulin] 100 unit/mL (3 mL) Insulin Pen See Protocol unit SUBCUT TIDAC RF: 0 Lantus Solostar U-100 Insulin 100 unit/mL (3 mL) Insulin Pen 30 unit SUBCUT BEDTIME RF: 0 atorvastatin 80 mg Tablet 80 mg PO BEDTIME RF: 0 polyethylene glycol 3350 [Miralax] 17 gram Powder In Packet 17 g PO DAILY RF: 0 amlodipine 10 mg Tablet 10 mg PO DAILY RF: 0 omeprazole 20 mg Capsule,Delayed Release(Dr/Ec) 20 mg PO BID RF: 0 aspirin 81 mg Tablet,Chewable 81 mg PO DAILY RF: 0 hydralazine 50 mg Tablet 50 mg PO BID RF: 0 cholecalciferol (vitamin D3) 25 mcg (1,000 unit) Tablet 25 mcg PO DAILY RF: 0 Referrals: Physician,Unknown [Primary Care Provider] - 2 days PMFSH Past Medical History Medical History Cyclical vomiting Diabetes Gastroparesis HTN (hypertension) IDDM (insulin dependent diabetes mellitus) Kidney failure Vomiting Family History Family History Other Family history non-contributory Social History Social History Household Members: Spouse Housing: House Alcohol intake: never Smoking Status: Never smoker Substance Use Type: Marijuana Advance Directives: Yes Advance Directives on File: Yes Advance Directives Date on File: 02/12/20 service: Yes Current occupational status: retired
[2020-06-02] MEDS: LORazepam 2 MG/ML VIAL IM (04:20)
[2020-06-02] MEDS: 0.9 % Sodium Chloride 1,000 ML 999 ML IV (04:40)
--- NOTE | 2020-06-02 04:40 | PC.NURSE ---
IV established, labs obtained. Pt unable to provide urine sample at this time, given a bedside urinal. Pt medicated with IVF per MAR. Continue to monitor.
[2020-06-02 04:48] LABS: MANUAL DIFF FLAG NO
[2020-06-02 04:49] LABS: Basophils Absolute Auto 0.1 X10*3/uL (0.0-0.2); Basophils Percent Auto 0.7 % (0-2); Eosinophils Absolute Auto 0.1 X10*3/uL (0.0-0.4); Eosinophils Percent Auto 0.9 % (0-4); Hematocrit 37.6 % (42-52); Hemoglobin 12.1 g/dl (14.0-18.0); Imm Gran Abs Auto 0.02 X10*3/uL (0.00-0.03); Imm Gran Pct Auto 0.2 % (0.0-0.4); Lymphocytes Absolute Auto 2.7 X10*3/uL (1.2-4.9); Lymphocytes Percent Auto 29.4 % (20-40); Mean Corpuscular HGB Conc 32.2 g/dl (31.0-36.0); Mean Corpuscular Hemoglobin 29.2 pg (27.0-33.0); Mean Corpuscular Volume 90.8 fL (80-98); Mean Platelet Volume 10.7 fL (9.4-12.4); Monocytes Absolute Auto 0.9 X10*3/uL (0.1-1.2); Monocytes Percent Auto 9.9 % (2-11); Neutrophils Absolute Auto 5.4 X10*3/uL (2.0-8.3); Neutrophils Percent Auto 58.9 % (45-73); Platelet Count 243 X10*3/uL (160-400); Red Blood Count 4.14 X10*6/uL (4.60-5.80); White Blood Count 9.1 X10*3/uL (4.8-10.8)
--- NOTE | 2020-06-02 05:10 | PC.NURSE ---
senior geotechnical engineer at bedside for recollect.
--- NOTE | 2020-06-02 05:42 | PC.NURSE ---
Jasmyn () called for transport home. Per Jasmyn, 20 min MD RESHMA aware.
[2020-06-02 05:49] VITALS: BP 122/68; PULSE 91; RESP 20; O2SAT 97
[2020-06-02 06:12] LABS: Alanine Aminotransferase < 6 U/L (0-40); Albumin Level 3.9 g/dL (3.5-5.0); Alkaline Phosphatase 123 U/L (39-117); Anion Gap 15 (12-20); Aspartate Amino Transferase 21 U/L (5-37); Bilirubin Direct 0.2 mg/dL (0.0-0.5); Bilirubin Total 0.6 mg/dL (0.0-1.0); Blood Urea Nitrogen 54 mg/dL (9-16); Calcium 8.3 mg/dL (8.4-10.2); Carbon Dioxide 25 mmol/L (22-29); Chloride 105 mmol/L (96-108); Creatinine Clr Calc Pharmacy 14.7; Estimated Glomerular Filt Rate 12; Glucose Random 68 mg/dL (60-115); Lipase 41 U/L (8-78); Potassium 4.6 mmol/L (3.3-5.1); Sodium 140 mmol/L (135-145); Total Protein 6.5 g/dL (6.5-8.0)
== END 2020-06-02 06:01 | disposition home or self-care (01) ==
PROVIDERS: Emergency Provider Emergency Medicine Emergency Medical Services
DX: E11.43 Type 2 diabetes mellitus with diabetic autonomic (poly)neuropathy (principal); K31.84 Gastroparesis; I10 Essential (primary) hypertension; Z97.4 Presence of external hearing-aid
CPT/HCPCS: 36415; 80048; 80076; 83690; 85025; 96360; 96361; 96372; 99284; J2060

== ENCOUNTER 2020-06-19 14:26 | Emergency (ER) | payer OTHER, MEDICARE, SELFPAY ==
[2020-06-19 14:32] VITALS: BP 148/66; PULSE 89; RESP 18; TEMP 36.9; O2SAT 98
--- NOTE | 2020-06-19 14:39 | ED.ABDPAIN ---
HPI - Abdominal Pain General Chief Complaint: Abdominal Pain Stated Complaint: nausea Time Seen by Provider: 06/19/20 14:31 Source: EMS Mode of arrival: EMS Limitations: no limitations History of Present Illness HPI narrative: 69 yo male with a past medical history of insulin-dependent diabetes, diabetic gastroparesis, hypertension, chronic kidney disease with complaints of upper abdominal pain, nausea and decreased p.o. intake. No vomiting, fevers, chills, diarrhea. Related Data Home Medications Medication Instructions Recorded Confirmed lorazepam 1 mg PO DAILY PRN 12/29/19 03/23/20 Lantus Solostar U-100 Insulin 30 unit SUBCUT BEDTIME 03/23/20 03/23/20 amlodipine 10 mg PO DAILY 03/23/20 03/23/20 aspirin 81 mg PO DAILY 03/23/20 03/23/20 atorvastatin 80 mg PO BEDTIME 03/23/20 03/23/20 cholecalciferol (vitamin D3) 25 mcg PO DAILY 03/23/20 03/23/20 hydralazine 50 mg PO BID 03/23/20 03/23/20 insulin aspart U-100 [Novolog See Protocol SUBCUT TIDAC 03/23/20 03/23/20 Flexpen U-100 Insulin] omeprazole 20 mg PO BID 03/23/20 03/23/20 polyethylene glycol 3350 [Miralax] 17 g PO DAILY 03/23/20 03/23/20 Allergies Allergy/AdvReac Type Severity Reaction Status Date / Time morphine Allergy Intermediate RASH Verified 04/25/20 07:24 Review of Systems Review of Systems Yes all other systems are reviewed and are negative Constitutional: Reports no additional constitutional complaints, Denies body ache(s), Denies chills, Denies fever(s), Denies headache(s) and Denies weakness Eyes: Reports no additional eye complaints and Denies change in vision Reports system reviewed and no additional complaints, except as documented, Denies dizziness, Denies headache(s), Denies nasal congestion, Denies nasal discharge and Denies neck pain Cardiovascular: Reports no additional cardiovascular complaints, Denies chest pain, Denies leg edema and Denies dyspnea Respiratory: Reports no additional respiratory complaints, Denies cough and Denies dyspnea Gastrointestinal: Reports no additional gastrointestinal complaints, Reports abdominal pain, Denies diarrhea, Reports nausea and Denies vomiting Genitourinary: Denies urinary incontinence Musculoskeletal: Reports no additional musculoskeletal complaints, Denies back pain, Denies arthralgias, Denies joint swelling, Denies neck pain, Denies numbness and Denies tingling Skin/Breast: Reports system reviewed and no additional complaints, except as docu and Denies rash Reports system reviewed and no additional complaints, except as documented, Denies Abnormal speech present, Denies dizziness, Denies headache(s), Denies numbness, Denies tingling and Denies weakness Physical Exam Vital Signs: Vital Signs: Last Vital Signs Temp 97.9 F 06/19/20 15:15 Pulse 81 06/19/20 15:15 Resp 18 06/19/20 15:15 BP 137/79 06/19/20 15:15 Pulse Ox 96 06/19/20 15:15 Body Mass Index 27.1 Const: Other: Moaning, in pain General: cooperative Orientation/consciousness: patient oriented x3 Limitations: no limitations HENMT: Head: Yes normal to inspection Ears: hearing grossly normal bilaterally General nose exam: Normal external nose present Face and sinus: Yes normal facial exam Mouth: Normal oral and palatal mucosa present Throat: Yes posterior oropharynx normal Eyes: General: appearance normal, both eyes and all related structures Pupils: Equal, round and reactive pupils present Neck: Neck: Yes normal visual inspection Chest: Chest palpation & inspection: normal inspection of the chest Resp: Effort & Inspection: normal respiratory effort Auscultation: clear to auscultation bilaterally Cardio: Rate: regular rate Rhythm: regular rhythm Peripheral pulses: Peripheral pulses 2+ throughout GI: Inspection: Yes normal to inspection Palpation (GI): Soft to palpation and Tenderness to palpation present (GI) (Mild diffusely. No rebound or guarding) Auscultation: normal bowel sounds Back/Spine/Pelvis: Thoracic/Lumbar Spine: thoracic and lumbar spine normal to inspection Skin: General skin exam: no rashes or lesions noted Neuro: General: patient oriented x3, no focal motor deficits and normal sensation to monofilament Cranial nerves: Yes Equal, round and reactive pupils present Cognition (Neuro): normal cognition Speech: No Abnormal speech present Gait exam (Neuro): Normal gait present Motor exam (neuro): 5/5 motor strength present throughout Extrem: General: Yes normal to inspection Course Course Course Narrative: 69-year-old male here with upper abdominal pain, nausea. On exam vital signs are stable. Abdomen is soft and diffusely tender with no rebound or guarding. Likely patient has diabetic gastroparesis. Will check labs, EKG. Place PIV and give IV Ativan, IM Haldol and reassess. 1500-Pt refusing EKG. 1630-labs at baseline. Repeat abdominal exam with no focal tenderness. Patient is feeling improved. Plan for discharge home. His was called and she will come pick him up. Reviewed worrisome signs and symptoms and when to return to the emergency department. Comfortable discharge home. MDM - Abdominal Pain MDM Narrative Medical decision making narrative: Gastroparesis, appendicitis, diverticulitis Less likely acute appendicitis or acute diverticulitis with no focal abdominal pain and improving symptoms Medical Records Attestation: I reviewed the patient's medical records. Lab Data Attestation: I reviewed the patient's lab results. Result diagrams: 06/19/20 14:42 06/19/20 14:42 Labs: Lab Results 06/19/20 06/19/20 Range/Units 14:42 14:42 WBC 6.4 (4.8-10.8) X10*3/uL RBC 4.79 (4.60-5.80) X10*6/uL Hgb 14.0 (14.0-18.0) g/dl Hct 43.8 (42-52) % MCV 91.4 (80-98) fL MCH 29.2 (27.0-33.0) pg MCHC 32.0 (31.0-36.0) g/dl RDW 14.0 (11.0-16.0) % Plt Count 202 (160-400) X10*3/uL MPV 11.0 (9.4-12.4) fL Immature Gran % (Auto) 0.3 (0.0-0.4) % Neut % (Auto) 58.7 (45-73) % Lymph % (Auto) 30.5 (20-40) % [place] % (Auto) 7.6 (2-11) % Eos % (Auto) 2.0 (0-4) % Baso % (Auto) 0.9 (0-2) % Lymph # (Auto) 2.0 (1.2-4.9) X10*3/uL [place] # (Auto) 0.5 (0.1-1.2) X10*3/uL Eos # (Auto) 0.1 (0.0-0.4) X10*3/uL Baso # (Auto) 0.1 (0.0-0.2) X10*3/uL Abs Immat Gran (auto) 0.02 (0.00-0.03) X10*3/uL Absolute Neuts (auto) 3.8 (2.0-8.3) X10*3/uL Absolute Nucleated RBC 0.000 (0.0-0.012) X10*3/uL Nucleated RBC % (auto) 0.0 (0.0-0.2) /100WBC Sodium 138 (135-145) mmol/L Potassium 4.8 (3.3-5.1) mmol/L Chloride 103 (96-108) mmol/L Carbon Dioxide 23 (22-29) mmol/L Anion Gap 17 (12-20) BUN 32 H (9-16) mg/dL Creatinine 3.29 H (0.5-1.4) mg/dL Estim Creat Clear Calc TNP Estimated GFR 19 Random Glucose 300 H D (60-115) mg/dL Calcium 9.0 D (8.4-10.2) mg/dL Discharge Plan Discharge Clinical Impression: Gastroparesis, Hyperglycemia, Chronic kidney disease (CKD) Patient Disposition: Home, Self-Care Instructions: Diabetic Gastroparesis (DC), Chronic Kidney Disease (ED), Diabetic Hyperglycemia (ED) Prescriptions: No Action lorazepam 1 mg tablet 1 mg PO DAILY PRN (Reason: anxiety) RF: 0 insulin aspart U-100 [Novolog Flexpen U-100 Insulin] 100 unit/mL (3 mL) Insulin Pen See Protocol unit SUBCUT TIDAC RF: 0 Lantus Solostar U-100 Insulin 100 unit/mL (3 mL) Insulin Pen 30 unit SUBCUT BEDTIME RF: 0 atorvastatin 80 mg Tablet 80 mg PO BEDTIME RF: 0 polyethylene glycol 3350 [Miralax] 17 gram Powder In Packet 17 g PO DAILY RF: 0 amlodipine 10 mg Tablet 10 mg PO DAILY RF: 0 omeprazole 20 mg Capsule,Delayed Release(Dr/Ec) 20 mg PO BID RF: 0 aspirin 81 mg Tablet,Chewable 81 mg PO DAILY RF: 0 hydralazine 50 mg Tablet 50 mg PO BID RF: 0 cholecalciferol (vitamin D3) 25 mcg (1,000 unit) Tablet 25 mcg PO DAILY RF: 0 Referrals: Janet Marsh MD [Primary Care Provider] - 2 days PMF Past Medical History Attestation statement: The following information was validated with the patient. Source: old records reviewed and nursing notes reviewed Medical History Cyclical vomiting Diabetes Gastroparesis HTN (hypertension) IDDM (insulin dependent diabetes mellitus) Kidney failure Vomiting Family History Family History Other Family history non-contributory Social History Social History Household Members: Spouse Housing: House Alcohol intake: never Smoking Status: Never smoker Substance Use Type: Marijuana Advance Directives: Yes Advance Directives on File: Yes Advance Directives Date on File: 02/12/20 service: Yes Current occupational status: retired
[2020-06-19 14:53] LABS: MANUAL DIFF FLAG NO
[2020-06-19 14:55] LABS: Basophils Absolute Auto 0.1 X10*3/uL (0.0-0.2); Basophils Percent Auto 0.9 % (0-2); Eosinophils Absolute Auto 0.1 X10*3/uL (0.0-0.4); Hematocrit 43.8 % (42-52); Imm Gran Abs Auto 0.02 X10*3/uL (0.00-0.03); Imm Gran Pct Auto 0.3 % (0.0-0.4); Lymphocytes Percent Auto 30.5 % (20-40); Mean Corpuscular Hemoglobin 29.2 pg (27.0-33.0); Mean Corpuscular Volume 91.4 fL (80-98); Monocytes Absolute Auto 0.5 X10*3/uL (0.1-1.2); Monocytes Percent Auto 7.6 % (2-11); Neutrophils Absolute Auto 3.8 X10*3/uL (2.0-8.3); Neutrophils Percent Auto 58.7 % (45-73); Platelet Count 202 X10*3/uL (160-400); Red Blood Count 4.79 X10*6/uL (4.60-5.80); White Blood Count 6.4 X10*3/uL (4.8-10.8)
[2020-06-19 15:15] VITALS: BP 137/79; PULSE 81; RESP 18; TEMP 36.6; O2SAT 96; BMI 27.1
[2020-06-19 15:16] LABS: Anion Gap 17 (12-20); Blood Urea Nitrogen 32 mg/dL (9-16); Carbon Dioxide 23 mmol/L (22-29); Chloride 103 mmol/L (96-108); Estimated Glomerular Filt Rate 19; Glucose Random 300 mg/dL (60-115); Potassium 4.8 mmol/L (3.3-5.1); Sodium 138 mmol/L (135-145)
[2020-06-19] MEDS: Haloperidol Lactate 5 MG/ML VIAL IM (15:22)
[2020-06-19] MEDS: LORazepam 2 MG/ML VIAL 1 MG IVPUSH (15:23)
--- NOTE | 2020-06-19 16:58 | PC.NURSE ---
PT REPORTS RESOLUTION OF SX AND FEELS READY FOR D/C.
== END 2020-06-19 17:01 | disposition home or self-care (01) ==
PROVIDERS: Nurse Practitioner Family; Emergency Provider Emergency Medicine; PCP Internal Medicine
DX: K31.84 Gastroparesis (principal); R10.10 Upper abdominal pain, unspecified; I12.9 Hypertensive chronic kidney disease with stage 1 through stage 4 chronic kidney disease, or unspecified chronic kidney disease; E11.22 Type 2 diabetes mellitus with diabetic chronic kidney disease; N18.9 Chronic kidney disease, unspecified; E11.65 Type 2 diabetes mellitus with hyperglycemia; Z79.4 Long term (current) use of insulin; Z79.899 Other long term (current) drug therapy; Z79.82 Long term (current) use of aspirin
CPT/HCPCS: 36415; 80048; 85025; 96372; 96374; 99284; J2060

== ENCOUNTER 2020-06-20 12:51 | Emergency (ER) | payer OTHER, MEDICARE, SELFPAY ==
--- NOTE | 2020-06-20 13:02 | ED.PSYCH ---
HPI - Psych General Chief Complaint: Psychiatric Symptoms <Juan J Ying NP - Last Filed: 06/20/20 17:18> Stated Complaint: n/v <Juan J Ying NP - Last Filed: 06/20/20 17:18> Time Seen by Provider: 06/20/20 12:59 <Juan J Ying NP - Last Filed: 06/20/20 17:18> Source: EMS <Juan J Ying NP - Last Filed: 06/20/20 17:18> Mode of arrival: EMS <Juan J Ying NP - Last Filed: 06/20/20 17:18> Limitations: no limitations <Juan J Ying NP - Last Filed: 06/20/20 17:18> History of Present Illness HPI Narrative: States he had argument with his regarding his medical problems and feels anxious/ suicidal now. No plans expressed. <Juan J Ying NP - Last Filed: 06/20/20 17:18> MD complaint: suicidal ideation <Juan J Ying NP - Last Filed: 06/20/20 17:18> Duration: constant <Juan J Ying NP - Last Filed: 06/20/20 17:18> History of same: Yes <Juan J Ying NP - Last Filed: 06/20/20 17:18> Relieving factors: none <Juan J Ying NP - Last Filed: 06/20/20 17:18> Exacerbating factors: none <Juan J Ying NP - Last Filed: 06/20/20 17:18> Treatments prior to arrival: none <Jaun J Ying NP - Last Filed: 06/20/20 17:18> Related Data Home Medications: Home Medications Medication Instructions Recorded Confirmed lorazepam 1 mg PO DAILY PRN 12/29/19 06/21/20 Lantus Solostar U-100 Insulin 40 unit SUBCUT BEDTIME 03/23/20 06/21/20 amlodipine 10 mg PO DAILY 03/23/20 06/21/20 aspirin 81 mg PO DAILY 03/23/20 06/21/20 atorvastatin 80 mg PO BEDTIME 03/23/20 06/21/20 cholecalciferol (vitamin D3) 25 mcg PO DAILY 03/23/20 06/21/20 hydralazine 50 mg PO BID 03/23/20 06/21/20 insulin aspart U-100 [Novolog See Protocol SUBCUT TIDAC 03/23/20 06/21/20 Flexpen U-100 Insulin] omeprazole 20 mg PO BID@0630,1630 03/23/20 06/21/20 polyethylene glycol 3350 [Miralax] 17 g PO DAILY 03/23/20 06/21/20 furosemide 40 mg PO DAILY 06/21/20 06/21/20 <Juan J Ying NP - Last Filed: 06/20/20 17:18> Allergies/Adverse Reactions: Allergies Allergy/AdvReac Type Severity Reaction Status Date / Time morphine Allergy Intermediate RASH Verified 04/25/20 07:24 <SHAQ Varghese Last Filed: 06/20/20 17:18> Review of Systems Review of Systems: Constitutional: No Weight loss, No Fever, No Chills, No Night Sweats, No Fatigue, No Malaise ENT/Mouth: No Hearing loss, No Ear Pain, No Nasal Congestion, No Sinus Pain, No Hoarseness, No sore throat, No Rhinorrhea, No Swallowing Difficulty Eyes: No Eye Pain, No Swelling, No Redness, No Foreign Body, No Discharge, No Vision Changes Cardiovascular: No Chest Pain, No SOB, No Dyspnea on Exertion, No Orthopnea, No Edema, No Palpitations Respiratory: No Cough, No Sputum, No Wheezing, No Smoke Exposure, No Dyspnea Gastrointestinal: No Nausea, No Vomiting, No Diarrhea, No Constipation, No abdominal Pain, No Hematochezia, No Melena Genitourinary: no irregular bleeding, No Dysuria, No Urinary Frequency, No Hematuria, No Urinary Incontinence, No Urgency, No Flank Pain, No Urinary Flow Changes, No Hesitancy Musculoskeletal: No joint pain, No Myalgias, No Joint Swelling Skin: No Skin Lesions, No rash Neuro: No Weakness, No Numbness, No Paresthesias, No Loss of Consciousness, No Dizziness, No Headache Psych: As noted per HPI Heme/Lymph: No Bruising, No Bleeding,No Lymphadenopathy Endocrine: No Polyuria, No Polydipsia, No Temperature Intolerance <Juan J Ying NP - Last Filed: 06/20/20 17:18> Yes all other systems are reviewed and are negative <SHAQ Varghese Last Filed: 06/20/20 17:18> [facility], LAT[facility] Past Medical History Source: unable to obtain <Juan J Ying NP - Last Filed: 06/20/20 17:18> Medical History: Medical History Cyclical vomiting Diabetes Gastroparesis HTN (hypertension) IDDM (insulin dependent diabetes mellitus) Kidney failure Vomiting <Juan J Ying NP - Last Filed: 06/20/20 17:18> Family History Family History: Family History Other Family history non-contributory <Juan J Ying NP - Last Filed: 06/20/20 17:18> Social History Social History: Social History Household Members: Spouse Housing: House Alcohol intake: never Smoking Status: Never smoker Substance Use Type: Marijuana Advance Directives Date on File: 02/12/20 service: Yes Current occupational status: retired <Juan J Ying NP - Last Filed: 06/20/20 17:18> Physical Exam Vital Signs: Vital Signs: Last Vital Signs Temp 98.3 F 06/20/20 16:12 Pulse 84 06/20/20 16:12 Resp 06/20/20 16:12 BP 141/74 H 06/20/20 16:12 Pulse Ox 97 06/20/20 16:12 Body Mass Index 25.2 Reviewed <Juan J Ying NP - Last Filed: 06/20/20 17:18> Vital Signs: Last Vital Signs Temp 98.3 F 06/20/20 16:12 Pulse 84 06/20/20 16:12 Resp 20 06/20/20 16:12 BP 141/74 H 06/20/20 16:12 Pulse Ox 97 06/20/20 16:12 Body Mass Index 25.2 <Brandon Desir MD - Last Filed: 07/05/20 09:16> Const: General: cooperative and healthy appearing; No acute distress or intoxicated appearing <Juan J Ying NP - Last Filed: 06/20/20 17:18> Nutritional Appearance: average body habitus <Juan J Ying NP - Last Filed: 06/20/20 17:18> Orientation/consciousness: patient oriented x3 <[facility] Ying, - Last Filed: 06/20/20 17:18> HENMT: Head: Yes normal to inspection <[facility] Ying, - Last Filed: 06/20/20 17:18> Ears: hearing grossly normal bilaterally <[facility] - Last Filed: 06/20/20 17:18> Eyes: General: appearance normal, both eyes and all related structures <[facility] Deonna - Last Filed: 06/20/20 17:18> Visual Lujan: normal visual lujan by confrontation <[facility] Deonna - Last Filed: 06/20/20 17:18> Neck: Neck: Yes normal visual inspection, No positive Brudzinski's sign, No positive Kernig's sign and No tender <[facility] Deonna - Last Filed: 06/20/20 17:18> Thyroid: Thyroid normal <[facility] Deonna - Last Filed: 06/20/20 17:18> Chest: Chest palpation & inspection: normal inspection of the chest <[facility] Deonna - Last Filed: 06/20/20 17:18> Resp: Effort & Inspection: normal respiratory effort <[facility] Deonna - Last Filed: 06/20/20 17:18> Auscultation: clear to auscultation bilaterally <[facility] Deonna QUALITY CONTROL ASSESSOR - Last Filed: 06/20/20 17:18> Cardio: Jugular venous distension: no JVD <[facility] Deonna - Last Filed: 06/20/20 17:18> Rhythm: regular rhythm <[facility] - Last Filed: 06/20/20 17:18> Heart sounds: S1 normal heart sound present and S2 normal heart sound present <[facility] Deonna QUALITY CONTROL ASSESSOR - Last Filed: 06/20/20 17:18> GI: Inspection: Yes normal to inspection <[facility] Deonna QUALITY CONTROL ASSESSOR - Last Filed: 06/20/20 17:18> Palpation (GI): Soft to palpation <[facility] Deonna - Last Filed: 06/20/20 17:18> Percussion: Yes normal to percussion <[facility] Deonna SHAQ - Last Filed: 06/20/20 17:18> Auscultation: normal bowel sounds <Juan J Ying NP - Last Filed: 06/20/20 17:18> : General: Yes no CVA tenderness <Juan J Ying NP - Last Filed: 06/20/20 17:18> Back/Spine/Pelvis: Back: no CVA tenderness <Juan J Ying NP - Last Filed: 06/20/20 17:18> Skin: General skin exam: no rashes or lesions noted <Juan J Ying NP - Last Filed: 06/20/20 17:18> Neuro: General: patient oriented x3 <Juan J Ying NP - Last Filed: 06/20/20 17:18> Extrem: General: Yes normal to inspection <Juan J Ying NP - Last Filed: 06/20/20 17:18> Course Course Course Narrative: No belly pain, nausea or vomiting today. More tearful or anxious after argument with making vague SI statements. Medical screening labs and crisis evaluation. <Juan J Ying NP - Last Filed: 06/20/20 17:18> I have reviewed the chart <Brandon Desir MD - Last Filed: 07/05/20 09:16> Reevaluation(s) Reevaluation #1: Has been resting comfortably withou complaints. Labs seem more chronic did have a slight drop in his H&H but at his baseline Eating drinking okay Evaluate by the care team has history of schizophrenia Has appointment with the CT tomorrow He contracts for safety No SI or HI Will follow-up tomorrow with providers tomorrow at the CT Cleared for discharge to home with . Stable for discharge. <Juan J Ying NP - Last Filed: 06/20/20 17:18> MDM - Psych Lab Data Result diagrams: : 06/20/20 14:34 06/20/20 14:33 <Juan J Ying NP - Last Filed: 06/20/20 17:18> Labs: Lab Results 06/20/20 06/20/20 06/20/20 Range/Units 14:33 14:33 14:33 WBC (4.8-10.8) X10*3/uL RBC (4.60-5.80) X10*6/uL Hgb (14.0-18.0) g/dl Hct (42-52) % MCV (80-98) fL MCH (27.0-33.0) pg MCHC (31.0-36.0) g/dl RDW (11.0-16.0) % Plt Count (160-400) X10*3/uL MPV (9.4-12.4) fL Immature Gran % (Auto) (0.0-0.4) % Neut % (Auto) (45-73) % Lymph % (Auto) (20-40) % [place] % (Auto) (2-11) % Eos % (Auto) (0-4) % Baso % (Auto) (0-2) % Lymph # (Auto) (1.2-4.9) X10*3/uL [place] # (Auto) (0.1-1.2) X10*3/uL Eos # (Auto) (0.0-0.4) X10*3/uL Baso # (Auto) (0.0-0.2) X10*3/uL Abs Immat Gran (auto) (0.00-0.03) X10*3/uL Absolute Neuts (auto) (2.0-8.3) X10*3/uL Absolute Nucleated RBC (0.0-0.012) X10*3/uL Nucleated RBC % (auto) (0.0-0.2) /100WBC APTT 29.4 (24.1-38.0) SEC Sodium 140 (135-145) mmol/L Potassium 5.2 H (3.3-5.1) mmol/L Chloride 105 (96-108) mmol/L Carbon Dioxide 27 (22-29) mmol/L Anion Gap 13 (12-20) BUN 42 H (9-16) mg/dL Creatinine 3.67 H (0.5-1.4) mg/dL Estim Creat Clear Calc 19.9 Estimated GFR 16 Random Glucose 96 D (60-115) mg/dL Calcium 8.6 (8.4-10.2) mg/dL Total Bilirubin 0.4 (0.0-1.0) mg/dL AST 14 (5-37) U/L ALT 6 (0-40) U/L Alkaline Phosphatase 142 H (39-117) U/L Total Protein 6.7 (6.5-8.0) g/dL Albumin 3.9 (3.5-5.0) g/dL Urine Color Urine Appearance Urine pH (5.0-8.0) Ur Specific [place] (1.005-1.025) Urine Protein (NEG-TRACE) MG/DL Urine Glucose (UA) (NEG) MG/DL Urine Ketones (NEG) MG/DL Urine Blood (NEG) Urine Nitrite (NEG) Ur Leukocyte Esterase (NEG) Urine RBC (0) /HPF Urine WBC (0-4) /HPF Ur Squamous Epith Cells /LPF Urine Bacteria /LPF Urine Opiates Screen (Not Detect) Ur Barbiturates Screen (Not Detect) Ur Phencyclidine Scrn (Not Detect) Ur Amphetamines Screen (Not Detect) U Benzodiazepines Scrn (Not Detect) Urine Cocaine Screen (Not Detect) U Marijuana (THC) Screen (Not Detect) Ethyl Alcohol < 10 mg/dL 06/20/20 06/20/20 06/20/20 Range/Units 14:34 16:04 16:04 WBC 8.7 (4.8-10.8) X10*3/uL RBC 4.15 L (4.60-5.80) X10*6/uL Hgb 12.2 L (14.0-18.0) g/dl Hct 38.3 L (42-52) % MCV 92.3 (80-98) fL MCH 29.4 (27.0-33.0) pg MCHC 31.9 (31.0-36.0) g/dl RDW 14.2 (11.0-16.0) % Plt Count 171 (160-400) X10*3/uL MPV 10.3 (9.4-12.4) fL Immature Gran % (Auto) 0.2 (0.0-0.4) % Neut % (Auto) 67.1 (45-73) % Lymph % (Auto) 21.0 (20-40) % [place] % (Auto) 9.7 (2-11) % Eos % (Auto) 1.3 (0-4) % Baso % (Auto) 0.7 (0-2) % Lymph # (Auto) 1.8 (1.2-4.9) X10*3/uL [place] # (Auto) 0.8 (0.1-1.2) X10*3/uL Eos # (Auto) 0.1 (0.0-0.4) X10*3/uL Baso # (Auto) 0.1 (0.0-0.2) X10*3/uL Abs Immat Gran (auto) 0.02 (0.00-0.03) X10*3/uL Absolute Neuts (auto) 5.8 (2.0-8.3) X10*3/uL Absolute Nucleated RBC 0.000 (0.0-0.012) X10*3/uL Nucleated RBC % (auto) 0.0 (0.0-0.2) /100WBC APTT (24.1-38.0) SEC Sodium (135-145) mmol/L Potassium (3.3-5.1) mmol/L Chloride (96-108) mmol/L Carbon Dioxide (22-29) mmol/L Anion Gap (12-20) BUN (9-16) mg/dL Creatinine (0.5-1.4) mg/dL Estim Creat Clear Calc Estimated GFR Random Glucose (60-115) mg/dL Calcium (8.4-10.2) mg/dL Total Bilirubin (0.0-1.0) mg/dL AST (5-37) U/L ALT (0-40) U/L Alkaline Phosphatase (39-117) U/L Total Protein (6.5-8.0) g/dL Albumin (3.5-5.0) g/dL Urine Color YELLOW Urine Appearance CLEAR Urine pH 6.5 (5.0-8.0) Ur Specific [place] 1.015 (1.005-1.025) Urine Protein 2+ H (NEG-TRACE) MG/DL Urine Glucose (UA) 100 H (NEG) MG/DL Urine Ketones NEG (NEG) MG/DL Urine Blood NEG (NEG) Urine Nitrite NEG (NEG) Ur Leukocyte Esterase TRACE H (NEG) Urine RBC 0 (0) /HPF Urine WBC 5-9 H (0-4) /HPF Ur Squamous Epith Cells NONE /LPF Urine Bacteria NONE /LPF Urine Opiates Screen Not Detected (Not Detect) Ur Barbiturates Screen Not Detected (Not Detect) Ur Phencyclidine Scrn Not Detected (Not Detect) Ur Amphetamines Screen Not Detected (Not Detect) U Benzodiazepines Scrn Not Detected (Not Detect) Urine Cocaine Screen Not Detected (Not Detect) U Marijuana (THC) Screen POSITIVE H (Not Detect) Ethyl Alcohol mg/dL <Juan J Ying NP - Last Filed: 06/20/20 17:18> Lab Results 06/20/20 06/20/20 06/20/20 Range/Units 14:33 14:33 14:33 WBC (4.8-10.8) X10*3/uL RBC (4.60-5.80) X10*6/uL Hgb (14.0-18.0) g/dl Hct (42-52) % MCV (80-98) fL MCH (27.0-33.0) pg MCHC (31.0-36.0) g/dl RDW (11.0-16.0) % Plt Count (160-400) X10*3/uL MPV (9.4-12.4) fL Immature Gran % (Auto) (0.0-0.4) % Neut % (Auto) (45-73) % Lymph % (Auto) (20-40) % [place] % (Auto) (2-11) % Eos % (Auto) (0-4) % Baso % (Auto) (0-2) % Lymph # (Auto) (1.2-4.9) X10*3/uL [place] # (Auto) (0.1-1.2) X10*3/uL Eos # (Auto) (0.0-0.4) X10*3/uL Baso # (Auto) (0.0-0.2) X10*3/uL Abs Immat Gran (auto) (0.00-0.03) X10*3/uL Absolute Neuts (auto) (2.0-8.3) X10*3/uL Absolute Nucleated RBC (0.0-0.012) X10*3/uL Nucleated RBC % (auto) (0.0-0.2) /100WBC APTT 29.4 (24.1-38.0) SEC Sodium 140 (135-145) mmol/L Potassium 5.2 H (3.3-5.1) mmol/L Chloride 105 (96-108) mmol/L Carbon Dioxide 27 (22-29) mmol/L Anion Gap 13 (12-20) BUN 42 H (9-16) mg/dL Creatinine 3.67 H (0.5-1.4) mg/dL Estim Creat Clear Calc 19.9 Estimated GFR 16 Random Glucose 96 D (60-115) mg/dL Calcium 8.6 (8.4-10.2) mg/dL Total Bilirubin 0.4 (0.0-1.0) mg/dL AST 14 (5-37) U/L ALT 6 (0-40) U/L Alkaline Phosphatase 142 H (39-117) U/L Total Protein 6.7 (6.5-8.0) g/dL Albumin 3.9 (3.5-5.0) g/dL Urine Color Urine Appearance Urine pH (5.0-8.0) Ur Specific [place] (1.005-1.025) Urine Protein (NEG-TRACE) MG/DL Urine Glucose (UA) (NEG) MG/DL Urine Ketones (NEG) MG/DL Urine Blood (NEG) Urine Nitrite (NEG) Ur Leukocyte Esterase (NEG) Urine RBC (0) /HPF Urine WBC (0-4) /HPF Ur Squamous Epith Cells /LPF Urine Bacteria /LPF Urine Opiates Screen (Not Detect) Ur Barbiturates Screen (Not Detect) Ur Phencyclidine Scrn (Not Detect) Ur Amphetamines Screen (Not Detect) U Benzodiazepines Scrn (Not Detect) Urine Cocaine Screen (Not Detect) U Marijuana (THC) Screen (Not Detect) Ethyl Alcohol < 10 mg/dL 06/20/20 06/20/20 06/20/20 Range/Units 14:34 16:04 16:04 WBC 8.7 (4.8-10.8) X10*3/uL RBC 4.15 L (4.60-5.80) X10*6/uL Hgb 12.2 L (14.0-18.0) g/dl Hct 38.3 L (42-52) % MCV 92.3 (80-98) fL MCH 29.4 (27.0-33.0) pg MCHC 31.9 (31.0-36.0) g/dl RDW 14.2 (11.0-16.0) % Plt Count 171 (160-400) X10*3/uL MPV 10.3 (9.4-12.4) fL Immature Gran % (Auto) 0.2 (0.0-0.4) % Neut % (Auto) 67.1 (45-73) % Lymph % (Auto) 21.0 (20-40) % [place] % (Auto) 9.7 (2-11) % Eos % (Auto) 1.3 (0-4) % Baso % (Auto) 0.7 (0-2) % Lymph # (Auto) 1.8 (1.2-4.9) X10*3/uL [place] # (Auto) 0.8 (0.1-1.2) X10*3/uL Eos # (Auto) 0.1 (0.0-0.4) X10*3/uL Baso # (Auto) 0.1 (0.0-0.2) X10*3/uL Abs Immat Gran (auto) 0.02 (0.00-0.03) X10*3/uL Absolute Neuts (auto) 5.8 (2.0-8.3) X10*3/uL Absolute Nucleated RBC 0.000 (0.0-0.012) X10*3/uL Nucleated RBC % (auto) 0.0 (0.0-0.2) /100WBC APTT (24.1-38.0) SEC Sodium (135-145) mmol/L Potassium (3.3-5.1) mmol/L Chloride (96-108) mmol/L Carbon Dioxide (22-29) mmol/L Anion Gap (12-20) BUN (9-16) mg/dL Creatinine (0.5-1.4) mg/dL Estim Creat Clear Calc Estimated GFR Random Glucose (60-115) mg/dL Calcium (8.4-10.2) mg/dL Total Bilirubin (0.0-1.0) mg/dL AST (5-37) U/L ALT (0-40) U/L Alkaline Phosphatase (39-117) U/L Total Protein (6.5-8.0) g/dL Albumin (3.5-5.0) g/dL Urine Color YELLOW Urine Appearance CLEAR Urine pH 6.5 (5.0-8.0) Ur Specific [place] 1.015 (1.005-1.025) Urine Protein 2+ H (NEG-TRACE) MG/DL Urine Glucose (UA) 100 H (NEG) MG/DL Urine Ketones NEG (NEG) MG/DL Urine Blood NEG (NEG) Urine Nitrite NEG (NEG) Ur Leukocyte Esterase TRACE H (NEG) Urine RBC 0 (0) /HPF Urine WBC 5-9 H (0-4) /HPF Ur Squamous Epith Cells NONE /LPF Urine Bacteria NONE /LPF Urine Opiates Screen Not Detected (Not Detect) Ur Barbiturates Screen Not Detected (Not Detect) Ur Phencyclidine Scrn Not Detected (Not Detect) Ur Amphetamines Screen Not Detected (Not Detect) U Benzodiazepines Scrn Not Detected (Not Detect) Urine Cocaine Screen Not Detected (Not Detect) U Marijuana (THC) Screen POSITIVE H (Not Detect) Ethyl Alcohol mg/dL <Brnadon Desir MD - Last Filed: 07/05/20 09:16> Discharge Plan Discharge Clinical Impression: Schizophrenia <Juan J Ying NP - Last Filed: 06/20/20 17:18> Patient Disposition: Home, Self-Care <Juan J Ying NP - Last Filed: 06/20/20 17:18> Instructions: Schizophrenia (ED) <Juan J Ying NP - Last Filed: 06/20/20 17:18> Additional Instructions: Please follow-up with the CT outpatient services tomorrow at 11:00 Home care as instructed Return if any concerns worsening symptoms Thank you <Juan J Ying NP - Last Filed: 06/20/20 17:18> Prescriptions: No Action lorazepam 1 mg tablet 1 mg PO DAILY PRN (Reason: anxiety) RF: 0 insulin aspart U-100 [Novolog Flexpen U-100 Insulin] 100 unit/mL (3 mL) Insulin Pen See Protocol unit SUBCUT TIDAC RF: 0 Lantus Solostar U-100 Insulin 100 unit/mL (3 mL) Insulin Pen 40 unit SUBCUT BEDTIME RF: 0 atorvastatin 80 mg Tablet 80 mg PO BEDTIME RF: 0 polyethylene glycol 3350 [Miralax] 17 gram Powder In Packet 17 g PO DAILY RF: 0 amlodipine 10 mg Tablet 10 mg PO DAILY RF: 0 omeprazole 20 mg Capsule,Delayed Release(Dr/Ec) 20 mg PO BID@0630,1630 RF: 0 aspirin 81 mg Tablet,Chewable 81 mg PO DAILY RF: 0 hydralazine 50 mg Tablet 50 mg PO BID RF: 0 cholecalciferol (vitamin D3) 25 mcg (1,000 unit) Tablet 25 mcg PO DAILY RF: 0 furosemide 40 mg Tablet 40 mg PO DAILY RF: 0 <Juan J Ying NP - Last Filed: 06/20/20 17:18> Interventions: ED Discharge Assessment Last Done: 06/20/20 17:17 <Jua nJ Ying NP - Last Filed: 06/20/20 17:18> Discharge Date/Time: 06/20/20 17:25 <Juan J Ying NP - Last Filed: 06/20/20 17:18>
[2020-06-20 13:05] VITALS: O2SAT 100; BMI 25.2
[2020-06-20 13:07] VITALS: BP 138/84; O2SAT 97
[2020-06-20] MEDS: LORazepam 2 MG/ML VIAL 1 MG IVPUSH (14:00)
[2020-06-20 14:41] LABS: MANUAL DIFF FLAG NO
[2020-06-20 14:43] LABS: Basophils Absolute Auto 0.1 X10*3/uL (0.0-0.2); Basophils Percent Auto 0.7 % (0-2); Eosinophils Absolute Auto 0.1 X10*3/uL (0.0-0.4); Eosinophils Percent Auto 1.3 % (0-4); Hematocrit 38.3 % (42-52); Hemoglobin 12.2 g/dl (14.0-18.0); Imm Gran Abs Auto 0.02 X10*3/uL (0.00-0.03); Imm Gran Pct Auto 0.2 % (0.0-0.4); Lymphocytes Absolute Auto 1.8 X10*3/uL (1.2-4.9); Mean Corpuscular HGB Conc 31.9 g/dl (31.0-36.0); Mean Corpuscular Hemoglobin 29.4 pg (27.0-33.0); Mean Corpuscular Volume 92.3 fL (80-98); Mean Platelet Volume 10.3 fL (9.4-12.4); Monocytes Absolute Auto 0.8 X10*3/uL (0.1-1.2); Monocytes Percent Auto 9.7 % (2-11); Neutrophils Absolute Auto 5.8 X10*3/uL (2.0-8.3); Neutrophils Percent Auto 67.1 % (45-73); Platelet Count 171 X10*3/uL (160-400); Red Blood Count 4.15 X10*6/uL (4.60-5.80); Red Cell Distribution Width 14.2 % (11.0-16.0); White Blood Count 8.7 X10*3/uL (4.8-10.8)
[2020-06-20 14:51] LABS: Partial Thromboplastin Time 29.4 SEC (24.1-38.0)
[2020-06-20 15:03] LABS: Ethanol < 10 mg/dL
[2020-06-20 15:07] LABS: Alanine Aminotransferase 6 U/L (0-40); Albumin Level 3.9 g/dL (3.5-5.0); Alkaline Phosphatase 142 U/L (39-117); Anion Gap 13 (12-20); Aspartate Amino Transferase 14 U/L (5-37); Bilirubin Total 0.4 mg/dL (0.0-1.0); Blood Urea Nitrogen 42 mg/dL (9-16); Calcium 8.6 mg/dL (8.4-10.2); Carbon Dioxide 27 mmol/L (22-29); Chloride 105 mmol/L (96-108); Creatinine Clr Calc Pharmacy 19.9; Estimated Glomerular Filt Rate 16; Glucose Random 96 mg/dL (60-115); Potassium 5.2 mmol/L (3.3-5.1); Sodium 140 mmol/L (135-145); Total Protein 6.7 g/dL (6.5-8.0)
[2020-06-20] MEDS: 0.9 % Sodium Chloride 1,000 ML 999 ML IV (15:18)
--- NOTE | 2020-06-20 15:19 | PC.NURSE ---
iv inserted, ns running per order
--- NOTE | 2020-06-20 15:51 | PC.NURSE ---
patient was given ativan by previous nurse IM- provider was aware of IM administration.
--- NOTE | 2020-06-20 16:09 | PC.NURSE ---
faxed to [facility]
[2020-06-20 16:12] VITALS: BP 141/74; PULSE 84; RESP 20; TEMP 36.8; O2SAT 97
--- NOTE | 2020-06-20 16:12 | PC.NURSE ---
patient a&ox3, vss, pt ivf running per order, vss, will continue to monitor
[2020-06-20 16:17] LABS: Glucose Urine UA 100 MG/DL (NEG); Leukocyte Esterase Urine TRACE (NEG); Nitrite Urine NEG (NEG); PH 6.5 (5.0-8.0); Specific Gravity - Urine 1.015 (1.005-1.025); UACC Culture Trigger YES; Urine Blood NEG (NEG); Urine Ketones NEG (NEG); Urine Protein 2+ MG/DL (NEG-TRACE)
[2020-06-20 16:21] LABS: Appearance Urine CLEAR; Color Urine YELLOW
[2020-06-20 16:40] LABS: Amphetamine Screen Urine Not Detected (Not Detect); Barbiturates, Urine Not Detected (Not Detect); Benzodiazepines Screen Urine Not Detected (Not Detect); Cannabinoid Screen Urine POSITIVE (Not Detect); Cocaine Screen Urine Not Detected (Not Detect); Opiate Screen Urine Not Detected (Not Detect); Phencyclidine Screen Urine Not Detected (Not Detect)
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
[2020-06-20 17:30] LABS: RBC Urine 0 /HPF (0); UACC CULT YES
== END 2020-06-20 17:25 | disposition home or self-care (01) ==
PROVIDERS: Nurse Practitioner Primary Care; Emergency Provider Emergency Medicine; PCP Internal Medicine
DX: F20.9 Schizophrenia, unspecified (principal); R45.851 Suicidal ideations; I10 Essential (primary) hypertension; E11.9 Type 2 diabetes mellitus without complications; F12.90 Cannabis use, unspecified, uncomplicated; Z79.4 Long term (current) use of insulin; Z79.899 Other long term (current) drug therapy
CPT/HCPCS: 36415; 80053; 80307; 80320; 81001; 85025; 85730; 87086; 96365; 96375; 99284; J2060

== ENCOUNTER 2020-06-21 14:18 | Emergency (ER) | payer OTHER, MEDICARE, SELFPAY ==
[2020-06-21 14:28] VITALS: BP 139/68; BP 140/80; PULSE 88; PULSE 92; RESP 12; TEMP 36.6; O2SAT 100; O2SAT 99; BMI 29.6
--- NOTE | 2020-06-21 14:41 | PC.NURSE ---
belongings placed in locker #9
--- NOTE | 2020-06-21 14:56 | ED_ITS ---
HPI - Psych General Chief Complaint: Psychiatric Symptoms Stated Complaint: NAUSEA Time Seen by Provider: 06/21/20 14:24 Source: patient and EMS Mode of arrival: EMS Limitations: no limitations History of Present Illness HPI Narrative: 69 y/o male with history of DM, gastroparesis, orthostatic hypotension, CKD who presents with suicidal ideation with plan to kill himself by overdosing on tylenol. He was seen here for SI yesterday. He was medically cleared and was evaluted by the CARE team. He denied active SI or plan and he was discharged home with [facility]. [facility] and suicidal thoughts with specific plan to overdose on APAP. Dr. Salcedo called the ER and sent the patient in for medical clearance. A bed has been arranged in [place], [place]. Patient reports feeling overwhelmed, anxous and depression about his chronic medical issues. It is taking a toll on his he reports. He feels like a burden. He has been thinking more and more about killing himself lately. He denies acting on his plan. He did not take any acetaminophen today. He took his morning medications. He denies N/V. He currently denies SI because he knows he is getting help. MD complaint: suicidal ideation and feels depressed Onset (ago): day(s) Duration: intermittent and getting worse History of same: Yes Relieving factors: none Exacerbating factors: none Context: other (ongoing chronic health issues ) Associated psychiatric symptoms: depression and suicidal ideation Associated symptoms: nausea and vomiting Treatments prior to arrival: none If self harm: admits thoughts of self harm and has plan Details of plan: overdose of tylenol Related Data Home Medications Medication Instructions Recorded Confirmed lorazepam 1 mg PO DAILY PRN 12/29/19 03/23/20 Lantus Solostar U-100 Insulin 30 unit SUBCUT BEDTIME 03/23/20 03/23/20 amlodipine 10 mg PO DAILY 03/23/20 03/23/20 aspirin 81 mg PO DAILY 03/23/20 03/23/20 atorvastatin 80 mg PO BEDTIME 03/23/20 03/23/20 cholecalciferol (vitamin D3) 25 mcg PO DAILY 03/23/20 03/23/20 hydralazine 50 mg PO BID 03/23/20 03/23/20 insulin aspart U-100 [Novolog See Protocol SUBCUT TIDAC 03/23/20 03/23/20 Flexpen U-100 Insulin] omeprazole 20 mg PO BID 03/23/20 03/23/20 polyethylene glycol 3350 [Miralax] 17 g PO DAILY 03/23/20 03/23/20 Allergies Allergy/AdvReac Type Severity Reaction Status Date / Time morphine Allergy Intermediate RASH Verified 04/25/20 07:24 Review of Systems Review of Systems: Constitutional: No Fever, No Chills ENT/Mouth: No sore throat, No Rhinorrhea, No Swallowing Difficulty Cardiovascular: No Chest Pain, No SOB Respiratory: No Cough, No Sputum, No Wheezing, No dyspnea Gastrointestinal: + Nausea, + Vomiting, No Diarrhea, No abdominal Pain Genitourinary: No Dysuria, No Urinary Frequency, No Hematuria Musculoskeletal: No joint pain, No Myalgias Skin: No Skin Lesions, No rash Neuro: No Weakness, No Numbness, No Dizziness, No Headache Psych: + Anxiety/Panic, + Depression, +SI, No AH/VH Heme/Lymph: No Bruising, No Lymphadenopathy Endocrine: No Polyuria, No Polydipsia [facility] Past Medical History Medical History Cyclical vomiting Diabetes Gastroparesis HTN (hypertension) IDDM (insulin dependent diabetes mellitus) Kidney failure Vomiting Family History Family History Other Family history non-contributory Social History Social History Household Members: Spouse Housing: House Alcohol intake: never Smoking Status: Never smoker Smoked in Last 30 Days: No Use of substances other than those prescribed or required for medical reasons: No Substance Use Type: Marijuana Advance Directives: Yes Advance Directives on File: Yes Advance Directives Date on File: 02/12/20 service: Yes Current occupational status: retired Physical Exam Vital Signs: Vital Signs: Last Vital Signs Temp 98 F 06/21/20 14:28 Pulse 88 06/21/20 14:28 Resp 12 06/21/20 14:28 BP 139/68 06/21/20 14:28 Pulse Ox 99 06/21/20 14:28 Body Mass Index 29.6 Appearance: Alert. Oriented X3. No acute distress. ENT: Pharynx normal. Neck: Normal inspection. Neck supple. CVS: Normal heart rate and rhythm. Pulses normal. Respiratory: No respiratory distress. Breath sounds normal. Abdomen: Softly distended and nontender. +BS x4 Skin: Skin warm and dry. Normal skin color. Normal skin turgor. No rashes. Extremities: No lower extremity edema. Neuro/psych: Oriented X 3. Speaking in complete sentences, good insight to his mental illness, +SI Course Course Course Narrative: 69 y/o male well known to this ER who presents with worsening depression and SI with plan. Presenting for medical clearance - he has a bed in [place] arranged by the [facility]. Will get repeat lab workup and Utox, tylenol level ect. Will get CARE team to see him again as well. Reevaluation(s) Reevaluation #1: Labs show his renal funciton is at his baseline. UA from yes terday showed possible infection but the culture remains negative today. No leukocytosis, fevers, or symptoms. No role for antibiotics at this time. Tylenol level is negative. ETOH level negative. He is medically cleared and stable for transfer to [place] for inpatient psychiatric care. MDM - Psych Medical Records Attestation: I reviewed the patient's medical records. Lab Data Attestation: I reviewed the patient's lab results. Result diagrams: 06/21/20 16:04 06/21/20 16:04 Labs: Lab Results 06/21/20 06/21/20 06/21/20 Range/Units 16:04 16:04 16:04 WBC 6.8 (4.8-10.8) X10*3/uL RBC 4.04 L (4.60-5.80) X10*6/uL Hgb 12.0 L (14.0-18.0) g/dl Hct 37.5 L (42-52) % MCV 92.8 (80-98) fL MCH 29.7 (27.0-33.0) pg MCHC 32.0 (31.0-36.0) g/dl RDW 14.2 (11.0-16.0) % Plt Count 169 (160-400) X10*3/uL MPV 10.8 (9.4-12.4) fL Immature Gran % (Auto) 0.1 (0.0-0.4) % Neut % (Auto) 60.8 (45-73) % Lymph % (Auto) 26.9 (20-40) % [place] % (Auto) 9.0 (2-11) % Eos % (Auto) 2.5 (0-4) % Baso % (Auto) 0.7 (0-2) % Lymph # (Auto) 1.8 (1.2-4.9) X10*3/uL [place] # (Auto) 0.6 (0.1-1.2) X10*3/uL Eos # (Auto) 0.2 (0.0-0.4) X10*3/uL Baso # (Auto) 0.1 (0.0-0.2) X10*3/uL Abs Immat Gran (auto) 0.01 (0.00-0.03) X10*3/uL Absolute Neuts (auto) 4.1 (2.0-8.3) X10*3/uL Absolute Nucleated RBC 0.000 (0.0-0.012) X10*3/uL Nucleated RBC % (auto) 0.0 (0.0-0.2) /100WBC PT 11.2 (10.8-13.0) SEC INR 0.9 (0.9-1.1) Sodium 139 (135-145) mmol/L Potassium 4.8 (3.3-5.1) mmol/L Chloride 107 (96-108) mmol/L Carbon Dioxide 24 (22-29) mmol/L Anion Gap 13 (12-20) BUN 40 H (9-16) mg/dL Creatinine 3.32 H (0.5-1.4) mg/dL Estim Creat Clear Calc 22.3 Estimated GFR 18 Random Glucose 190 H D (60-115) mg/dL Calcium 8.1 L (8.4-10.2) mg/dL Magnesium 2.2 (1.6-2.6) mg/dL Total Bilirubin 0.4 (0.0-1.0) mg/dL Direct Bilirubin 0.2 (0.0-0.5) mg/dL AST 15 (5-37) U/L ALT 8 (0-40) U/L Alkaline Phosphatase 172 H D (39-117) U/L Total Protein 6.4 L (6.5-8.0) g/dL Albumin 3.7 (3.5-5.0) g/dL Salicylates < 5.0 L (15-30) mg/dL Acetaminophen < 1 (<30) mcg/mL Ethyl Alcohol mg/dL COVID-19 ([facility]) (Negative) COVID-19 Clin Com 06/21/20 06/21/20 Range/Units 16:04 16:05 WBC (4.8-10.8) X10*3/uL RBC (4.60-5.80) X10*6/uL Hgb (14.0-18.0) g/dl Hct (42-52) % MCV (80-98) fL MCH (27.0-33.0) pg MCHC (31.0-36.0) g/dl RDW (11.0-16.0) % Plt Count (160-400) X10*3/uL MPV (9.4-12.4) fL Immature Gran % (Auto) (0.0-0.4) % Neut % (Auto) (45-73) % Lymph % (Auto) (20-40) % [place] % (Auto) (2-11) % Eos % (Auto) (0-4) % Baso % (Auto) (0-2) % Lymph # (Auto) (1.2-4.9) X10*3/uL [place] # (Auto) (0.1-1.2) X10*3/uL Eos # (Auto) (0.0-0.4) X10*3/uL Baso # (Auto) (0.0-0.2) X10*3/uL Abs Immat Gran (auto) (0.00-0.03) X10*3/uL Absolute Neuts (auto) (2.0-8.3) X10*3/uL Absolute Nucleated RBC (0.0-0.012) X10*3/uL Nucleated RBC % (auto) (0.0-0.2) /100WBC PT (10.8-13.0) SEC INR (0.9-1.1) Sodium (135-145) mmol/L Potassium (3.3-5.1) mmol/L Chloride (96-108) mmol/L Carbon Dioxide (22-29) mmol/L Anion Gap (12-20) BUN (9-16) mg/dL Creatinine (0.5-1.4) mg/dL Estim Creat Clear Calc Estimated GFR Random Glucose (60-115) mg/dL Calcium (8.4-10.2) mg/dL Magnesium (1.6-2.6) mg/dL Total Bilirubin (0.0-1.0) mg/dL Direct Bilirubin (0.0-0.5) mg/dL AST (5-37) U/L ALT (0-40) U/L Alkaline Phosphatase (39-117) U/L Total Protein (6.5-8.0) g/dL Albumin (3.5-5.0) g/dL Salicylates (15-30) mg/dL Acetaminophen (<30) mcg/mL Ethyl Alcohol < 10 mg/dL COVID-19 ([facility]) Negative (Negative) COVID-19 Clin Com See Note ECG Data Attestation: I personally reviewed and interpreted this ECG as follows: ECG interpretation date: 06/21/20 ECG interpretation time: 17:04 Prior ECG tracings: available for review Interpretation: normal sinus rhythm, HR 76 bpm, RBBB, TX interval 162 ms, left axis deviation - unchanged from prior Mar 2020 Discharge Plan Discharge Clinical Impression: Suicidal ideation Patient Disposition: Xfer Psychiatric Hosp Instructions: Suicide Prevention (ED), Depression (ED) Additional Instructions: You are medically cleared for transfer to [place] for inpatient psychiatric care. Take all of your medication as prescribed. Prescriptions: No Action lorazepam 1 mg tablet 1 mg PO DAILY PRN (Reason: anxiety) RF: 0 insulin aspart U-100 [Novolog Flexpen U-100 Insulin] 100 unit/mL (3 mL) Insulin Pen See Protocol unit SUBCUT TIDAC RF: 0 Lantus Solostar U-100 Insulin 100 unit/mL (3 mL) Insulin Pen 30 unit SUBCUT BEDTIME RF: 0 atorvastatin 80 mg Tablet 80 mg PO BEDTIME RF: 0 polyethylene glycol 3350 [Miralax] 17 gram Powder In Packet 17 g PO DAILY RF: 0 amlodipine 10 mg Tablet 10 mg PO DAILY RF: 0 omeprazole 20 mg Capsule,Delayed Release(Dr/Ec) 20 mg PO BID RF: 0 aspirin 81 mg Tablet,Chewable 81 mg PO DAILY RF: 0 hydralazine 50 mg Tablet 50 mg PO BID RF: 0 cholecalciferol (vitamin D3) 25 mcg (1,000 unit) Tablet 25 mcg PO DAILY RF: 0
--- NOTE | 2020-06-21 15:50 | MHC.CARE ---
Pt seen by CARE team yesterday with disposition for discharge home with his and follow up with appointment scheduled this morning 06/21/[address] Salcedo, psychiatrist at the [facility]. Pt and were encouraged to speak with Dr. Salcedo about pt's increasing thoughts of suicide, paranoia, and delusions associated with unmanaged symptoms of Schizophrenia. Pt returns today following this morning's appointment with plan for admission to [facility] for inpt psychiatric treatment pending medical clearance. Once labs are completed and medical clearance is established and documented, this casualty underwriter will fax packet along with crisis evaluation to Jayleen at [facility] (p: [phone] ext [phone] / f: [phone]) with plan for transfer and admission this evening if pt is medically appropriate.
--- NOTE | 2020-06-21 16:01 | ECG_ITS ---
Test Reason : MEDIAL CLEARANCE Blood Pressure : / mmHG Vent. Rate : 076 BPM Atrial Rate : 076 BPM P-R Int : 162 ms QRS Dur : 162 ms QT Int : 460 ms P-R-T Axes : 061 -45 004 degrees QTc Int : 517 ms Poor data quality Possible Normal sinus rhythm Left axis deviation Right bundle branch block Abnormal ECG When compared with ECG of 23-MAR-2020 13:25, No significant change was found Referred By: Lindsey Arguello Electronically Signed By:BERHANE POTTS MD
[2020-06-21 16:13] LABS: MANUAL DIFF FLAG NO
[2020-06-21 16:17] LABS: Basophils Absolute Auto 0.1 X10*3/uL (0.0-0.2); Basophils Percent Auto 0.7 % (0-2); Eosinophils Absolute Auto 0.2 X10*3/uL (0.0-0.4); Eosinophils Percent Auto 2.5 % (0-4); Hematocrit 37.5 % (42-52); Imm Gran Abs Auto 0.01 X10*3/uL (0.00-0.03); Imm Gran Pct Auto 0.1 % (0.0-0.4); Lymphocytes Absolute Auto 1.8 X10*3/uL (1.2-4.9); Lymphocytes Percent Auto 26.9 % (20-40); Mean Corpuscular Hemoglobin 29.7 pg (27.0-33.0); Mean Corpuscular Volume 92.8 fL (80-98); Mean Platelet Volume 10.8 fL (9.4-12.4); Monocytes Absolute Auto 0.6 X10*3/uL (0.1-1.2); Neutrophils Absolute Auto 4.1 X10*3/uL (2.0-8.3); Neutrophils Percent Auto 60.8 % (45-73); Platelet Count 169 X10*3/uL (160-400); Red Blood Count 4.04 X10*6/uL (4.60-5.80); Red Cell Distribution Width 14.2 % (11.0-16.0); White Blood Count 6.8 X10*3/uL (4.8-10.8)
[2020-06-21 16:29] LABS: INTERNATIONAL NORM RATIO 0.9 (0.9-1.1); Prothrombin Time 11.2 SEC (10.8-13.0)
[2020-06-21 16:33] LABS: COVID-19 Test Negative (Negative)
[2020-06-21 16:52] LABS: Acetaminophen LAB < 1 mcg/mL (<30); Alanine Aminotransferase 8 U/L (0-40); Albumin Level 3.7 g/dL (3.5-5.0); Alkaline Phosphatase 172 U/L (39-117); Anion Gap 13 (12-20); Aspartate Amino Transferase 15 U/L (5-37); Bilirubin Direct 0.2 mg/dL (0.0-0.5); Bilirubin Total 0.4 mg/dL (0.0-1.0); Blood Urea Nitrogen 40 mg/dL (9-16); Calcium 8.1 mg/dL (8.4-10.2); Carbon Dioxide 24 mmol/L (22-29); Chloride 107 mmol/L (96-108); Creatinine Clr Calc Pharmacy 22.3; Estimated Glomerular Filt Rate 18; Glucose Random 190 mg/dL (60-115); Magnesium 2.2 mg/dL (1.6-2.6); Potassium 4.8 mmol/L (3.3-5.1); Salicylate < 5.0 mg/dL (15-30); Sodium 139 mmol/L (135-145); Total Protein 6.4 g/dL (6.5-8.0)
[2020-06-21 16:53] LABS: Ethanol < 10 mg/dL
[2020-06-21 17:27] LABS: Glucose Urine UA 250 MG/DL (NEG); Leukocyte Esterase Urine NEG (NEG); Nitrite Urine NEG (NEG); Specific Gravity - Urine 1.015 (1.005-1.025); Urine Blood NEG (NEG); Urine Ketones NEG (NEG); Urine Protein 1+ MG/DL (NEG-TRACE)
[2020-06-21 17:28] LABS: Appearance Urine CLEAR; Color Urine YELLOW
[2020-06-21 17:48] LABS: Bacteria Urine 1+ /LPF; RBC Urine 0-2 /HPF (0); Squamous Epithelial Cell Urine TRACE /LPF
[2020-06-21 17:55] LABS: Amphetamine Screen Urine Not Detected (Not Detect); Barbiturates, Urine Not Detected (Not Detect); Benzodiazepines Screen Urine Not Detected (Not Detect); Cannabinoid Screen Urine POSITIVE (Not Detect); Cocaine Screen Urine Not Detected (Not Detect); Opiate Screen Urine Not Detected (Not Detect); Phencyclidine Screen Urine Not Detected (Not Detect)
--- NOTE | 2020-06-21 18:56 | MHC.CARE ---
CARE team completed assessment and gathered labs and ED physician documentation to be faxed to [facility]. CARE team was contacted by Carlos from [facility] who reported that the after hours covering doctor, Andrés Chapa, is not comfortable accepting pt this evening due to pt's complex medical presentation despite pt having been medically cleared at the emergency department this evening. Carlos recommended that the pt be re-referred for transfer to the [place] hospital in the morning after 8:30am, when the staff physicians are on site and there is full access to medical testing and monitoring equipment. All medical and behavioral assessments and results will be held onto at the [facility] and should not need to be re-faxed in the morning. Pt will remain in the ED overnight and CARE team will contact [facility] to discuss hopeful transfer to the facility. Pt's , Jasmyn, was updated re: the plan of care. [facility] [phone] Jayleen social service technician [phone] ext [phone]
[2020-06-21 20:00] VITALS: BP 187/85; PULSE 90; RESP 15; O2SAT 97
[2020-06-21 22:00] VITALS: BP 164/90; PULSE 110; RESP 20; TEMP 36.9; O2SAT 97
[2020-06-22] VITALS (7 sets, daily range): BP systolic 118–166; BP diastolic 62–84; PULSE 71–93; RESP 15–18; TEMP 37; O2SAT 97–99
[2020-06-22 09:14] LABS: Glucose, Whole Blood 269 mg/dL (60-115)
--- NOTE | 2020-06-22 11:07 | MHC.CARE ---
CARE team made several call to [facility] to follow up since 830 this am. T/w contacted the AOD at 1030 based on no communication rec back. T/w then spoke with the intake at AOD's ([phone]) referral at 1045 (Jayleen at [phone]). It was asked if pt was referred to other OR centers yet and t/w stated based on medical notes last night pt is being referred to [facility] as of now. CARE can refer to others as needed but based on pts request this was first step. The [facility] stated they do not assist in the referral process to their other facilities which CARE team will coordinate thereafter. Pt has not had an episodes of vomiting this am and t/w suggested Doc to Doc for added medical clarity. Jayleen from intake called t/w back asking for the ED attending and t/w provided this info to her on subsequent return call.Currently awaiting the Doc to Doc for decision. CARE team will need to be alerted if/when this is complete.
[2020-06-22] MEDS: Aspirin 81 MG TAB.CHEW PO (12:10)
[2020-06-22] MEDS: amLODIPine Besylate 10 MG TABLET PO (12:10)
[2020-06-22] MEDS: Omeprazole 20 MG CAPSULE.DR PO (12:10)
[2020-06-22] MEDS: Acetaminophen 325 MG TABLET 650 MG PO (12:11)
[2020-06-22] MEDS: hydrALAZINE HCl 50 MG TABLET PO ×2 (12:11→22:06)
[2020-06-22] MEDS: Cholecalciferol (Vitamin D3) 25 MCG TABLET PO (12:12)
[2020-06-22] MEDS: Furosemide 40 MG TABLET PO (12:12)
[2020-06-22] MEDS: LORazepam 1 MG TABLET PO (12:16)
[2020-06-22 12:37] LABS: Glucose, Whole Blood 222 mg/dL (60-115)
--- NOTE | 2020-06-22 13:01 | MHC.CARE ---
CARE team was contacted by [place] Jovon c/o Jayleen at intake who reported that pt is a firm no from the [facility] doc who feels pt has too many medical issues . T/w faxed referrals to [facility] at the [place] in [place], and [place] for review. [place]: ph: [phone], fax:[phone] [place]: ph:[phone], fax: [phone]
[2020-06-22] MEDS: Insulin Lispro 100 UNIT/ML 3 ML VIAL SUBCUT ×2 (13:08→22:05)
[2020-06-22] MEDS: LORazepam 0.5 MG TABLET 2 MG PO ×2 (14:03→22:06)
--- NOTE | 2020-06-22 14:22 | PC.NURSE ---
denies si, wanted to leave ama, sect 12 explained, came for support, pt very angry and yelling for a bit, ativan given, now appears more calm, sitter at bedside
--- NOTE | 2020-06-22 14:36 | MHC.CARE ---
Pt was informed that he is now on a section 12a due to pt requesting if I can't go to [place] I'm leaving . Pt was upset and angry that he was being held here and stated that [facility] is holding me prisoner . T/w spoke w pts who was in the Lobby. She arrived because pt was calling her saying he wanted to leave. She is agreeable and supportive of the plan for [facility] referral. She was hoping for [place] also and feels that the [place] providers in [place] were hoping pt could be admitted to [place]. T/w explained that [place] reported medical needs was the reason for this. Pts offered to come sit and speak with pt to help cope with the news he is not leaving or being admitted to [place]. Pt continued to repeat that he wanted to go the the [place] and stated how his psychiatrist told me I could . CARE team awaiting a call back from [facility] in [facility].
--- NOTE | 2020-06-22 15:11 | MHC.CARE ---
t/w spoke with Rob at 1510 and they reported that [place] no longer has [facility] . t/w placed a call to [facility] to inquire about the [facility] referral sent earlier and the numbers given by Jovon were incorrect. The correct number for [facility] is [phone] c/o Lacey or Zenaida for [facility]missions. T/w was informed that there are no beds at the [facility] for the week and suggested CARE call back in a few days and asked that we not send clinical yet. When available and requested fax at [phone]. Due to the [facility] in [place] declining pt and no beds at [place] the [facility] bedsearch is exhausted. Pt would benefit from general bedsearch outside of [facility] services and CARE will assist with this.
[2020-06-22 18:03] LABS: Glucose, Whole Blood 225 mg/dL (60-115)
--- NOTE | 2020-06-22 18:11 | PC.NURSE ---
pt did not eat, insulin held, sitter tried to assist him but pt refused to eat, back to sleep, refused prilosec
--- NOTE | 2020-06-22 18:59 | MHC.CARE ---
CARE Team conducts statewide geriatric inpt psych bedsearch with the following results: Nahid Villarreal- Per Sanjuanita, two beds available, 1 male and 1 female. assessment and labs faxed, CARE Team confirms with Sanjuanita @ 1900 that packet was recieved. Sanjuanita states that she will call CARE Team after referral is reviewed this evening.If no call from [facility]ju[facility] this evening, CARE Team will call and follow up in the morning [facility]- Per Amalia, no beds today, but they are willing to receive clinical. Packet faxed and confirmed with Amalia that packet was received. She encourages CARE Team to call and f/u tomorrow morning. The following units were called and have no openings this evening. CARE Team will call again in the morning: [facility]- full per Candace Cleaning- left VM with Diamond Pastrana- full per Dieud[facility]- full per Skye Rodrigues- full per Maria R [facility]- full per [facility] central intake- full across the system per Fran Please see prior not regarding VA referrals. Bedsearch is exhausted for today.
[2020-06-22 21:57] LABS: Glucose, Whole Blood 213 mg/dL (60-115)
[2020-06-22] MEDS: Insulin Glargine,Hum.rec.anlog 100 UNIT/ML 10 ML VIAL 40 UNIT SUBCUT (22:04)
[2020-06-22] MEDS: Atorvastatin Calcium 80 MG TABLET PO (22:06)
--- NOTE | 2020-06-22 22:12 | PC.NURSE ---
patient was medicated per orders- patient received his insulin, and the patient had a bedtime snack
--- NOTE | 2020-06-22 23:08 | PC.NURSE ---
patient is sleeping at this time, sitter at bedside
[2020-06-23] MEDS: diphenhydrAMINE HCL 25 MG TABLET 50 MG PO ×2 (03:02→11:00)
--- NOTE | 2020-06-23 03:02 | PC.NURSE ---
patient awoke making his normal moaning sound, patient reported feeling anxious - medicated with Benadryl per order
--- NOTE | 2020-06-23 07:52 | MHC.CARE ---
07:50 - Spoke with [facility] who called to advise CARE that there are no beds available and that there is an extensive wait list. I asked that this patient be put on the wait list and was advised that he would be. There may be a time period of 2 or more days before the CARE Team is contacted regarding bed availability due to the size of the wait list.
[2020-06-23 09:48] VITALS: BP 106/62; PULSE 66; RESP 20
--- NOTE | 2020-06-23 09:51 | MHC.CARE ---
CARE team return call from Dr Salcedo from [facility] who has seen pt in the past. He strongly advocated for [facility] due to acute suicidal ideation with plan to OD on Tylenol PM and per pts medical records pt has been untreated for many years and has hx of psychosis. CARE team made follow up calls to [facility] and [facility] reported full at this time and told CARE to call daily as they do not carry a wait list.
--- NOTE | 2020-06-23 10:09 | PC.NURSE ---
POC at 1000 156. RN aware.
[2020-06-23] MEDS: Insulin Lispro 100 UNIT/ML 3 ML VIAL SUBCUT ×2 (10:34→14:20)
[2020-06-23 10:35] VITALS: BP 106/62; PULSE 66
[2020-06-23] MEDS: Omeprazole 20 MG CAPSULE.DR PO (10:35)
[2020-06-23] MEDS: hydrALAZINE HCl 50 MG TABLET PO (10:35)
[2020-06-23] MEDS: polyethylene glycoL 3350 17 GM POWD.PACK PO (10:35)
[2020-06-23] MEDS: amLODIPine Besylate 10 MG TABLET PO (10:35)
[2020-06-23] MEDS: Aspirin 81 MG TAB.CHEW PO (10:36)
[2020-06-23] MEDS: Cholecalciferol (Vitamin D3) 25 MCG TABLET PO (10:36)
[2020-06-23] MEDS: Furosemide 40 MG TABLET PO (10:36)
[2020-06-23] MEDS: LORazepam 1 MG TABLET PO (11:00)
[2020-06-23 11:37] LABS: Glucose, Whole Blood 156 mg/dL (60-115)
--- NOTE | 2020-06-23 11:44 | MHC.CARE ---
CARE team conducted statewide Bedsearch for pt: as of 1130 [facility]-full Ze[facility]-reported they will contact CARE if a bed. [facility]-Full [facility]-Full [facility]-full [facility]-Full [facility] for review and will call CARE back
--- NOTE | 2020-06-23 12:47 | MHC.CARE ---
Hermila called CARE req to re-fax pts eval. T/w faxed at [phone]. Also still pending review at [facility].
[2020-06-23 13:27] LABS: Glucose, Whole Blood 273 mg/dL (60-115)
--- NOTE | 2020-06-23 14:14 | MHC.CARE ---
CARE team called [facility] for pre-cert process based on tentative accept from [facility]. T/w placed call at 1310 and spoke with Ruby and presented clinical until 1400. Based on dx full clinical presentation required for auth. T/w called [facility] for tax ID ([id number]). T/w continued presentation with [facility]. Based on acute presentation and dx code, block and case maker assigned to case and will continue to review to offer auth if accepted. At 1415 [facility] reviewer Esthela called to provide auth ([id number]) for 4 days starting today at 06/23/20 to 06/26/20 review on 06/27 with Esthela at [phone] [id number]. Pt tripp need formal accept from [facility] now once second COVID result obtained. [facility]All [facility] c/o Eduardo or Sukumar at [phone] with fax [phone].
--- NOTE | 2020-06-23 14:54 | MHC.CARE ---
CARE spoke with Eduardo at [facility] and provided Auth and he will accept pt once second COVID is completed. Call Eduardo once this is obtained to then set up details for time, room/doc, nurse to nurse and EMS transfer. Section [address].
[2020-06-23 15:48] LABS: COVID-19 Test Negative (Negative)
--- NOTE | 2020-06-23 16:39 | PC.NURSE ---
nurse to nurse given to Joya TERRELL, will arrange for transport
--- NOTE | 2020-06-23 16:43 | PC.NURSE ---
let community action worker nurse to nurse is given and we can set up an amb
[2020-06-23 16:45] VITALS: BP 136/69; PULSE 88; RESP 18; TEMP 36.4; O2SAT 98
== END 2020-06-23 18:15 ==
PROVIDERS: Physician Assistant; Physician Assistant Medical; Emergency Provider Emergency Medicine
DX: F33.1 Major depressive disorder, recurrent, moderate (principal); R45.851 Suicidal ideations; R11.0 Nausea; I10 Essential (primary) hypertension; E11.9 Type 2 diabetes mellitus without complications; Z20.822 Contact with and (suspected) exposure to COVID-19; Z79.4 Long term (current) use of insulin; Z79.899 Other long term (current) drug therapy
CPT/HCPCS: 36415; 80048; 80076; 80143; 80179; 80307; 80320; 81001; 82947; 83735; 85025; 85610; 87635; 93005; 99285; Q0163

== ENCOUNTER 2020-07-06 07:02 | Outpatient (REF) | payer MEDICARE, OTHER, SELFPAY ==
[2020-07-06 07:25] LABS: Hematocrit 36.5 % (42-52); Hemoglobin 11.8 g/dl (14.0-18.0); Mean Corpuscular HGB Conc 32.3 g/dl (31.0-36.0); Mean Corpuscular Hemoglobin 29.7 pg (27.0-33.0); Mean Corpuscular Volume 91.9 fL (80-98); Mean Platelet Volume 11.2 fL (9.4-12.4); Platelet Count 193 X10*3/uL (160-400); Red Blood Count 3.97 X10*6/uL (4.60-5.80); White Blood Count 6.4 X10*3/uL (4.8-10.8)
[2020-07-06 08:01] LABS: Alanine Aminotransferase 6 U/L (0-40); Albumin Level 3.3 g/dL (3.5-5.0); Alkaline Phosphatase 122 U/L (39-117); Anion Gap 12 (12-20); Aspartate Amino Transferase 14 U/L (5-37); Bilirubin Total 0.7 mg/dL (0.0-1.0); Blood Urea Nitrogen 30 mg/dL (9-16); Calcium 8.7 mg/dL (8.4-10.2); Carbon Dioxide 26 mmol/L (22-29); Chloride 106 mmol/L (96-108); Estimated Glomerular Filt Rate 20; Glucose Random 149 mg/dL (60-115); Potassium 4.2 mmol/L (3.3-5.1); Sodium 140 mmol/L (135-145); Total Protein 5.9 g/dL (6.5-8.0)
== END 2020-07-06 07:03 | disposition home or self-care (01) ==
LOC: HO.MMNH1L 07:02
PROVIDERS: Visit Provider Family Medicine
DX: D64.9 Anemia, unspecified (principal); R53.1 Weakness
CPT/HCPCS: 36415; 80053; 85027

== ENCOUNTER 2020-07-11 05:00 | Outpatient (REF) | payer MEDICARE, OTHER, SELFPAY | END 2020-07-11 05:01 | disposition home or self-care (01) | LOC: HO.MMNH1L 05:00 | PROVIDERS: Visit Provider Family Medicine | DX: Z13.89 Encounter for screening for other disorder (principal) ==

== ENCOUNTER 2020-07-11 06:38 | Outpatient (REF) | payer MEDICARE, OTHER, SELFPAY ==
[2020-07-11 07:02] LABS: Hematocrit 39.5 % (42-52); Hemoglobin 12.6 g/dl (14.0-18.0); Mean Corpuscular HGB Conc 31.9 g/dl (31.0-36.0); Mean Corpuscular Hemoglobin 29.1 pg (27.0-33.0); Mean Corpuscular Volume 91.2 fL (80-98); Mean Platelet Volume 11.2 fL (9.4-12.4); Platelet Count 193 X10*3/uL (160-400); Red Blood Count 4.33 X10*6/uL (4.60-5.80); Red Cell Distribution Width 13.8 % (11.0-16.0); White Blood Count 5.5 X10*3/uL (4.8-10.8)
[2020-07-11 07:27] LABS: Anion Gap 15 (12-20); Blood Urea Nitrogen 36 mg/dL (9-16); Calcium 9.1 mg/dL (8.4-10.2); Carbon Dioxide 27 mmol/L (22-29); Chloride 101 mmol/L (96-108); Estimated Glomerular Filt Rate 18; Glucose Random 192 mg/dL (60-115); Potassium 4.5 mmol/L (3.3-5.1); Sodium 138 mmol/L (135-145)
== END 2020-07-11 06:39 | disposition home or self-care (01) ==
LOC: HO.MMNH1L 06:38
PROVIDERS: Visit Provider Family Medicine
DX: R53.1 Weakness (principal); D64.9 Anemia, unspecified
CPT/HCPCS: 36415; 80048; 85027

== ENCOUNTER 2020-07-18 06:55 | Outpatient (REF) | payer MEDICARE, OTHER, SELFPAY ==
[2020-07-18 07:38] LABS: Hematocrit 40.1 % (42-52); Hemoglobin 13.1 g/dl (14.0-18.0); Mean Corpuscular HGB Conc 32.7 g/dl (31.0-36.0); Mean Corpuscular Hemoglobin 29.4 pg (27.0-33.0); Mean Corpuscular Volume 90.1 fL (80-98); Mean Platelet Volume 11.2 fL (9.4-12.4); Platelet Count 222 X10*3/uL (160-400); Red Blood Count 4.45 X10*6/uL (4.60-5.80); Red Cell Distribution Width 13.7 % (11.0-16.0); White Blood Count 5.7 X10*3/uL (4.8-10.8)
[2020-07-18 08:25] LABS: Anion Gap 14 (12-20); Blood Urea Nitrogen 44 mg/dL (9-16); Calcium 9.6 mg/dL (8.4-10.2); Carbon Dioxide 30 mmol/L (22-29); Chloride 98 mmol/L (96-108); Estimated Glomerular Filt Rate 19; Glucose Random 214 mg/dL (60-115); Potassium 4.2 mmol/L (3.3-5.1); Sodium 138 mmol/L (135-145)
== END 2020-07-18 06:56 | disposition home or self-care (01) ==
LOC: HO.MMNH1L 06:55
PROVIDERS: Visit Provider Family Medicine
DX: R53.1 Weakness (principal); D64.9 Anemia, unspecified
CPT/HCPCS: 36415; 80048; 85027

== ENCOUNTER 2020-07-25 10:22 | Outpatient (REF) | payer MEDICARE, OTHER, SELFPAY ==
[2020-07-25 07:54] LABS: Hematocrit 37.2 % (42-52); Hemoglobin 12.1 g/dl (14.0-18.0); Mean Corpuscular HGB Conc 32.5 g/dl (31.0-36.0); Mean Corpuscular Hemoglobin 29.4 pg (27.0-33.0); Mean Corpuscular Volume 90.5 fL (80-98); Mean Platelet Volume 11.4 fL (9.4-12.4); Platelet Count 194 X10*3/uL (160-400); Red Blood Count 4.11 X10*6/uL (4.60-5.80); Red Cell Distribution Width 13.4 % (11.0-16.0)
[2020-07-25 08:23] LABS: Anion Gap 14 (12-20); Blood Urea Nitrogen 48 mg/dL (9-16); Calcium 9.2 mg/dL (8.4-10.2); Carbon Dioxide 29 mmol/L (22-29); Chloride 103 mmol/L (96-108); Estimated Glomerular Filt Rate 21; Glucose Random 98 mg/dL (60-115); Potassium 3.9 mmol/L (3.3-5.1); Sodium 142 mmol/L (135-145)
== END 2020-07-25 10:23 | disposition home or self-care (01) ==
LOC: HO.MMNH1L 10:22
PROVIDERS: Visit Provider Family Medicine
DX: R53.1 Weakness (principal); D64.9 Anemia, unspecified
CPT/HCPCS: 36415; 80048; 85027

== ENCOUNTER 2020-07-26 12:45 | Emergency (ER) | payer OTHER, SELFPAY ==
--- NOTE | ~2020-07-26 | XR_ITS ---
EXAMINATION: XR CHEST CLINICAL INFORMATION: Weakness. COMPARISON: Chest x-ray 03/23/2020 TECHNIQUE: Frontal view of the chest was obtained. FINDINGS: The lungs are well-expanded and clear of acute process. The heart size and pulmonary vascularity is normal. There is a 2.2 cm calcified density right upper lobe laterally question granuloma or calcified pleural plaque. There is no pleural effusion. No gross bony abnormality. XR/XR chest 1V IMPRESSION: No acute process seen.. Likely calcified right upper lobe pleural plaque. It is stable.
--- NOTE | ~2020-07-26 | US_ITS ---
EXAMINATION: US VENOUS ULTRASOUND WITH DOPPLER LOWER EXTREMITY, BILATERAL CLINICAL INFORMATION: Pain and swelling COMPARISON: None TECHNIQUE: Ultrasound of the deep veins is performed from the hip to the calf with compression sonography and color and pulse Doppler assessment. Spectral analysis with color-flow imaging is performed. FINDINGS: RIGHT: There is normal venous compression and respiratory variation and augmented flow. The visualized common femoral vein, superficial femoral vein, profunda femoral vein, popliteal vein, and the trifurcation region shows no evidence of deep venous thrombosis. There is no significant popliteal fossa cyst. LEFT: There is normal venous compression and respiratory variation and augmented flow. The visualized common femoral vein, superficial femoral vein, profunda femoral vein, popliteal vein, and the trifurcation region shows no evidence of deep venous thrombosis. There is no significant popliteal fossa cyst. US/US venous duplex LE BI IMPRESSION: No DVT demonstrated in the bilateral lower extremity.
--- NOTE | 2020-07-26 12:51 | ED.WEAKNESS ---
HPI - Weakness General Chief complaint: Weakness Stated complaint: FAILURE TO THRIVE/WEAKNESS,RECENT D/C FROM REHAB Time Seen by Provider: 07/26/20 12:50 Source: patient, EMS and old records reviewed Mode of arrival: EMS Limitations: no limitations History of Present Illness HPI Narrative: 69 yo male with CKD, depression, HTN, legally blind, neuropathy, gastroparesis just admitted to inpatient psychiatry family told EMS he decompensated while there then went home ended up in STR did not participate just sat in a chair was DC due to lack of participation to home last night, now FTT in ED, swollen legs, has not been getting up or taking care of himself, just had stroke and cannot care for him anymore Complaint: generalized weakness Onset (ago): week(s) Duration: constant and progressively worsening Location: generalized Migration: none Severity: severe Quality: dull Relieving factors: none Exacerbating factors: none Context: recent illness and depression Associated symptoms: other (LE edema) Related Data Home Medications Medication Instructions Recorded Confirmed Lantus Solostar U-100 Insulin 30 unit SUBCUT BEDTIME 03/23/20 06/21/20 amlodipine 10 mg PO DAILY 03/23/20 06/21/20 aspirin 81 mg PO DAILY 03/23/20 06/21/20 atorvastatin 80 mg PO BEDTIME 03/23/20 06/21/20 cholecalciferol (vitamin D3) 25 mcg PO DAILY 03/23/20 06/21/20 hydralazine 50 mg PO BID 03/23/20 06/21/20 insulin aspart U-100 [Novolog See Protocol SUBCUT TIDAC 03/23/20 06/21/20 Flexpen U-100 Insulin] omeprazole 20 mg PO BID@0630,1630 03/23/20 06/21/20 furosemide 40 mg PO DAILY 06/21/20 06/21/20 clonazepam 1 tab PO TID 07/26/20 haloperidol 1 tab PO BID 07/26/20 lorazepam 1 mg PO DAILY PRN 07/26/20 Allergies Allergy/AdvReac Type Severity Reaction Status Date / Time morphine Allergy Intermediate RASH Verified 04/25/20 07:24 Review of Systems Review of Systems: Constitutional : No Weight loss, No Fever, No Chills, pos Fatigue, pos Malaise ENT/Mouth : No sore throat, No Rhinorrhea Eyes: No Eye Pain, No Swelling, No Redness Cardiovascular : No Chest Pain, No SOB, No Dyspnea on Exertion, No Orthopnea, pos Edema, No Palpitations Respiratory : No Cough, No Sputum, No Wheezing Gastrointestinal : No Nausea, No Vomiting, No Diarrhea, No Constipation, No abdominal Pain, No Hematochezia, No Melena Genitourinary : No Dysuria, No Urinary Frequency, No Hematuria, Musculoskeletal : No joint pain, No Myalgias, No Joint Swelling Skin : No Skin Lesions, No rash Neuro : pos Weakness, No Numbness, No Dizziness, No Headache Psych : No Anxiety/Panic, No Depression Heme/Lymph: No Bruising, No Bleeding,No Lymphadenopathy Endocrine : No Polyuria, No Polydipsia All other systems reviewed and are negative [facility] Past Medical History Attestation statement: The following information was validated with the patient. Medical History Cyclical vomiting Diabetes Gastroparesis HTN (hypertension) IDDM (insulin dependent diabetes mellitus) Kidney failure Vomiting Family History Family History Other Family history non-contributory Social History Social History Household Members: Spouse Housing: House Alcohol intake: never Smoking Status: Never smoker Substance Use Type: Marijuana Advance Directives: Yes Advance Directives on File: Yes Advance Directives Date on File: 02/12/20 service: Yes Current occupational status: retired Physical Exam Vital Signs: Vital Signs: Last Vital Signs Pulse 86 07/26/20 12:59 Resp 16 07/26/20 12:59 BP 155/63 H 07/26/20 12:59 Pulse Ox 99 07/26/20 12:59 Body Mass Index 25.1 Appearance: Alert. Oriented X3. No acute distress. Eyes: opacified corneas ENT: Pharynx dry MMM Neck: Normal inspection. Neck supple. CVS: Normal heart rate and rhythm. Pulses normal. Respiratory: No respiratory distress. Breath sounds normal. Abdomen: Soft and nontender. Skin: Skin warm and dry. Normal skin color. Normal skin turgor. Extremities: pitting 2 to 3+ lower extremity edema bilateral . No calf ttp Neuro: Oriented X 3. No motor deficit. No sensory deficit. Psych: very withdrawn, flat affect Course Course Course Narrative: Cr at baseline suspect that this is dependent edema from not moving will elevated and inga wrap at this time, PT/CM pending will consult CARE team for possible depression though he didn't benefit from last placement Patient placed in physician observation at 320pm . The indication for observation is that the patient needs more time to have evaluation by PT/CM and CARE team for possible placement. At this time the patient is withdrawn, flat affect, lungs clear, CV RRR, abd nontender, neuro nonfocal signed out to Dr. Bey pending PT/CM MDM - Weakness MDM Narrative Medical decision making narrative: 69 yo male with CKD, depression, HTN, legally blind, neuropathy, gastroparesis just admitted to inpatient psychiatry family told EMS he decompensated while there then went home ended up in STR did not participate just sat in a chair was DC due to lack of participation to home last night, now FTT in ED, swollen legs, has not been getting up or taking care of himself, just had stroke and cannot care for him anymore at this time patient will need labs, CXR, COVID swab, DVT study pending results may need medical admit vs placement Lab Data Result diagrams: 07/26/20 14:33 07/26/20 14:33 Labs: Lab Results 07/26/20 07/26/20 07/26/20 Range/Units 13:08 14:33 14:33 WBC 5.5 (4.8-10.8) X10*3/uL RBC 4.22 L (4.60-5.80) X10*6/uL Hgb 12.5 L (14.0-18.0) g/dl Hct 38.1 L (42-52) % MCV 90.3 (80-98) fL MCH 29.6 (27.0-33.0) pg MCHC 32.8 (31.0-36.0) g/dl RDW 13.7 (11.0-16.0) % Plt Count 198 (160-400) X10*3/uL MPV 10.7 (9.4-12.4) fL Immature Gran % (Auto) 0.2 (0.0-0.4) % Neut % (Auto) 57.1 (45-73) % Lymph % (Auto) 30.2 (20-40) % [place] % (Auto) 8.5 (2-11) % Eos % (Auto) 2.9 (0-4) % Baso % (Auto) 1.1 (0-2) % Lymph # (Auto) 1.7 (1.2-4.9) X10*3/uL [place] # (Auto) 0.5 (0.1-1.2) X10*3/uL Eos # (Auto) 0.2 (0.0-0.4) X10*3/uL Baso # (Auto) 0.1 (0.0-0.2) X10*3/uL Abs Immat Gran (auto) 0.01 (0.00-0.03) X10*3/uL Absolute Neuts (auto) 3.2 (2.0-8.3) X10*3/uL Absolute Nucleated RBC 0.000 (0.0-0.012) X10*3/uL Nucleated RBC % (auto) 0.0 (0.0-0.2) /100WBC PT 11.1 (10.8-13.0) SEC INR 0.9 (0.9-1.1) APTT 32.7 (24.1-38.0) SEC VBG pH (7.32-7.43) VBG pCO2 mmHg VBG pO2 mmHg VBG HCO3 (22-26) mmol/L VBG O2 Saturation % VBG Base Excess mmol/L Sodium (135-145) mmol/L Potassium (3.3-5.1) mmol/L Chloride (96-108) mmol/L Carbon Dioxide (22-29) mmol/L Anion Gap (12-20) BUN (9-16) mg/dL Creatinine (0.5-1.4) mg/dL Estim Creat Clear Calc Estimated GFR POC Glucose 336 H (60-115) mg/dL Random Glucose (60-115) mg/dL Calcium (8.4-10.2) mg/dL Magnesium (1.6-2.6) mg/dL Total Bilirubin (0.0-1.0) mg/dL Direct Bilirubin (0.0-0.5) mg/dL AST (5-37) U/L ALT (0-40) U/L Alkaline Phosphatase (39-117) U/L Total Creatine Kinase (38-174) U/L B-Natriuretic Peptide (<100) pg/mL Total Protein (6.5-8.0) g/dL Albumin (3.5-5.0) g/dL Urine Color Urine Appearance Urine pH (5.0-8.0) Ur Specific [place] (1.005-1.025) Urine Protein (NEG-TRACE) MG/DL Urine Glucose (UA) (NEG) MG/DL Urine Ketones (NEG) MG/DL Urine Blood (NEG) Urine Nitrite (NEG) Ur Leukocyte Esterase (NEG) COVID-19 ([facility]) (Negative) COVID-19 Clin Com 07/26/20 07/26/20 07/26/20 Range/Units 14:33 14:33 14:33 WBC (4.8-10.8) X10*3/uL RBC (4.60-5.80) X10*6/uL Hgb (14.0-18.0) g/dl Hct (42-52) % MCV (80-98) fL MCH (27.0-33.0) pg MCHC (31.0-36.0) g/dl RDW (11.0-16.0) % Plt Count (160-400) X10*3/uL MPV (9.4-12.4) fL Immature Gran % (Auto) (0.0-0.4) % Neut % (Auto) (45-73) % Lymph % (Auto) (20-40) % [place] % (Auto) (2-11) % Eos % (Auto) (0-4) % Baso % (Auto) (0-2) % Lymph # (Auto) (1.2-4.9) X10*3/uL [place] # (Auto) (0.1-1.2) X10*3/uL Eos # (Auto) (0.0-0.4) X10*3/uL Baso # (Auto) (0.0-0.2) X10*3/uL Abs Immat Gran (auto) (0.00-0.03) X10*3/uL Absolute Neuts (auto) (2.0-8.3) X10*3/uL Absolute Nucleated RBC (0.0-0.012) X10*3/uL Nucleated RBC % (auto) (0.0-0.2) /100WBC PT (10.8-13.0) SEC INR (0.9-1.1) APTT (24.1-38.0) SEC VBG pH (7.32-7.43) VBG pCO2 mmHg VBG pO2 mmHg VBG HCO3 (22-26) mmol/L VBG O2 Saturation % VBG Base Excess mmol/L Sodium 140 (135-145) mmol/L Potassium 4.6 (3.3-5.1) mmol/L Chloride 102 (96-108) mmol/L Carbon Dioxide 29 (22-29) mmol/L Anion Gap 14 (12-20) BUN 46 H (9-16) mg/dL Creatinine 3.18 H (0.5-1.4) mg/dL Estim Creat Clear Calc 23.0 Estimated GFR 19 POC Glucose (60-115) mg/dL Random Glucose 369 H* (60-115) mg/dL Calcium 9.1 (8.4-10.2) mg/dL Magnesium 2.2 (1.6-2.6) mg/dL Total Bilirubin 0.4 (0.0-1.0) mg/dL Direct Bilirubin 0.2 (0.0-0.5) mg/dL AST 12 (5-37) U/L ALT 8 (0-40) U/L Alkaline Phosphatase 179 H D (39-117) U/L Total Creatine Kinase 77 D (38-174) U/L B-Natriuretic Peptide 33 (<100) pg/mL Total Protein 6.0 L (6.5-8.0) g/dL Albumin 3.3 L (3.5-5.0) g/dL Urine Color Urine Appearance Urine pH (5.0-8.0) Ur Specific [place] (1.005-1.025) Urine Protein (NEG-TRACE) MG/DL Urine Glucose (UA) (NEG) MG/DL Urine Ketones (NEG) MG/DL Urine Blood (NEG) Urine Nitrite (NEG) Ur Leukocyte Esterase (NEG) COVID-19 ([facility]) Negative (Negative) COVID-19 Clin Com See Note 07/26/20 07/26/20 Range/Units 14:38 16:10 WBC (4.8-10.8) X10*3/uL RBC (4.60-5.80) X10*6/uL Hgb (14.0-18.0) g/dl Hct (42-52) % MCV (80-98) fL MCH (27.0-33.0) pg MCHC (31.0-36.0) g/dl RDW (11.0-16.0) % Plt Count (160-400) X10*3/uL MPV (9.4-12.4) fL Immature Gran % (Auto) (0.0-0.4) % Neut % (Auto) (45-73) % Lymph % (Auto) (20-40) % [place] % (Auto) (2-11) % Eos % (Auto) (0-4) % Baso % (Auto) (0-2) % Lymph # (Auto) (1.2-4.9) X10*3/uL [place] # (Auto) (0.1-1.2) X10*3/uL Eos # (Auto) (0.0-0.4) X10*3/uL Baso # (Auto) (0.0-0.2) X10*3/uL Abs Immat Gran (auto) (0.00-0.03) X10*3/uL Absolute Neuts (auto) (2.0-8.3) X10*3/uL Absolute Nucleated RBC (0.0-0.012) X10*3/uL Nucleated RBC % (auto) (0.0-0.2) /100WBC PT (10.8-13.0) SEC INR (0.9-1.1) APTT (24.1-38.0) SEC VBG pH 7.39 (7.32-7.43) VBG pCO2 52 mmHg VBG pO2 113 mmHg VBG HCO3 31 H (22-26) mmol/L VBG O2 Saturation 98.0 % VBG Base Excess 5.7 mmol/L Sodium (135-145) mmol/L Potassium (3.3-5.1) mmol/L Chloride (96-108) mmol/L Carbon Dioxide (22-29) mmol/L Anion Gap (12-20) BUN (9-16) mg/dL Creatinine (0.5-1.4) mg/dL Estim Creat Clear Calc Estimated GFR POC Glucose (60-115) mg/dL Random Glucose (60-115) mg/dL Calcium (8.4-10.2) mg/dL Magnesium (1.6-2.6) mg/dL Total Bilirubin (0.0-1.0) mg/dL Direct Bilirubin (0.0-0.5) mg/dL AST (5-37) U/L ALT (0-40) U/L Alkaline Phosphatase (39-117) U/L Total Creatine Kinase (38-174) U/L B-Natriuretic Peptide (<100) pg/mL Total Protein (6.5-8.0) g/dL Albumin (3.5-5.0) g/dL Urine Color YELLOW Urine Appearance CLEAR Urine pH 6.5 (5.0-8.0) Ur Specific [place] 1.015 (1.005-1.025) Urine Protein TRACE (NEG-TRACE) MG/DL Urine Glucose (UA) >=1000 H (NEG) MG/DL Urine Ketones NEG (NEG) MG/DL Urine Blood NEG (NEG) Urine Nitrite NEG (NEG) Ur Leukocyte Esterase NEG (NEG) COVID-19 ([facility]) (Negative) COVID-19 Clin Com ECG Data Attestation: I personally reviewed and interpreted this ECG as follows: ECG interpretation date: 07/26/20 ECG interpretation time: 13:21 Interpretation: Rate: 88 Rhythm: NSR Oracle: LEFT Normal P waves. Normal [place]. widened QRS complex. ST T wave : nonspecific, no NURIA qTC: normal prior studies: no acute ischemia artifact noted The study has been interpreted contemporaneously by me. . Discharge Plan Discharge Clinical Impression: Pedal edema, Adult failure to thrive Chronic kidney disease Qualifiers: Chronic kidney disease stage: unspecified stage Qualified Code(s): N18.9 - Chronic kidney disease, unspecified Prescriptions: No Action insulin aspart U-100 [Novolog Flexpen U-100 Insulin] 100 unit/mL (3 mL) Insulin Pen See Protocol unit SUBCUT TIDAC RF: 0 Lantus Solostar U-100 Insulin 100 unit/mL (3 mL) Insulin Pen 30 unit SUBCUT BEDTIME RF: 0 atorvastatin 80 mg Tablet 80 mg PO BEDTIME RF: 0 amlodipine 10 mg Tablet 10 mg PO DAILY RF: 0 omeprazole 20 mg Capsule,Delayed Release(Dr/Ec) 20 mg PO BID@0630,1630 RF: 0 aspirin 81 mg Tablet,Chewable 81 mg PO DAILY RF: 0 hydralazine 50 mg Tablet 50 mg PO BID RF: 0 cholecalciferol (vitamin D3) 25 mcg (1,000 unit) Tablet 25 mcg PO DAILY RF: 0 furosemide 40 mg Tablet 40 mg PO DAILY RF: 0 haloperidol 5 mg tablet 1 tab PO BID RF: 0 clonazepam 0.5 mg tablet 1 tab PO TID RF: 0 lorazepam 1 mg Tablet 1 mg PO DAILY PRN (Reason: Anxiety) RF: 0
--- NOTE | 2020-07-26 12:54 | ECG_ITS ---
Test Reason : GENERAL MEDICAL Blood Pressure : / mmHG Vent. Rate : 088 BPM Atrial Rate : 088 BPM P-R Int : 182 ms QRS Dur : 106 ms QT Int : 384 ms P-R-T Axes : 063 -56 026 degrees QTc Int : 464 ms Normal sinus rhythm Left axis deviation Cannot rule out Anterior infarct , age undetermined Abnormal ECG When compared with ECG of 21-JUN-2020 16:23, Right bundle branch block is no longer Present Minimal criteria for Anterior infarct are now Present Referred By: Disha Blackburn Electronically Signed By:[place]
[2020-07-26 12:59] VITALS: BP 155/63; PULSE 86; RESP 16; O2SAT 99; BMI 25.1
[2020-07-26 13:12] LABS: Glucose, Whole Blood 336 mg/dL (60-115)
[2020-07-26 14:42] LABS: MANUAL DIFF FLAG NO
[2020-07-26 14:49] LABS: Basophils Absolute Auto 0.1 X10*3/uL (0.0-0.2); Basophils Percent Auto 1.1 % (0-2); Eosinophils Absolute Auto 0.2 X10*3/uL (0.0-0.4); Eosinophils Percent Auto 2.9 % (0-4); Hematocrit 38.1 % (42-52); Hemoglobin 12.5 g/dl (14.0-18.0); Imm Gran Abs Auto 0.01 X10*3/uL (0.00-0.03); Imm Gran Pct Auto 0.2 % (0.0-0.4); Lymphocytes Absolute Auto 1.7 X10*3/uL (1.2-4.9); Lymphocytes Percent Auto 30.2 % (20-40); Mean Corpuscular HGB Conc 32.8 g/dl (31.0-36.0); Mean Corpuscular Hemoglobin 29.6 pg (27.0-33.0); Mean Corpuscular Volume 90.3 fL (80-98); Mean Platelet Volume 10.7 fL (9.4-12.4); Monocytes Absolute Auto 0.5 X10*3/uL (0.1-1.2); Monocytes Percent Auto 8.5 % (2-11); Neutrophils Absolute Auto 3.2 X10*3/uL (2.0-8.3); Neutrophils Percent Auto 57.1 % (45-73); Platelet Count 198 X10*3/uL (160-400); Red Blood Count 4.22 X10*6/uL (4.60-5.80); Red Cell Distribution Width 13.7 % (11.0-16.0); White Blood Count 5.5 X10*3/uL (4.8-10.8)
[2020-07-26 14:57] LABS: VBG Base Excess 5.7 mmol/L; VBG HCO3 31 mmol/L (22-26); VBG pCO2 52 mmHg; VBG pH 7.39 (7.32-7.43); VBG pO2 113 mmHg
[2020-07-26 14:59] LABS: Venous Blood Gas Refer to POC result
[2020-07-26 15:01] LABS: COVID-19 Test Negative (Negative)
[2020-07-26 15:11] LABS: Alanine Aminotransferase 8 U/L (0-40); Albumin Level 3.3 g/dL (3.5-5.0); Alkaline Phosphatase 179 U/L (39-117); Anion Gap 14 (12-20); Aspartate Amino Transferase 12 U/L (5-37); Bilirubin Direct 0.2 mg/dL (0.0-0.5); Bilirubin Total 0.4 mg/dL (0.0-1.0); Blood Urea Nitrogen 46 mg/dL (9-16); Calcium 9.1 mg/dL (8.4-10.2); Carbon Dioxide 29 mmol/L (22-29); Chloride 102 mmol/L (96-108); Estimated Glomerular Filt Rate 19; Glucose Random 369 mg/dL (60-115); Magnesium 2.2 mg/dL (1.6-2.6); Potassium 4.6 mmol/L (3.3-5.1); Sodium 140 mmol/L (135-145)
[2020-07-26 15:15] LABS: B Type Natriuretic Peptide 33 pg/mL (<100)
[2020-07-26 15:16] LABS: INTERNATIONAL NORM RATIO 0.9 (0.9-1.1); Prothrombin Time 11.1 SEC (10.8-13.0)
[2020-07-26 15:21] LABS: Partial Thromboplastin Time 32.7 SEC (24.1-38.0)
[2020-07-26 16:18] LABS: Glucose Urine UA >=1000 MG/DL (NEG); Leukocyte Esterase Urine NEG (NEG); Nitrite Urine NEG (NEG); PH 6.5 (5.0-8.0); Specific Gravity - Urine 1.015 (1.005-1.025); Urine Blood NEG (NEG); Urine Ketones NEG (NEG); Urine Protein TRACE MG/DL (NEG-TRACE)
[2020-07-26 16:21] LABS: Appearance Urine CLEAR; Color Urine YELLOW
[2020-07-26 16:31] LABS: Bacteria Urine TRACE /LPF; Squamous Epithelial Cell Urine TRACE /LPF
[2020-07-26 17:12] VITALS: BP 141/79; PULSE 78; RESP 13; TEMP 37.1; O2SAT 97
[2020-07-26 17:21] LABS: Glucose, Whole Blood 251 mg/dL (60-115)
[2020-07-26] MEDS: Insulin Lispro 100 UNIT/ML 3 ML VIAL SUBCUT (17:47)
--- NOTE | 2020-07-26 19:36 | MHC.CM.ED ---
CM met with pt. Pt states he lives with his , but she cannot care for him because she had a stroke. Pt states he needs to live in a fci. Pt is an [employer] and is vet connected. States he has his healthcare the the [facility] and uses the [facility]. States his daughter/HCP Courtney Schaefer ([phone]) has filled out an application at the [facility], but they are not accepting patients at this time. HCP is on file. Pt has a PT assessment, as he states he cannot walk. Pt was at [facility] for [facility], but was not participating. Pt states he has a home health aide from the [place] for 11hours/week. They come three times/week. Pt states he is very depressed. CARE team consult has been placed. Referrals placed with agencies that accept [facility] Medicare. Pt is agreeable with plan of care. CM to follow for D/C needs.
--- NOTE | 2020-07-26 19:48 | MHC.CARE ---
CARE team consulted received for pt who is a 69 year old male that arrived via ambulance from home for failure to thrive. Pt is known to CARE team from evaluation on 06/20/20 with disposition for inpt psychiatric admission. Pt was hospitalized at [facility] for stabilization of suicidality and psychotic symptoms. Following discharge home from [facility], pt was transferred to [facility] due to a physical/medical decompensation that began during pt's psychiatric admission. Pt was discharged from [facility] due to him not participating in treatment. Pt's decompensation has warranted pt unable to care for himself at home, and due to pt's having had a stroke recently she is unable to care for him. oysterman care placement is recommended. If there are concerns re: pt's mental health CARE team is available for consultation and assessment.
[2020-07-26 20:00] VITALS: BP 151/67; PULSE 74; RESP 16; O2SAT 98
--- NOTE | 2020-07-26 21:07 | MHC.CARE ---
This expert medical writer attempted to meet with pt who was sleeping. Pt was sleepy and did not want to be disturbed when approached to meet.
[2020-07-26 21:13] LABS: Glucose, Whole Blood 193 mg/dL (60-115)
[2020-07-26 21:17] VITALS: BP 149/66; PULSE 76
[2020-07-26] MEDS: hydrALAZINE HCl 50 MG TABLET PO (21:17)
[2020-07-26] MEDS: Atorvastatin Calcium 80 MG TABLET PO (21:17)
[2020-07-26] MEDS: HaloperidoL 5 MG TABLET PO (21:17)
[2020-07-26] MEDS: Insulin Glargine,Hum.rec.anlog 100 UNIT/ML 10 ML VIAL 30 UNIT SUBCUT (21:17)
[2020-07-26] MEDS: clonazePAM 0.5 MG TABLET PO (21:18)
[2020-07-26 22:00] VITALS: BP 178/81; PULSE 84; RESP 16; O2SAT 96
[2020-07-26 23:23] VITALS: BP 164/75; PULSE 79; RESP 12; O2SAT 98
[2020-07-27] VITALS (11 sets, daily range): BP systolic 130–160; BP diastolic 65–79; PULSE 80–89; RESP 14–16; TEMP 37.1; O2SAT 96–98
[2020-07-27] MEDS: Omeprazole 20 MG CAPSULE.DR PO ×2 (05:42→19:13)
--- NOTE | 2020-07-27 07:19 | PC.NURSE ---
eating breakfast poc 64 when eating, states he didn't feel low prior to eating
[2020-07-27 07:21] LABS: Glucose, Whole Blood 64 mg/dL (60-115)
[2020-07-27] MEDS: Acetaminophen 325 MG TABLET 650 MG PO ×2 (09:25→20:55)
[2020-07-27] MEDS: Aspirin 81 MG TAB.CHEW PO (09:25)
[2020-07-27] MEDS: hydrALAZINE HCl 50 MG TABLET PO ×2 (09:26→20:54)
[2020-07-27] MEDS: clonazePAM 0.5 MG TABLET PO ×3 (09:26→20:55)
[2020-07-27] MEDS: Furosemide 40 MG TABLET PO (09:26)
[2020-07-27] MEDS: amLODIPine Besylate 10 MG TABLET PO (09:27)
[2020-07-27] MEDS: HaloperidoL 5 MG TABLET PO ×2 (09:27→20:55)
[2020-07-27] MEDS: Cholecalciferol (Vitamin D3) 25 MCG TABLET PO (09:36)
--- NOTE | 2020-07-27 10:17 | MHC.CM.ED ---
Patient remains in ER. [facility] or [facility]modal [facility] with [facility]. Patient's Jasmyn will be in the ER to visit patient. Will ask Financial Counselor to see patient and . Continue to monitor for d/c needs.
--- NOTE | 2020-07-27 11:08 | MHC.CM.ED ---
Spoke with Perla in Financial Counseling. Patient's will have to contact their office to complete a [place] syed. Attempted to speak with Jasmyn via telephone at [phone]. Left message requesting return telephone call. Continue to monitor for d/c needs.
[2020-07-27 12:45] LABS: Glucose, Whole Blood 121 mg/dL (60-115)
--- NOTE | 2020-07-27 14:06 | MHC.CM.ED ---
Received return telephone call from patient's , Jasmyn. Information provided about financial counselors. Jasmyn will bring 6 months of bank statements and other financials to Perla in the Financial Counseling office tomorrow. Jasmyn is aware that once [facility] application is complete and copies of bank statements are obtained, referral will be broadcasted in [employer]. Continue to monitor for d/c needs.
--- NOTE | 2020-07-27 18:56 | PC.NURSE ---
Pt aaox4 resting in HB in NAD, breathing with ease on RA. Pt reports neck discomfort, requesting tylenol for this discomfort. Pt offers no additional complaints. Pt provided with his dinner tray, eating. This RN to check pt's POC BGL and to medicate per MAR. Bed is in lowest locked position, rails raised, call sims within reach. Bed alarm active and audible.
--- NOTE | 2020-07-27 19:02 | PC.NURSE ---
This RN spoke with pt's daughter, provided update on plan for CM and placement. Daughter is agreeable.
[2020-07-27 19:04] LABS: Glucose, Whole Blood 221 mg/dL (60-115)
[2020-07-27] MEDS: Insulin Lispro 100 UNIT/ML 3 ML VIAL SUBCUT (19:13)
[2020-07-27] MEDS: Insulin Glargine,Hum.rec.anlog 100 UNIT/ML 10 ML VIAL 30 UNIT SUBCUT (20:53)
[2020-07-27] MEDS: Atorvastatin Calcium 80 MG TABLET PO (20:55)
[2020-07-27 21:01] LABS: Glucose, Whole Blood 225 mg/dL (60-115)
--- NOTE | 2020-07-27 21:42 | MHC.CM.ED ---
Pleasant and cooperative. Pt sleeping when CM went to check in with him. Awaiting [facility] application completion. Pt desires LTC.
[2020-07-28] VITALS (7 sets, daily range): BP systolic 112–163; BP diastolic 56–96; PULSE 81–90; RESP 14–18; TEMP 37–37.2; O2SAT 96–98
[2020-07-28] MEDS: Aspirin 81 MG TAB.CHEW PO (08:19)
[2020-07-28] MEDS: Furosemide 40 MG TABLET PO (08:19)
[2020-07-28] MEDS: amLODIPine Besylate 10 MG TABLET PO (08:21)
[2020-07-28] MEDS: Omeprazole 20 MG CAPSULE.DR PO ×2 (08:21→16:19)
[2020-07-28] MEDS: HaloperidoL 5 MG TABLET PO ×2 (08:21→21:19)
[2020-07-28] MEDS: clonazePAM 0.5 MG TABLET PO ×3 (08:22→21:19)
[2020-07-28] MEDS: Cholecalciferol (Vitamin D3) 25 MCG TABLET PO (08:22)
[2020-07-28] MEDS: Acetaminophen 325 MG TABLET 650 MG PO (08:22)
[2020-07-28] MEDS: hydrALAZINE HCl 50 MG TABLET PO ×2 (09:04→21:17)
[2020-07-28 12:50] LABS: Glucose, Whole Blood 214 mg/dL (60-115)
[2020-07-28 17:39] LABS: Glucose, Whole Blood 189 mg/dL (60-115)
[2020-07-28] MEDS: Atorvastatin Calcium 80 MG TABLET PO (21:19)
[2020-07-28 21:21] LABS: Glucose, Whole Blood 190 mg/dL (60-115)
--- NOTE | 2020-07-28 22:35 | PC.NURSE ---
FULL BED CHANGE AND JS CARE PREFORMED. PT REPOSITIONED OFF OF SIDE AND PADDED WITH PILLOWS SKIN SKIN IS INTACT.
[2020-07-29] VITALS (8 sets, daily range): BP systolic 122–145; BP diastolic 52–70; PULSE 60–87; RESP 16–20; TEMP 37.2; O2SAT 94–98
--- NOTE | 2020-07-29 02:53 | PC.NURSE ---
Shift note: Pt's skin showed no abnormalities and was frequently repositioned to promote cushioning. Pt refused supper, POC was 190. with permission from ZACARIAS Zuniga, night insulin was held. Vss. Pt is awaiting placement for LTC. Pt did have condom catheter but would frequently remove it. Pt given urinal instead. Pt continues to rest without difficulty. vss.
[2020-07-29] MEDS: Omeprazole 20 MG CAPSULE.DR PO ×2 (07:06→16:57)
[2020-07-29 07:15] LABS: Glucose, Whole Blood 186 mg/dL (60-115)
[2020-07-29] MEDS: Cholecalciferol (Vitamin D3) 25 MCG TABLET PO (08:42)
[2020-07-29] MEDS: amLODIPine Besylate 10 MG TABLET PO (08:42)
[2020-07-29] MEDS: HaloperidoL 5 MG TABLET PO ×2 (08:42→21:48)
[2020-07-29] MEDS: Furosemide 40 MG TABLET PO (08:43)
[2020-07-29] MEDS: Aspirin 81 MG TAB.CHEW PO (08:43)
[2020-07-29] MEDS: clonazePAM 0.5 MG TABLET PO ×3 (08:43→21:48)
[2020-07-29] MEDS: hydrALAZINE HCl 50 MG TABLET PO ×2 (08:43→21:48)
--- NOTE | 2020-07-29 09:49 | MHC.CM.ED ---
Received telephone call from patient's , Jasmyn. She did not get a chance to go to [facility] financial counselors office on . Will be here today at 2pm. Jacqueline Thomas aware. Continue to monitor for d/c needs.
--- NOTE | 2020-07-29 13:35 | PC.NURSE ---
PT INCONTINENT OF URINE AND LARGE BM. CLEANED AND BEDDING CHANGED. REPOSITIONED FOR COMFORT. RN AWARE.
--- NOTE | 2020-07-29 15:49 | MHC.CM.ED ---
Received notification from Mckenna TERRELL. Patient and are requesting to speak with case management. Met with patient and Jasmyn. Jasmyn met with the financial counselors today. However, she was not able to complete the application because there is more paperwork she needs to bring. Bull is requesting to go home. Jasmyn states she will not be able to take patient home without him being able to ambulate. Patient has refused to ambulate at this time. Patient states we'll hire private help. T/W explained it's Saturday afternoon and it is unlikely even a temporary agency will be able to provide help prior to Saturday. Patient is agreeable to stay in ER. Jasmyn states she will take patient home if he is able to ambulate. Patient has been encouraged to ambulate with staff this weekend. Mckenna TERRELL aware. Continue to monitor for d/c needs.
[2020-07-29 17:13] LABS: Glucose, Whole Blood 214 mg/dL (60-115)
[2020-07-29] MEDS: Acetaminophen 325 MG TABLET 650 MG PO (17:23)
[2020-07-29 21:45] LABS: Glucose, Whole Blood 195 mg/dL (60-115)
[2020-07-29] MEDS: Atorvastatin Calcium 80 MG TABLET PO (21:48)
[2020-07-29] MEDS: Insulin Glargine,Hum.rec.anlog 100 UNIT/ML 10 ML VIAL 30 UNIT SUBCUT (21:49)
[2020-07-30 04:59] VITALS: BP 157/72; PULSE 79; RESP 16; O2SAT 98
[2020-07-30 05:02] VITALS: TEMP 36.8
[2020-07-30] MEDS: Omeprazole 20 MG CAPSULE.DR PO ×2 (06:18→16:32)
[2020-07-30 08:46] VITALS: BP 133/62; PULSE 91
[2020-07-30] MEDS: HaloperidoL 5 MG TABLET PO ×2 (08:46→22:56)
[2020-07-30] MEDS: amLODIPine Besylate 10 MG TABLET PO (08:46)
[2020-07-30] MEDS: Aspirin 81 MG TAB.CHEW PO (08:46)
[2020-07-30 08:48] VITALS: BP 133/62; PULSE 91
[2020-07-30] MEDS: Furosemide 40 MG TABLET PO (08:48)
[2020-07-30] MEDS: Cholecalciferol (Vitamin D3) 25 MCG TABLET PO (08:48)
[2020-07-30] MEDS: clonazePAM 0.5 MG TABLET PO ×3 (08:48→22:57)
[2020-07-30] MEDS: hydrALAZINE HCl 50 MG TABLET PO ×2 (08:48→22:57)
--- NOTE | 2020-07-30 11:11 | MHC.CM.ED ---
Review of past notes: pt is awaiting financial abilitiy to transistion to LTC: Spouse has brought in financial documents but the application has not been completed and will need f/u on Saturday. Per review of notes, spouse can take pt home to wait for insurance approval IF pt can ambulate. He has been refusing all requests/attempts while in the ED. This CM asked pt if he would ambulate with her to which he replied, just get me home, don't worry about walking me like a dog Pt's spouse cannot safely care for pt without him ambulating. Pt will continue to board in ED until he is accepted with LTC payor source or until he can safely ambulate for a return to home.
[2020-07-30 22:57] VITALS: BP 127/59; PULSE 85
[2020-07-30] MEDS: Atorvastatin Calcium 80 MG TABLET PO (22:57)
[2020-07-30] MEDS: Insulin Glargine,Hum.rec.anlog 100 UNIT/ML 10 ML VIAL 30 UNIT SUBCUT (22:59)
[2020-07-30 23:03] VITALS: BP 127/59; PULSE 85; RESP 18; O2SAT 97
[2020-07-30 23:05] LABS: Glucose, Whole Blood 199 mg/dL (60-115)
--- NOTE | 2020-07-31 07:04 | PC.NURSE ---
report taken from clarke rn pt cleaned of urinary incontinence, able to roll w some slight assistance. no noted skin breakdown. pt asking for tylenol. estm.
[2020-07-31] MEDS: Acetaminophen 325 MG TABLET 975 MG PO (07:48)
[2020-07-31] MEDS: Omeprazole 20 MG CAPSULE.DR PO ×2 (07:48→15:59)
--- NOTE | 2020-07-31 08:59 | PC.NURSE ---
took po medications w/o issues, ate breakfast w assistance. given phone to call son.
[2020-07-31] MEDS: HaloperidoL 5 MG TABLET PO ×2 (09:52→20:47)
[2020-07-31] MEDS: Cholecalciferol (Vitamin D3) 25 MCG TABLET PO (09:52)
[2020-07-31] MEDS: Aspirin 81 MG TAB.CHEW PO (09:52)
[2020-07-31 09:53] VITALS: BP 127/58; PULSE 80
[2020-07-31] MEDS: amLODIPine Besylate 10 MG TABLET PO (09:53)
[2020-07-31] MEDS: Furosemide 40 MG TABLET PO (09:53)
[2020-07-31] MEDS: clonazePAM 0.5 MG TABLET PO ×3 (09:53→20:47)
[2020-07-31] MEDS: hydrALAZINE HCl 50 MG TABLET PO ×2 (09:53→20:47)
--- NOTE | 2020-07-31 12:50 | PC.NURSE ---
after pt speaking w son on phone, pt asking this rn to speak to son. pt son expressed trying to arrange an ambulance for dc home. pt son educated about need for hospital to coordinate ambulance services and potential for discharge. case mgmt nurse made aware of families wishes, sts she will reach out to pt family.
--- NOTE | 2020-07-31 13:11 | MHC.CM.ED ---
Addendum entered by Lydia Soriano 07/31/20 14:39: Call placed to [facility]alliative: no one is available for consults or to authorize pt acceptance onto service. Call placed to Albin and Jasmyn via conference call: Explained the barriers to getting pt home today - mainly lack of home service confirmation. Family agrees to wait until 08/01 for finalization of d/c plan. This will also give Albin more time to arrange home in anticipation of pt returning. Reiterated the high care needs of pt and inquired on LTC placement to which they both declined. Reminded Albin and Jasmyn that pt may need additional [facility] [employer] [employer] services as Albin works and Jasmyn cannot lift or transfer. They both verbalized understanding stating the goal is to get pt home. Updated pt on plan for return to home tomorrow. Will await acceptance to palliative services via [facility]. Pt will need BLS transport to home Original Note: Met with pt to check in: he verbalized feeling depressed about his situation. Asked to return to home. Spoke with pt's primary ED RN who noted pt was more depressed than on previous visits. Pt has the start of lower extremity atrophy: passive ROM given by RN. No attempts to ambulate pt d/t his declination. Call placed to pt's spouse, Jasmyn: message left. Received a call from pt's son, Albin at [phone]. He states he is going to move back into the home to assist with pt's care needs. He has discussed this plan with Jasmyn and Bull and all are in agreement. Discussed goals of care with family: Bull verbalized feeling tired and frustrated with frequent returns to the hospital: does not want LTC placement at this time, I want to go home, please, that's all I want. Discussed pt's care needs with Albin at length including transfers, ADL's, equipment needed, support services, continued supervision, to which he stated he was able to provide until more care services could be implemented at the home. Discussed Palliative referral as pt indicated not wanting to pursue/continue aggressive medical management - family receptive to [facility] for palliative home services. Referral placed. Will finalize plans with pt and family today and plan for BLS transfer to home.
[2020-07-31 13:47] VITALS: BP 134/63; PULSE 84; RESP 17; O2SAT 96
[2020-07-31 13:52] LABS: Glucose, Whole Blood 259 mg/dL (60-115)
--- NOTE | 2020-07-31 16:19 | PC.NURSE ---
pt reports urinary and bm incontinence, changed w minimal assistance from pt. given evening medications, tolerating po w/o issue. plan for pt to return home tomorrow once palliative services can be acquired for pt home.
[2020-07-31 19:38] VITALS: BP 122/69; PULSE 89; RESP 16; TEMP 37.3; O2SAT 97
[2020-07-31 20:42] LABS: Glucose, Whole Blood 306 mg/dL (60-115)
[2020-07-31] MEDS: Insulin Glargine,Hum.rec.anlog 100 UNIT/ML 10 ML VIAL 30 UNIT SUBCUT (20:46)
[2020-07-31 20:47] VITALS: BP 122/69; PULSE 89
[2020-07-31] MEDS: Atorvastatin Calcium 80 MG TABLET PO (20:47)
[2020-08-01] VITALS (8 sets, daily range): BP systolic 105–149; BP diastolic 48–85; PULSE 77–93; RESP 16–18; TEMP 36.9–37.7; O2SAT 94–96
--- NOTE | 2020-08-01 00:01 | PC.NURSE ---
Pt asleep on HB in NAD breathing with ease on RA. Pt does not require incontinence care at this time. Bed in lowest locked position, rails raised, call sims within reach. Bed alarm active and audible.
[2020-08-01] MEDS: Omeprazole 20 MG CAPSULE.DR PO ×2 (07:43→18:01)
[2020-08-01 07:49] LABS: Glucose, Whole Blood 145 mg/dL (60-115)
--- NOTE | 2020-08-01 09:47 | MHC.CM.ED ---
Patient remains in ER. Diamond of [facility] will reach out to Jasmyn and Albin about services they offer. Continue to monitor for d/c needs.
[2020-08-01] MEDS: Furosemide 40 MG TABLET PO (09:55)
[2020-08-01] MEDS: Cholecalciferol (Vitamin D3) 25 MCG TABLET PO (09:55)
[2020-08-01] MEDS: HaloperidoL 5 MG TABLET PO ×2 (09:55→20:46)
[2020-08-01] MEDS: hydrALAZINE HCl 50 MG TABLET PO ×2 (09:56→20:45)
[2020-08-01] MEDS: amLODIPine Besylate 10 MG TABLET PO (09:56)
[2020-08-01] MEDS: Aspirin 81 MG TAB.CHEW PO (09:57)
--- NOTE | 2020-08-01 13:30 | MHC.CM.ED ---
Spoke with Jasmyn regarding discharge plan. Jasmyn is agreeable to discharge home with [facility] palliative care r/t protein calorie malnutrition and failure to thrive. Since patient is not able to ambulate, Jasmyn is requsting a hospital bed. T/W contacted Gwendolyn at the [place]. She requested clinical info be faxed to Dr Marsh's office. Requested info faxed to [phone]. Continue to monitor for d/c needs.
--- NOTE | 2020-08-01 14:02 | MHC.CM.ED ---
Received a telephone call from patient's daughter, Courtney. Courtney aware. She is in the process of trying to find 24 hour care for her dad. Courtney verbalizes understanding that patient will need a hospital bed and will be going home with [facility] palliative care when bed is available for patient. Continue to monitor for d/c needs.
[2020-08-01 15:28] LABS: Glucose, Whole Blood 193 mg/dL (60-115)
[2020-08-01] MEDS: Acetaminophen 325 MG TABLET 975 MG PO (19:14)
[2020-08-01 20:18] LABS: Glucose, Whole Blood 248 mg/dL (60-115)
[2020-08-01] MEDS: Atorvastatin Calcium 80 MG TABLET PO (20:44)
[2020-08-01] MEDS: Insulin Glargine,Hum.rec.anlog 100 UNIT/ML 10 ML VIAL 30 UNIT SUBCUT (20:48)
[2020-08-02] VITALS (9 sets, daily range): BP systolic 134–157; BP diastolic 61–72; PULSE 83–87; RESP 16–18; TEMP 37.1; O2SAT 96–98
[2020-08-02] MEDS: Acetaminophen 325 MG TABLET 975 MG PO ×2 (01:20→11:35)
--- NOTE | 2020-08-02 03:00 | PC.NURSE ---
pt was incontinent of urine. pt was cleaned by this nurse, gown and linens changed, patient repositioned to left side.
[2020-08-02] MEDS: Omeprazole 20 MG CAPSULE.DR PO ×2 (08:25→16:50)
[2020-08-02] MEDS: Furosemide 40 MG TABLET PO (08:25)
[2020-08-02] MEDS: amLODIPine Besylate 10 MG TABLET PO (08:25)
[2020-08-02] MEDS: Aspirin 81 MG TAB.CHEW PO (08:26)
[2020-08-02] MEDS: HaloperidoL 5 MG TABLET PO ×2 (08:26→21:15)
[2020-08-02] MEDS: Cholecalciferol (Vitamin D3) 25 MCG TABLET PO (08:26)
[2020-08-02] MEDS: hydrALAZINE HCl 50 MG TABLET PO ×2 (08:26→21:15)
--- NOTE | 2020-08-02 08:31 | PC.NURSE ---
pt soiled, changed over and repositioned to his left side pt ate all his breakfast this morning, needed to be fed
--- NOTE | 2020-08-02 11:01 | PC.NURSE ---
pt's at bedside visiting, the reports pt's that his legs hurt's and is requesting some tylenol
--- NOTE | 2020-08-02 12:56 | PC.NURSE ---
pt reports no change in his leg pain after the tylenol, pain at 8/10 pt incontinent of urine, cleaned up and clean bed linens applied pt refusing to eat lunch at this time, pt not feeling great today, keeps groaning
[2020-08-02 13:01] LABS: Glucose, Whole Blood 209 mg/dL (60-115)
--- NOTE | 2020-08-02 14:55 | MHC.CM.ED ---
Received telephone call from patient's , Jasmyn. She is anticipating patient will discharge home tomorrow. T/W explained all clinical information has been provided to Dr Marsh [facility] that [facility]. Jasmyn also has a call out to [place] to see if she can rent a bed. Continue to monitor for d/c needs.
--- NOTE | 2020-08-02 17:26 | MHC.CM.ED ---
CM spoke with Gwendolyn Garcia RN from the [place]. Hopefully hospital bed will be all set for tomorrow. Pt will be d/c home with [facility] once [facility] bed is obtained. CM to follow for d/c needs.
--- NOTE | 2020-08-02 18:51 | PC.NURSE ---
pt not wanting to eat dinner, this rn encouraged the pt eat some fruit his brought, pt feed the fruit ate a good amount.
[2020-08-02] MEDS: Atorvastatin Calcium 80 MG TABLET PO (21:15)
[2020-08-02 21:16] LABS: Glucose, Whole Blood 217 mg/dL (60-115)
[2020-08-02] MEDS: Insulin Glargine,Hum.rec.anlog 100 UNIT/ML 10 ML VIAL 30 UNIT SUBCUT (21:18)
--- NOTE | 2020-08-02 21:18 | PC.NURSE ---
Patient medicated per emar. Patient's blood sugar is 217 and patient given humalog 30 units.
[2020-08-03 06:00] VITALS: BP 138/58; PULSE 87; RESP 15; O2SAT 97
[2020-08-03] MEDS: Omeprazole 20 MG CAPSULE.DR PO ×2 (06:22→15:44)
[2020-08-03 08:04] LABS: Glucose, Whole Blood 116 mg/dL (60-115)
--- NOTE | 2020-08-03 08:16 | PC.NURSE ---
PT CHANGED AND REPOSITIONED, DID SOME LEG STRETCHING, PT GIVEN BATH AND SHAVED. NEEDS BEING MET
[2020-08-03 09:30] VITALS: BP 144/68; PULSE 87
[2020-08-03] MEDS: Furosemide 40 MG TABLET PO (09:30)
[2020-08-03] MEDS: amLODIPine Besylate 10 MG TABLET PO (09:30)
[2020-08-03] MEDS: hydrALAZINE HCl 50 MG TABLET PO ×2 (09:30→22:11)
[2020-08-03] MEDS: Aspirin 81 MG TAB.CHEW PO (09:31)
[2020-08-03] MEDS: Cholecalciferol (Vitamin D3) 25 MCG TABLET PO (09:31)
[2020-08-03] MEDS: HaloperidoL 5 MG TABLET PO ×2 (09:31→22:11)
--- NOTE | 2020-08-03 10:55 | MHC.CM.ED ---
Patient remains in the ER. Gwendolyn from the [place] is finding out where they are in the process of getting authorization for a hospital bed. Continue to monitor for d/c needs.
--- NOTE | 2020-08-03 11:52 | MHC.CM.ED ---
Received voicemail from patient's , Jasmyn stating that they want patient to be put on hospice. T/W spoke with patient's daughter, Courtney via telephone at [phone]. Courtney confirmed family is interested in hospice. [facility] made notified and was asked to reach out to patient's daughter. Continue to monitor for d/c needs.
--- NOTE | 2020-08-03 12:37 | MHC.CM.ED ---
Received telephone call from Diamond of [facility]. Courtney is on board for hospice. But she would like Diamond to speak to Jasmyn and Albin to make sure they are also on board. If all 3 are agreeable, [facility] will be able to have him discharge home tomorrow 08/04. Continue to monitor for d/c needs.
[2020-08-03 15:12] LABS: Glucose, Whole Blood 150 mg/dL (60-115)
--- NOTE | 2020-08-03 18:04 | PC.NURSE ---
pt refuses supper. repositioned to left side. pericare preformed. vss.
[2020-08-03 21:32] LABS: Glucose, Whole Blood 226 mg/dL (60-115)
[2020-08-03] MEDS: Insulin Glargine,Hum.rec.anlog 100 UNIT/ML 10 ML VIAL 30 UNIT SUBCUT (22:10)
[2020-08-03 22:11] VITALS: BP 123/78; PULSE 65
[2020-08-03] MEDS: Atorvastatin Calcium 80 MG TABLET PO (22:11)
[2020-08-03 23:42] VITALS: BP 145/83; PULSE 87; RESP 16; O2SAT 96
[2020-08-04 07:15] LABS: Glucose, Whole Blood 185 mg/dL (60-115)
[2020-08-04 07:37] VITALS: BP 130/70; PULSE 87; RESP 20; O2SAT 99
[2020-08-04] MEDS: Acetaminophen 325 MG TABLET 975 MG PO ×2 (08:03→22:48)
[2020-08-04] MEDS: Cholecalciferol (Vitamin D3) 25 MCG TABLET PO (08:03)
[2020-08-04 08:04] VITALS: BP 130/70; PULSE 87
[2020-08-04] MEDS: Aspirin 81 MG TAB.CHEW PO (08:04)
[2020-08-04] MEDS: amLODIPine Besylate 10 MG TABLET PO (08:04)
[2020-08-04] MEDS: Omeprazole 20 MG CAPSULE.DR PO (08:04)
[2020-08-04] MEDS: hydrALAZINE HCl 50 MG TABLET PO ×2 (08:04→22:49)
[2020-08-04] MEDS: HaloperidoL 5 MG TABLET PO ×2 (08:05→23:05)
[2020-08-04] MEDS: Furosemide 40 MG TABLET PO (08:05)
--- NOTE | 2020-08-04 09:57 | MHC.CM.ED ---
Received telephone call from Diamond at [facility]. Hospital bed is being delivered today. Patient can leave at 11am. Received telephone call from Lo at the [place]. It has been decided patient will go to [facility] on [address] under hospice. Clinical info will need to be faxed to Dr Marsh's office for [facility] approval. Clinical info faxed as requested. Clinical updates sent to [facility]. Received telephone call from Sukumar at [facility]. She already told [facility] that clinical info would be coming. Received a telephone call from Beth at [facility] on [address]. Patient has been denied for [facility] and all [facility] facilities. Referral has been broadcasted to all facilities contracted with the [place] with 40 miles. Continue to monitor or d/c needs.
[2020-08-04 14:00] VITALS: RESP 16
--- NOTE | 2020-08-04 16:06 | MHC.CM.ED ---
Received telephone call from patient's , Jasmyn. Jasmyn stated she wants to take the patient home with hospice. Attempted to reach patient's daughter/HCP Courtney via telephone at [phone]. Left message requesting return telephone call. Spoke with Sukumar at [facility] via telephone at [phone]. Sukumar aware Jasmyn wants to take patient home. Received return telephone call from patient's daughter, Courtney. Discharge plan will be re-discussed between Courtney and T/W tomorrow. Continue to monitor for d/c needs.
[2020-08-04 22:48] LABS: Glucose, Whole Blood 220 mg/dL (60-115)
[2020-08-04 22:49] VITALS: BP 134/87; PULSE 87
[2020-08-04] MEDS: Insulin Glargine,Hum.rec.anlog 100 UNIT/ML 10 ML VIAL 30 UNIT SUBCUT (22:49)
[2020-08-04] MEDS: Atorvastatin Calcium 80 MG TABLET PO (22:49)
[2020-08-05] VITALS (8 sets, daily range): BP systolic 135–153; BP diastolic 61–73; PULSE 86–92; RESP 16–18; TEMP 36.6–37.2; O2SAT 95–99
[2020-08-05] MEDS: Omeprazole 20 MG CAPSULE.DR PO ×2 (07:55→16:08)
[2020-08-05 08:04] LABS: Glucose, Whole Blood 179 mg/dL (60-115)
[2020-08-05] MEDS: Acetaminophen 325 MG TABLET 975 MG PO ×2 (08:28→16:29)
[2020-08-05] MEDS: Aspirin 81 MG TAB.CHEW PO (08:29)
[2020-08-05] MEDS: amLODIPine Besylate 10 MG TABLET PO (08:29)
[2020-08-05] MEDS: HaloperidoL 5 MG TABLET PO ×2 (08:29→20:23)
[2020-08-05] MEDS: hydrALAZINE HCl 50 MG TABLET PO ×2 (08:29→20:23)
[2020-08-05] MEDS: Furosemide 40 MG TABLET PO (08:30)
[2020-08-05] MEDS: Cholecalciferol (Vitamin D3) 25 MCG TABLET PO (08:30)
[2020-08-05 11:53] LABS: Glucose, Whole Blood 262 mg/dL (60-115)
--- NOTE | 2020-08-05 13:54 | MHC.CM.ED ---
Patient remains in ER. Re[facility] telephone call from [facility] at [facility]. Diamond spoke with patient's daughter/HCP Courtney. Courtney does not feel patient can be safely cared for at home. T[facility]w spoke with [facility] at [facility]. Gwendolyn is recommending a psych consult to see if patient will qualify for inpatient psych at [facility] in [place]. Referral broadcasteded [employer] to all facilities within 100 miles of patient's home that are contracted with the [facility]. Spoke with Mame at[address] [place] [address] in [place], [place]. They are 2 [place] a half hours away from patient's residence. If family is wiling to go that far, they can potentially accept him. Anna can be reached at [phone] if family is agreeable. Waiting for psych consult to be completed before any additional discharge plans can be offered to patient. Continue to monitor for d/c needs.
--- NOTE | 2020-08-05 13:56 | PC.NURSE ---
BREAKFAST 09:00 ATE 100% OF BREAKFAST
[2020-08-05] MEDS: Magnesium Citrate 300 ML SOLUTION PO (16:08)
--- NOTE | 2020-08-05 16:09 | PC.NURSE ---
ASSUMED CARE OF PT. PT RESTING IN STRETCHER C/O LEG PAIN AND REQUESTING A ENEMA. MD AWARE AND ORDERED MAG CITRATE. PT ALSO REQUESTING TYLENOL FOR HEADACHE. WILL CONTINUE TO MONITOR PT.
--- NOTE | 2020-08-05 18:44 | PC.NURSE ---
PT RESTING IN STRETCHER IN NAD. WILL CONTINUE TO MONITOR PT
[2020-08-05] MEDS: Atorvastatin Calcium 80 MG TABLET PO (20:23)
[2020-08-05] MEDS: Insulin Glargine,Hum.rec.anlog 100 UNIT/ML 10 ML VIAL 30 UNIT SUBCUT (20:25)
--- NOTE | 2020-08-05 23:35 | PC.NURSE ---
PT CLEANED UP, FRESH SHEET, AND VS OBTAINED. PT DENIES ANY COMPLAINTS. PT DRINKING WATER. WILL CONTINUE TO MONITOR PT.
[2020-08-06] VITALS (7 sets, daily range): BP systolic 104–151; BP diastolic 48–77; PULSE 77–94; RESP 16–20; O2SAT 96–98
--- NOTE | 2020-08-06 02:02 | PC.NURSE ---
pt sleeping, wakes to voice and denies any complaints at this time.
[2020-08-06] MEDS: Omeprazole 20 MG CAPSULE.DR PO ×2 (06:49→16:36)
--- NOTE | 2020-08-06 07:30 | PC.NURSE ---
Pt changed and repositioned.
--- NOTE | 2020-08-06 08:51 | PC.NURSE ---
Spoke to psychiatry and CARE team regarding Psych consult order.
[2020-08-06] MEDS: Aspirin 81 MG TAB.CHEW PO (10:01)
[2020-08-06] MEDS: Furosemide 40 MG TABLET PO (10:01)
[2020-08-06] MEDS: Cholecalciferol (Vitamin D3) 25 MCG TABLET PO (10:02)
[2020-08-06] MEDS: amLODIPine Besylate 10 MG TABLET PO (10:02)
[2020-08-06] MEDS: HaloperidoL 5 MG TABLET PO ×2 (10:02→23:17)
[2020-08-06] MEDS: hydrALAZINE HCl 50 MG TABLET PO ×2 (10:02→23:16)
--- NOTE | 2020-08-06 10:12 | MHC.CARE ---
CARE Team does not recommend psychiatric intervention at this time. Pt to continue to be followed by Case Management. ED provider in agreement with plan of care.
--- NOTE | 2020-08-06 10:42 | PC.NURSE ---
Pt accepted all AM meds. Alert and oriented. When asked about current mental state pt reports good right now Denies pain/discomfort. Ate 100% on breakfast. PER CARE team, no consult to be done and case management to follow up with placement options.
--- NOTE | 2020-08-06 12:13 | PC.NURSE ---
visited bedside. Pt sleeping at this time.
[2020-08-06 12:15] LABS: Glucose, Whole Blood 208 mg/dL (60-115)
[2020-08-06] MEDS: Acetaminophen 325 MG TABLET 975 MG PO (16:36)
[2020-08-06] MEDS: Insulin Glargine,Hum.rec.anlog 100 UNIT/ML 10 ML VIAL 30 UNIT SUBCUT (23:16)
[2020-08-06] MEDS: Atorvastatin Calcium 80 MG TABLET PO (23:17)
[2020-08-06 23:30] LABS: Glucose, Whole Blood 213 mg/dL (60-115)
[2020-08-07] MEDS: Acetaminophen 325 MG TABLET 975 MG PO (06:03)
--- NOTE | 2020-08-07 06:04 | PC.NURSE ---
pt repositioned and changed several times throughout the night. pt reports that he has not been out of bed in days. pt also reports that he has not moved his bowels in 2-3 days.
[2020-08-07] MEDS: Omeprazole 20 MG CAPSULE.DR PO ×2 (06:14→17:35)
[2020-08-07 06:16] VITALS: PULSE 77; RESP 16; O2SAT 98
[2020-08-07 07:24] LABS: Glucose, Whole Blood 125 mg/dL (60-115)
--- NOTE | 2020-08-07 07:53 | PC.NURSE ---
pt fed and repositioned, routine labs ordered, pt alert
[2020-08-07 08:49] LABS: MANUAL DIFF FLAG NO
[2020-08-07 08:50] LABS: Basophils Absolute Auto 0.1 X10*3/uL (0.0-0.2); Basophils Percent Auto 0.9 % (0-2); Eosinophils Absolute Auto 0.1 X10*3/uL (0.0-0.4); Eosinophils Percent Auto 1.4 % (0-4); Hematocrit 40.1 % (42-52); Hemoglobin 13.3 g/dl (14.0-18.0); Imm Gran Abs Auto 0.02 X10*3/uL (0.00-0.03); Imm Gran Pct Auto 0.3 % (0.0-0.4); Lymphocytes Absolute Auto 2.1 X10*3/uL (1.2-4.9); Mean Corpuscular HGB Conc 33.2 g/dl (31.0-36.0); Mean Corpuscular Hemoglobin 29.5 pg (27.0-33.0); Mean Corpuscular Volume 88.9 fL (80-98); Mean Platelet Volume 11.1 fL (9.4-12.4); Monocytes Absolute Auto 0.8 X10*3/uL (0.1-1.2); Monocytes Percent Auto 10.4 % (2-11); Neutrophils Absolute Auto 4.3 X10*3/uL (2.0-8.3); Platelet Count 230 X10*3/uL (160-400); Red Blood Count 4.51 X10*6/uL (4.60-5.80); Red Cell Distribution Width 13.6 % (11.0-16.0); White Blood Count 7.4 X10*3/uL (4.8-10.8)
[2020-08-07 09:12] LABS: Anion Gap 14 (12-20); Blood Urea Nitrogen 55 mg/dL (9-16); Calcium 9.5 mg/dL (8.4-10.2); Carbon Dioxide 25 mmol/L (22-29); Chloride 102 mmol/L (96-108); Creatinine Clr Calc Pharmacy 24.4; Estimated Glomerular Filt Rate 21; Glucose Random 177 mg/dL (60-115); Potassium 4.2 mmol/L (3.3-5.1); Sodium 137 mmol/L (135-145)
[2020-08-07 09:23] VITALS: BP 132/52; PULSE 80
[2020-08-07] MEDS: amLODIPine Besylate 10 MG TABLET PO (09:23)
[2020-08-07 09:24] VITALS: BP 132/52; PULSE 80
[2020-08-07] MEDS: Cholecalciferol (Vitamin D3) 25 MCG TABLET PO (09:24)
[2020-08-07] MEDS: Furosemide 40 MG TABLET PO (09:24)
[2020-08-07] MEDS: Aspirin 81 MG TAB.CHEW PO (09:24)
[2020-08-07] MEDS: hydrALAZINE HCl 50 MG TABLET PO ×2 (09:24→21:40)
[2020-08-07] MEDS: HaloperidoL 5 MG TABLET PO ×2 (09:25→21:40)
[2020-08-07 11:07] LABS: Glucose, Whole Blood 205 mg/dL (60-115)
[2020-08-07] MEDS: bisacodyL 5 MG TABLET.DR 10 MG PO (14:05)
--- NOTE | 2020-08-07 14:24 | MHC.CM.PN ---
CM MET /CARE TEAM AND THEY ARE NOT RECOMMENDING A PSYCH ADMISSION, CM DID ATTAMPT TO CALL PAULIE AT [phone] TO ASK IF SHE WOULD BE WILLING TO [facility] [place], NO ANSWER, MESSAGE LEFT.
[2020-08-07 15:37] VITALS: BP 157/83; PULSE 85; RESP 16; TEMP 36.9; O2SAT 96
[2020-08-07] MEDS: LORazepam 1 MG TABLET PO (17:35)
[2020-08-07] MEDS: diphenhydrAMINE HCL 50 MG/ML VIAL IM (18:18)
[2020-08-07 21:38] LABS: Glucose, Whole Blood 169 mg/dL (60-115)
[2020-08-07 21:40] VITALS: BP 139/77; PULSE 83
[2020-08-07] MEDS: Atorvastatin Calcium 80 MG TABLET PO (21:40)
[2020-08-07 21:41] VITALS: BP 139/77; PULSE 86; RESP 16; TEMP 36.9; O2SAT 99
[2020-08-08] VITALS (9 sets, daily range): BP systolic 118–144; BP diastolic 60–74; PULSE 77–88; RESP 16–18; TEMP 36.7–37.1; O2SAT 95–98
--- NOTE | 2020-08-08 03:19 | PC.NURSE ---
TAKING OVER CARE FOR PATIENT, AWAITING PLACEMENT WITH CASE MANAGEMENT, CLEARED BY CARE TEAM FOR [facility]
[2020-08-08 07:14] LABS: Glucose, Whole Blood 218 mg/dL (60-115)
--- NOTE | 2020-08-08 07:45 | PC.NURSE ---
pt sat up, ate breakfast with minimal assistance. 1000ml drained from condom cath. pt in good spirits and awaiting his to bring him lunch today.
[2020-08-08] MEDS: Aspirin 81 MG TAB.CHEW PO (08:17)
[2020-08-08] MEDS: Furosemide 40 MG TABLET PO (08:17)
[2020-08-08] MEDS: Omeprazole 20 MG CAPSULE.DR PO ×2 (08:17→17:58)
[2020-08-08] MEDS: Cholecalciferol (Vitamin D3) 25 MCG TABLET PO (08:17)
[2020-08-08] MEDS: HaloperidoL 5 MG TABLET PO ×2 (08:17→21:17)
[2020-08-08] MEDS: hydrALAZINE HCl 50 MG TABLET PO ×2 (08:18→21:16)
[2020-08-08] MEDS: amLODIPine Besylate 10 MG TABLET PO (08:18)
[2020-08-08 10:54] LABS: Glucose, Whole Blood 261 mg/dL (60-115)
--- NOTE | 2020-08-08 11:02 | MHC.CM.ED ---
Patient remains in ER. Received voicemail from Jasmyn stating patient was not going to go to a facility in [place] and that he has plenty of care at home . Jasmyn has a history of CVA. Daughter Courtney is patient's HCP. Left a voicemail for Courtney at [phone] requesting return telephone call. Continue to monitor for d/c needs.
--- NOTE | 2020-08-08 15:42 | MHC.CM.ED ---
Left another voicemail for patient's daughter/HCP Courtney at [phone]. Left a message requesting a return telephone call. Continue to monitor for d/c needs.
--- NOTE | 2020-08-08 16:49 | MHC.CM.ED ---
Received telephone call from Courtney. Patient has 21 [facility] home care hours a week. Courtney's brother will be privately paying for 6 hours a day, 7 days a week through [facility] care. [employer] has been arranged for 7 days a week. [facility] has been arranged. [facility] will assess to see if patient is eligible for any other services. Courtney feels patient can safely return home with all of these services in place. T/W spoke with Diamond of [facility]. Hospital bed is already at patient's house. Tomorrow, Wednesday 08/09, a time to transport patient home on hospice will be arranged. T/W attempted to let patient's , Jasmyn know by telephone. Left voicemail explaining discharge plan with contact number. Continue to monitor for d/c needs.
[2020-08-08 17:45] LABS: Glucose, Whole Blood 262 mg/dL (60-115)
--- NOTE | 2020-08-08 18:57 | PC.NURSE ---
Pt resting on HB in NAD, breathing with ease on RA. Pt provided with water per request, reposition to L side, urine drainage bag emptied. Pt offers no complaints. Pt aware and agreeable to plan for DC to home tomorrow. Pt bed is in lowest locked position, rails raised, call sims within reach. Bed alarm active and audible.
[2020-08-08 21:15] LABS: Glucose, Whole Blood 261 mg/dL (60-115)
[2020-08-08] MEDS: Atorvastatin Calcium 80 MG TABLET PO (21:16)
[2020-08-08] MEDS: Insulin Glargine,Hum.rec.anlog 100 UNIT/ML 10 ML VIAL 30 UNIT SUBCUT (21:17)
--- NOTE | 2020-08-09 01:07 | PC.NURSE ---
Pt called out for assistance, this rn to bedside provided water per request, repositioned patient to right side. Condom cath draining appropriately
--- NOTE | 2020-08-09 08:04 | PC.NURSE ---
PT ATE FULL BREAKFAST. PT WASHED AND LINENS CHANGED.
--- NOTE | 2020-08-09 09:44 | MHC.CM.ED ---
Patient remains in ER. Per Diamond at [facility], daughter Courtney will have to sign hospice paperwork. She is at work today. Diamond is going to have the consents faxed to her work. Patient's son Albin will be at the house when patient arrives. [facility] will have to book transport when a discharge time is available. Continue to monitor for d/c needs.
[2020-08-09 10:27] VITALS: BP 131/72; PULSE 91; RESP 18; O2SAT 98
[2020-08-09] MEDS: Cholecalciferol (Vitamin D3) 25 MCG TABLET PO (10:28)
[2020-08-09] MEDS: amLODIPine Besylate 10 MG TABLET PO (10:28)
[2020-08-09 10:29] VITALS: BP 132/88
[2020-08-09] MEDS: Aspirin 81 MG TAB.CHEW PO (10:29)
[2020-08-09] MEDS: HaloperidoL 5 MG TABLET PO (10:29)
[2020-08-09] MEDS: hydrALAZINE HCl 50 MG TABLET PO (10:29)
[2020-08-09] MEDS: Furosemide 40 MG TABLET PO (10:29)
[2020-08-09] MEDS: Omeprazole 20 MG CAPSULE.DR PO (10:29)
[2020-08-09] MEDS: Acetaminophen 325 MG TABLET 975 MG PO (10:37)
--- NOTE | 2020-08-09 10:55 | MHC.CM.ED ---
Per Diamond at [facility], consents are signed. Patient can d/c home. [facility] Alert BLS booked for 12pm pharmacy picking technician. Med [facility] with chart. Patient, hcp/daughter, Talib Valdez RN and Rubi NEW aware. Continue to monitor for d/c needs.
== END 2020-08-09 13:07 | disposition home or self-care (01) ==
PROVIDERS: Emergency Provider Emergency Medicine; PCP Internal Medicine
DX: R62.7 Adult failure to thrive (principal); R53.1 Weakness; R60.0 Localized edema; E11.22 Type 2 diabetes mellitus with diabetic chronic kidney disease; I12.9 Hypertensive chronic kidney disease with stage 1 through stage 4 chronic kidney disease, or unspecified chronic kidney disease; N18.9 Chronic kidney disease, unspecified; Z20.822 Contact with and (suspected) exposure to COVID-19; F32.9 Major depressive disorder, single episode, unspecified; M79.605 Pain in left leg; M79.604 Pain in right leg; R51.9 Headache, unspecified; Z79.4 Long term (current) use of insulin; Z51.5 Encounter for palliative care
CPT/HCPCS: 36415; 71045; 80048; 80076; 81001; 82550; 82947; 83735; 83880; 85025; 85610; 85730; 87635; 93005; 93970; 96372; 97162; 99285; J1200

== ENCOUNTER 2020-08-01 00:27 | Outpatient (REF) | payer MEDICARE, OTHER, SELFPAY | END 2020-08-01 00:28 | disposition home or self-care (01) | LOC: HO.MMNH1L 00:27 | PROVIDERS: Visit Provider Family Medicine | DX: Z13.89 Encounter for screening for other disorder (principal) ==